=== PATIENT | male | born 1930 | race Caucasian/White ===

== ENCOUNTER → 2016-09-13 | Outpatient (CLI) | payer MEDICARE, BC ==
--- NOTE | 2016-09-13 13:36 | CT ---
EXAMINATION TYPE: CT lumbar spine wo con DATE OF EXAM: 09/13/2016 12:12 PM COMPARISON: NONE HISTORY: Low back pain, spondylosis without myelopathy, and lumbar region spinal stenosis per order. Pain in back extending into right buttocks and thigh per patient. Weakness in left leg per patient. CT DLP: 780.0 mGycm Automated exposure control for dose reduction was used. FINDINGS: 5 lumbar type vertebra are identified. There is marked disc space loss L4-L5 level. There is attempte d surgery with artificial disc noted along the left lateral articulation of L4 and L5 vertebra. The L 5 vertebra is shifted just over 2 cm to the left of midline relative to the L4 vertebra. Some ossific fusion at this L4-L5 level is felt present. Posterior surgical change with multilevel laminectomy de fects and spinous process resection in the lower lumbar spine is seen. Posterior irregular soft tissu e suspected scar tissue extends to the spinal canal. Vertebral body and disc space heights above L4 l evel are felt within normal limits. Review of axial images shows the T12-L1 and L1-L2 levels to appear within normal limits. Axial images at L2-L3 level show mild broad disc bulge and mild facet degenerative changes bilaterall y. There is slightly more prominent right foraminal disc protrusion component on axial image 53. Ther e is mild right-sided neural foraminal narrowing noted. Axial images at the L3-L4 level show bilateral laminectomy defects and spinous process resection. Pos terior scar tissue is seen. Spinal canal is preserved. Bilateral neural foramina are felt mildly encr oached on sagittal images. Axial images at L4-L5 level show posterior surgical change with surrounding scar tissue around spinal canal. There is moderate to severe facet arthropathy bilaterally. Right-sided neural foramen is simmons nt. Left-sided neural foramina is obliterated by heterotopic ossification and leftward shift of L5 ve rtebra. Axial images at L5-S1 level show moderate facet arthropathy bilaterally. Posterior surgical change wi th scar tissue is present. Spinal canal appears preserved. Left-sided neural foramen is patent. Right side is moderately narrowed seen best sagittal image 16 with some marginal spurring present. Linear calcifications along course of the right S1 exiting nerve through the sacral ala with more pos terior scar tissue is noted near axial image 80. Etiology uncertain. Moderate calcifications of aorta extending into branch vessels is seen. There is suspected 2 mm nonob structing calculus mid to lower pole level right kidney on coronal image 13. There is aortobiiliac st ent graft noted beginning just above renal artery origins. IMPRESSION: ATTEMPTED SURGERY IN THE LOWER LUMBAR SPINE WITH SATISFACTORY POSTERIOR DECOMPRESSION. THERE IS PERSI STENT MALALIGNMENT L4-L5 LEVEL. 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 OTHER FINDINGS ARE NOTED DETAILED ABOVE.
== END | disposition home or self-care (01) ==
LOC: RADCTMAIN 11:54
PROVIDERS: ATTEND Physical Medicine & Rehabilitation
DX: M48.06 Spinal stenosis, lumbar region (principal); M99.73 Connective tissue and disc stenosis of intervertebral foramina of lumbar region; M48.8X6 Other specified spondylopathies, lumbar region
CPT/HCPCS: 72131

== ENCOUNTER → 2016-10-20 | Outpatient (CLI) | payer MEDICARE, BC ==
[2016-10-20 11:46] LABS: Blood Urea Nitrogen 26 mg/dL (9-20); Non-African American GFR(MDRD) >60 (>60 ml/min/1.73 sqM)
--- NOTE | 2016-10-20 13:21 | CT ---
EXAMINATION TYPE: CT ChestAbdPelvis w con DATE OF EXAM: 10/20/2016 COMPARISON: CT chest March 08, 2016. CT lumbar spine September 13, 2016 HISTORY: Prior on PACS. Lymphoma. Omni 300/100 ml was administered through a 22 gauge IV placed in th e left lateral wrist. A 50 ml bolus of saline followed the injection of contrast. Labs drawn at [facility] on 10-20-2016: BUN 16, Cr 0.69 and GFR >60. Surgical history and current medication list are attached and sent to PACs. Positive history of HTN and diabetes. DLP: 3839. CT DLP: 2024 mGycm. Automated Exposure Control for Dose Reduction was Utilized. CONTRAST: CT scan of the thorax, abdomen and pelvis is performed with oral and with IV Contrast, patient inject ed with 100 mL of Omnipaque 300. FINDINGS: LUNGS: Mild to moderate underlying emphysematous changes redemonstrated. There is interval resolution of left upper lobe multifocal groundglass opacity and infiltrates. No concerning parenchymal nodule or mass is present currently. Mild biapical scarring is redemonstrated. No pleural effusion or pneumo thorax is seen. MEDIASTINUM: There are no greater than 1 cm hilar or mediastinal lymph nodes. No cardiomegaly or pe ricardial effusion is seen. Multilead pacemaker is redemonstrated. OTHER: No additional significant abnormality is seen. LIVER/GB: No significant abnormality is appreciated. PANCREAS: No significant abnormality is seen. SPLEEN: No significant abnormality is seen. ADRENALS: No significant abnormality is seen. KIDNEYS: No significant abnormality is seen. BOWEL: No significant abnormality is seen. GENITAL ORGANS: Prostate gland is heterogeneous in appearance and slightly enlarged in size suggestin g BPH bulging on bladder base. LYMPH NODES: No greater than 1cm abdominal or pelvic lymph nodes are appreciated. OSSEOUS STRUCTURES: There is postsurgical change L4-L5 level with posterior decompression. There is r ight lateral step-off of L4 on L5. Advanced disc space narrowing is seen. Artificial disc is displace d. There is irregular posterior soft tissue with more central low dense component in which infectious process cannot be excluded. No significant change from most recent CT lumbar spine study. OTHER: There is patent aortobiiliac stent graft identified. IMPRESSION: No suspicious mass or adenopathy is seen.
== END | disposition home or self-care (01) ==
LOC: RADCTMAIN 11:00
PROVIDERS: ATTEND Internal Medicine Hematology & Oncology
DX: C83.38 Diffuse large B-cell lymphoma, lymph nodes of multiple sites (principal)
CPT/HCPCS: 82565; 84520; 71260; 74177; 36415; Q9967

== ENCOUNTER 2016-12-05 11:22 | Inpatient (IN) | payer MEDICARE, BC ==
[2016-12-05] MEDS ORDERED: DIPH,PERTUS(ACELL)TETVAC-LF 0.5 ML VIAL IM ONE (12:00)
[2016-12-05] MEDS ORDERED: SODIUM CHLORIDE 0.9% 500 ML IV SCH (12:00)
--- NOTE | 2016-12-05 12:04 | ED ---
General Adult HPI - General Chief complaint: Dizziness Stated complaint: RT HAND INFECTION, LOW BP Time Seen by Provider: 12/05/16 11:48 Source: patient, family, RN notes reviewed Mode of arrival: wheelchair Limitations: no limitations - History of Present Illness Initial comments: Patient is a pleasant 86-year-old male presenting to the emergency department with right hand redness. Patient states 2 or 3 days ago he was drilling His hand. Unclear last tetanus immunization. Patient states now it is swollen and red. Patient went to urgent care today and was advised to come to the hospital. Blood pressure there was 78 systolic. Patient does admit to having lightheadedness with standing up. Patient states if he stands up slow he does not have those symptoms. No symptoms while lying down. No fever. - Related Data Home Medications Medication Instructions Recorded Confirmed Amitriptyline HCl [Elavil] 50 mg PO HS 03/06/16 12/05/16 Atorvastatin [Lipitor] 40 mg PO HS 03/06/16 12/05/16 HYDROcodone/APAP 10-325MG [[place] 1 tab PO Q4HR PRN 03/06/16 12/05/16 10-325] Levothyroxine Sodium [Synthroid] 75 mcg PO DAILY 03/06/16 12/05/16 Nitroglycerin Sl Tabs [Nitrostat] 0.4 mg SUBLINGUAL Q5M PRN 03/06/16 12/05/16 Omeprazole 20 mg PO DAILY 03/06/16 12/05/16 Temazepam [Restoril] 30 mg PO HS 03/06/16 12/05/16 rOPINIRole HCL [Requip] 2 mg PO HS 03/06/16 12/05/16 Albuterol Nebulized [Ventolin 2.5 mg INHALATION RT-BID PRN 12/05/16 12/05/16 Nebulized] Carvedilol [Coreg] 3.125 mg PO DAILY 12/05/16 12/05/16 Losartan [Cozaar] 50 mg PO BID 12/05/16 12/05/16 Previous Rx's Medication Instructions Recorded Albuterol Inhaler [Ventolin Hfa 1 - 2 puff INHALATION Q6HR PRN #1 03/11/16 Inhaler] inhaler Allergies Allergy/AdvReac Type Severity Reaction Status Date / Time Penicillins Allergy Unknown Verified 08/06/17 12:45 Review of Systems ROS Statement: Those systems with pertinent positive or pertinent negative responses have been documented in the HPI. ROS Other: All systems not noted in ROS Statement are negative. Constitutional: Denies: fever Eyes: Denies: eye pain ENT: Denies: ear pain Respiratory: Denies: cough Cardiovascular: Denies: chest pain Endocrine: Denies: fatigue Gastrointestinal: Denies: abdominal pain Genitourinary: Denies: dysuria Musculoskeletal: Denies: back pain Skin: Reports: rash Neurological: Denies: weakness Past Medical History Past Medical History: Chest Pain / Angina, Hyperlipidemia, Hypertension Additional Past Medical History / Comment(s): Lymphoma, testicular cancer History of Any Multi-Drug Resistant Organisms: MRSA Date of last positivie culture/infection: 2013 MDRO Source:: back Past Surgical History: Pacemaker Additional Past Surgical History / Comment(s): quadruple bypass, lower aortic stent, "new artery in right thigh", power port right chest wall Type of Cardiac Device: Biventricular Pacemaker Device Placement Date:: 2008 Past Psychological History: Depression Smoking Status: Former smoker Past Alcohol Use History: None Reported Past Drug Use History: None Reported General Exam Limitations: no limitations General appearance: alert, in no apparent distress Head exam: Present: atraumatic Eye exam: Present: normal appearance, PERRL ENT exam: Present: mucous membranes dry Neck exam: Present: normal inspection Respiratory exam: Present: normal lung sounds bilaterally Cardiovascular Exam: Present: regular rate, normal rhythm, systolic murmur GI/Abdominal exam: Present: soft. Absent: tenderness Extremities exam: Present: tenderness, other (Right dorsal hand with mild swelling and erythema and tenderness. Distally the extremity is neurovascular intact. Good rougher helper strength.) Neurological exam: Present: alert. Absent: motor sensory deficit Psychiatric exam: Present: normal affect, normal mood Skin exam: Present: erythema (Right dorsal hand extending to the wrist) Course Vital Signs 12/05/16 12/05/16 12/05/16 11:42 12:11 12:16 Temperature 97.5 F L Pulse Rate 90 71 Pulse Rate [ 71 Right Sitting] Pulse Rate [ 73 Right Standing] Pulse Rate [ 70 Right Supine] Respiratory 18 18 Rate Blood Pressure 98/55 122/68 Blood Pressure 134/63 [Right Arm Sitting] Blood Pressure 113/41 [Right Arm Standing] Blood Pressure 122/65 [Right Arm Supine] O2 Sat by Pulse 94 L 95 Oximetry EKG Findings - EKG Comments: EKG Findings:: Paced rhythm at 71. [place] 138. QRS 166. QT 474. QTC 515. [place] and indeterminate. Normal QRS. No acute ST change. Medical Decision Making - Medical Decision Making Patient has obvious cellulitis of the right hand and will be treated with antibiotics for this. Patient technically does meet sepsis criteria, diagnosed at 1322. Blood cultures and lactic acid has been ordered. IV antibiotics will be ordered. Patient will be provided some fluids for lightheadedness and hypotension prior to arrival and infection. - Lab Data Result diagrams: 12/05/16 12:00 12/05/16 12:00 Lab Results 12/05/16 12/05/16 12/05/16 Range/Units 12:00 12:00 12:00 WBC 10.6 (3.8-10.6) k/uL RBC 4.35 (4.30-5.90) m/uL Hgb 13.0 (13.0-17.5) gm/dL Hct 40.5 (39.0-53.0) % MCV 92.9 (80.0-100.0) fL MCH 29.9 (25.0-35.0) pg MCHC 32.2 (31.0-37.0) g/dL RDW 16.3 H (11.5-15.5) % Plt Count 144 L (150-450) k/uL Neutrophils % 89 % Lymphocytes % 4 % Monocytes % 5 % Eosinophils % 1 % Basophils % 0 % Neutrophils # 9.5 H (1.3-7.7) k/uL Lymphocytes # 0.4 L (1.0-4.8) k/uL Monocytes # 0.5 (0-1.0) k/uL Eosinophils # 0.1 (0-0.7) k/uL Basophils # 0.0 (0-0.2) k/uL Anisocytosis Slight PT (9.0-12.0) sec INR (<1.2) APTT (22.0-30.0) sec Sodium 141 (137-145) mmol/L Potassium 3.6 (3.5-5.1) mmol/L Chloride 105 (98-107) mmol/L Carbon Dioxide 27 (22-30) mmol/L Anion Gap 9 mmol/L BUN 18 (9-20) mg/dL Creatinine 1.00 (0.66-1.25) mg/dL Est GFR (MDRD) Af Amer >60 (>60 ml/min/1.73 sqM) Est GFR (MDRD) Non-Af >60 (>60 ml/min/1.73 sqM) Glucose 101 H (74-99) mg/dL Plasma Lactic Acid [place] (0.7-2.0) mmol/L Calcium 9.8 (8.4-10.2) mg/dL Total Bilirubin 2.0 H (0.2-1.3) mg/dL AST 17 (17-59) U/L ALT 30 (21-72) U/L Alkaline Phosphatase 71 (38-126) U/L Total Creatine Kinase 55 (55-170) U/L CK-MB (CK-2) 1.8 (0.0-2.4) ng/mL CK-MB (CK-2) Rel Index 3.3 Troponin I 0.029 (0.000-0.034) ng/mL Total Protein 5.8 L (6.3-8.2) g/dL Albumin 3.7 (3.5-5.0) g/dL 12/05/16 12/05/16 Range/Units 12:00 12:00 WBC (3.8-10.6) k/uL RBC (4.30-5.90) m/uL Hgb (13.0-17.5) gm/dL Hct (39.0-53.0) % MCV (80.0-100.0) fL MCH (25.0-35.0) pg MCHC (31.0-37.0) g/dL RDW (11.5-15.5) % Plt Count (150-450) k/uL Neutrophils % % Lymphocytes % % Monocytes % % Eosinophils % % Basophils % % Neutrophils # (1.3-7.7) k/uL Lymphocytes # (1.0-4.8) k/uL Monocytes # (0-1.0) k/uL Eosinophils # (0-0.7) k/uL Basophils # (0-0.2) k/uL Anisocytosis PT 10.2 (9.0-12.0) sec INR 1.0 (<1.2) APTT 21.9 L (22.0-30.0) sec Sodium (137-145) mmol/L Potassium (3.5-5.1) mmol/L Chloride (98-107) mmol/L Carbon Dioxide (22-30) mmol/L Anion Gap mmol/L BUN (9-20) mg/dL Creatinine (0.66-1.25) mg/dL Est GFR (MDRD) Af Amer (>60 ml/min/1.73 sqM) Est GFR (MDRD) Non-Af (>60 ml/min/1.73 sqM) Glucose (74-99) mg/dL Plasma Lactic Acid [place] 1.2 (0.7-2.0) mmol/L Calcium (8.4-10.2) mg/dL Total Bilirubin (0.2-1.3) mg/dL AST (17-59) U/L ALT (21-72) U/L Alkaline Phosphatase (38-126) U/L Total Creatine Kinase (55-170) U/L CK-MB (CK-2) (0.0-2.4) ng/mL CK-MB (CK-2) Rel Index Troponin I (0.000-0.034) ng/mL Total Protein (6.3-8.2) g/dL Albumin (3.5-5.0) g/dL - Radiology Data Radiology results: image reviewed (Chest x-ray shows patchy bilateral infiltrates, possible pneumonia) Critical Care Time Critical Care Time: Yes Total Critical Care Time: 32 Disposition Clinical Impression: Sepsis, Cellulitis, Lightheadedness Disposition: ADMITTED IP TO THIS [facility] Referrals: Momo Khan MD [Primary Care Provider] - 1-2 days Decision Time: 13:23
[2016-12-05 12:26] LABS: Anisocytosis Slight; Basophils % (A) 0 %; CH 30.2; CHCM 32.6; Eosinophils # (A) 0.1 k/uL (0-0.7); Eosinophils % (A) 1 %; HCT 40.5 % (39.0-53.0); HDW 2.61; Luc % (Auto) 1; Lymphocytes # (A) 0.4 k/uL (1.0-4.8); Lymphocytes % (A) 4 %; MCH 29.9 pg (25.0-35.0); MCHC 32.2 g/dL (31.0-37.0); MCV 92.9 fL (80.0-100.0); Mean Platelet Volume 8.2; Monocytes # (A) 0.5 k/uL (0-1.0); Monocytes % (A) 5 %; Neutrophils # (A) 9.5 k/uL (1.3-7.7); Neutrophils % (A) 89 %; RBC 4.35 m/uL (4.30-5.90); RDW 16.3 % (11.5-15.5); WBC 10.6 k/uL (3.8-10.6)
[2016-12-05 12:34] LABS: Partial Thromboplastin Time 21.9 sec (22.0-30.0); Prothrombin Time 10.2 sec (9.0-12.0)
--- NOTE | 2016-12-05 12:37 | XR ---
EXAMINATION TYPE: XR chest 2V DATE OF EXAM: 12/05/2016 HISTORY: Fever. REFERENCE: Previous study dated 03/07/2016. FINDINGS: There has been a midline sternotomy. There is a multilead there are patchy bilateral infilt rates present. Pleural spaces are clear. IMPRESSION: 1. COPD. 2. PATCHY BILATERAL INFILTRATES LIKELY REPRESENTING PNEUMONIA.
[2016-12-05 12:41] LABS: ALT 30 U/L (21-72); AST 17 U/L (17-59); Alkaline Phosphatase 71 U/L (38-126); Anion Gap 9 mmol/L; Blood Urea Nitrogen 18 mg/dL (9-20); Calcium 9.8 mg/dL (8.4-10.2); Carbon Dioxide 27 mmol/L (22-30); Chloride 105 mmol/L (98-107); Glucose 101 mg/dL (74-99); Non-African American GFR(MDRD) >60 (>60 ml/min/1.73 sqM); Potassium 3.6 mmol/L (3.5-5.1); Sodium 141 mmol/L (137-145); Total Protein 5.8 g/dL (6.3-8.2)
[2016-12-05 12:57] LABS: Creatine Kinase MB 1.8 ng/mL (0.0-2.4); Troponin I 0.029 ng/mL (0.000-0.034)
[2016-12-05] MEDS ORDERED: PNEUMONIA PROTOCOL UTILIZED 1 EACH MISC PO PRN (13:24)
[2016-12-05] MEDS ORDERED: LEVOFLOXACIN 750MG-D5W PMX 750 MG in DEXTROSE/WATER 1 150ML.BAG IVPB STA (13:24)
[2016-12-05] MEDS ORDERED: AZTREONAM 2 GM in SODIUM CHLORIDE 0.9% 100 ML IVPB STA (13:26)
[2016-12-05 14:28] VITALS: BMI 25.7
[2016-12-05] MEDS ORDERED: NITROGLYCERIN SL TABS 0.4 MG TAB SUBLINGUAL PRN (15:26)
[2016-12-05] MEDS ORDERED: ALBUTEROL NEBULIZED 2.5 MG/3 ML INHALATION PRN (15:26)
[2016-12-05] MEDS ORDERED: IV VANCOMYCIN PER PHARMACY 1 EACH MISC MISCELLANE PRN (15:26)
[2016-12-05] MEDS: SODIUM CHLORIDE 0.9% 1,000 ML IV SCH (15:39)
--- NOTE | 2016-12-05 16:02 | P.HPIM ---
History of Present Illness 86-year-old gentleman came in for right hand cellulitis. Patient had mechanical injury from his drooling machine superficial injury and skin breakdown the right hand with pain which improved now up right knee as per 9 meant but patient started having redness local is of temperature found to have cellulitis was seen in urgent care because patient was hypotensive patient is sent in to ER in the ER admitted the patient because of concerns of sepsis secondary to hypotension. Patient received is a 10 I am and levofloxacin. Those that ring this can urine patient was started on vancomycin. Will will monitor overnight. Patient denied any fever, chills, nausea, vomiting blood cultures were obtained there is no obvious pus coming out of the skin breakdown or wound site area because of which we were unable to get any wound cultures. Review of Systems REVIEW OF SYSTEMS: CONSTITUTIONAL: No fever, no malaise, no fatigue. HEENT: No recent visual problems or hearing problems. Denied any sore throat. CARDIOVASCULAR: No chest pain, orthopnea, PND, no palpitations, no syncope. PULMONARY: No shortness of breath, no cough, no hemoptysis. GASTROINTESTINAL: No diarrhea, no nausea, no vomiting, no abdominal pain. Normoactive bowel sounds. NEUROLOGICAL: No headaches, no weakness, no numbness. HEMATOLOGICAL: Denies any bleeding or petechiae. GENITOURINARY: Denies any burning micturition, frequency, or urgency. MUSCULOSKELETAL/RHEUMATOLOGICAL: Denies any joint pain, swelling, or any muscle pain. ENDOCRINE: Denies any polyuria or polydipsia. The rest of the 14-point review of systems is negative. Past Medical History Past Medical History: Cancer, Chest Pain / Angina, COPD, GERD/Reflux, Hyperlipidemia, Hypertension, Pneumonia, Sleep Apnea/CPAP/BIPAP, Thyroid Disorder Additional Past Medical History / Comment(s): Lymphoma, testicular cancer, kidney stones, RLS History of Any Multi-Drug Resistant Organisms: MRSA Date of last positivie culture/infection: 2013 MDRO Source:: back Past Surgical History: Adenoidectomy, Coronary Bypass/CABG, Pacemaker, Tonsillectomy Additional Past Surgical History / Comment(s): quadruple bypass, lower aortic stent, "new artery in right thigh", power port right chest wall, 3 back surgeries - then found MRSA and had hardware removal. Type of Cardiac Device: Biventricular Pacemaker Device Placement Date:: 2009 Past Psychological History: Depression Smoking Status: Former smoker Past Alcohol Use History: None Reported Past Drug Use History: None Reported - Past Family History Father Additional Family Medical History / Comment(s): aortic aneurysm. Mother Family Medical History: CVA/TIA, Pneumonia Medications and Allergies Home Medications Medication Instructions Recorded Confirmed Type Amitriptyline HCl [Elavil] 50 mg PO HS 03/06/16 12/05/16 History Atorvastatin [Lipitor] 40 mg PO HS 03/06/16 12/05/16 History HYDROcodone/APAP 10-325MG [[place] 1 tab PO Q4HR PRN 03/06/16 12/05/16 History 10-325] Levothyroxine Sodium [Synthroid] 75 mcg PO DAILY 03/06/16 12/05/16 History Nitroglycerin Sl Tabs [Nitrostat] 0.4 mg SUBLINGUAL Q5M PRN 03/06/16 12/05/16 History Omeprazole 20 mg PO DAILY 03/06/16 12/05/16 History Temazepam [Restoril] 30 mg PO HS 03/06/16 12/05/16 History rOPINIRole HCL [Requip] 2 mg PO HS 03/06/16 12/05/16 History Albuterol Nebulized [Ventolin 2.5 mg INHALATION RT-BID PRN 12/05/16 12/05/16 History Nebulized] Carvedilol [Coreg] 3.125 mg PO DAILY 12/05/16 12/05/16 History Losartan [Cozaar] 50 mg PO BID 12/05/16 12/05/16 History Allergies Allergy/AdvReac Type Severity Reaction Status Date / Time Penicillins Allergy Unknown Verified 12/05/16 12:45 Physical Exam Vitals: Vital Signs Temp Pulse Pulse Pulse Pulse Resp BP 12/05/16 13:29 96.9 F L 69 16 171/77 12/05/16 12:16 71 73 70 12/05/16 12:11 71 18 122/68 12/05/16 11:42 97.5 F L 90 18 98/55 BP BP BP Pulse Ox 12/05/16 13:29 96 12/05/16 12:16 134/63 113/41 122/65 12/05/16 12:11 95 12/05/16 11:42 94 L Intake and Output 12/05/16 12/05/1612/05/17 06:59 14:59 22:59 Other: Weight 83.46 kg Patient Weight 12/06/16 06:59 Weight 83.46 kg PHYSICAL EXAMINATION: GENERAL: The patient is alert and oriented x3, not in any acute distress. Well developed, well nourished. HEENT: Pupils are round and equally reacting to light. EOMI. No scleral icterus. No conjunctival pallor. Normocephalic, atraumatic. No pharyngeal erythema. No thyromegaly. CARDIOVASCULAR: S1 and S2 present. No murmurs, rubs, or gallops. PULMONARY: Chest is clear to auscultation, no wheezing or crackles. ABDOMEN: Soft, nontender, nondistended, normoactive bowel sounds. No palpable organomegaly. MUSCULOSKELETAL: No joint swelling or deformity. EXTREMITIES: No cyanosis, clubbing, patient does have redness and of the right hand and right hand extending up to the mid forearm circumferential with a nidus of infection or skin breakdown on the dose last but of the right hand without any obvious pus draining out of it. Patient does have local is of temperature and edema. [place] neurological examination did not reveal any focal deficits. SKIN: No rashes. Results CBC & Chem 7: 12/05/16 12:00 12/05/16 12:00 Labs: Abnormal Lab Results - Last 24 Hours (Table) 12/05/16 12/05/16 12/05/16 Range/Units 12:00 12:00 12:00 RDW 16.3 H (11.5-15.5) % Plt Count 144 L (150-450) k/uL Neutrophils # 9.5 H (1.3-7.7) k/uL Lymphocytes # 0.4 L (1.0-4.8) k/uL APTT 21.9 L (22.0-30.0) sec Glucose 101 H (74-99) mg/dL Total Bilirubin 2.0 H (0.2-1.3) mg/dL Total Protein 5.8 L (6.3-8.2) g/dL Thrombosis Risk Factor Assmnt - Choose All That Apply Any of the Below Risk Factors Present?: Yes Each Factor Represents 1 point: Abnormal pulmonary function (COPD) Other Risk Factors: Yes Each Risk Factor Represents 3 Points: Age 75 years or older Thrombosis Risk Factor Assessment Total Risk Factor Score: 4 Thrombosis Risk Factor Assessment Level: Moderate Risk Assessment and Plan Plan: #1 cellulitis of the right hand and forearm: Patient will be continue on IV vancomycin today, patient if he has some to manage improving patient will be discharged tomorrow. #2 hypotension unsure of the exact etiology but I doubt sepsis is causing his hypotension as his cellulitis is not that bad at this time anyways hypotension improved with IV fluid resuscitation. #3 coronary artery disease: Patient is on beta arina which will be continued ASHKAN inhibitor will be held because of concerns of hypotension. #4 hypertension: Patient is actually hypotensive earlier today because of which will hold off on ASHKAN inhibitor as mentioned above #5 gastroesophageal reflux disease #6 COPD without any acute exacerbation #7 hypothyroidism #8 gastroesophageal reflux disease #9 lymphoma and testicular cancer which is in remission.
[2016-12-05] MEDS: VANCOMYCIN 1,750 MG in SODIUM CHLORIDE 0.9% 250 ML IVPB SCH (16:26)
[2016-12-05] MEDS ORDERED: AMITRIPTYLINE HCL 50 MG TAB PO SCH (21:00)
[2016-12-05] MEDS ORDERED: ATORVASTATIN 40 MG TAB PO SCH (21:00)
[2016-12-05] MEDS: HYDROcodone/APAP 10-325MG 1 EACH TAB PO PRN (21:11)
[2016-12-06] MEDS ORDERED: AZTREONAM 2 GM in SODIUM CHLORIDE 0.9% 100 ML IVPB SCH ×2
[2016-12-06] MEDS: SODIUM CHLORIDE 0.9% 1,000 ML IV SCH (04:46)
[2016-12-06] MEDS ORDERED: LEVOTHYROXINE 75 MCG TAB PO SCH (06:30)
[2016-12-06 07:25] VITALS: BP 150/68; PULSE 71; RESP 20; TEMP 96.2
[2016-12-06] MEDS ORDERED: PANTOPRAZOLE 40 MG TABLET PO SCH (07:30)
[2016-12-06] MEDS ORDERED: CARVEDILOL 3.125 MG TAB PO SCH (07:30)
--- NOTE | 2016-12-06 07:51 | XR ---
EXAMINATION TYPE: XR chest 2V DATE OF EXAM: 12/06/2016 COMPARISON: Prior chest x-ray 12/05/2016 HISTORY: Pneumonia TECHNIQUE: Frontal and lateral views of the chest are obtained. FINDINGS: Prominent lung volumes may be indicative of underlying COPD. There is no airspace disease, pneumothorax, or pleural effusion. Right subclavian central venous catheter is present, distal tip o verlying the region of the superior vena cava. Cardiomediastinal silhouette, pulmonary vascularity an d latha are stable. IMPRESSION: There may be some improvement in aeration..
[2016-12-06] MEDS: VANCOMYCIN 1,750 MG in SODIUM CHLORIDE 0.9% 250 ML IVPB SCH (08:05)
[2016-12-06] MEDS: HYDROcodone/APAP 10-325MG 1 EACH TAB PO PRN (08:33)
[2016-12-06 09:04] LABS: Anisocytosis Slight; CH 30.4; CHCM 32.5; HCT 37.6 % (39.0-53.0); HDW 2.61; HGB 11.9 gm/dL (13.0-17.5); MCH 29.7 pg (25.0-35.0); MCHC 31.7 g/dL (31.0-37.0); MCV 93.8 fL (80.0-100.0); Mean Platelet Volume 8.5; RBC 4.01 m/uL (4.30-5.90); RDW 16.3 % (11.5-15.5); WBC 7.3 k/uL (3.8-10.6)
[2016-12-06 09:18] LABS: ALT 15 U/L (21-72); AST 13 U/L (17-59); Alkaline Phosphatase 60 U/L (38-126); Anion Gap 8 mmol/L; Blood Urea Nitrogen 14 mg/dL (9-20); Calcium 8.5 mg/dL (8.4-10.2); Carbon Dioxide 23 mmol/L (22-30); Chloride 110 mmol/L (98-107); Glucose 117 mg/dL (74-99); Non-African American GFR(MDRD) >60 (>60 ml/min/1.73 sqM); Potassium 3.5 mmol/L (3.5-5.1); Sodium 141 mmol/L (137-145); Total Bilirubin 1.4 mg/dL (0.2-1.3); Total Protein 4.7 g/dL (6.3-8.2)
[2016-12-06] MEDS ORDERED: LEVOFLOXACIN 750MG-D5W PMX 750 MG in DEXTROSE/WATER 1 150ML.BAG IVPB SCH (13:00)
--- NOTE | 2016-12-06 16:08 | P.DS ---
Providers Date of admission: 12/05/16 13:24 Attending physician: Viktor Rajan Primary care physician: [facility] Course: Patient was admitted for right hand cellulitis which improved significantly. Patient will be discharged on 5 more days of Bactrim comparing total 7 day of therapy patient received 2 days of IV vancomycin here. PHYSICAL EXAMINATION: GENERAL: The patient is alert and oriented x3, not in any acute distress. Well developed, well nourished. HEENT: Pupils are round and equally reacting to light. EOMI. No scleral icterus. No conjunctival pallor. Normocephalic, atraumatic. No pharyngeal erythema. No thyromegaly. CARDIOVASCULAR: S1 and S2 present. No murmurs, rubs, or gallops. PULMONARY: Chest is clear to auscultation, no wheezing or crackles. ABDOMEN: Soft, nontender, nondistended, normoactive bowel sounds. No palpable organomegaly. MUSCULOSKELETAL: No joint swelling or deformity. EXTREMITIES: No cyanosis, clubbing, patient does have redness in the right hand improved significantly. Shalonda neurological examination did not reveal any focal deficits. SKIN: No rashes. 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 #3 coronary artery disease: Patient is on beta arina , ASHKAN inhibitor dose was decreased upon discharge #4 hypertension: #5 gastroesophageal reflux disease #6 COPD without any acute exacerbation #7 hypothyroidism #8 gastroesophageal reflux disease #9 lymphoma and testicular cancer which is in remission. Plan - Discharge Summary New Discharge Prescriptions: New Sulfamethox-Tmp 800-160Mg [Bactrim DS 800-160 mg] 1 tab PO Q12HR #10 tab Continue Temazepam [Restoril] 30 mg PO HS Amitriptyline HCl [Elavil] 50 mg PO HS rOPINIRole HCL [Requip] 2 mg PO HS Omeprazole 20 mg PO DAILY Nitroglycerin Sl Tabs [Nitrostat] 0.4 mg SUBLINGUAL Q5M PRN PRN Reason: CHEST PAIN Atorvastatin [Lipitor] 40 mg PO HS Levothyroxine Sodium [Synthroid] 75 mcg PO DAILY HYDROcodone/APAP 10-325MG [[place] 10-325] 1 tab PO Q4HR PRN PRN Reason: Pain Albuterol Inhaler [Ventolin Hfa Inhaler] 1 - 2 puff INHALATION Q6HR PRN #1 inhaler PRN Reason: Wheezing Albuterol Nebulized [Ventolin Nebulized] 2.5 mg INHALATION RT-BID PRN PRN Reason: Shortness Of Breath Carvedilol [Coreg] 3.125 mg PO DAILY Changed Losartan [Cozaar] 50 mg PO DAILY #0 Discharge Medication List Amitriptyline HCl [Elavil] 50 mg PO HS 03/06/16 [History] Atorvastatin [Lipitor] 40 mg PO HS 03/06/16 [History] HYDROcodone/APAP 10-325MG [[place] 10-325] 1 tab PO Q4HR PRN 03/06/16 [History] Levothyroxine Sodium [Synthroid] 75 mcg PO DAILY 03/06/16 [History] Nitroglycerin Sl Tabs [Nitrostat] 0.4 mg SUBLINGUAL Q5M PRN 03/06/16 [History] Omeprazole 20 mg PO DAILY 03/06/16 [History] Temazepam [Restoril] 30 mg PO HS 03/06/16 [History] rOPINIRole HCL [Requip] 2 mg PO HS 03/06/16 [History] Albuterol Inhaler [Ventolin Hfa Inhaler] 1 - 2 puff INHALATION Q6HR PRN #1 inhaler 03/11/16 [Rx] Albuterol Nebulized [Ventolin Nebulized] 2.5 mg INHALATION RT-BID PRN 12/05/16 [ History] Carvedilol [Coreg] 3.125 mg PO DAILY 12/05/16 [History] Losartan [Cozaar] 50 mg PO DAILY #0 12/06/16 [Rx] Sulfamethox-Tmp 800-160Mg [Bactrim DS 800-160 mg] 1 tab PO Q12HR #10 tab [Rx] Follow up Appointment(s)/Referral(s): Momo Khan MD [Primary Care Provider] - 12/09/16 9:00 am Patient Instructions/Handouts: Cellulitis (DC) Discharge Disposition: HOME SELF-CARE
[2016-12-06] MEDS ORDERED: VANCOMYCIN 1,750 MG in SODIUM CHLORIDE 0.9% 250 ML IVPB SCH (20:00)
== END 2016-12-06 13:47 | disposition home or self-care (01) | DRG 603 ==
LOC: EC 11:22 → 4MS4W 13:24
PROVIDERS: ADMIT Internal Medicine; ATTEND Internal Medicine
DX: L03.113 Cellulitis of right upper limb (principal); I95.9 Hypotension, unspecified; J44.9 Chronic obstructive pulmonary disease, unspecified; I25.10 Atherosclerotic heart disease of native coronary artery without angina pectoris; I10 Essential (primary) hypertension; F32.9 Major depressive disorder, single episode, unspecified; E03.9 Hypothyroidism, unspecified; E78.5 Hyperlipidemia, unspecified; G25.81 Restless legs syndrome; G47.30 Sleep apnea, unspecified; K21.9 Gastro-esophageal reflux disease without esophagitis; Z95.1 Presence of aortocoronary bypass graft; Z85.72 Personal history of non-Hodgkin lymphomas; Z85.47 Personal history of malignant neoplasm of testis; Z79.899 Other long term (current) drug therapy; Z88.0 Allergy status to penicillin; Z87.891 Personal history of nicotine dependence; Z86.14 Personal history of Methicillin resistant Staphylococcus aureus infection; Z95.0 Presence of cardiac pacemaker
CPT/HCPCS: 36415; 71020; 80053; 82550; 82553; 83605; 84484; 85025; 85027; 85610; 85730; 87040; 90471; 90715; 93005; 94640; 94760; 96374; 99285

== ENCOUNTER 2016-12-26 13:27 | Inpatient (IN) | payer MEDICARE, BC ==
[2016-12-26] MEDS ORDERED: SODIUM CHLORIDE 0.9% 1,000 ML IV STA ×2 (14:02)
--- NOTE | 2016-12-26 14:06 | ED ---
General Adult HPI - General Chief complaint: Weakness Stated complaint: weakness Time Seen by Provider: 12/26/16 13:54 Source: patient, family, RN notes reviewed Mode of arrival: wheelchair Limitations: no limitations - History of Present Illness Initial comments: Patient is a pleasant 86-year-old male presenting to the emergency Department with general weakness. Patient states his legs were too weak to hold his weight this morning. Symptoms continue. Patient states he has been eating and drinking normally. Patient was recently started on losartan. Patient states she did have some discomfort to the back of his neck this morning however that has essentially resolved. No chest pain. No dyspnea. No confusion. No isolated area of weakness. - Related Data Home Medications Medication Instructions Recorded Confirmed Amitriptyline HCl [Elavil] 50 mg PO HS 03/06/16 12/26/16 Atorvastatin [Lipitor] 40 mg PO HS 03/06/16 12/26/16 HYDROcodone/APAP 10-325MG [[place] 1 tab PO Q4HR PRN 03/06/16 12/26/16 10-325] Levothyroxine Sodium [Synthroid] 75 mcg PO DAILY 03/06/16 12/26/16 Nitroglycerin Sl Tabs [Nitrostat] 0.4 mg SUBLINGUAL Q5M PRN 03/06/16 12/26/16 Omeprazole 20 mg PO DAILY 03/06/16 12/26/16 Temazepam [Restoril] 30 mg PO HS 03/06/16 12/26/16 rOPINIRole HCL [Requip] 2 mg PO TID 03/06/16 12/26/16 Carvedilol [Coreg] 3.125 mg PO DAILY 12/05/16 12/26/16 Losartan [Cozaar] 50 mg PO BID 12/26/16 12/26/16 Allergies Allergy/AdvReac Type Severity Reaction Status Date / Time Penicillins Allergy Unknown Verified 12/26/16 14:34 Review of Systems ROS Statement: Those systems with pertinent positive or pertinent negative responses have been documented in the HPI. ROS Other: All systems not noted in ROS Statement are negative. Constitutional: Denies: fever Eyes: Denies: eye pain ENT: Denies: ear pain Respiratory: Denies: cough, dyspnea Cardiovascular: Denies: chest pain Endocrine: Denies: fatigue Gastrointestinal: Denies: abdominal pain Genitourinary: Denies: dysuria Musculoskeletal: Denies: arthralgia Skin: Denies: rash Neurological: Denies: weakness Past Medical History Past Medical History: Cancer, Chest Pain / Angina, COPD, GERD/Reflux, Hyperlipidemia, Hypertension, Pneumonia, Sleep Apnea/CPAP/BIPAP, Thyroid Disorder Additional Past Medical History / Comment(s): Lymphoma, testicular cancer, kidney stones, RLS History of Any Multi-Drug Resistant Organisms: MRSA Date of last positivie culture/infection: 2013 MDRO Source:: back Past Surgical History: Adenoidectomy, Coronary Bypass/CABG, Pacemaker, Tonsillectomy Additional Past Surgical History / Comment(s): quadruple bypass, lower aortic stent, "new artery in right thigh", power port right chest wall, 3 back surgeries - then found MRSA and had hardware removal. Type of Cardiac Device: Biventricular Pacemaker Device Placement Date:: 2008 Past Psychological History: Depression Smoking Status: Former smoker Past Alcohol Use History: None Reported Past Drug Use History: None Reported - Past Family History Father Additional Family Medical History / Comment(s): aortic aneurysm. Mother Family Medical History: CVA/TIA, Pneumonia General Exam Limitations: no limitations General appearance: alert, in no apparent distress Head exam: Present: atraumatic Eye exam: Present: normal appearance, PERRL ENT exam: Present: mucous membranes dry Neck exam: Present: normal inspection. Absent: tenderness, meningismus Respiratory exam: Present: normal lung sounds bilaterally Cardiovascular Exam: Present: regular rate, normal rhythm, systolic murmur Expanded Peripheral pulses: 2+: Posterior Tibialis (R), Posterior Tibialis (L) GI/Abdominal exam: Present: soft. Absent: tenderness Extremities exam: Present: normal inspection. Absent: pedal edema, calf tenderness Neurological exam: Present: alert, oriented X3, CN II-XII intact Expanded Patient oriented to: Present: person, place, time Speech: Present: fluid speech Cranial nerves: EOM's Intact: Normal, Facial Sensation: Normal Sensory exam: Upper Extremity Light Touch: Normal, Lower Extremity Light Touch: Normal Motor strength exam: RUE: 5, LUE: 5, RLE: 5, LLE: 4 (Patient states this is normal for him and he does do rehab for left leg weakness.) Eye Response: (4) open spontaneously Motor Response: (6) obeys commands Verbal Response: (5) oriented Psychiatric exam: Present: normal affect, normal mood Skin exam: Present: normal color Course Vital Signs 12/26/16 12/26/16 12/26/16 13:30 14:30 14:54 Temperature 98.2 F Pulse Rate 68 70 55 L Respiratory 20 18 18 Rate Blood Pressure 77/39 98/53 98/55 O2 Sat by Pulse 96 96 96 Oximetry 12/26/16 12/26/16 15:30 15:56 Temperature Pulse Rate 69 71 Respiratory 18 18 Rate Blood Pressure 135/63 123/58 O2 Sat by Pulse 96 98 Oximetry EKG Findings - EKG Comments: EKG Findings:: Paced rhythm at 71. DE 138. QRS 156. QT 448. QTC 486. Superior axis. Wide-complex QRS. No acute ST change. Medical Decision Making - Medical Decision Making Patient does meet sepsis criteria diagnosed at 1632. Secondary to hypotension patient meets criteria for severe sepsis. Patient reevaluated and updated. Case discussed in detail with Dr. Luna, who will admit for hospital call through [facility]. - Lab Data Result diagrams: 12/26/16 13:54 12/26/16 13:54 Lab Results 12/26/16 12/26/16 12/26/16 Range/Units 13:54 13:54 13:54 WBC 14.0 H (3.8-10.6) k/uL RBC 4.09 L (4.30-5.90) m/uL Hgb 12.3 L (13.0-17.5) gm/dL Hct 37.4 L (39.0-53.0) % MCV 91.5 (80.0-100.0) fL MCH 30.1 (25.0-35.0) pg MCHC 32.9 (31.0-37.0) g/dL RDW 15.3 (11.5-15.5) % Plt Count 143 L (150-450) k/uL Neutrophils % 93 % Lymphocytes % 3 % Monocytes % 3 % Eosinophils % 0 % Basophils % 0 % Neutrophils # 12.9 H (1.3-7.7) k/uL Lymphocytes # 0.4 L (1.0-4.8) k/uL Monocytes # 0.5 (0-1.0) k/uL Eosinophils # 0.0 (0-0.7) k/uL Basophils # 0.0 (0-0.2) k/uL PT (9.0-12.0) sec INR (<1.2) APTT (22.0-30.0) sec Sodium 139 (137-145) mmol/L Potassium 4.4 (3.5-5.1) mmol/L Chloride 104 (98-107) mmol/L Carbon Dioxide 28 (22-30) mmol/L Anion Gap 7 mmol/L BUN 18 (9-20) mg/dL Creatinine 1.20 (0.66-1.25) mg/dL Est GFR (MDRD) Af Amer >60 (>60 ml/min/1.73 sqM) Est GFR (MDRD) Non-Af 58 (>60 ml/min/1.73 sqM) Glucose 100 H (74-99) mg/dL Calcium 9.2 (8.4-10.2) mg/dL Phosphorus 3.0 (2.5-4.5) mg/dL Magnesium 1.9 (1.6-2.3) mg/dL Total Bilirubin 1.6 H (0.2-1.3) mg/dL AST 14 L (17-59) U/L ALT 18 L (21-72) U/L Alkaline Phosphatase 68 (38-126) U/L Total Creatine Kinase 30 L (55-170) U/L CK-MB (CK-2) 1.1 (0.0-2.4) ng/mL CK-MB (CK-2) Rel Index 3.7 Troponin I 0.023 (0.000-0.034) ng/mL Total Protein 5.1 L (6.3-8.2) g/dL Albumin 3.2 L (3.5-5.0) g/dL Urine Color Urine Appearance (Clear) Urine pH (5.0-8.0) Ur Specific [place] (1.001-1.035) Urine Protein (Negative) Urine Glucose (UA) (Negative) Urine Ketones (Negative) Urine Blood (Negative) Urine Nitrite (Negative) Urine Bilirubin (Negative) Urine Urobilinogen (<2.0) mg/dL Ur Leukocyte Esterase (Negative) 12/26/16 12/26/16 Range/Units 13:54 16:11 WBC (3.8-10.6) k/uL RBC (4.30-5.90) m/uL Hgb (13.0-17.5) gm/dL Hct (39.0-53.0) % MCV (80.0-100.0) fL MCH (25.0-35.0) pg MCHC (31.0-37.0) g/dL RDW (11.5-15.5) % Plt Count (150-450) k/uL Neutrophils % % Lymphocytes % % Monocytes % % Eosinophils % % Basophils % % Neutrophils # (1.3-7.7) k/uL Lymphocytes # (1.0-4.8) k/uL Monocytes # (0-1.0) k/uL Eosinophils # (0-0.7) k/uL Basophils # (0-0.2) k/uL PT 10.2 (9.0-12.0) sec INR 1.0 (<1.2) APTT 20.4 L (22.0-30.0) sec Sodium (137-145) mmol/L Potassium (3.5-5.1) mmol/L Chloride (98-107) mmol/L Carbon Dioxide (22-30) mmol/L Anion Gap mmol/L BUN (9-20) mg/dL Creatinine (0.66-1.25) mg/dL Est GFR (MDRD) Af Amer (>60 ml/min/1.73 sqM) Est GFR (MDRD) Non-Af (>60 ml/min/1.73 sqM) Glucose (74-99) mg/dL Calcium (8.4-10.2) mg/dL Phosphorus (2.5-4.5) mg/dL Magnesium (1.6-2.3) mg/dL Total Bilirubin (0.2-1.3) mg/dL AST (17-59) U/L ALT (21-72) U/L Alkaline Phosphatase (38-126) U/L Total Creatine Kinase (55-170) U/L CK-MB (CK-2) (0.0-2.4) ng/mL CK-MB (CK-2) Rel Index Troponin I (0.000-0.034) ng/mL Total Protein (6.3-8.2) g/dL Albumin (3.5-5.0) g/dL Urine Color Yellow Urine Appearance Clear (Clear) Urine pH 7.0 (5.0-8.0) Ur Specific [place] 1.009 (1.001-1.035) Urine Protein Negative (Negative) Urine Glucose (UA) Negative (Negative) Urine Ketones Negative (Negative) Urine Blood Negative (Negative) Urine Nitrite Negative (Negative) Urine Bilirubin Negative (Negative) Urine Urobilinogen <2.0 (<2.0) mg/dL Ur Leukocyte Esterase Negative (Negative) - Radiology Data Radiology results: image reviewed (Chest x-ray concerning for right lower lobe and right middle lobe infiltrate.) Critical Care Time Critical Care Time: Yes Total Critical Care Time: 34 Disposition Clinical Impression: Severe sepsis, Pneumonia, Hypotension Disposition: ADMITTED IP TO THIS [facility] Condition: Serious Referrals: Momo Khan MD [Primary Care Provider] - 1-2 days Decision Time: 16:50
[2016-12-26 14:30] LABS: Basophils % (A) 0 %; CH 29.6; CHCM 32.5; Eosinophils % (A) 0 %; HCT 37.4 % (39.0-53.0); HDW 2.73; HGB 12.3 gm/dL (13.0-17.5); Luc # (Auto) 0.09; Luc % (Auto) 1; Lymphocytes # (A) 0.4 k/uL (1.0-4.8); Lymphocytes % (A) 3 %; MCH 30.1 pg (25.0-35.0); MCHC 32.9 g/dL (31.0-37.0); MCV 91.5 fL (80.0-100.0); Mean Platelet Volume 7.6; Monocytes # (A) 0.5 k/uL (0-1.0); Monocytes % (A) 3 %; Neutrophils # (A) 12.9 k/uL (1.3-7.7); Neutrophils % (A) 93 %; RBC 4.09 m/uL (4.30-5.90); RDW 15.3 % (11.5-15.5); WBC (Perox) 14.54
[2016-12-26 14:31] VITALS: RESP 18
--- NOTE | 2016-12-26 14:39 | XR ---
EXAMINATION TYPE: XR cervical spine comp DATE OF EXAM: 12/26/2016 TECHNIQUE: Frontal, lateral, oblique, swimmers, and open mouth view of the cervical spine are obtaine d. HISTORY: Pain COMPARISON: None FINDINGS: The cervical spine is visualized only partially from C1 through C5 on the lateral image, i t is satisfactory in alignment without evidence of acute fracture or dislocation. The pre-vertebral soft tissue appears within normal limits. Multilevel degenerative changes seen of the cervical spine demonstrated as disc osteophyte complexes, intervertebral disc space narrowing, and uncovertebral hypertrophy. The C1-C2 articulation is within normal limits on the open mouth view. The oblique images are within normal limits. Incidental is ma de of calcific atheromatous changes of the left carotid artery as well as partial visualization of at heromatous changes of the right carotid artery. IMPRESSION: 1. No acute fracture or dislocation is seen in the cervical spine, as visualized. 2. Multilevel degenerative disc disease. 3. Incidental note of calcific atheromatous changes of the carotid arteries.
--- NOTE | 2016-12-26 14:40 | XR ---
EXAMINATION TYPE: XR chest 2V DATE OF EXAM: 12/26/2016 COMPARISON: 12/06/2016 HISTORY: Weakness, dizziness and neck pain TECHNIQUE: Frontal and lateral views of the chest are obtained. FINDINGS: Right midlung and lower lobe patchy opacity is appreciated, not present on the prior exam which could relate to early pneumonia or multifocal atelectasis as there is no evidence of pulmonary edema in the left lung remains clear. Multilead left-sided cardiac device is appreciated as well as r ight-sided Mediport and postsurgical changes of the chest. Cardiac size is within normal limits. IMPRESSION: Vague right midlung and right basilar patchy opacity that may represent early developing pneumonia and/or scattered atelectasis.
[2016-12-26 14:41] LABS: ALT 18 U/L (21-72); AST 14 U/L (17-59); Alkaline Phosphatase 68 U/L (38-126); Anion Gap 7 mmol/L; Blood Urea Nitrogen 18 mg/dL (9-20); Calcium 9.2 mg/dL (8.4-10.2); Carbon Dioxide 28 mmol/L (22-30); Chloride 104 mmol/L (98-107); Glucose 100 mg/dL (74-99); Magnesium 1.9 mg/dL (1.6-2.3); Non-African American GFR(MDRD) 58 (>60 ml/min/1.73 sqM); Potassium 4.4 mmol/L (3.5-5.1); Sodium 139 mmol/L (137-145); Total Bilirubin 1.6 mg/dL (0.2-1.3); Total Protein 5.1 g/dL (6.3-8.2)
[2016-12-26 14:46] LABS: Partial Thromboplastin Time 20.4 sec (22.0-30.0); Prothrombin Time 10.2 sec (9.0-12.0)
[2016-12-26 15:05] LABS: Creatine Kinase MB 1.1 ng/mL (0.0-2.4); Troponin I 0.023 ng/mL (0.000-0.034)
[2016-12-26 16:21] LABS: Appearance,Urine Clear (Clear); Bilirubin,Urine Negative (Negative); Glucose,Urine (UA) Negative (Negative); Ketones,Urine Negative (Negative); Leukocyte Esterase,Urine Negative (Negative); Nitrite,Urine Negative (Negative); Protein,Urine Negative (Negative); Specific Gravity,Urine 1.009 (1.001-1.035); UA Billing (MACRO vs. MICRO) CHEM; Urobilinogen,Urine <2.0 mg/dL (<2.0)
[2016-12-26] MEDS ORDERED: AZTREONAM 2 GM in SODIUM CHLORIDE 0.9% 100 ML IVPB STA (16:32)
[2016-12-26] MEDS ORDERED: LEVOFLOXACIN 750MG-D5W PMX 750 MG in DEXTROSE/WATER 1 150ML.BAG IVPB STA (16:32)
[2016-12-26] MEDS ORDERED: PNEUMONIA PROTOCOL UTILIZED 1 EACH MISC PO PRN (16:32)
[2016-12-26] MEDS ORDERED: ACETAMINOPHEN TAB 325 MG TAB PO PRN (16:45)
[2016-12-26] MEDS: IPRATROPIUM-ALBUTEROL 3 ML NEB INHALATION SCH (20:54)
--- NOTE | 2016-12-26 21:56 | P.HPIM ---
History of Present Illness H&P Date: 12/26/16 Chief Complaint: Generalized weakness, mainly lower extremities 86 years old gentleman with history of CABG and biventricular pacemaker, COPD, recurrent questionable pneumonia, who presented to ED with complaints of lower extremity weakness as well as progressive coughing from baseline that is dry without phlegm. Daughter also reported frequent recent dizziness attacks and falling into couch without loss of consciousness and without head trauma. He denied dysuria, abdominal pain, change in bowel habits, sensory deficits, but reported lower extremities failing him frequently, denies fevers or chills. He feels very dry. He however reported that he has been eating and drinking okay. In the ED his initial blood pressure was 70s over 30s, got 1 L that improved his BP to 120s over 50s. He was noted to be having leukocytosis, without lactic acidosis. Chest x-ray was concerning for possible right basilar and mid lung opacity concerning for possible early pneumonia. He was started on aztreonam and levofloxacin in the ED per the pneumonia protocol, of note he was in the hospital recently frequently and the concern HCAP. Patient was admitted to medicine for further workup. Review of Systems Constitutional: Patient reports no fever, no chills, no weight changes, no change in appetite Eyes: Patient reports no double vision, no visual changes ENT: Patient reports no rhinorrhea, no post nasal drip, no sore throat Cardiovascular: Patient reports no chest, no edema, no palpitations, no orthopnea, no paroxysmal nocturnal dyspnea. Respiratory: Patient reports no dyspnea, but reported coughing and wheezing Gastrointestinal: Patient reports no nausea, no vomiting, no constipation, no diarrhea Genitourinary: Patient reports no dysuria, no urinary frequency, no hematuria. Musculoskeletal: Patient reports left knee joint pain, no joint swelling or weakness. Patient reports no muscular pain. Psychiatric: Patient reports no changes in mood, no sleeping problems. reported frequent changes in memory. Endocrine: Patient reports no thirst, no polyuria, no cold intolerance, no heat intolerance. Neurological: Reported dizziness. Patient reports no unusual paresthesias, no seizures, no paresis, no paralysis, no facial droop, no headache. Heme/Lymphatic: Patient reports no easy bruising, no bleeding tendency, no lymphadenopathy. Allergic/ Immunologic: Patient reports no recent allergic reactions or immunologic history. Skin: Patient reports no rashes or unusual lesions. Past Medical History Past Medical History: Cancer, Chest Pain / Angina, COPD, GERD/Reflux, Hyperlipidemia, Hypertension, Pneumonia, Sleep Apnea/CPAP/BIPAP, Thyroid Disorder Additional Past Medical History / Comment(s): Lymphoma, testicular cancer, kidney stones, RLS History of Any Multi-Drug Resistant Organisms: MRSA Date of last positivie culture/infection: 2013 MDRO Source:: back Past Surgical History: Adenoidectomy, Coronary Bypass/CABG, Pacemaker, Tonsillectomy Additional Past Surgical History / Comment(s): quadruple bypass, lower aortic stent, "new artery in right thigh", power port right chest wall, 3 back surgeries - then found MRSA and had hardware removal. Type of Cardiac Device: Biventricular Pacemaker Device Placement Date:: 2008 Past Psychological History: Depression Smoking Status: Former smoker Past Alcohol Use History: None Reported Past Drug Use History: None Reported - Past Family History Father Additional Family Medical History / Comment(s): aortic aneurysm. Mother Family Medical History: CVA/TIA, Pneumonia Medications and Allergies Home Medications Medication Instructions Recorded Confirmed Type Amitriptyline HCl [Elavil] 50 mg PO HS 03/06/16 12/26/16 History Atorvastatin [Lipitor] 40 mg PO HS 03/06/16 12/26/16 History HYDROcodone/APAP 10-325MG [[place] 1 tab PO Q4HR PRN 03/06/16 12/26/16 History 10-325] Levothyroxine Sodium [Synthroid] 75 mcg PO DAILY 03/06/16 12/26/16 History Nitroglycerin Sl Tabs [Nitrostat] 0.4 mg SUBLINGUAL Q5M PRN 03/06/16 12/26/16 History Omeprazole 20 mg PO DAILY 03/06/16 12/26/16 History Temazepam [Restoril] 30 mg PO HS 03/06/16 12/26/16 History rOPINIRole HCL [Requip] 2 mg PO TID 03/06/16 12/26/16 History Carvedilol [Coreg] 3.125 mg PO DAILY 12/05/16 12/26/16 History Losartan [Cozaar] 50 mg PO BID 12/26/16 12/26/16 History Allergies Allergy/AdvReac Type Severity Reaction Status Date / Time Penicillins Allergy Unknown Verified 12/26/16 14:34 Physical Exam Vitals: Vital Signs Temp Pulse Resp BP BP Pulse Ox 12/26/16 21:01 77 12/26/16 20:54 76 12/26/16 19:01 136/60 12/26/16 18:19 97.6 F 12/26/16 18:03 67 18 123/58 97 12/26/16 16:54 98.3 F 69 18 119/61 95 12/26/16 15:56 71 18 123/58 98 12/26/16 15:30 69 18 135/63 96 12/26/16 14:54 55 L 18 98/55 96 12/26/16 14:30 70 18 98/53 96 12/26/16 13:30 98.2 F 68 20 77/39 96 Intake and Output 12/26/16 12/26/16 12/26/16 06:59 14:59 22:59 Other: Weight 83.915 kg Patient Weight 12/27/16 06:59 Weight 83.915 kg Constitutional: No acute distress, conversant, pleasant Eyes: Anicteric sclerae, moist conjunctiva, no lid-lag PERRLA ENMT: NC/AT Oropharynx clear, no erythema, exudates Neck: Supple, FROM, no masses, or JVD No carotid bruits No thyromegaly Lungs: Clear to auscultation Clear to percussion Normal respiratory effort, no accessory muscle use, decreased breath sounds on the right side, slight expiratory wheezing Cardiovascular: Heart regular in rate and rhythm, No murmurs, gallops, or rubs No peripheral edema Abdominal: Soft Nontender, no guarding, rebound or rigidity Abdomen moving with respiration Normoactive bowel sounds No hepatomegaly, No splenomegaly No palpable mass No abdominal wall hernia noted Skin: Normal temperature, tone, texture, turgor No induration No subcutaneous nodules No rash, lesions No ulcers Extremities: No digital cyanosis No clubbing Pedal pulses intact and symmetrical Radial pulses intact and symmetrical Normal gait and station No calf tenderness, slight +1 lower extremities edema Psychiatric: Alert and oriented to person, place and time, but slow to answer and very hard of hearing Appropriate affect Intact judgement Neuro: Muscles Strength 5/5 in all 4 extremities Sensation to light touch grossly present throughout Cranial nerves II-XII grossly intact No focal sensory deficits Results CBC & Chem 7: 12/26/16 13:54 12/26/16 13:54 Labs: Abnormal Lab Results - Last 24 Hours (Table) 12/26/16 12/26/16 12/26/16 Range/Units 13:54 13:54 13:54 WBC 14.0 H (3.8-10.6) k/uL RBC 4.09 L (4.30-5.90) m/uL Hgb 12.3 L (13.0-17.5) gm/dL Hct 37.4 L (39.0-53.0) % Plt Count 143 L (150-450) k/uL Neutrophils # 12.9 H (1.3-7.7) k/uL Lymphocytes # 0.4 L (1.0-4.8) k/uL APTT (22.0-30.0) sec Glucose 100 H (74-99) mg/dL Total Bilirubin 1.6 H (0.2-1.3) mg/dL AST 14 L (17-59) U/L ALT 18 L (21-72) U/L Total Creatine Kinase 30 L (55-170) U/L Total Protein 5.1 L (6.3-8.2) g/dL Albumin 3.2 L (3.5-5.0) g/dL 12/26/16 Range/Units 13:54 WBC (3.8-10.6) k/uL RBC (4.30-5.90) m/uL Hgb (13.0-17.5) gm/dL Hct (39.0-53.0) % Plt Count (150-450) k/uL Neutrophils # (1.3-7.7) k/uL Lymphocytes # (1.0-4.8) k/uL APTT 20.4 L (22.0-30.0) sec Glucose (74-99) mg/dL Total Bilirubin (0.2-1.3) mg/dL AST (17-59) U/L ALT (21-72) U/L Total Creatine Kinase (55-170) U/L Total Protein (6.3-8.2) g/dL Albumin (3.5-5.0) g/dL Thrombosis Risk Factor Assmnt - DVT/VTE Prophylaxis DVT/VTE Prophylaxis: Pharmacologic Prophylaxis ordered Assessment and Plan Plan: Assessment and plan: --Generalized weakness, mainly lower extremity -Could be related to his care and sepsis possibly due to right sided possible gram-positive healthcare acquired pneumonia -Could be related to poor nutrition -Could be related to orthostasis, noted his soft blood pressure on admission -Could be related to his progressing possible dementia, his daughter reported him being diagnosed by severe dementia as an outpatient -Could be related to his likely chronic normocytic anemia as appears from the labs -Pending orthostatic checks, T12 levels, folate levels, HbA1c, TSH was 0.12 on with normal T4 -Nutritional assessment is recommended, morning team to contact internet marketing strategist if possible --Severe sepsis, likely due to healthcare acquired pneumonia as above -Continue aztreonam and levofloxacin per pneumonia protocol in this hospital -Negative UA -Pending blood cultures -MRSA coverage to be considered if there is no improvement in the morning. 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 --Baseline essential hypertension, currently with his soft blood pressure that resolved -Continue home cardiac, holding losartan for now -Orthostatics is pending, blood pressure medications to be adjusted based on results --History of CABG -Continue Coreg -Initiated baby aspirin --History of hypothyroidism -Continue home Synthyroid --History of AARON and COPD, currently is in no exacerbation -Patient is noncompliant with home CPAP -Placed on DuoNeb's, he is not on inhalers at home --Placement concern -Patient is living by his own, safety is a concern, PT/OT/psychiatric social worker supervisor were consulted -Daughter is requesting facility placement given her concerns with his advancing dementia --Possibly progressing dementia -Patient is not on dementia medications, needs to be evaluated as an outpatient --3 back surgeries -Holding his opioids for now, patient is not in pain DVT prophylaxis with heparin Code is full code, discussed with daughter who is the POA Time with Patient: Greater than 30
[2016-12-26] MEDS: SODIUM CHLORIDE 0.9% 1,000 ML IV SCH (22:00)
[2016-12-26] MEDS: AMITRIPTYLINE HCL 50 MG TAB PO SCH (22:00)
[2016-12-26] MEDS: FAMOTIDINE 20 MG TAB PO SCH (22:01)
[2016-12-26] MEDS: TEMAZEPAM 30 MG CAP PO SCH (22:01)
[2016-12-26] MEDS: ATORVASTATIN 40 MG TAB PO SCH (22:01)
[2016-12-26 22:30] VITALS: BMI 25.7
[2016-12-26] MEDS: AZTREONAM 1 GM in SODIUM CHLORIDE 0.9% 50 ML IVPB SCH (23:46)
[2016-12-27] MEDS ORDERED: AZTREONAM 2 GM in SODIUM CHLORIDE 0.9% 100 ML IVPB SCH ×2
[2016-12-27] MEDS: PANTOPRAZOLE 40 MG TABLET PO SCH (07:03)
[2016-12-27] MEDS: LEVOTHYROXINE 75 MCG TAB PO SCH (07:03)
[2016-12-27] MEDS: CARVEDILOL 3.125 MG TAB PO SCH ×2 (07:03→16:43)
[2016-12-27] MEDS: SODIUM CHLORIDE 0.9% 1,000 ML IV SCH ×3 (07:03→23:20)
--- NOTE | 2016-12-27 07:09 | XR ---
EXAMINATION TYPE: XR chest 2V DATE OF EXAM: 12/27/2016 COMPARISON: 12/26/2016 HISTORY: Pneumonia TECHNIQUE: Frontal and lateral views of the chest are obtained. FINDINGS: In addition to the vague right predominantly basilar reticular opacity a left reticular op acity has developed in the interim. There is no discrete confluence on the lateral image of this airs pace disease. Cardia mediastinal silhouette is within normal limits with a multilead left-sided cardiac device and postsurgical changes of the chest. Osseous structures are intact with minimal degenerative changes of the thoracic spine. IMPRESSION: Predominantly basilar bilateral reticular opacities that may represent interstitial pulm onary edema or atypical pneumonia/pneumonitis.
[2016-12-27] MEDS: IPRATROPIUM-ALBUTEROL 3 ML NEB INHALATION SCH ×3 (07:16→19:38)
[2016-12-27] MEDS ORDERED: ONDANSETRON 4 MG/2 ML VIAL IVP PRN (07:49)
[2016-12-27] MEDS ORDERED: guaiFENesin 600 MG TABLET.ER PO PRN (07:49)
[2016-12-27 08:09] LABS: Basophils % (A) 0 %; CH 29.6; CHCM 32.3; Eosinophils # (A) 0.1 k/uL (0-0.7); Eosinophils % (A) 1 %; HCT 40.2 % (39.0-53.0); HDW 2.71; HGB 13.1 gm/dL (13.0-17.5); Luc # (Auto) 0.08; Luc % (Auto) 1; Lymphocytes # (A) 0.5 k/uL (1.0-4.8); Lymphocytes % (A) 5 %; MCH 30.1 pg (25.0-35.0); MCHC 32.7 g/dL (31.0-37.0); Mean Platelet Volume 8.1; Monocytes # (A) 0.3 k/uL (0-1.0); Monocytes % (A) 3 %; Neutrophils # (A) 7.9 k/uL (1.3-7.7); Neutrophils % (A) 89 %; RBC 4.37 m/uL (4.30-5.90); RDW 15.3 % (11.5-15.5); WBC 8.9 k/uL (3.8-10.6); WBC (Perox) 8.95
[2016-12-27] MEDS: ENOXAPARIN 40 MG/0.4 ML SYRINGE SQ SCH (08:30)
[2016-12-27] MEDS: ASPIRIN 81 MG CHEW PO SCH (08:30)
[2016-12-27] MEDS: FAMOTIDINE 20 MG TAB PO SCH (08:30)
[2016-12-27] MEDS: AZTREONAM 1 GM in SODIUM CHLORIDE 0.9% 50 ML IVPB SCH ×3 (08:57→23:20)
[2016-12-27 13:40] LABS: Hemoglobin A1C 6.2 % (4.2-6.1)
[2016-12-27] MEDS ORDERED: LEVOFLOXACIN 750MG-D5W PMX 750 MG in DEXTROSE/WATER 1 150ML.BAG IVPB SCH (17:00)
--- NOTE | 2016-12-27 18:09 | P.PN ---
Subjective Principal diagnosis: weakness [id number] male with a past medical history of CABG and biventricular pacemaker, COPD, recurrent pneumonia, and obstructive sleep apnea presented with lower extremity weakness progressive coughing. In the emergency department his initial blood pressure was 70s over 30s. He was given 1 L of fluid with adequate response with systolic blood pressure 120. He was found to have chest x-ray possible pneumonia associated with leukocytosis and lactic acidosis. He was started on intravenous and and Levaquin in the emergency department. He was admitted to [facility] for further monitoring and care. Patient seen and examined at bedside. He complains of chase pain from having to crawl around on the floor. He states his breathing is slightly better. He still has a cough. He denies any nausea or vomiting. He states his generalized weakness has improved. Objective - Vital Signs Vital signs: Vital Signs Temp 97.6 F 12/27/16 04:00 Pulse 59 L 12/27/16 07:26 Resp 18 12/27/16 04:00 BP 113/60 12/27/16 04:00 Pulse Ox 95 12/27/16 07:16 Intake & Output 12/26/16 12/27/16 12/27/16 18:59 06:59 18:59 Intake Total 0 180 Output Total 200 Balance -200 180 Weight 83.914 kg 85.2 kg Intake: Oral 0 180 Output: Urine 200 Other: Voiding Method Toilet Urinal # Voids 1 - Exam General: non toxic, no distress, appears younger than stated age Derm: no rashes, no lesions Head: atraumatic, normocephalic, symmetric Eyes: EOMI, no lid lag, anicteric sclera ENT: no post nasal drip, no thrush Mouth: no lip lesion, mucus membranes moist Cardiovascular: S1S2 reg, no murmur, positive posterior tibial pulse bilateral, Lungs: Decreased Breath sounds bilateral, no rhonchi, no rales , no accessory muscle use Abdominal: soft, nontender to palpation, no guarding, no appreciable organomegaly Ext: no gross muscle atrophy, no edema, no contractures Neuro: CN II-XI grossly intact, no focal neuro deficits Psych: Alert, oriented, appropriate affect - Labs CBC & Chem 7: 12/27/16 06:50 12/26/16 13:54 Labs: Abnormal Lab Results - Last 24 Hours (Table) 12/26/16 12/26/16 12/26/16 Range/Units 13:54 13:54 13:54 WBC 14.0 H (3.8-10.6) k/uL RBC 4.09 L (4.30-5.90) m/uL Hgb 12.3 L (13.0-17.5) gm/dL Hct 37.4 L (39.0-53.0) % Plt Count 143 L (150-450) k/uL Neutrophils # 12.9 H (1.3-7.7) k/uL Lymphocytes # 0.4 L (1.0-4.8) k/uL APTT (22.0-30.0) sec Glucose 100 H (74-99) mg/dL Total Bilirubin 1.6 H (0.2-1.3) mg/dL AST 14 L (17-59) U/L ALT 18 L (21-72) U/L Total Creatine Kinase 30 L (55-170) U/L Total Protein 5.1 L (6.3-8.2) g/dL Albumin 3.2 L (3.5-5.0) g/dL 12/26/16 12/27/16 Range/Units 13:54 06:50 WBC (3.8-10.6) k/uL RBC (4.30-5.90) m/uL Hgb (13.0-17.5) gm/dL Hct (39.0-53.0) % Plt Count 104 L (150-450) k/uL Neutrophils # 7.9 H (1.3-7.7) k/uL Lymphocytes # 0.5 L (1.0-4.8) k/uL APTT 20.4 L (22.0-30.0) sec Glucose (74-99) mg/dL Total Bilirubin (0.2-1.3) mg/dL AST (17-59) U/L ALT (21-72) U/L Total Creatine Kinase (55-170) U/L Total Protein (6.3-8.2) g/dL Albumin (3.5-5.0) g/dL Assessment and Plan Plan: #1 healthcare associated pneumonia with sepsis-continue aztreonam and Levaquin, await blood cultures, if leukocytosis does not improve add vancomycin for MRSA coverage. Follow chest x-ray until clear. #2 generalized weakness with presyncope-telemetry, check echocardiogram, orthostatic negative, B12 and folate normal. His TSH was normal last admission. #3. Baseline hypertension, with current hypotension-continue to hold losartan, IV fluid, follow blood pressures closely #4. Hypothyroidism-continue and thyroid #5. History of CABG-continue baby aspirin and Coreg #6. Obstructive sleep apnea-currently noncompliant with his CPAP #7. COPD without exacerbation-DuoNeb therapy, not taking nebulized treatments or inhalers at home DVT prophylaxis: Lovenox Discussed with: Patient and care management Anticipated discharge: [address]: SNF A total of 30 minutes was spent on the care of this complex patient more than 50 % of the time was spent in counseling and care coordination.
[2016-12-27] MEDS: TEMAZEPAM 30 MG CAP PO SCH (21:55)
[2016-12-27] MEDS: AMITRIPTYLINE HCL 50 MG TAB PO SCH (21:56)
[2016-12-27] MEDS: ATORVASTATIN 40 MG TAB PO SCH (21:56)
[2016-12-28 06:33] LABS: CH 29.3; CHCM 31.9; HCT 36.6 % (39.0-53.0); HGB 11.8 gm/dL (13.0-17.5); Hypochromasia Slight; MCH 29.5 pg (25.0-35.0); MCHC 32.2 g/dL (31.0-37.0); MCV 91.9 fL (80.0-100.0); Mean Platelet Volume 7.4; RBC 3.98 m/uL (4.30-5.90); WBC 6.6 k/uL (3.8-10.6)
[2016-12-28] MEDS: CARVEDILOL 3.125 MG TAB PO SCH (06:35)
[2016-12-28] MEDS: LEVOTHYROXINE 75 MCG TAB PO SCH (06:35)
[2016-12-28] MEDS: PANTOPRAZOLE 40 MG TABLET PO SCH (06:35)
[2016-12-28 07:07] LABS: Anion Gap 7 mmol/L; Blood Urea Nitrogen 14 mg/dL (9-20); Calcium 8.7 mg/dL (8.4-10.2); Carbon Dioxide 23 mmol/L (22-30); Chloride 106 mmol/L (98-107); Glucose 91 mg/dL (74-99); Magnesium 1.8 mg/dL (1.6-2.3); Non-African American GFR(MDRD) >60 (>60 ml/min/1.73 sqM); Potassium 3.8 mmol/L (3.5-5.1); Sodium 136 mmol/L (137-145)
[2016-12-28] MEDS: ENOXAPARIN 40 MG/0.4 ML SYRINGE SQ SCH (07:51)
[2016-12-28] MEDS: ASPIRIN 81 MG CHEW PO SCH (07:51)
[2016-12-28] MEDS: AZTREONAM 1 GM in SODIUM CHLORIDE 0.9% 50 ML IVPB SCH (07:51)
[2016-12-28] MEDS: IPRATROPIUM-ALBUTEROL 3 ML NEB INHALATION SCH ×2 (08:18→13:39)
[2016-12-28 08:21] VITALS: BP 185/90; TEMP 97.4
[2016-12-28] MEDS ORDERED: FAMOTIDINE 20 MG TAB PO SCH (09:00)
--- NOTE | 2016-12-28 11:35 | ECHOF ---
Referral Reason:dizziness, presyncope MEASUREMENTS -------- HEIGHT: 182.9 cm WEIGHT: 85.7 kg BP: 137/66 IVSd: 1.4 cm (0.6 - 1.1) LVIDd: 2.6 cm (3.9 - 5.3) LVPWd: 1.3 cm (0.6 - 1.1) EDV(Teich): 24 ml IVSs: 1.9 cm LVIDs: 1.5 cm LVPWs: 1.5 cm %IVS Thck: 36 % ESV(Teich): 6 ml EF(Teich): 77 % %FS: 44 % SV(Teich): 19 ml LVOT Diam: 1.8 cm Ao Diam: 3.6 cm (2.0 - 3.7) AV Cusp: 1.5 cm (1.5 - 2.6) LA Diam: 2.8 cm (2.7 - 3.8) MV EXCURSION: 13.883 mm (> 18.000) MV EF SLOPE: 52 mm/s (70 - 150) MV E Haroon: 0.76 m/s MV DecT: 112 ms MV Dec Bartow: 6.8 m/s MV A Haroon: 1.16 m/s MV E/A Ratio: 0.65 MV PHT: 32 ms E/E': 10.61 E': 0.07 m/s MR Vmax: 2.02 m/s MR maxP.28 mmHg LVOT Vmax: 1.36 m/s LVOT maxP.38 mmHg LVOT Vmax: 1.40 m/s LVOT Vmean: 0.96 m/s LVOT maxP.80 mmHg LVOT meanP.30 mmHg LVOT Env.Ti: 304 ms LVOT VTI: 29.4 cm AV Vmax: 1.84 m/s AV maxP.61 mmHg GERSON Vmax, Pt: 1.8 cm GERSON Vmax: 1.8 cm AV Vmax: 1.94 m/s AV Vmean: 1.43 m/s AV maxP.05 mmHg AV meanP.00 mmHg AV Env.Ti: 286 ms AV VTI: 40.8 cm GERSON Vmax: 1.7 cm GERSON (VTI): 1.7 cm GERSON Vmax, Pt: 1.7 cm TR Vmax: 1.26 m/s TR maxP.33 mmHg RAP: 5.00 mmHg RVSP: 11.33 mmHg FINDINGS -------- Pacemaker This was a technically good study. There is mild concentric left ventricular hypertrophy. Overall left ventricular systolic function is normal with, an EF between 55 - 60 %. The right ventricle is normal in size and function. The left atrium is normal in size. The right atrium is normal in size. Aortic valve is trileaflet and is mildly thickened. There is mild aortic stenosis present. Peak/mean gradient across the Aortic Valve is 15.05mmHg / 9.00mmHg. The mitral valve leaflets are mildly thickened. Mild mitral regurgitation is present. Trace tricuspid regurgitation present. The right ventricular systolic pressure, as measured by Doppler, is 11.33mmHg. Pulmonic valve appears structurally normal. The aortic root size is normal. The pericardium is normal. CONCLUSIONS -------- 1. Pacemaker 2. Peak/mean gradient across the Aortic Valve is 15.05mmHg / 9.00mmHg. 3. The mitral valve leaflets are mildly thickened. 4. Mild mitral regurgitation is present. 5. Trace tricuspid regurgitation present. 6. The right ventricular systolic pressure, as measured by Doppler, is 11.33mmHg. 7. Pulmonic valve appears structurally normal. 8. The aortic root size is normal. 9. The pericardium is normal. 10. This was a technically good study. 11. There is mild concentric left ventricular hypertrophy. 12. Overall left ventricular systolic function is normal with, an EF between 55 - 60 %. 13. The right ventricle is normal in size and function. 14. The left atrium is normal in size. 15. The right atrium is normal in size. 16. Aortic valve is trileaflet and is mildly thickened. 17. There is mild aortic stenosis present. SENIOR MATERIALS ANALYST: Steph Emanuel RDCS
[2016-12-28 13:53] VITALS: PULSE 82
[2016-12-28] MEDS ORDERED: LEVOFLOXACIN 750 MG TAB PO SCH (17:00)
--- NOTE | 2016-12-28 17:06 | P.DS ---
Providers Date of admission: 12/26/16 16:50 Expected date of discharge: 12/28/16 Attending physician: Doris Allen DO Consults: None Primary care physician: Momo Khan - Discharge Diagnosis(es) (1) COPD (chronic obstructive pulmonary disease) Status: Acute (2) Hypotension Status: Acute (3) Pneumonia Status: Acute (4) Severe sepsis Status: Acute (5) Weakness Status: Acute Hospital Course: Patient is an 86-year-old male with a past medical history of CABG and biventricular pacemaker, COPD, recurrent pneumonia, and obstructive sleep apnea presented with lower extremity weakness and progressive coughing. In the emergency department his initial blood pressure was 70s over 30s. He was given 1 L of fluid with adequate response with systolic blood pressure 120. He was found to have chest x-ray possible pneumonia associated with leukocytosis and lactic acidosis. He was started on intravenous, azactam, and Levaquin in the emergency department. [facility] monitoring and care. On the morning after admission he had artery had significant improvement in his weakness. He was having some bilateral chase pain from having to crawl on the floor. He was maintained on antibiotics. His leukocytosis had resolved by the morning after admission. X-ray showed atypical pneumonia versus interstitial edema. An echocardiogram was done which shows no significant valvular disease or depressed ejection fraction. Patient' s breathing had normalized, cough had improved, and his weakness had resolved. He was evaluated by physical therapy who felt he was safe to go home with home health. He was up and ambulating in the hallways independently. His B12, folic acid, and TSH have all been normal within the last month. He had been restarted on his Coreg approximately 2 weeks prior, once this was restarted he had an increase in fatigue and was feeling lightheaded and dizzy. He felt that his symptoms may be due to his Coreg. I informed him to stay off of his Coreg until seen by his PCP Dr. Khan. He was feeling well and wanted to go home. He was subsequently discharged in stable condition. He was started on DuoNeb therapy as an inpatient, and was prescribed Combivent for outpatient use. Patient seen and examined at bedside. Cough improved, shortness of breath resolved, weakness improved, up and ambulating in hallways. General: non toxic, no distress, appears at stated age Derm: no rashes, no lesions Head: atraumatic, normocephalic, symmetric Eyes: EOMI, no lid lag, anicteric sclera ENT: no post nasal drip, no thrush Mouth: no lip lesion, mucus membranes moist Cardiovascular: S1S2 reg, no murmur, positive posterior tibial pulse bilateral, Lungs: CTA bilateral, no rhonchi, no rales , no accessory muscle use Abdominal: soft, nontender to palpation, no guarding, no appreciable organomegaly Ext: no gross muscle atrophy, no edema, no contractures Neuro: CN II-XI grossly intact, no focal neuro deficits Psych: Alert, oriented, appropriate affect A total of 36 minutes was spent preparing this complex discharge summary. Pertinent Studies: Chest x-ray with bilateral side basilar infiltrates consistent with atypical pneumonia or pneumonitis or interstitial edema. Patient Condition at Discharge: Stable Plan - Discharge Summary New Discharge Prescriptions: New Aspirin 81 mg PO DAILY guaiFENesin [Mucinex] 600 mg PO Q12HR PRN tab PRN Reason: Cough Levofloxacin [Levaquin] 750 mg PO Q24H #7 tab Ipratropium/Albuterol Sulfate [Combivent Respimat Inhaler] 1 puff INHALATION QID #1 inhaler Continue Temazepam [Restoril] 30 mg PO HS Amitriptyline HCl [Elavil] 50 mg PO HS rOPINIRole HCL [Requip] 2 mg PO TID Omeprazole 20 mg PO DAILY Nitroglycerin Sl Tabs [Nitrostat] 0.4 mg SUBLINGUAL Q5M PRN PRN Reason: CHEST PAIN Atorvastatin [Lipitor] 40 mg PO HS Levothyroxine Sodium [Synthroid] 75 mcg PO DAILY HYDROcodone/APAP 10-325MG [[place] 10-325] 1 tab PO Q4HR PRN PRN Reason: Pain Losartan [Cozaar] 50 mg PO BID Discontinued Carvedilol [Coreg] 3.125 mg PO DAILY Discharge Medication List Amitriptyline HCl [Elavil] 50 mg PO HS 03/06/16 [History] Atorvastatin [Lipitor] 40 mg PO HS 03/06/16 [History] HYDROcodone/APAP 10-325MG [[place] 10-325] 1 tab PO Q4HR PRN 03/06/16 [History] Levothyroxine Sodium [Synthroid] 75 mcg PO DAILY 03/06/16 [History] Nitroglycerin Sl Tabs [Nitrostat] 0.4 mg SUBLINGUAL Q5M PRN 03/06/16 [History] Omeprazole 20 mg PO DAILY 03/06/16 [History] Temazepam [Restoril] 30 mg PO HS 03/06/16 [History] rOPINIRole HCL [Requip] 2 mg PO TID 03/06/16 [History] Losartan [Cozaar] 50 mg PO BID 12/26/16 [History] Aspirin 81 mg PO DAILY 12/28/16 [Rx] Ipratropium/Albuterol Sulfate [Combivent Respimat Inhaler] 1 puff INHALATION QID #1 inhaler 12/28/16 [Rx] Levofloxacin [Levaquin] 750 mg PO Q24H #7 tab 12/28/16 [Rx] guaiFENesin [Mucinex] 600 mg PO Q12HR PRN tab 12/28/16 [Rx] Follow up Appointment(s)/Referral(s): Momo Khan MD [Primary Care Provider] - 12/30/16 2:30 pm [facility] Visiting Nurse, [NON-STAFF] - Activity/Diet/Wound Care/Special Instructions: Heart healthy diet, activity as tolerated Make sure to follow your blood pressures at home to determine if you will need the carvedilol in the future. Discharge Disposition: HOME WITH HOME HEALTH SERVICES
== END 2016-12-28 14:42 | disposition home health service (06) | DRG 871 ==
LOC: EC 13:27 → 6SEL 16:50
PROVIDERS: ADMIT Internal Medicine; ATTEND Internal Medicine
DX: A41.9 Sepsis, unspecified organism (principal); J18.9 Pneumonia, unspecified organism; J44.9 Chronic obstructive pulmonary disease, unspecified; F03.90 Unspecified dementia, unspecified severity, without behavioral disturbance, psychotic disturbance, mood disturbance, and anxiety; D64.9 Anemia, unspecified; R65.20 Severe sepsis without septic shock; I10 Essential (primary) hypertension; E03.9 Hypothyroidism, unspecified; G47.33 Obstructive sleep apnea (adult) (pediatric); K21.9 Gastro-esophageal reflux disease without esophagitis; G25.81 Restless legs syndrome; R29.6 Repeated falls; F32.9 Major depressive disorder, single episode, unspecified; R53.1 Weakness; Z91.19 Patient's noncompliance with other medical treatment and regimen; Z88.0 Allergy status to penicillin; Z79.899 Other long term (current) drug therapy; Z79.891 Long term (current) use of opiate analgesic; Z82.3 Family history of stroke; Z82.49 Family history of ischemic heart disease and other diseases of the circulatory system; Z87.891 Personal history of nicotine dependence; Z95.0 Presence of cardiac pacemaker; Z86.14 Personal history of Methicillin resistant Staphylococcus aureus infection; Z95.1 Presence of aortocoronary bypass graft; Z90.49 Acquired absence of other specified parts of digestive tract; Z85.47 Personal history of malignant neoplasm of testis; Z87.442 Personal history of urinary calculi; Z85.72 Personal history of non-Hodgkin lymphomas; Z87.01 Personal history of pneumonia (recurrent)
CPT/HCPCS: 36415; 71020; 72050; 80048; 80053; 81003; 82550; 82553; 82607; 82746; 83036; 83605; 83735; 84100; 84484; 85025; 85027; 85610; 85730; 87040; 87070; 87205; 93306; 94640; 94760; 96361; 96365; 96366; 99291

== ENCOUNTER 2017-01-28 11:10 | Inpatient (IN) | payer MEDICARE, BC ==
[2017-01-28] MEDS ORDERED: SODIUM CHLORIDE 0.9% 1,000 ML IV STA (11:16)
[2017-01-28] MEDS ORDERED: ONDANSETRON 4 MG/2 ML VIAL IVP STA (11:29)
--- NOTE | 2017-01-28 11:37 | ED ---
Dizziness HPI - General Chief Complaint: Syncope Stated Complaint: near syncope Time Seen by Provider: 01/28/17 11:10 Source: patient, EMS, RN notes reviewed Mode of arrival: EMS Limitations: no limitations - History of Present Illness Initial Comments: Is a 86-year-old male was brought in by EMS because of sudden onset of dizziness with nausea vomiting he states he stood up to move a blind his window when he became very dizzy and almost passed out he's had persistent nausea vomiting dizziness since. He gets dizzy when he tries to sit upright or get up right. He also has some double vision which is since resolved denies any headache denies any overt chest pain difficulty breathing loss of function to his upper or lower extremities no fevers chills sweats no recent illnesses. MD Complaint: dizziness, lightheadedness, other - Related Data Home Medications Medication Instructions Recorded Confirmed Amitriptyline HCl [Elavil] 50 mg PO HS 03/06/16 01/28/17 Atorvastatin [Lipitor] 40 mg PO HS 03/06/16 01/28/17 HYDROcodone/APAP 10-325MG [[place] 1 tab PO Q4HR PRN 03/06/16 01/28/17 10-325] Levothyroxine Sodium [Synthroid] 75 mcg PO DAILY 03/06/16 01/28/17 Nitroglycerin Sl Tabs [Nitrostat] 0.4 mg SUBLINGUAL Q5M PRN 03/06/16 01/28/17 Omeprazole 20 mg PO DAILY 03/06/16 01/28/17 Temazepam [Restoril] 30 mg PO HS 03/06/16 01/28/17 rOPINIRole HCL [Requip] 2 mg PO TID 03/06/16 01/28/17 Losartan [Cozaar] 25 mg PO DAILY 12/26/16 01/28/17 Albuterol Inhaler [Ventolin Hfa 1 - 2 puff INHALATION RT-QID PRN 01/28/17 Inhaler] Albuterol Nebulized [Ventolin 2.5 mg INHALATION RT-BID 01/28/17 01/28/17 Nebulized] Furosemide [Lasix] 10 mg PO DAILY 01/28/17 01/28/17 Potassium Chloride ER [K-Dur 10] 10 meq PO DAILY 09/29/17 09/29/17 Previous Rx's Medication Instructions Recorded guaiFENesin [Mucinex] 600 mg PO Q12HR PRN tab 12/28/16 Allergies Allergy/AdvReac Type Severity Reaction Status Date / Time Penicillins Allergy Unknown Verified 01/28/17 11:47 Childhood Review of Systems ROS Statement: Those systems with pertinent positive or pertinent negative responses have been documented in the HPI. ROS Other: All systems not noted in ROS Statement are negative. Past Medical History Past Medical History: Cancer, Chest Pain / Angina, COPD, GERD/Reflux, Hyperlipidemia, Hypertension, Pneumonia, Sleep Apnea/CPAP/BIPAP, Thyroid Disorder Additional Past Medical History / Comment(s): Lymphoma, testicular cancer, kidney stones, RLS History of Any Multi-Drug Resistant Organisms: MRSA Date of last positivie culture/infection: 2013 MDRO Source:: back Past Surgical History: Adenoidectomy, Coronary Bypass/CABG, Pacemaker, Tonsillectomy Additional Past Surgical History / Comment(s): quadruple bypass, lower aortic stent, "new artery in right thigh", power port right chest wall, 3 back surgeries - then found MRSA and had hardware removal. Past Anesthesia/Blood Transfusion Reactions: No Reported Reaction Type of Cardiac Device: Biventricular Pacemaker Device Placement Date:: 2008 Past Psychological History: Depression Smoking Status: Former smoker Past Alcohol Use History: None Reported Past Drug Use History: None Reported - Past Family History Father Additional Family Medical History / Comment(s): aortic aneurysm. Mother Family Medical History: CVA/TIA, Pneumonia General Exam - General Exam Comments Initial Comments: This is a well-developed well-nourished awake alert oriented times 3 male Limitations: no limitations General appearance: anxious, in distress Head exam: Present: atraumatic, normocephalic, normal inspection Eye exam: Present: normal appearance, PERRL, EOMI. Absent: scleral icterus, conjunctival injection, periorbital swelling ENT exam: Present: normal exam, mucous membranes moist Neck exam: Present: normal inspection. Absent: tenderness, meningismus, lymphadenopathy Respiratory exam: Present: normal lung sounds bilaterally. Absent: respiratory distress, wheezes, rales, rhonchi, stridor Cardiovascular Exam: Present: regular rate, normal rhythm, normal heart sounds. Absent: systolic murmur, diastolic murmur, rubs, gallop, clicks GI/Abdominal exam: Present: soft, normal bowel sounds. Absent: distended, tenderness, guarding, rebound, rigid Extremities exam: Present: normal inspection, full ROM, normal capillary refill. Absent: tenderness, pedal edema, joint swelling, calf tenderness Back exam: Present: normal inspection Neurological exam: Present: alert, oriented X3, CN II-XII intact Psychiatric exam: Present: normal affect, normal mood Skin exam: Present: warm, intact, diaphoretic, pallor. Absent: rash Course Vital Signs 01/28/17 01/28/17 01/28/17 11:15 11:40 12:19 Pulse Rate 68 75 Respiratory 18 21 18 Rate Blood Pressure 214/103 209/92 O2 Sat by Pulse 95 96 Oximetry 01/28/17 01/28/17 01/28/17 13:06 14:07 15:00 Pulse Rate 73 77 84 Respiratory 18 18 20 Rate Blood Pressure 150/67 138/65 166/74 O2 Sat by Pulse 96 95 100 Oximetry EKG Findings - EKG Results: EKG: interpreted by ERMD (Pace maker rate of 73 appear 150 QRS 172 QT since QTC of 492/542) Medical Decision Making - Medical Decision Making I did reevaluate the patient multiple occasions still has profound dizziness ileus probably getting some improvement I did discuss the case with the on-call physician covering his physician patient be admitted with neurology consultation. - Lab Data Result diagrams: 01/28/17 12:55 01/28/17 11:30 Lab Results 01/28/17 01/28/17 01/28/17 Range/Units 11:30 11:30 12:55 WBC (3.8-10.6) k/uL RBC (4.30-5.90) m/uL Hgb (13.0-17.5) gm/dL Hct (39.0-53.0) % MCV (80.0-100.0) fL MCH (25.0-35.0) pg MCHC (31.0-37.0) g/dL RDW (11.5-15.5) % Plt Count (150-450) k/uL Neutrophils % % Lymphocytes % % Monocytes % % Eosinophils % % Basophils % % Neutrophils # (1.3-7.7) k/uL Lymphocytes # (1.0-4.8) k/uL Monocytes # (0-1.0) k/uL Eosinophils # (0-0.7) k/uL Basophils # (0-0.2) k/uL Hypochromasia PT 10.4 (9.0-12.0) sec INR 1.0 (<1.2) APTT 21.1 L (22.0-30.0) sec Sodium 141 (137-145) mmol/L Potassium 3.9 (3.5-5.1) mmol/L Chloride 107 (98-107) mmol/L Carbon Dioxide 24 (22-30) mmol/L Anion Gap 10 mmol/L BUN 14 (9-20) mg/dL Creatinine 0.95 (0.66-1.25) mg/dL Est GFR (MDRD) Af Amer >60 (>60 ml/min/1.73 sqM) Est GFR (MDRD) Non-Af >60 (>60 ml/min/1.73 sqM) Glucose 121 H (74-99) mg/dL Calcium 9.4 (8.4-10.2) mg/dL Magnesium 2.0 (1.6-2.3) mg/dL Total Bilirubin 0.8 (0.2-1.3) mg/dL AST 19 (17-59) U/L ALT 23 (21-72) U/L Alkaline Phosphatase 109 (38-126) U/L Total Creatine Kinase 71 (55-170) U/L CK-MB (CK-2) 1.8 (0.0-2.4) ng/mL CK-MB (CK-2) Rel Index 2.5 Troponin I <0.012 (0.000-0.034) ng/mL Total Protein 6.2 L (6.3-8.2) g/dL Albumin 3.8 (3.5-5.0) g/dL 01/28/17 Range/Units 12:55 WBC 10.0 (3.8-10.6) k/uL RBC 4.32 (4.30-5.90) m/uL Hgb 12.6 L (13.0-17.5) gm/dL Hct 40.3 (39.0-53.0) % MCV 93.3 (80.0-100.0) fL MCH 29.1 (25.0-35.0) pg MCHC 31.2 (31.0-37.0) g/dL RDW 14.7 (11.5-15.5) % Plt Count 158 D (150-450) k/uL Neutrophils % 91 % Lymphocytes % 3 % Monocytes % 4 % Eosinophils % 0 % Basophils % 0 % Neutrophils # 9.1 H (1.3-7.7) k/uL Lymphocytes # 0.3 L (1.0-4.8) k/uL Monocytes # 0.4 (0-1.0) k/uL Eosinophils # 0.0 (0-0.7) k/uL Basophils # 0.0 (0-0.2) k/uL Hypochromasia Moderate PT (9.0-12.0) sec INR (<1.2) APTT (22.0-30.0) sec Sodium (137-145) mmol/L Potassium (3.5-5.1) mmol/L Chloride (98-107) mmol/L Carbon Dioxide (22-30) mmol/L Anion Gap mmol/L BUN (9-20) mg/dL Creatinine (0.66-1.25) mg/dL Est GFR (MDRD) Af Amer (>60 ml/min/1.73 sqM) Est GFR (MDRD) Non-Af (>60 ml/min/1.73 sqM) Glucose (74-99) mg/dL Calcium (8.4-10.2) mg/dL Magnesium (1.6-2.3) mg/dL Total Bilirubin (0.2-1.3) mg/dL AST (17-59) U/L ALT (21-72) U/L Alkaline Phosphatase (38-126) U/L Total Creatine Kinase (55-170) U/L CK-MB (CK-2) (0.0-2.4) ng/mL CK-MB (CK-2) Rel Index Troponin I (0.000-0.034) ng/mL Total Protein (6.3-8.2) g/dL Albumin (3.5-5.0) g/dL - Radiology Data Radiology results: report reviewed, image reviewed Disposition Clinical Impression: Vertigo, Intractable nausea and vomiting Disposition: ADMITTED IP TO THIS [facility] Condition: Stable Referrals: Momo Khan MD [Primary Care Provider] - 1-2 days
[2017-01-28 11:54] LABS: ALT 23 U/L (21-72); AST 19 U/L (17-59); Alkaline Phosphatase 109 U/L (38-126); Anion Gap 10 mmol/L; Blood Urea Nitrogen 14 mg/dL (9-20); Calcium 9.4 mg/dL (8.4-10.2); Carbon Dioxide 24 mmol/L (22-30); Chloride 107 mmol/L (98-107); Glucose 121 mg/dL (74-99); Non-African American GFR(MDRD) >60 (>60 ml/min/1.73 sqM); Potassium 3.9 mmol/L (3.5-5.1); Sodium 141 mmol/L (137-145); Total Bilirubin 0.8 mg/dL (0.2-1.3); Total Protein 6.2 g/dL (6.3-8.2)
[2017-01-28 12:04] LABS: Creatine Kinase 71 U/L (55-170)
--- NOTE | 2017-01-28 12:11 | CT ---
EXAMINATION TYPE: CT brain wo con DATE OF EXAM: 01/28/2017 COMPARISON: NONE INDICATION: syncope DLP: 978.2 mGycm, Automated exposure control for dose reduction was used. CONTRAST: None CT of the brain is performed utilizing 3 mm thick sections through the posterior fossa and 3 mm thick sections through the remaining calvarium. Study is performed within 24 hours of arrival to the hosp [facility]. No abnormal hyperdensity is present to suggest an acute intracranial hemorrhage. No mass lesion is evident. No acute infarcts are evident. Minimal periventricular white matter hypodensity is present, compatibl e with microvascular ischemic change Ventricles and sulci are mildly prominent for the patient age. Paranasal sinuses and mastoid air cells within the [id number] are clear. Note is made of right septal deviation. IMPRESSIONS: 1. Age-related atrophy with minimal periventricular white matter ischemic type change. 2. No acute intracranial process.
[2017-01-28 12:17] LABS: Creatine Kinase MB 1.8 ng/mL (0.0-2.4); Troponin I <0.012 ng/mL (0.000-0.034)
--- NOTE | 2017-01-28 12:23 | XR ---
EXAMINATION TYPE: XR chest 2V DATE OF EXAM: 01/28/2017 COMPARISON: 12/27/2016 TECHNIQUE: PA and lateral views submitted. HISTORY: Syncope FINDINGS: The lungs are clear and there is no pneumothorax, pleural effusion, or focal pneumonia. Multi lead cardiac device seen. Postsurgical change noted. Atherosclerotic change aorta. Arthropathy of the shou lders. Hyperinflation suggests COPD. Degenerative change of the spine. Right-sided central line noted . IMPRESSION: 1. No acute process. Correlate for COPD.
[2017-01-28] MEDS ORDERED: hydrALAZINE HCL 20 MG/ML 1 ML VIAL IVP STA (12:40)
[2017-01-28 13:22] LABS: Basophils % (A) 0 %; CH 28.7; CHCM 30.8; Eosinophils % (A) 0 %; HCT 40.3 % (39.0-53.0); HDW 2.91; HGB 12.6 gm/dL (13.0-17.5); Hypochromasia Moderate; Luc % (Auto) 1; Lymphocytes # (A) 0.3 k/uL (1.0-4.8); Lymphocytes % (A) 3 %; MCH 29.1 pg (25.0-35.0); MCHC 31.2 g/dL (31.0-37.0); MCV 93.3 fL (80.0-100.0); Mean Platelet Volume 7.8; Monocytes # (A) 0.4 k/uL (0-1.0); Monocytes % (A) 4 %; Neutrophils # (A) 9.1 k/uL (1.3-7.7); Neutrophils % (A) 91 %; Prothrombin Time 10.4 sec (9.0-12.0); RBC 4.32 m/uL (4.30-5.90); RDW 14.7 % (11.5-15.5); WBC (Perox) 10.64
[2017-01-28 13:29] LABS: Partial Thromboplastin Time 21.1 sec (22.0-30.0)
[2017-01-28] MEDS ORDERED: LORazepam 2 MG/ML INJ IV STA (13:51)
[2017-01-28] MEDS ORDERED: MECLIZINE 12.5 MG TAB PO STA (13:51)
--- NOTE | 2017-01-28 15:57 | ED ---
Medical Decision Making - Lab Data Result diagrams: 01/28/17 12:55 01/28/17 11:30 Lab Results 01/28/17 01/28/17 01/28/17 Range/Units 11:30 11:30 12:55 WBC (3.8-10.6) k/uL RBC (4.30-5.90) m/uL Hgb (13.0-17.5) gm/dL Hct (39.0-53.0) % MCV (80.0-100.0) fL MCH (25.0-35.0) pg MCHC (31.0-37.0) g/dL RDW (11.5-15.5) % Plt Count (150-450) k/uL Neutrophils % % Lymphocytes % % Monocytes % % Eosinophils % % Basophils % % Neutrophils # (1.3-7.7) k/uL Lymphocytes # (1.0-4.8) k/uL Monocytes # (0-1.0) k/uL Eosinophils # (0-0.7) k/uL Basophils # (0-0.2) k/uL Hypochromasia PT 10.4 (9.0-12.0) sec INR 1.0 (<1.2) APTT 21.1 L (22.0-30.0) sec Sodium 141 (137-145) mmol/L Potassium 3.9 (3.5-5.1) mmol/L Chloride 107 (98-107) mmol/L Carbon Dioxide 24 (22-30) mmol/L Anion Gap 10 mmol/L BUN 14 (9-20) mg/dL Creatinine 0.95 (0.66-1.25) mg/dL Est GFR (MDRD) Af Amer >60 (>60 ml/min/1.73 sqM) Est GFR (MDRD) Non-Af >60 (>60 ml/min/1.73 sqM) Glucose 121 H (74-99) mg/dL Calcium 9.4 (8.4-10.2) mg/dL Magnesium 2.0 (1.6-2.3) mg/dL Total Bilirubin 0.8 (0.2-1.3) mg/dL AST 19 (17-59) U/L ALT 23 (21-72) U/L Alkaline Phosphatase 109 (38-126) U/L Total Creatine Kinase 71 (55-170) U/L CK-MB (CK-2) 1.8 (0.0-2.4) ng/mL CK-MB (CK-2) Rel Index 2.5 Troponin I <0.012 (0.000-0.034) ng/mL Total Protein 6.2 L (6.3-8.2) g/dL Albumin 3.8 (3.5-5.0) g/dL 01/28/17 Range/Units 12:55 WBC 10.0 (3.8-10.6) k/uL RBC 4.32 (4.30-5.90) m/uL Hgb 12.6 L (13.0-17.5) gm/dL Hct 40.3 (39.0-53.0) % MCV 93.3 (80.0-100.0) fL MCH 29.1 (25.0-35.0) pg MCHC 31.2 (31.0-37.0) g/dL RDW 14.7 (11.5-15.5) % Plt Count 158 D (150-450) k/uL Neutrophils % 91 % Lymphocytes % 3 % Monocytes % 4 % Eosinophils % 0 % Basophils % 0 % Neutrophils # 9.1 H (1.3-7.7) k/uL Lymphocytes # 0.3 L (1.0-4.8) k/uL Monocytes # 0.4 (0-1.0) k/uL Eosinophils # 0.0 (0-0.7) k/uL Basophils # 0.0 (0-0.2) k/uL Hypochromasia Moderate PT (9.0-12.0) sec INR (<1.2) APTT (22.0-30.0) sec Sodium (137-145) mmol/L Potassium (3.5-5.1) mmol/L Chloride (98-107) mmol/L Carbon Dioxide (22-30) mmol/L Anion Gap mmol/L BUN (9-20) mg/dL Creatinine (0.66-1.25) mg/dL Est GFR (MDRD) Af Amer (>60 ml/min/1.73 sqM) Est GFR (MDRD) Non-Af (>60 ml/min/1.73 sqM) Glucose (74-99) mg/dL Calcium (8.4-10.2) mg/dL Magnesium (1.6-2.3) mg/dL Total Bilirubin (0.2-1.3) mg/dL AST (17-59) U/L ALT (21-72) U/L Alkaline Phosphatase (38-126) U/L Total Creatine Kinase (55-170) U/L CK-MB (CK-2) (0.0-2.4) ng/mL CK-MB (CK-2) Rel Index Troponin I (0.000-0.034) ng/mL Total Protein (6.3-8.2) g/dL Albumin (3.5-5.0) g/dL Disposition Clinical Impression: Vertigo, Intractable nausea and vomiting, Hypertension Disposition: ADMITTED IP TO THIS HOSP Condition: Stable Referrals: Momo Khan MD [Primary Care Provider] - 1-2 days
[2017-01-28] MEDS ORDERED: guaiFENesin 600 MG TABLET.ER PO PRN (15:59)
[2017-01-28] MEDS ORDERED: ALBUTEROL NEBULIZED 2.5 MG/3 ML INHALATION PRN (15:59)
[2017-01-28] MEDS ORDERED: NITROGLYCERIN SL TABS 0.4 MG TAB SUBLINGUAL PRN (15:59)
[2017-01-28] MEDS ORDERED: RX INFO: IV CONTRAST WAS GIVEN 1 EACH MISC MISCELLANE PRN (16:49)
--- NOTE | 2017-01-28 17:59 | P.HPIM ---
History of Present Illness H&P Date: 01/28/17 Chief Complaint: dizziness, nausea and vomiting 86-year-old male with a past medical history of CABG and biventricular pacemaker, COPD, recurrent pneumonia, and obstructive sleep apnea presented with acute onset of nausea and vomiting associated with dizziness while patient was working on his computer. Patient states that he has never had this weakness before. Patient feels dizzy with moving his head side-to- side associated with intractable vomiting . Patient received 8 mg of Zofran in the ED, 1 dose of Ativan and told these doses of meclizine which helped relieve the symptoms . Patient continues to have vertigo with movement of head. CT head negative for any acute stroke . CBC and BMP was unremarkable. Since patient has history of coronary artery disease and peripheral vascular disease, patient on a higher risk score for stroke and needs evaluation by neurology. Patient was admitted previously for HCAP last month. He was found to be complaining of dizziness but was orthostatic at that time. B12 and folate normal. His TSH was normal last admission. Echo done last month was normal. Review of Systems Constitutional: Denies chills, Denies fever, Denies lethargy, Denies malaise, Denies poor appetite, Denies weakness, Denies weight loss Eyes: denies decreased vision, endorses diplopia, denies discharge, denies pain Ears: deny: Endorses hearing Ears, nose, mouth and throat: Denies dental pain, Denies headache, Denies nasal discharge, Denies nose pain Cardiovascular: Denies chest pain, Denies decreased exercise tolerance, Denies edema, Denies high blood pressure, Denies irregular heart beat, Denies palpitations, Denies paroxysmal nocturnal dyspnea, Denies rapid heart beat, Denies shortness of breath Respiratory: Denies congestion, Denies cough, Denies cough with sputum, Denies dyspnea, Denies home oxygen, Denies wheezing Gastrointestinal: Denies abdominal pain, Denies change in bowel habits, Denies coffee ground emesis, Denies early satiety, Denies excessive gas, Denies heartburn, Denies hematemesis, Denies hematochezia, Denies loss of appetite, Denies nausea, Denies vomiting Genitourinary: Denies dysuria, Denies flank pain, Denies kidney stones, Denies menorrhagia, Denies urgency, Denies urinary frequency Musculoskeletal: Denies gait dysfunction, Denies limitation of motion, Denies morning stiffness, Denies muscle cramps Integumentary: Denies rash, Denies wounds, Denies brittle nails, Denies change in hair/nails, Denies darkening of skin Neurological: Endorses balance difficulties, Denies change in speech, endorses double vision, endorses gait dysfunction, Denies loss of vision, Denies motor disturbance, Denies numbness, Denies paralysis, Denies paresthesias, Denies seizures Psychiatric: Denies anxiety, Denies depression Endocrine: Denies excessive sweating, Denies excessive thirst, Denies high blood sugars, Denies palpitations Hematologic/Lymphatic: Denies easy bruising, Denies lymphadenopathy Past Medical History Past Medical History: Cancer, Chest Pain / Angina, COPD, GERD/Reflux, Hyperlipidemia, Hypertension, Pneumonia, Sleep Apnea/CPAP/BIPAP, Thyroid Disorder Additional Past Medical History / Comment(s): Lymphoma, testicular cancer, kidney stones, RLS History of Any Multi-Drug Resistant Organisms: MRSA Date of last positivie culture/infection: 2013 MDRO Source:: back Past Surgical History: Adenoidectomy, Coronary Bypass/CABG, Pacemaker, Tonsillectomy Additional Past Surgical History / Comment(s): quadruple bypass, lower aortic stent, "new artery in right thigh", power port right chest wall, 3 back surgeries - then found MRSA and had hardware removal. Past Anesthesia/Blood Transfusion Reactions: No Reported Reaction Type of Cardiac Device: Biventricular Pacemaker Device Placement Date:: 2008 Past Psychological History: Depression Smoking Status: Former smoker Past Alcohol Use History: None Reported Past Drug Use History: None Reported - Past Family History Father Additional Family Medical History / Comment(s): aortic aneurysm. Mother Family Medical History: CVA/TIA, Pneumonia Additional Family Medical History / Comment(s): Patient therefore kids with one daughter has history of stroke and MS Medications and Allergies Home Medications Medication Instructions Recorded Confirmed Type Amitriptyline HCl [Elavil] 50 mg PO HS 03/06/16 01/28/17 History Atorvastatin [Lipitor] 40 mg PO HS 03/06/16 01/28/17 History HYDROcodone/APAP 10-325MG [[place] 1 tab PO Q4HR PRN 03/06/16 01/28/17 History 10-325] Levothyroxine Sodium [Synthroid] 75 mcg PO DAILY 03/06/16 01/28/17 History Nitroglycerin Sl Tabs [Nitrostat] 0.4 mg SUBLINGUAL Q5M PRN 03/06/16 01/28/17 History Omeprazole 20 mg PO DAILY 03/06/16 01/28/17 History Temazepam [Restoril] 30 mg PO HS 03/06/16 01/28/17 History rOPINIRole HCL [Requip] 2 mg PO TID 03/06/16 01/28/17 History Losartan [Cozaar] 25 mg PO DAILY 12/26/16 01/28/17 History guaiFENesin [Mucinex] 600 mg PO Q12HR PRN tab 12/28/16 01/28/17 Rx Albuterol Inhaler [Ventolin Hfa 1 - 2 puff INHALATION RT-QID PRN 01/28/17 History Inhaler] Albuterol Nebulized [Ventolin 2.5 mg INHALATION RT-BID 01/28/17 01/28/17 History Nebulized] Furosemide [Lasix] 10 mg PO DAILY 01/28/17 01/28/17 History Potassium Chloride ER [K-Dur 10] 10 meq PO DAILY 01/28/17 01/28/17 History Allergies Allergy/AdvReac Type Severity Reaction Status Date / Time Penicillins Allergy Unknown Verified 01/28/17 11:47 Childhood Physical Exam Vitals: Vital Signs Temp Pulse Pulse Resp BP BP Pulse Ox 01/28/17 17:10 97.6 F 84 18 140/76 95 01/28/17 16:00 83 18 175/78 96 01/28/17 15:00 84 20 166/74 100 01/28/17 14:07 77 18 138/65 95 01/28/17 13:06 73 18 150/67 96 01/28/17 12:19 75 18 209/92 96 01/28/17 11:40 21 01/28/17 11:15 68 18 214/103 95 Intake and Output 01/28/17 01/28/17 01/28/17 06:59 14:59 22:59 Other: Weight 86.183 kg 86.183 kg Patient Weight 01/29/17 06:59 Weight 86.183 kg - Constitutional General appearance: cooperative, no acute distress, obese - EENT Eyes: anicteric sclerae, PERRLA, normal appearance, nystagmus present, fast component to was the right worse when turning the head to the left ENT: hearing grossly normal - Neck Neck: no lymphadenopathy, normal ROM, no other, no rigidity, no stridor, no thyromegaly - Respiratory Respiratory: bilateral: CTA, negative: diminished, dullness, rales, rhonchi - Cardiovascular Rhythm: regular Heart sounds: normal: S1, S2 Abnormal Heart Sounds: no systolic murmur, no diastolic murmur, no rub, no S3 Gallop, no S4 Gallop, no click, no other - Gastrointestinal General gastrointestinal: normal bowel sounds, soft - Integumentary Integumentary: no rash - Neurologic Neurologic: CNII-XII intact. Pupil equally reactive to light, motor 4/5 left lower extremity, 5/5 in rest of the extremities, sensation reduced in the left lower extremity, reflexes normal in all extremities gait could not be assessed as patient was dizzy, coordination intact - Musculoskeletal Musculoskeletal: , strength reduced on the left - Psychiatric Psychiatric: A&O x's 3, appropriate affect Results CBC & Chem 7: 01/28/17 12:55 01/28/17 11:30 Labs: Abnormal Lab Results - Last 24 Hours (Table) 01/28/17 01/28/17 01/28/17 Range/Units 11:30 12:55 12:55 Hgb 12.6 L (13.0-17.5) gm/dL Neutrophils # 9.1 H (1.3-7.7) k/uL Lymphocytes # 0.3 L (1.0-4.8) k/uL APTT 21.1 L (22.0-30.0) sec Glucose 121 H (74-99) mg/dL Total Protein 6.2 L (6.3-8.2) g/dL Thrombosis Risk Factor Assmnt - DVT/VTE Prophylaxis DVT/VTE Prophylaxis: Pharmacologic Prophylaxis ordered Assessment and Plan Plan: -- Acute vertigo - A differential include acute stroke versus benign positional vertigo or vestibular neuritis. Patient does have some weakness in the left lower extremity but states that it is chronic and has been receiving physical therapy for the same. Patient does have dizziness associated with cortical with movement of the head towards the left with fast component of the nystagmus towards the right, correlating with central pathology. CT head negative CTA ordered. Continue meclizine for symptom control. Continue aspirin and statin. Neurology consulted --Baseline essential hypertension -Hold losartan and Lasix for permissive hypertension. can start losartan if needed . Patient was on Coreg in the past admission but currently patient med list do not have Coreg listed in his medication list, we will clarify --History of CABG/pacemaker - asymptomatic -Initiated baby aspirin --History of hypothyroidism -Continue home Synthyroid --History of AARON and COPD, currently is in no exacerbation -Patient is noncompliant with home CPAP -Placed on DuoNeb's, he is not on inhalers at home -- History of lymphoma in remission for 3 years, asymptomatic --Depression continue amitriptyline --Keflex and will continue ropinirole --Placement concern -Patient is living by his own, safety is a concern, PT/OT/social work nurse were consulted --Possibly progressing dementia -Patient is not on dementia medications, needs to be evaluated as an outpatient --3 back surgeries -Continue home norco for pain DVT prophylaxis with heparin Code is full code, discussed with daughter who is the POA
[2017-01-28] MEDS ORDERED: MECLIZINE 25 MG TAB PO PRN (18:01)
--- NOTE | 2017-01-28 18:29 | CT ---
EXAMINATION TYPE: CT angio head neck DATE OF EXAM: 01/28/2017 HISTORY: nausea, dizziness COMPARISON: NONE CT DLP: 317.1 mGycm. Automated Exposure Control for Dose Reduction was Utilized. TECHNIQUE: CTA scan of the neck is performed with IV Contrast, patient injected with 65 mL of Omnipa que 350, axial images are obtained, coronal and sagittal reformatted images are reviewed. Three-D rec onstructed images are created on an independent workstation and reviewed. FINDINGS: There is moderate plaque formation and calcification at the aortic arch. There is bilateral arterial flow in the vertebral arteries. There is arterial flow in the vertebrobasilar artery system. There is arterial flow in the common internal and external carotid arteries bilaterally. There is lei roximately 50% stenosis at the origin left internal carotid artery. There is approximate 70% stenosis origin right internal carotid artery. There is arterial flow in the anterior middle and posterior cerebral arteries. I see no mass effect. There is no sign of aneurysm or neovascularity. There is normal contrast opacification of the venous sinuses. IMPRESSION: Atherosclerotic vascular disease. There is approximate 70% stenosis at the proximal right internal carotid artery. There is approximate 50% stenosis at the origin left internal carotid arter y. No intracranial vascular abnormality identified.
[2017-01-28] MEDS: ASPIRIN 81 MG PO SCH (19:10)
[2017-01-28] MEDS: ALBUTEROL NEBULIZED 2.5 MG/3 ML INHALATION SCH (19:17)
[2017-01-28 19:42] LABS: Appearance,Urine Clear (Clear); Bilirubin,Urine Negative (Negative); Glucose,Urine (UA) Negative (Negative); Ketones,Urine Trace (Negative); Leukocyte Esterase,Urine Negative (Negative); Nitrite,Urine Negative (Negative); PH, Urine 7.5 (5.0-8.0); Protein,Urine Negative (Negative); Specific Gravity,Urine 1.031 (1.001-1.035); UA Billing (MACRO vs. MICRO) CHEM; Urobilinogen,Urine <2.0 mg/dL (<2.0)
[2017-01-28] MEDS: ONDANSETRON 4 MG/2 ML VIAL IVP PRN (20:12)
[2017-01-28] MEDS: HYDROcodone/APAP 10-325MG 1 EACH TAB PO PRN ×2 (20:14→23:46)
[2017-01-28] MEDS ORDERED: TEMAZEPAM 30 MG CAP PO SCH (21:00)
[2017-01-28] MEDS: ATORVASTATIN 40 MG TAB PO SCH (21:56)
[2017-01-29] MEDS: SCOPOLAMINE 1.5MG/72HR PATCH TRANSDERM SCH
[2017-01-29 03:03] LABS: Cholesterol 132 mg/dL (<200); HDL Cholesterol 46 mg/dL (40-60)
[2017-01-29] MEDS: AMITRIPTYLINE HCL 50 MG TAB PO SCH ×2 (03:39→22:14)
[2017-01-29] MEDS: HEPARIN SODIUM,PORCINE 5,000 UNIT/ML 1 ML VIAL SQ SCH ×3 (03:39→22:16)
[2017-01-29] MEDS: LEVOTHYROXINE 75 MCG TAB PO SCH (07:00)
[2017-01-29] MEDS: HYDROcodone/APAP 10-325MG 1 EACH TAB PO PRN (07:32)
[2017-01-29] MEDS: POTASSIUM CHLORIDE ER 10 MEQ TAB.ER.PRT PO SCH (07:33)
[2017-01-29] MEDS: ASPIRIN 81 MG PO SCH (07:33)
[2017-01-29] MEDS: PANTOPRAZOLE 40 MG TABLET PO SCH (07:33)
[2017-01-29] MEDS: ALBUTEROL NEBULIZED 2.5 MG/3 ML INHALATION SCH ×2 (08:26→19:36)
[2017-01-29] MEDS ORDERED: FUROSEMIDE 10 MG TAB PO SCH (09:00)
[2017-01-29] MEDS ORDERED: LOSARTAN 25 MG TAB PO SCH (09:00)
[2017-01-29] MEDS: ONDANSETRON 4 MG/2 ML VIAL IVP PRN ×2 (12:09→17:16)
[2017-01-29] MEDS: MECLIZINE 25 MG TAB PO SCH ×2 (14:18→22:15)
--- NOTE | 2017-01-29 14:36 | P.PN ---
Subjective 86-year-old male with a past medical history of CABG and biventricular pacemaker, COPD, recurrent pneumonia, and obstructive sleep apnea presented with acute onset of nausea and vomiting associated with dizziness while patient was working on his computer. Patient states that he has never had this weakness before. Patient feels dizzy with moving his head side-to- side associated with intractable vomiting . Patient received 8 mg of Zofran in the ED, 1 dose of Ativan and told these doses of meclizine which helped relieve the symptoms . Patient continues to have vertigo with movement of head. CT head negative for any acute stroke . CBC and BMP was unremarkable. Since patient has history of coronary artery disease and peripheral vascular disease, patient on a higher risk score for stroke and needs evaluation by neurology. Patient was admitted previously for HCAP last month. He was found to be complaining of dizziness but was orthostatic at that time. B12 and folate normal. His TSH was normal last admission. Echo done last month was normal. 01/29: Patient underwent CT angiogram head and neck yesterday. Approximately 50 % stenosis at the left internal carotid artery and 70% stenosis in the right internal carotid artery. There was no intracranial vascular abnormalities noted. PT attemped to get patient out of bed today, patient was unable to stand up due to his dizziness. He reports dizziness with position changes and continues to have nausea. Neurology is on consult, will await for their recommendations, if necessary will order MRI of head. Discussed with family and patient today for the need for subacute rehab after discharge. Social work and case management consulted. Patient's observation status discontinued and changed to inpatient. Objective - Vital Signs Vital signs: Vital Signs Temp 97.8 F 01/29/17 12:00 Pulse 78 01/29/17 12:00 Resp 18 01/29/17 12:00 BP 140/64 01/29/17 12:00 Pulse Ox 98 01/29/17 12:00 Intake & Output 01/28/17 01/29/17 01/29/17 18:59 06:59 18:59 Intake Total 50 240 Balance 50 240 Weight 86.183 kg 86.183 kg Intake: Oral 50 240 Other: Voiding Method Urinal Urinal Urinal # Voids 1 1 - Exam Constitutional General appearance: cooperative, no acute distress, obese - EENT Eyes: anicteric sclerae, PERRLA, normal appearance, nystagmus present, fast component to was the right worse when turning the head to the left ENT: hearing grossly normal - Neck Neck: no lymphadenopathy, normal ROM, no other, no rigidity, no stridor, no thyromegaly - Respiratory Respiratory: bilateral: CTA, negative: diminished, dullness, rales, rhonchi - Cardiovascular Rhythm: regular Heart sounds: normal: S1, S2 Abnormal Heart Sounds: no systolic murmur, no diastolic murmur, no rub, no S3 Gallop, no S4 Gallop, no click, no other - Gastrointestinal General gastrointestinal: normal bowel sounds, soft - Integumentary Integumentary: no rash - Neurologic Neurologic: CNII-XII intact. Pupil equally reactive to light, motor 4/5 left lower extremity, 5/5 in rest of the extremities, sensation reduced in the left lower extremity, reflexes normal in all extremities gait could not be assessed as patient was dizzy, coordination intact - Musculoskeletal Musculoskeletal: , strength reduced on the left - Psychiatric Psychiatric: A&O x's 3, appropriate affect - Labs CBC & Chem 7: 01/28/17 12:55 01/28/17 11:30 Labs: Abnormal Lab Results - Last 24 Hours (Table) 01/28/17 Range/Units 19:30 Urine Ketones Trace H (Negative) Assessment and Plan Plan: 1. Acute vertigo - A differential include acute stroke versus benign positional vertigo or vestibular neuritis. Patient does have some weakness in the left lower extremity but states that it is chronic and has been receiving physical therapy for the same. Patient does have dizziness associated with cortical with movement of the head towards the left with fast component of the nystagmus towards the right, correlating with central pathology. CT head negative CTA ordered, showed 70% stenosis at the right proximal internal carotid artery and 50% stenosis the left internal carotid artery. Did not show anything significant to account for patient's symptoms. Continue meclizine for symptom control. Continue aspirin and statin. Neurology consulted, will await further recommendations, possible MRI. 2.Baseline essential hypertension -Hold losartan and Lasix for permissive hypertension, can start losartan if needed. Patient was on Coreg in the past admission but currently patient med list do not have Coreg listed in his medication list, we will clarify 3. History of CABG/pacemaker - asymptomatic -Initiated baby aspirin 4. History of hypothyroidism -Continue home Synthyroid 5. History of AARON and COPD, currently is in no exacerbation -Patient is noncompliant with home CPAP -Placed on DuoNeb's, he is not on inhalers at home 6. History of lymphoma in remission for 3 years, asymptomatic 7. Depression - continue amitriptyline 8. Restless legs - continue ropinirole 9. Placement concern -Patient is living by his own, safety is a concern, PT/OT/social psychologist were consulted 10. Possibly progressing dementia -Patient is not on dementia medications, needs to be evaluated as an outpatient 11 3 back surgeries -Continue home norco for pain DVT prophylaxis with heparin GI prophylaxis with Protonix Code is full code, discussed with daughter who is the POA The above impression and plan of care have been discussed and directed by signing physician. Marla Rivera nurse practitioner acting as scribe for signing physician.
--- NOTE | 2017-01-29 16:28 | P.CNNES ---
History of Present Illness Consult date: 01/29/17 Requesting physician: Ezequiel Herzog Reason for Consult: Vertigo History of Present Illness: Patient is a pleasant 86-year-old male who is being evaluated by the neurology service on 01/29/2017 per the request of Dr. Herzog for intractable vertigo. Patient has history of coronary artery disease with history of CABG, biventricular pacemaker, COPD, obstructive sleep apnea, and recurrent pneumonia. Patient states he woke up in the morning and went to use his computer. Patient states he stood up to close the blinds because the sun was shining on his computer and he felt extremely dizzy. Patient sat down and began to get nauseated and reports intractable vomiting. Patient states he feels dizzy when moving his head side to side but it is worse when he looks down. Patient was brought to [facility] for further evaluation. In the emergency room, patient was given Zofran, Ativan, and meclizine which patient states helped relieve the symptoms. Patient continues to have severe vertigo with movement of his head. He had a head CT which was negative for any acute process. Patient also had CTA which showed no sign of aneurysm or neovascularity. It did show approximately 70% stenosis in the proximal right internal carotid artery and 50% stenosis in the left internal carotid artery. His lab workup on admission was essentially unremarkable. Vital signs were, temperature 98.2, blood pressure 139/57, pulse rate 73, and O2 saturation 98% on 2 L nasal cannula. Patient continues to exhibit positional vertigo. PT tried to work with patient today he was unable to ambulate due to dizziness. At the time of my evaluation, patient's resting comfortably in bed and appears to be in no acute distress. Review of Systems REVIEW OF SYSTEMS: Otherwise unremarkable and noncontributory. Past Medical History Past Medical History: Cancer, Chest Pain / Angina, COPD, GERD/Reflux, Hyperlipidemia, Hypertension, Pneumonia, Sleep Apnea/CPAP/BIPAP, Thyroid Disorder Additional Past Medical History / Comment(s): Lymphoma,bladder cancer, kidney stones, RLS, pt states he has some depression over his having dementia and being placed in [place] further stated he was given a prescription for cymbalta but has'nt picked it up yet. History of Any Multi-Drug Resistant Organisms: MRSA Date of last positivie culture/infection: 2013 MDRO Source:: back Past Surgical History: Adenoidectomy, Coronary Bypass/CABG, Pacemaker, Tonsillectomy Additional Past Surgical History / Comment(s): quadruple bypass, lower aortic stent, "new artery in right thigh", power port right chest wall, 3 back surgeries - then found MRSA and had hardware removal. laser sx on bladder d/t cancer. Past Anesthesia/Blood Transfusion Reactions: No Reported Reaction Type of Cardiac Device: Biventricular Pacemaker Device Placement Date:: 2008 Smoking Status: Former smoker - Past Family History Father Additional Family Medical History / Comment(s): aortic aneurysm. Mother Family Medical History: CVA/TIA, Pneumonia Additional Family Medical History / Comment(s): Patient therefore kids with one daughter has history of stroke and MS Medications and Allergies Home Medications Medication Instructions Recorded Confirmed Type Amitriptyline HCl [Elavil] 50 mg PO HS 03/06/16 01/28/17 History Atorvastatin [Lipitor] 40 mg PO HS 03/06/16 01/28/17 History HYDROcodone/APAP 10-325MG [[place] 1 tab PO Q4HR PRN 03/06/16 01/28/17 History 10-325] Levothyroxine Sodium [Synthroid] 75 mcg PO DAILY 03/06/16 01/28/17 History Nitroglycerin Sl Tabs [Nitrostat] 0.4 mg SUBLINGUAL Q5M PRN 03/06/16 01/28/17 History Omeprazole 20 mg PO DAILY 03/06/16 01/28/17 History Temazepam [Restoril] 30 mg PO HS 03/06/16 01/28/17 History rOPINIRole HCL [Requip] 2 mg PO TID 03/06/16 01/28/17 History Losartan [Cozaar] 25 mg PO DAILY 12/26/16 01/28/17 History guaiFENesin [Mucinex] 600 mg PO Q12HR PRN tab 12/28/16 01/28/17 Rx Albuterol Inhaler [Ventolin Hfa 1 - 2 puff INHALATION RT-QID PRN 01/28/17 History Inhaler] Albuterol Nebulized [Ventolin 2.5 mg INHALATION RT-BID 01/28/17 01/28/17 History Nebulized] Furosemide [Lasix] 10 mg PO DAILY 01/28/17 01/28/17 History Potassium Chloride ER [K-Dur 10] 10 meq PO DAILY 01/28/17 01/28/17 History Allergies Allergy/AdvReac Type Severity Reaction Status Date / Time Penicillins Allergy Unknown Verified 01/28/17 11:47 Childhood Physical Examination - Vital Signs Vital Signs: Vital Signs Temp Pulse Pulse Pulse Resp BP Pulse Ox 01/29/17 16:00 97.6 F 78 18 129/57 97 01/29/17 12:00 97.8 F 78 18 140/64 98 01/29/17 08:37 76 01/29/17 08:27 74 01/29/17 08:00 98.2 F 73 18 139/57 98 01/29/17 04:14 98.1 F 77 18 154/59 95 01/29/17 03:31 77 18 01/29/17 00:00 80 18 177/76 94 L 01/28/17 22:34 85 16 158/72 95 01/28/17 20:00 98 F 85 18 181/80 100 01/28/17 19:30 78 01/28/17 19:18 72 01/28/17 17:10 97.6 F 84 18 140/76 95 Intake and Output 01/29/17 01/29/17 01/29/17 06:59 14:59 22:59 Other: Voiding Method Urinal Urinal Urinal # Voids 1 1 Weight 86.183 kg PHYSICAL EXAM: GENERAL APPEARANCE: Patient is a well-developed, male who appears to be in no acute distress. HEENT: Normocephalic, atraumatic, no facial asymmetry is seen. Neck is supple with no masses felt. CARDIOVASCULAR: Regular rate and rhythm. ABDOMEN: Nontender, nondistended. EXTREMITIES: Show no edema or clubbing. NEUROLOGICAL EXAM: Patient is awake, alert, and oriented 3. Speech and language are normal. Strength is 5/5 in all extremities except 5-/5 in left lower extremity. Sensory exam to light touch is normal in all 4 extremities. No facial asymmetry seen on cranial nerve testing. No tremors or seizure-like activity noted. Results - Laboratory Findings CBC and BMP: 01/28/17 12:55 01/28/17 11:30 Abnormal Lab Findings: Abnormal Labs 01/28/17 01/28/17 01/28/17 11:30 12:55 12:55 Hgb 12.6 L Neutrophils # 9.1 H Lymphocytes # 0.3 L APTT 21.1 L Glucose 121 H Total Protein 6.2 L Urine Ketones 01/28/17 19:30 Hgb Neutrophils # Lymphocytes # APTT Glucose Total Protein Urine Ketones Trace H Assessment and Plan (1) Hypertension Status: Acute (2) Intractable nausea and vomiting Status: Acute (3) Vertigo Status: Acute (4) COPD (chronic obstructive pulmonary disease) Status: Acute Plan: Recommendation: It does appear the patient has benign paroxysmal positional vertigo although cannot rule out acute CVA. Patient does report weakness in the left lower extremity but states this is chronic. As mentioned above, CT of the head was negative for any acute process. CTA showed 70% stenosis in the right proximal internal carotid artery and 50% stenosis in the left internal carotid artery. Patient will need follow-up with vascular as an outpatient to follow this. Patient does report relief of symptoms with meclizine. I will put him on meclizine 3 times a day dosing for the next 24 hours. Continue aspirin and statin as ordered. I will order an MRI of the brain to evaluate for possible contributing etiology. I will order an EEG, fasting lipid panel, and serum homocystine level. Continue neurological checks. Continue physical therapy. I will continue to follow with you. Further recommendations to follow. Thank you for allowing me to participate in the care of your patient. Feel free to call with any questions or concerns. I performed an examination of the patient and discussed the management with the FILENET P8 DEVELOPER. I have reviewed the FILENET P8 DEVELOPER notes and agree with the findings and plan of care.
[2017-01-29] MEDS: SODIUM CHLORIDE 0.9% 1,000 ML IV SCH ×2 (17:09→17:17)
[2017-01-29] MEDS: methylPREDNISolone SOD SUCCI 40 MG/ML 1 ML VIAL IV SCH (17:16)
[2017-01-29] MEDS: ATORVASTATIN 40 MG TAB PO SCH (22:14)
[2017-01-30] MEDS: methylPREDNISolone SOD SUCCI 40 MG/ML 1 ML VIAL IV SCH ×4 (00:51→17:17)
[2017-01-30] MEDS: LEVOTHYROXINE 75 MCG TAB PO SCH (06:27)
[2017-01-30] MEDS: ALBUTEROL NEBULIZED 2.5 MG/3 ML INHALATION SCH ×2 (08:07→20:43)
[2017-01-30] MEDS: MECLIZINE 25 MG TAB PO SCH ×3 (09:53→20:29)
[2017-01-30] MEDS: HEPARIN SODIUM,PORCINE 5,000 UNIT/ML 1 ML VIAL SQ SCH ×2 (09:54→20:31)
[2017-01-30] MEDS: ASPIRIN 81 MG PO SCH (09:54)
[2017-01-30] MEDS: PANTOPRAZOLE 40 MG TABLET PO SCH (09:54)
[2017-01-30] MEDS: POTASSIUM CHLORIDE ER 10 MEQ TAB.ER.PRT PO SCH (09:54)
[2017-01-30] MEDS: ONDANSETRON 4 MG/2 ML VIAL IVP PRN (09:55)
--- NOTE | 2017-01-30 11:54 | P.PN ---
Subjective Principal diagnosis: Patient is a pleasant 86-year-old male who is being followed by the neurology service for intractable vertigo. Patient has history of coronary artery disease with history of CABG. Patient also has a biventricular pacemaker , history of COPD, sleep apnea, and recurrent pneumonia. Patient was brought to [facility] due to ongoing dizziness and nausea and vomiting. Patient reports he is much better today. He has been up to the bathroom with the nurses. His dizziness remains but is much less severe. Patient states meclizine is helping with the dizziness. Patient was put on steroids for possible vestibular neuritis. As you recall CT of the brain was negative for any acute process. CTA showed no sign of aneurysm or neovascularity. Patient had some stenosis in bilateral internal carotid arteries which he should follow up as an outpatient for. At the time of my evaluation, patient is resting comfortably in bed and appears to be in no acute distress. Objective - Vital Signs Vital signs: Vital Signs Temp 97.4 F L 01/30/17 07:00 Pulse 76 01/30/17 08:08 Resp 20 01/30/17 07:00 BP 148/90 01/30/17 07:00 Pulse Ox 98 01/30/17 07:00 Intake & Output 01/29/17 01/30/17 01/30/17 18:59 06:59 18:59 Intake Total 100 Output Total 400 Balance -300 Intake: Oral 100 Output: Urine 400 Other: Voiding Method Urinal # Voids 1 0 - Exam PHYSICAL EXAM: GENERAL APPEARANCE: Patient is a well-developed, male who appears to be in no acute distress. HEENT: Normocephalic, atraumatic, no facial asymmetry is seen. Neck is supple with no masses felt. CARDIOVASCULAR: Regular rate and rhythm. ABDOMEN: Nontender, nondistended. EXTREMITIES: Show no edema or clubbing. NEUROLOGICAL EXAM: Patient is awake, alert, and oriented 3. Speech and language are normal. Strength is full in all extremities except 4+/5 in left lower extremity which is chronic.. Sensory exam to light touch is normal in all 4 extremities. No facial asymmetry is seen on cranial nerve testing. No tremors or seizure-like activity is noted. - Labs CBC & Chem 7: 01/28/17 12:55 01/28/17 11:30 Assessment and Plan (1) Hypertension Status: Acute (2) Intractable nausea and vomiting Status: Acute (3) Vertigo Status: Acute (4) COPD (chronic obstructive pulmonary disease) Status: Acute Plan: Recommendation: It does appear the patient has benign paroxysmal positional vertigo although cannot rule out acute CVA. Patient does report weakness in the left lower extremity but states this is chronic. As mentioned above, CT of the head was negative for any acute process. CTA showed 70% stenosis in the right proximal internal carotid artery and 50% stenosis in the left internal carotid artery. Patient will need follow-up with vascular as an outpatient to follow this. Patient does report relief of symptoms with meclizine. He may continue meclizine as needed. We can further investigate by performing a VAT in the office. Patient will likely need vestibular rehab which can be done in our office as an outpatient. Patient was also put on low-dose steroids for vestibular neuritis. Continue aspirin and statin as ordered. If symptoms persist or worsen, he may need MRI of the brain to evaluate for contributing etiology. Will need to investigate if pacemaker is MRI compatible. EEG was done and results are pending. His fasting lipid panel was within normal limits. Serum homocystine level is pending. Continue neurological checks. Continue physical therapy. I will continue to follow with you. Further recommendations to follow. I performed an examination of the patient and discussed the management with the SUPPLY TECHNICIAN. I have reviewed the SUPPLY TECHNICIAN notes and agree with the findings and plan of care.
--- NOTE | 2017-01-30 12:24 | P.PN ---
Subjective 86-year-old male with a past medical history of CABG and biventricular pacemaker, COPD, recurrent pneumonia, and obstructive sleep apnea presented with acute onset of nausea and vomiting associated with dizziness while patient was working on his computer. Patient states that he has never had this weakness before. Patient feels dizzy with moving his head side-to- side associated with intractable vomiting . Patient received 8 mg of Zofran in the ED, 1 dose of Ativan and told these doses of meclizine which helped relieve the symptoms . Patient continues to have vertigo with movement of head. CT head negative for any acute stroke . CBC and BMP was unremarkable. Since patient has history of coronary artery disease and peripheral vascular disease, patient on a higher risk score for stroke and needs evaluation by neurology. Patient was admitted previously for HCAP last month. He was found to be complaining of dizziness but was orthostatic at that time. B12 and folate normal. His TSH was normal last admission. Echo done last month was normal. 01/29: Patient underwent CT angiogram head and neck yesterday. Approximately 50 % stenosis at the left internal carotid artery and 70% stenosis in the right internal carotid artery. There was no intracranial vascular abnormalities noted. PT attemped to get patient out of bed today, patient was unable to stand up due to his dizziness. He reports dizziness with position changes and continues to have nausea. Neurology is on consult, will await for their recommendations, if necessary will order MRI of head. Discussed with family and patient today for the need for subacute rehab after discharge. Social work and case management consulted. Patient's observation status discontinued and changed to inpatient. 01/30: Patient was noted to be resting comfortably in bed today, no acute distress. He still complains of significant dizziness upon standing. He has noted to have a left ear cerumen impaction, Debrox ordered. He was evaluated by neurology. EEG was done and results are pending. Homocysteine level is pending. His was placed on a low-dose steroid for vestibular neuritis and scheduled meclizine TID. Will see how patient responds to course of medication if symptoms persist, will proceed with MRI. May also need vestibular rehab upon discharge. Objective - Vital Signs Vital signs: Vital Signs Temp 97.4 F L 01/30/17 07:00 Pulse 76 01/30/17 08:08 Resp 20 01/30/17 07:00 BP 148/90 01/30/17 07:00 Pulse Ox 98 01/30/17 07:00 Intake & Output 01/29/17 01/30/17 01/30/17 18:59 06:59 18:59 Intake Total 100 200 Output Total 400 Balance -300 200 Intake: Oral 100 200 Output: Urine 400 Other: Voiding Method Urinal # Voids 1 0 - Exam Constitutional General appearance: cooperative, no acute distress, obese - EENT Eyes: anicteric sclerae, PERRLA, normal appearance, nystagmus present, fast component to was the right worse when turning the head to the left ENT: hearing grossly normal - Neck Neck: no lymphadenopathy, normal ROM, no other, no rigidity, no stridor, no thyromegaly - Respiratory Respiratory: bilateral: CTA, negative: diminished, dullness, rales, rhonchi - Cardiovascular Rhythm: regular Heart sounds: normal: S1, S2 Abnormal Heart Sounds: no systolic murmur, no diastolic murmur, no rub, no S3 Gallop, no S4 Gallop, no click, no other - Gastrointestinal General gastrointestinal: normal bowel sounds, soft - Integumentary Integumentary: no rash - Neurologic Neurologic: CNII-XII intact. Pupil equally reactive to light, motor 4/5 left lower extremity, 5/5 in rest of the extremities, sensation reduced in the left lower extremity, reflexes normal in all extremities gait could not be assessed as patient was dizzy, coordination intact - Musculoskeletal Musculoskeletal: , strength reduced on the left - Psychiatric Psychiatric: A&O x's 3, appropriate affect - Labs CBC & Chem 7: 01/28/17 12:55 01/28/17 11:30 Assessment and Plan Plan: 1. Acute vertigo - A differential include acute stroke versus benign positional vertigo or vestibular neuritis. Patient does have some weakness in the left lower extremity but states that it is chronic and has been receiving physical therapy for the same. Patient does have dizziness associated with cortical with movement of the head towards the left with fast component of the nystagmus towards the right, correlating with central pathology. CT head negative CTA ordered, showed 70% stenosis at the right proximal internal carotid artery and 50% stenosis the left internal carotid artery. Did not show anything significant to account for patient's symptoms. Continue meclizine for symptom control, Solu-Medrol added for vestibular neuritis. Continue aspirin and statin. Neurology consulted, will await further recommendations. Debrox ordered for left cerumen impaction 2.Baseline essential hypertension -Hold losartan and Lasix for permissive hypertension, can start losartan if needed. Patient was on Coreg in the past admission but currently patient med list do not have Coreg listed in his medication list, we will clarify 3. History of CABG/pacemaker - asymptomatic -Initiated baby aspirin 4. History of hypothyroidism -Continue home Synthyroid 5. History of AARON and COPD, currently is in no exacerbation -Patient is noncompliant with home CPAP -Placed on DuoNeb's, he is not on inhalers at home 6. History of lymphoma in remission for 3 years, asymptomatic 7. Depression - continue amitriptyline 8. Restless legs - continue ropinirole 9. Placement concern -Patient is living by his own, safety is a concern, PT/OT/public health social worker were consulted 10. Possibly progressing dementia -Patient is not on dementia medications, needs to be evaluated as an outpatient 11 3 back surgeries -Continue home norco for pain DVT prophylaxis with heparin GI prophylaxis with Protonix Code is full code, discussed with daughter who is the POA The above impression and plan of care have been discussed and directed by signing physician. Marla Rivera nurse practitioner acting as scribe for signing physician.
[2017-01-30] MEDS: CARBAMIDE PEROXIDE 6.5% DROPS 15 ML BTL LEFT EAR SCH ×2 (13:20→20:30)
[2017-01-30] MEDS: SODIUM CHLORIDE 0.9% 1,000 ML IV SCH (17:18)
[2017-01-30] MEDS: HYDROcodone/APAP 10-325MG 1 EACH TAB PO PRN (19:23)
[2017-01-30] MEDS: AMITRIPTYLINE HCL 50 MG TAB PO SCH (20:30)
[2017-01-30] MEDS: ATORVASTATIN 40 MG TAB PO SCH (20:30)
[2017-01-31] MEDS: methylPREDNISolone SOD SUCCI 40 MG/ML 1 ML VIAL IV SCH ×5 (01:01→23:35)
[2017-01-31] MEDS: LEVOTHYROXINE 75 MCG TAB PO SCH (06:41)
[2017-01-31] MEDS: ALBUTEROL NEBULIZED 2.5 MG/3 ML INHALATION SCH ×2 (08:02→19:14)
[2017-01-31] MEDS: MECLIZINE 25 MG TAB PO SCH ×3 (08:12→22:18)
[2017-01-31] MEDS: CARBAMIDE PEROXIDE 6.5% DROPS 15 ML BTL LEFT EAR SCH ×2 (08:12→20:03)
[2017-01-31] MEDS: HEPARIN SODIUM,PORCINE 5,000 UNIT/ML 1 ML VIAL SQ SCH ×2 (08:12→20:03)
[2017-01-31] MEDS: POTASSIUM CHLORIDE ER 10 MEQ TAB.ER.PRT PO SCH (08:12)
[2017-01-31] MEDS: PANTOPRAZOLE 40 MG TABLET PO SCH (08:12)
[2017-01-31] MEDS: ASPIRIN 81 MG PO SCH (08:13)
[2017-01-31 12:44] LABS: Glucose,Whole Blood 205 mg/dL (75-99)
[2017-01-31] MEDS: INSULIN LISPRO (humaLOG) 300 UNIT/3 ML VIAL SQ SCH ×3 (12:54→22:17)
--- NOTE | 2017-01-31 14:52 | P.PN ---
Subjective 86-year-old male with a past medical history of CABG and biventricular pacemaker, COPD, recurrent pneumonia, and obstructive sleep apnea presented with acute onset of nausea and vomiting associated with dizziness while patient was working on his computer. Patient states that he has never had this weakness before. Patient feels dizzy with moving his head side-to- side associated with intractable vomiting . Patient received 8 mg of Zofran in the ED, 1 dose of Ativan and told these doses of meclizine which helped relieve the symptoms . Patient continues to have vertigo with movement of head. CT head negative for any acute stroke . CBC and BMP was unremarkable. Since patient has history of coronary artery disease and peripheral vascular disease, patient on a higher risk score for stroke and needs evaluation by neurology. Patient was admitted previously for HCAP last month. He was found to be complaining of dizziness but was orthostatic at that time. B12 and folate normal. His TSH was normal last admission. Echo done last month was normal. 01/29: Patient underwent CT angiogram head and neck yesterday. Approximately 50 % stenosis at the left internal carotid artery and 70% stenosis in the right internal carotid artery. There was no intracranial vascular abnormalities noted. PT attemped to get patient out of bed today, patient was unable to stand up due to his dizziness. He reports dizziness with position changes and continues to have nausea. Neurology is on consult, will await for their recommendations, if necessary will order MRI of head. Discussed with family and patient today for the need for subacute rehab after discharge. Social work and case management consulted. Patient's observation status discontinued and changed to inpatient. 01/30: Patient was noted to be resting comfortably in bed today, no acute distress. He still complains of significant dizziness upon standing. He has noted to have a left ear cerumen impaction, Debrox ordered. He was evaluated by neurology. EEG was done and results are pending. Homocysteine level is pending. His was placed on a low-dose steroid for vestibular neuritis and scheduled meclizine TID. Will see how patient responds to course of medication if symptoms persist, will proceed with MRI. May also need vestibular rehab upon discharge. 01/31: EEG is pending. Patient continues to have dizziness. crew manager to talk to patient's daughter regarding subacute rehab. Patient has been seen by physical therapy already. Patient's nurse clarified home dose of Requip which is been restarted. Homocysteine is normal. Lipid panel is all within normal limits. Humalog scale added as patient is currently on Solu-Medrol 40 mg every 6 hours. Objective - Vital Signs Vital signs: Vital Signs Temp 98.0 F 01/31/17 14:14 Pulse 83 01/31/17 14:14 Resp 20 01/31/17 14:14 BP 161/68 01/31/17 14:14 Pulse Ox 97 01/31/17 14:14 Intake & Output 01/30/17 01/31/17 01/31/17 18:59 06:59 18:59 Intake Total 520 500 Output Total 500 750 Balance 20 -250 Intake: Oral 520 500 Output: Urine 500 750 Other: Voiding Method Urinal Urinal # Voids 0 2 # Bowel Movements 0 0 - Exam General appearance: cooperative, no acute distress, obese - EENT Eyes: anicteric sclerae, PERRLA, normal appearance, nystagmus present, fast component to was the right worse when turning the head to the left ENT: hearing grossly normal - Neck Neck: no lymphadenopathy, normal ROM, no other, no rigidity, no stridor, no thyromegaly - Respiratory Respiratory: bilateral: CTA, negative: diminished, dullness, rales, rhonchi - Cardiovascular Rhythm: regular Heart sounds: normal: S1, S2 Abnormal Heart Sounds: no systolic murmur, no diastolic murmur, no rub, no S3 Gallop, no S4 Gallop, no click, no other - Gastrointestinal General gastrointestinal: normal bowel sounds, soft - Integumentary Integumentary: no rash - Neurologic Neurologic: CNII-XII intact. Pupil equally reactive to light, motor 4/5 left lower extremity, 5/5 in rest of the extremities, sensation reduced in the left lower extremity, reflexes normal in all extremities gait could not be assessed as patient was dizzy, coordination intact - Musculoskeletal Musculoskeletal: , strength reduced on the left - Psychiatric Psychiatric: A&O x's 3, appropriate affect - Labs CBC & Chem 7: 01/28/17 12:55 01/28/17 11:30 Labs: Abnormal Lab Results - Last 24 Hours (Table) 01/31/17 Range/Units 12:23 POC Glucose (mg/dL) 205 H (75-99) mg/dL Assessment and Plan Plan: 1. Acute vertigo - A differential include acute stroke versus benign positional vertigo or vestibular neuritis. Patient does have some weakness in the left lower extremity but states that it is chronic and has been receiving physical therapy for the same. Patient does have dizziness associated with cortical with movement of the head towards the left with fast component of the nystagmus towards the right, correlating with central pathology. CT head negative CTA ordered, showed 70% stenosis at the right proximal internal carotid artery and 50% stenosis the left internal carotid artery. Did not show anything significant to account for patient's symptoms. Continue meclizine for symptom control, Solu-Medrol added for vestibular neuritis. Continue aspirin and statin. Neurology consulted, will await further recommendations. Debrox ordered for left cerumen impaction 2.Baseline essential hypertension -Hold losartan and Lasix for permissive hypertension, can start losartan if needed. Patient was on Coreg in the past admission but currently patient med list do not have Coreg listed in his medication list, we will clarify 3. History of CABG/pacemaker - asymptomatic -Initiated baby aspirin 4. History of hypothyroidism -Continue home Synthyroid 5. History of AARON and COPD, currently is in no exacerbation -Patient is noncompliant with home CPAP -Placed on DuoNeb's, he is not on inhalers at home 6. History of lymphoma in remission for 3 years, asymptomatic 7. Depression - continue amitriptyline 8. Restless legs - continue ropinirole 9. Placement concern -Patient is living by his own, safety is a concern, PT/OT/social professionals were consulted 10. Possibly progressing dementia -Patient is not on dementia medications, needs to be evaluated as an outpatient 11 3 back surgeries -Continue home norco for pain DVT prophylaxis with heparin GI prophylaxis with Protonix Code is full code, discussed with daughter who is the POA Impression and plan of care have been directed as dictated by the signing physician. Lore Calvin nurse practitioner acting as scribe for signing physician.
--- NOTE | 2017-01-31 17:10 | P.PN ---
Subjective Principal diagnosis: Patient is a pleasant 86-year-old male who is being followed by the neurology service for intractable vertigo. Patient has history of coronary artery disease with history of CABG. Patient also has a biventricular pacemaker , history of COPD, sleep apnea, and recurrent pneumonia. Patient was [facility] to [facility] due to ongoing dizziness and nausea and vomiting. Patient reports he is much better today. He has been up to the bathroom with the nurses. His dizziness remains but is much less severe. Patient states meclizine is helping with the dizziness. Patient was put on steroids for possible vestibular neuritis. As you recall CT of the brain was negative for any acute process. CTA showed no sign of aneurysm or neovascularity. Patient had some stenosis in bilateral internal carotid arteries which he should follow up as an outpatient for. At the time of my evaluation, patient is resting comfortably in bed and appears to be in no acute distress. 01/31/2017 Patient is a pleasant 86 male who is being followed by the neurology service for intractable vertigo. Patient is much improved as compared to yesterday. patient states meclizine is helping with the dizziness. Patient remains on steroids for possible vestibular neuritis. As you recall, CTA showed no sign of aneurysm or neovascularity. CT of the brain was negative for any acute process. At the time of my evaluation, patient's resting comfortably in bed and appears to be in no acute distress. Objective - Vital Signs Vital signs: Vital Signs Temp 98.0 F 01/31/17 14:14 Pulse 83 01/31/17 14:14 Resp 20 01/31/17 14:14 BP 161/68 01/31/17 14:14 Pulse Ox 97 01/31/17 14:14 Intake & Output 01/30/17 01/31/17 01/31/17 18:59 06:59 18:59 Intake Total 520 500 Output Total 500 750 Balance 20 -250 Intake: Oral 520 500 Output: Urine 500 750 Other: Voiding Method Urinal Urinal Urinal # Voids 0 2 # Bowel Movements 0 0 - Exam PHYSICAL EXAM: GENERAL APPEARANCE: Patient is a well-developed, male who appears to be in no acute distress. HEENT: Normocephalic, atraumatic, no facial asymmetry is seen. Neck is supple with no masses felt. CARDIOVASCULAR: Regular rate and rhythm. ABDOMEN: Nontender, nondistended. EXTREMITIES: Show no edema or clubbing. NEUROLOGICAL EXAM: Patient is awake, alert, and oriented 3. Speech and language are normal. Strength is full in all 4 extremities except left lower extremity which is 5 minus/5 but is chronic. Sensory exam is normal to light touch in all 4 extremities. No facial asymmetry seen on cranial nerve testing. No tremors or seizure-like activity noted. - Labs CBC & Chem 7: 01/28/17 12:55 01/28/17 11:30 Labs: Abnormal Lab Results - Last 24 Hours (Table) 01/31/17 Range/Units 12:23 POC Glucose (mg/dL) 205 H (75-99) mg/dL Assessment and Plan (1) Hypertension Status: Acute (2) Intractable nausea and vomiting Status: Acute (3) Vertigo Status: Acute (4) COPD (chronic obstructive pulmonary disease) Status: Acute Plan: Recommendation: It does appear the patient has benign paroxysmal positional vertigo although cannot rule out acute CVA. Patient does report weakness in the left lower extremity but states this is chronic. As mentioned above, CT of the head was negative for any acute process. CTA showed 70% stenosis in the right proximal internal carotid artery and 50% stenosis in the left internal carotid artery. Patient will need follow-up with vascular as an outpatient to follow this. Patient does report relief of symptoms with meclizine. He may continue meclizine as needed. We can further investigate by performing a VAT in the office. Patient will likely need vestibular rehab which can be done in our office as an outpatient. Patient was also put on low-dose steroids for vestibular neuritis. Continue aspirin and statin as ordered. If symptoms persist or worsen, he may need MRI of the brain to evaluate for contributing etiology. Will need to investigate if pacemaker is MRI compatible. EEG was done and results are pending. His fasting lipid panel was within normal limits. Serum homocystine level is pending. Continue neurological checks. Continue physical therapy. Patient is awaiting transfer to [facility] in [place]. Patient is stable for discharge from neurological standpoint. Barring any abnormality on the EEG, I will continue to follow with you on an as- needed basis. Feel free to call with any questions or concerns. I performed an examination of the patient and discussed the management with the TRAFFIC ENGINEERING DIRECTOR. I have reviewed the TRAFFIC ENGINEERING DIRECTOR notes and agree with the findings and plan of care.
[2017-01-31 17:32] LABS: Glucose,Whole Blood 155 mg/dL (75-99)
--- NOTE | 2017-01-31 19:17 | EEG ---
ELECTROENCEPHALOGRAM REPORT DATE OF SERVICE: 01/31/2017 REASON FOR TESTING: Altered mental status and dizziness. DESCRIPTION OF THE PROCEDURE: This EEG was performed using a 21 channel digital electroencephalograph, following international 10-20 system. DESCRIPTION OF THE RECORDING: From the beginning of the tracing, and with patient's eyes closed, the background rhythm was mostly consisting of 7 Hz theta frequency in the posterior occipital leads. No obvious asymmetry is seen. Photic stimulation was performed with no driving response seen. No pathological waves were elicited. Occasional movement artifacts and muscle artifacts are seen. Hyperventilation was not performed. The patient remains awake throughout the tracing. No epileptiform discharges were seen. His EKG lead showed an irregularly irregular rhythm. INTERPRETATION: This awake EEG is abnormal due to the presence of generalized slowing of the background rhythm, mostly in the theta range. This is consistent with mild encephalopathy. No obvious epileptiform discharges were seen. The absence of epileptiform discharges does not rule out the diagnosis of epilepsy, therefore clinical correlation is recommended. Of note, his EKG lead showed an irregularly irregular rhythm with a normal rate. MMROSALIOL / SANGN: [id number] /
[2017-01-31] MEDS: ATORVASTATIN 40 MG TAB PO SCH (20:03)
[2017-01-31] MEDS: AMITRIPTYLINE HCL 50 MG TAB PO SCH (20:03)
[2017-01-31 20:52] LABS: Glucose,Whole Blood 144 mg/dL (75-99)
[2017-01-31] MEDS: SCOPOLAMINE 1.5MG/72HR PATCH TRANSDERM SCH (22:18)
[2017-02-01] MEDS: LEVOTHYROXINE 75 MCG TAB PO SCH (06:37)
[2017-02-01] MEDS: methylPREDNISolone SOD SUCCI 40 MG/ML 1 ML VIAL IV SCH ×2 (06:37→13:10)
[2017-02-01 07:26] LABS: Glucose,Whole Blood 136 mg/dL (75-99)
[2017-02-01 07:49] VITALS: BP 145/95; RESP 20; TEMP 97.1
[2017-02-01] MEDS: ALBUTEROL NEBULIZED 2.5 MG/3 ML INHALATION SCH (08:03)
[2017-02-01 08:16] VITALS: PULSE 82
[2017-02-01] MEDS: POTASSIUM CHLORIDE ER 10 MEQ TAB.ER.PRT PO SCH (08:27)
[2017-02-01] MEDS: INSULIN LISPRO (humaLOG) 300 UNIT/3 ML VIAL SQ SCH ×2 (08:27→13:11)
[2017-02-01] MEDS: MECLIZINE 25 MG TAB PO SCH (08:27)
[2017-02-01] MEDS: CARBAMIDE PEROXIDE 6.5% DROPS 15 ML BTL LEFT EAR SCH (08:27)
[2017-02-01] MEDS: PANTOPRAZOLE 40 MG TABLET PO SCH (08:28)
[2017-02-01] MEDS: ASPIRIN 81 MG PO SCH (08:28)
[2017-02-01] MEDS: HEPARIN SODIUM,PORCINE 5,000 UNIT/ML 1 ML VIAL SQ SCH (09:20)
[2017-02-01 10:00] LABS: Hemoglobin A1C 5.9 % (4.2-6.1)
[2017-02-01 11:54] LABS: Glucose,Whole Blood 140 mg/dL (75-99)
--- NOTE | 2017-02-01 12:08 | P.DS ---
Providers Date of admission: 01/29/17 11:42 Expected date of discharge: 02/01/17 Attending physician: Ezequiel Herzog MD Consults: 01/28/17 15:58 Consult Physician Routine Consulting Provider: Josette Antoine Consult Reason/Comments: Intractable vertigo Do you want consulting provider notified?: Yes Primary care physician: [facility] Course: 86-year-old male with a past medical history of CABG and biventricular pacemaker, COPD, recurrent pneumonia, and obstructive sleep apnea presented with acute onset of nausea and vomiting associated with dizziness while patient was working on his computer. Patient states that he has never had this weakness before. Patient feels dizzy with moving his head side-to- side associated with intractable vomiting . Patient received 8 mg of Zofran in the ED, 1 dose of Ativan and told these doses of meclizine which helped relieve the symptoms . Patient continues to have vertigo with movement of head. CT head negative for any acute stroke . CBC and BMP was unremarkable. Since patient has history of coronary artery disease and peripheral vascular disease, patient on a higher risk score for stroke and needs evaluation by neurology. Patient was admitted previously for HCAP last month. He was found to be complaining of dizziness but was orthostatic at that time. B12 and folate normal. His TSH was normal last admission. Echo done last month was normal. 01/29: Patient underwent CT angiogram head and neck yesterday. Approximately 50 % stenosis at the left internal carotid artery and 70% stenosis in the right internal carotid artery. There was no intracranial vascular abnormalities noted. PT attemped to get patient out of bed today, patient was unable to stand up due to his dizziness. He reports dizziness with position changes and continues to have nausea. Neurology is on consult, will await for their recommendations, if necessary will order MRI of head. Discussed with family and patient today for the need for subacute rehab after discharge. Social work and case management consulted. Patient's observation status discontinued and changed to inpatient. 01/30: Patient was noted to be resting comfortably in bed today, no acute distress. He still complains of significant dizziness upon standing. He has noted to have a left ear cerumen impaction, Debrox ordered. He was evaluated by neurology. EEG was done and results are pending. Homocysteine level is pending. His was placed on a low-dose steroid for vestibular neuritis and scheduled meclizine TID. Will see how patient responds to course of medication if symptoms persist, will proceed with MRI. May also need vestibular rehab upon discharge. 01/31: EEG is pending. Patient continues to have dizziness. call or contact centre manager to talk to patient's daughter regarding subacute rehab. Patient has been seen by physical therapy already. Patient's nurse clarified home dose of Requip which is been restarted. Homocysteine is normal. Lipid panel is all within normal limits. Humalog scale added as patient is currently on Solu-Medrol 40 mg every 6 hours. 02/01: Patient has been followed by Dr. Antoine for benign paroxysmal positional vertigo. He has recommended follow-up with vascular surgeon as an outpatient due to 50% stenosis in the left internal carotid artery. EEG shows slowing of the background activity consistent with mild encephalopathy and no obvious epileptiform discharges were seen. Patient is being discharged to ECF today in stable condition. Discharge diagnoses: 1. Acute vertigo secondary to vestibular neuritis. 2.Baseline essential hypertension 3. History of CABG/pacemaker - asymptomatic 4. History of hypothyroidism 5. History of AARON and COPD, currently is in no exacerbation -Patient is noncompliant with home CPAP 6. History of lymphoma in remission for 3 years, asymptomatic 7. Depression recurrent 8. Restless legs 9. Possibly progressing dementia -Patient needs to be evaluated as an outpatient 10. Carotid stenosis, 50% on the left internal carotid artery. Follow-up with vascular surgeon as an outpatient. Discharge plan: ECF. Social work is hoping family with plan. Impression and plan of care have been directed as dictated by the signing physician. Lore Calvin nurse practitioner acting as scribe for signing physician. Cc: Dr. Momo Khan Patient Condition at Discharge: Good Plan - Discharge Summary New Discharge Prescriptions: New Albuterol Nebulized [Ventolin Nebulized] 2.5 mg INHALATION RT-QID PRN neb PRN Reason: Shortness Of Breath Aspirin 81 mg PO DAILY Carbamide Peroxide [Debrox Otic] 5 drops LEFT EAR BID bottle Meclizine [Antivert] 25 mg PO TID PRN #90 tab PRN Reason: dizziness methylPREDNISolone Dose Pack [Medrol Dose Pack] 4 mg PO DIRECTED #21 package Scopolamine 1.5MG/72Hr Patch [TransDerm Scop] 1 patch TRANSDERM Q72H patch Continue Amitriptyline HCl [Elavil] 50 mg PO HS rOPINIRole HCL [Requip] 1 mg PO TID Omeprazole 20 mg PO DAILY Nitroglycerin Sl Tabs [Nitrostat] 0.4 mg SUBLINGUAL Q5M PRN PRN Reason: CHEST PAIN Atorvastatin [Lipitor] 40 mg PO HS Levothyroxine Sodium [Synthroid] 75 mcg PO DAILY Losartan [Cozaar] 25 mg PO DAILY guaiFENesin [Mucinex] 600 mg PO Q12HR PRN tab PRN Reason: Cough Furosemide [Lasix] 10 mg PO DAILY Potassium Chloride ER [K-Dur 10] 10 meq PO DAILY Discontinued Temazepam [Restoril] 30 mg PO HS HYDROcodone/APAP 10-325MG [[place] 10-325] 1 tab PO Q4HR PRN PRN Reason: Pain Albuterol Nebulized [Ventolin Nebulized] 2.5 mg INHALATION RT-BID Albuterol Inhaler [Ventolin Hfa Inhaler] 1 - 2 puff INHALATION RT-QID PRN PRN Reason: Shortness Of Breath Discharge Medication List Amitriptyline HCl [Elavil] 50 mg PO HS 03/06/16 [History] Atorvastatin [Lipitor] 40 mg PO HS 03/06/16 [History] Levothyroxine Sodium [Synthroid] 75 mcg PO DAILY 03/06/16 [History] Nitroglycerin Sl Tabs [Nitrostat] 0.4 mg SUBLINGUAL Q5M PRN 03/06/16 [History] Omeprazole 20 mg PO DAILY 03/06/16 [History] rOPINIRole HCL [Requip] 1 mg PO TID 03/06/16 [History] Losartan [Cozaar] 25 mg PO DAILY 12/26/16 [History] guaiFENesin [Mucinex] 600 mg PO Q12HR PRN tab 12/28/16 [Rx] Furosemide [Lasix] 10 mg PO DAILY 01/28/17 [History] Potassium Chloride ER [K-Dur 10] 10 meq PO DAILY 01/28/17 [History] Albuterol Nebulized [Ventolin Nebulized] 2.5 mg INHALATION RT-QID PRN neb 02/01 [Rx] Aspirin 81 mg PO DAILY 02/01/17 [Rx] Carbamide Peroxide [Debrox Otic] 5 drops LEFT EAR BID bottle 02/01/17 [Rx] Meclizine [Antivert] 25 mg PO TID PRN #90 tab 02/01/17 [Rx] Scopolamine 1.5MG/72Hr Patch [TransDerm Scop] 1 patch TRANSDERM Q72H patch 07/16 [Rx] methylPREDNISolone Dose Pack [Medrol Dose Pack] 4 mg PO DIRECTED #21 package 02/01/17 [Rx] Follow up Appointment(s)/Referral(s): Momo Khan MD [Primary Care Provider] - 1 Week (After discharge from correction) Discharge Disposition: TRANSFER TO SNF/ECF
[2017-02-01] MEDS ORDERED: QUEtiapine 25 MG TAB PO SCH (21:00)
== END 2017-02-01 13:56 | DRG 156 ==
LOC: EC 11:10 → 3OBS 15:57 → OBSVTOIN 01-29 11:42 → 4MS4W 01-29 16:31
PROVIDERS: ADMIT Internal Medicine; ATTEND Internal Medicine
DX: H93.3X9 Disorders of unspecified acoustic nerve (principal); J44.9 Chronic obstructive pulmonary disease, unspecified; F03.90 Unspecified dementia, unspecified severity, without behavioral disturbance, psychotic disturbance, mood disturbance, and anxiety; I65.23 Occlusion and stenosis of bilateral carotid arteries; I10 Essential (primary) hypertension; E03.9 Hypothyroidism, unspecified; G47.33 Obstructive sleep apnea (adult) (pediatric); K21.9 Gastro-esophageal reflux disease without esophagitis; F32.9 Major depressive disorder, single episode, unspecified; G25.81 Restless legs syndrome; H81.10 Benign paroxysmal vertigo, unspecified ear; H61.22 Impacted cerumen, left ear; H55.00 Unspecified nystagmus; E78.5 Hyperlipidemia, unspecified; I25.10 Atherosclerotic heart disease of native coronary artery without angina pectoris; I73.9 Peripheral vascular disease, unspecified; Z79.899 Other long term (current) drug therapy; Z87.01 Personal history of pneumonia (recurrent); Z95.0 Presence of cardiac pacemaker; Z85.51 Personal history of malignant neoplasm of bladder; Z85.72 Personal history of non-Hodgkin lymphomas; Z86.14 Personal history of Methicillin resistant Staphylococcus aureus infection; Z91.19 Patient's noncompliance with other medical treatment and regimen; Z95.1 Presence of aortocoronary bypass graft; Z87.442 Personal history of urinary calculi; Z85.47 Personal history of malignant neoplasm of testis; Z87.891 Personal history of nicotine dependence
CPT/HCPCS: 36415; 70450; 70496; 70498; 71020; 80053; 80061; 81003; 82550; 82553; 83036; 83090; 83735; 84484; 85025; 85610; 85730; 93005; 94640; 94760; 95819; 96361; 96374; 96375; 99285

== ENCOUNTER 2017-02-23 12:43 | Observation (INO) | payer MEDICARE, BC ==
[2017-02-23] MEDS ORDERED: SODIUM CHLORIDE 0.9% 1,000 ML IV STA (13:17)
[2017-02-23] MEDS ORDERED: SODIUM CHLORIDE 0.9% 1,000 ML IV ONE (13:21)
--- NOTE | 2017-02-23 13:24 | ED ---
SOB HPI - General Chief Complaint: Shortness of Breath Stated Complaint: Low O2 Time Seen by Provider: 02/23/17 13:00 Source: patient, RN notes reviewed, old records reviewed Mode of arrival: wheelchair Limitations: no limitations - History of Present Illness Initial Comments: Patient is an 86-year-old male presenting to the emergency Department chief complaint of shortness of breath. Patient was sent here from his primary care physician due to hypoxia, unable to get a pulse ox at that time. He does have significant labored breathing. Patient reports that he had a significant cough this morning but denies any productive sputum. Patient reports that he becomes extremely short of breath whenever exerting himself or walking throughout his house. He is currently not on oxygen regularly. Patient states he has a history of COPD. History of coronary artery bypass graft 15 years ago. He also states that the past times he has been admitted, does have some thickened arteries, and is supposed to follow-up with a vascular surgeon. Patient reports he does take his medications as right he is supposed to. Patient is been admitted multiple times within the past year due to coronary artery disease , - Related Data Home Medications Medication Instructions Recorded Confirmed Amitriptyline HCl [Elavil] 50 mg PO HS 03/06/16 02/23/17 Atorvastatin [Lipitor] 40 mg PO HS 03/06/16 02/23/17 Levothyroxine Sodium [Synthroid] 75 mcg PO DAILY 03/06/16 02/23/17 Nitroglycerin Sl Tabs [Nitrostat] 0.4 mg SUBLINGUAL Q5M PRN 03/06/16 02/23/17 Losartan [Cozaar] 25 mg PO DAILY 12/26/16 02/23/17 Furosemide [Lasix] 10 mg PO DAILY 01/28/17 02/23/17 Potassium Chloride ER [K-Dur 10] 10 meq PO DAILY 01/28/17 02/23/17 Acetaminophen Tab [Tylenol Tab] 650 mg PO Q4H PRN 02/23/17 02/23/17 Carvedilol [Coreg] 3.125 mg PO DAILY 02/23/17 02/23/17 Meclizine [Antivert] 25 mg PO Q8H PRN 02/23/17 02/23/17 Omeprazole 40 mg PO DAILY 02/23/17 02/23/17 Polyethylene Glycol 3350 [Miralax] 17 gm PO DAILY 02/23/17 02/23/17 rOPINIRole HCL [Requip] 1 mg PO TID 02/23/17 02/23/17 Previous Rx's Medication Instructions Recorded guaiFENesin [Mucinex] 600 mg PO Q12HR PRN tab 12/28/16 Albuterol Nebulized [Ventolin 2.5 mg INHALATION RT-QID PRN neb 02/01/17 Nebulized] Aspirin 81 mg PO DAILY 02/01/17 Scopolamine 1.5MG/72Hr Patch 1 patch TRANSDERM Q72H patch 02/01/17 [TransDerm Scop] Allergies Allergy/AdvReac Type Severity Reaction Status Date / Time Penicillins Allergy Unknown Verified 02/23/17 13:37 Childhood Review of Systems ROS Statement: Those systems with pertinent positive or pertinent negative responses have been documented in the HPI. ROS Other: All systems not noted in ROS Statement are negative. Past Medical History Past Medical History: Cancer, Chest Pain / Angina, COPD, GERD/Reflux, Hyperlipidemia, Hypertension, Pneumonia, Sleep Apnea/CPAP/BIPAP, Thyroid Disorder Additional Past Medical History / Comment(s): Lymphoma,bladder cancer, kidney stones, RLS, pt states he has some depression over his having dementia and being placed in [facility] further stated he was given a prescription for cymbalta but has'nt picked it up yet. History of Any Multi-Drug Resistant Organisms: MRSA Date of last positivie culture/infection: 2013 MDRO Source:: back Past Surgical History: Adenoidectomy, Coronary Bypass/CABG, Pacemaker, Tonsillectomy Additional Past Surgical History / Comment(s): quadruple bypass, lower aortic stent, "new artery in right thigh", power port right chest wall, 3 back surgeries - then found MRSA and had hardware removal. laser sx on bladder d/t cancer. Past Anesthesia/Blood Transfusion Reactions: No Reported Reaction Type of Cardiac Device: Biventricular Pacemaker Device Placement Date:: 2008 Past Psychological History: Depression Smoking Status: Former smoker Past Alcohol Use History: None Reported Past Drug Use History: None Reported - Past Family History Father Additional Family Medical History / Comment(s): aortic aneurysm. Mother Family Medical History: CVA/TIA, Pneumonia Additional Family Medical History / Comment(s): Patient therefore kids with one daughter has history of stroke and MS General Exam - General Exam Comments Initial Comments: This is an 86-year-old male. Patient does have some labored breathing. Limitations: no limitations General appearance: alert, in no apparent distress Head exam: Present: atraumatic, normocephalic, normal inspection Eye exam: Present: normal appearance, PERRL, EOMI. Absent: scleral icterus, conjunctival injection, periorbital swelling ENT exam: Present: normal exam, mucous membranes moist Neck exam: Present: normal inspection. Absent: tenderness, meningismus, lymphadenopathy Respiratory exam: Present: normal lung sounds bilaterally. Absent: respiratory distress, wheezes, rales, rhonchi, stridor Cardiovascular Exam: Present: regular rate, normal rhythm, normal heart sounds. Absent: systolic murmur, diastolic murmur, rubs, gallop, clicks GI/Abdominal exam: Present: soft, normal bowel sounds. Absent: distended, tenderness, guarding, rebound, rigid Extremities exam: Present: normal inspection, full ROM, normal capillary refill. Absent: tenderness, pedal edema, joint swelling, calf tenderness Back exam: Present: normal inspection Neurological exam: Present: alert, oriented X3, CN II-XII intact Psychiatric exam: Present: normal affect, normal mood Skin exam: Present: warm, dry, intact, normal color. Absent: rash Course Vital Signs 02/23/17 02/23/17 02/23/17 12:49 13:32 13:45 Temperature 97.8 F Pulse Rate 78 76 Respiratory 24 22 22 Rate Blood Pressure 135/84 127/58 O2 Sat by Pulse 98 96 Oximetry 02/23/17 02/23/17 02/23/17 13:54 14:04 15:15 Temperature Pulse Rate 75 76 74 Respiratory 20 19 Rate Blood Pressure 151/90 O2 Sat by Pulse 100 Oximetry 02/23/17 16:00 Temperature Pulse Rate 84 Respiratory 20 Rate Blood Pressure 164/66 O2 Sat by Pulse 84 L Oximetry Medical Decision Making - Medical Decision Making 86-year-old male presents emergency increased shortness of breath, and primary care physician was unable to obtain pulse ox well visiting today. Patient reports that he's been having some shortness of breath for many months now. He reports seems to be somewhat worse whenever he is walking from place to place. At this time patient's labwork was reviewed. He did have negative cardiac enzymes. EKG shows a paced rhythm. Patient's d-dimer was significantly elevated at 3.60. CT VANEGAS chest was completed which did show no acute pulmonary embolism, there is some pulmonary fibrotic changes. Patient reports that he does this somewhat better after being placed on 3 L of oxygen, and given a DuoNeb treatment. Patient's lungs were somewhat diminished on initial exam. Patient has no peripheral edema or signs of acute heart failure. Chest x-ray showed minor developing right lower lobe pneumonia. Patient will be started on by mouth Levaquin at this time. - Lab Data Result diagrams: 02/23/17 13:33 02/23/17 13:33 Lab Results 02/23/17 02/23/17 02/23/17 Range/Units 13:33 13:33 13:33 WBC 4.2 (3.8-10.6) k/uL RBC 4.13 L (4.30-5.90) m/uL Hgb 11.5 L (13.0-17.5) gm/dL Hct 36.7 L (39.0-53.0) % MCV 89.0 (80.0-100.0) fL MCH 27.8 (25.0-35.0) pg MCHC 31.2 (31.0-37.0) g/dL RDW 15.0 (11.5-15.5) % Plt Count 256 (150-450) k/uL Neutrophils % 78 % Lymphocytes % 5 % Monocytes % 7 % Eosinophils % 8 % Basophils % 1 % Neutrophils # 3.3 (1.3-7.7) k/uL Lymphocytes # 0.2 L (1.0-4.8) k/uL Monocytes # 0.3 (0-1.0) k/uL Eosinophils # 0.3 (0-0.7) k/uL Basophils # 0.0 (0-0.2) k/uL Hypochromasia Slight PT (9.0-12.0) sec INR (<1.2) APTT (22.0-30.0) sec D-Dimer (<0.60) mg/L FEU VBG pH (7.31-7.41) VBG pCO2 (37-51) mmHg VBG HCO3 (24-28) mmol/L Sodium 136 L (137-145) mmol/L Potassium 5.0 (3.5-5.1) mmol/L Chloride 102 (98-107) mmol/L Carbon Dioxide 24 (22-30) mmol/L Anion Gap 10 mmol/L BUN 18 (9-20) mg/dL Creatinine 1.00 (0.66-1.25) mg/dL Est GFR (MDRD) Af Amer >60 (>60 ml/min/1.73 sqM) Est GFR (MDRD) Non-Af >60 (>60 ml/min/1.73 sqM) Glucose 92 (74-99) mg/dL Plasma Lactic Acid Luis Felipe (0.7-2.0) mmol/L Calcium 9.1 (8.4-10.2) mg/dL Total Bilirubin 0.7 (0.2-1.3) mg/dL AST 19 (17-59) U/L ALT 29 (21-72) U/L Alkaline Phosphatase 109 (38-126) U/L Total Creatine Kinase 32 L (55-170) U/L CK-MB (CK-2) 0.9 (0.0-2.4) ng/mL CK-MB (CK-2) Rel Index 2.8 Troponin I <0.012 (0.000-0.034) ng/mL NT-Pro-B Natriuret Pep pg/mL Total Protein 5.8 L (6.3-8.2) g/dL Albumin 3.3 L (3.5-5.0) g/dL Urine Color Urine Appearance (Clear) Urine pH (5.0-8.0) Ur Specific [place] (1.001-1.035) Urine Protein (Negative) Urine Glucose (UA) (Negative) Urine Ketones (Negative) Urine Blood (Negative) Urine Nitrite (Negative) Urine Bilirubin (Negative) Urine Urobilinogen (<2.0) mg/dL Ur Leukocyte Esterase (Negative) 02/23/17 02/23/17 02/23/17 Range/Units 13:33 13:33 13:33 WBC (3.8-10.6) k/uL RBC (4.30-5.90) m/uL Hgb (13.0-17.5) gm/dL Hct (39.0-53.0) % MCV (80.0-100.0) fL MCH (25.0-35.0) pg MCHC (31.0-37.0) g/dL RDW (11.5-15.5) % Plt Count (150-450) k/uL Neutrophils % % Lymphocytes % % Monocytes % % Eosinophils % % Basophils % % Neutrophils # (1.3-7.7) k/uL Lymphocytes # (1.0-4.8) k/uL Monocytes # (0-1.0) k/uL Eosinophils # (0-0.7) k/uL Basophils # (0-0.2) k/uL Hypochromasia PT 10.3 (9.0-12.0) sec INR 1.0 (<1.2) APTT 23.7 (22.0-30.0) sec D-Dimer 3.90 H (<0.60) mg/L FEU VBG pH (7.31-7.41) VBG pCO2 (37-51) mmHg VBG HCO3 (24-28) mmol/L Sodium (137-145) mmol/L Potassium (3.5-5.1) mmol/L Chloride (98-107) mmol/L Carbon Dioxide (22-30) mmol/L Anion Gap mmol/L BUN (9-20) mg/dL Creatinine (0.66-1.25) mg/dL Est GFR (MDRD) Af Amer (>60 ml/min/1.73 sqM) Est GFR (MDRD) Non-Af (>60 ml/min/1.73 sqM) Glucose (74-99) mg/dL Plasma Lactic Acid Luis Felipe (0.7-2.0) mmol/L Calcium (8.4-10.2) mg/dL Total Bilirubin (0.2-1.3) mg/dL AST (17-59) U/L ALT (21-72) U/L Alkaline Phosphatase (38-126) U/L Total Creatine Kinase (55-170) U/L CK-MB (CK-2) (0.0-2.4) ng/mL CK-MB (CK-2) Rel Index Troponin I (0.000-0.034) ng/mL NT-Pro-B Natriuret Pep 429 pg/mL Total Protein (6.3-8.2) g/dL Albumin (3.5-5.0) g/dL Urine Color Yellow Urine Appearance Clear (Clear) Urine pH 6.5 (5.0-8.0) Ur Specific [place] 1.010 (1.001-1.035) Urine Protein Negative (Negative) Urine Glucose (UA) Negative (Negative) Urine Ketones Negative (Negative) Urine Blood Negative (Negative) Urine Nitrite Negative (Negative) Urine Bilirubin Negative (Negative) Urine Urobilinogen <2.0 (<2.0) mg/dL Ur Leukocyte Esterase Negative (Negative) 02/23/17 02/23/17 Range/Units 13:33 13:55 WBC (3.8-10.6) k/uL RBC (4.30-5.90) m/uL Hgb (13.0-17.5) gm/dL Hct (39.0-53.0) % MCV (80.0-100.0) fL MCH (25.0-35.0) pg MCHC (31.0-37.0) g/dL RDW (11.5-15.5) % Plt Count (150-450) k/uL Neutrophils % % Lymphocytes % % Monocytes % % Eosinophils % % Basophils % % Neutrophils # (1.3-7.7) k/uL Lymphocytes # (1.0-4.8) k/uL Monocytes # (0-1.0) k/uL Eosinophils # (0-0.7) k/uL Basophils # (0-0.2) k/uL Hypochromasia PT (9.0-12.0) sec INR (<1.2) APTT (22.0-30.0) sec D-Dimer (<0.60) mg/L FEU VBG pH 7.33 (7.31-7.41) VBG pCO2 54 H (37-51) mmHg VBG HCO3 28 (24-28) mmol/L Sodium (137-145) mmol/L Potassium (3.5-5.1) mmol/L Chloride (98-107) mmol/L Carbon Dioxide (22-30) mmol/L Anion Gap mmol/L BUN (9-20) mg/dL Creatinine (0.66-1.25) mg/dL Est GFR (MDRD) Af Amer (>60 ml/min/1.73 sqM) Est GFR (MDRD) Non-Af (>60 ml/min/1.73 sqM) Glucose (74-99) mg/dL Plasma Lactic Acid Luis Felipe 1.2 (0.7-2.0) mmol/L Calcium (8.4-10.2) mg/dL Total Bilirubin (0.2-1.3) mg/dL AST (17-59) U/L ALT (21-72) U/L Alkaline Phosphatase (38-126) U/L Total Creatine Kinase (55-170) U/L CK-MB (CK-2) (0.0-2.4) ng/mL CK-MB (CK-2) Rel Index Troponin I (0.000-0.034) ng/mL NT-Pro-B Natriuret Pep pg/mL Total Protein (6.3-8.2) g/dL Albumin (3.5-5.0) g/dL Urine Color Urine Appearance (Clear) Urine pH (5.0-8.0) Ur Specific [place] (1.001-1.035) Urine Protein (Negative) Urine Glucose (UA) (Negative) Urine Ketones (Negative) Urine Blood (Negative) Urine Nitrite (Negative) Urine Bilirubin (Negative) Urine Urobilinogen (<2.0) mg/dL Ur Leukocyte Esterase (Negative) 02/23/17 14:26 EKG shows electronic ventricular pacemaker. Ventricular rate 74 bpm. Interval 136 most seconds. QRS duration 162 ms. QT QTc is 446/491 ms. No evidence of ST elevation or T-wave inversion. No speech or ventricular arrhythmias. - Radiology Data Radiology results: report reviewed Chest x-ray shows clinical correlation recommended for early developing right lower lobe pneumonia. Follow-up exams can be performed as clinically indicated. CT VANEGAS for PE was completed. No acute pulmonary able to. Advanced emphysema changes noted. Some pulmonary fibrosis is likely present. Disposition Clinical Impression: COPD (chronic obstructive pulmonary disease), Dyspnea on exertion Disposition: ADMITTED IP TO THIS HOSP Condition: Stable Referrals: Momo Khan MD [Primary Care Provider] - 1-2 days Time of Disposition: 16:16
[2017-02-23] MEDS: SODIUM CHLORIDE 0.9% 1,000 ML IV SCH (13:35)
[2017-02-23] MEDS ORDERED: IPRATROPIUM-ALBUTEROL 3 ML NEB INHALATION STA (13:49)
[2017-02-23 13:54] LABS: Appearance,Urine Clear (Clear); Bilirubin,Urine Negative (Negative); Glucose,Urine (UA) Negative (Negative); Ketones,Urine Negative (Negative); Leukocyte Esterase,Urine Negative (Negative); Nitrite,Urine Negative (Negative); PH, Urine 6.5 (5.0-8.0); Protein,Urine Negative (Negative); UA Billing (MACRO vs. MICRO) CHEM; Urobilinogen,Urine <2.0 mg/dL (<2.0)
--- NOTE | 2017-02-23 13:54 | XR ---
EXAMINATION TYPE: XR chest 2V DATE OF EXAM: 02/23/2017 COMPARISON: 01/28/2017 INDICATION: Difficulty breathing TECHNIQUE: Frontal and lateral views of the chest are obtained. FINDINGS: The heart size is normal. The pulmonary vasculature is normal. There is some mild developing right lower lobe infiltrate. Some air bronchograms may extend into the right lower lobe. Correlate for early developing pneumonia.. Pacemaker overlies left chest. IMPRESSION: 1. Clinical correlation recommended for early developing right lower lobe pneumonia. Follow-up exams can be performed as clinically indicated.
[2017-02-23 14:02] LABS: ALT 29 U/L (21-72); AST 19 U/L (17-59); Alkaline Phosphatase 109 U/L (38-126); Anion Gap 10 mmol/L; Basophils % (A) 1 %; Blood Urea Nitrogen 18 mg/dL (9-20); CH 28.6; CHCM 32.2; Calcium 9.1 mg/dL (8.4-10.2); Carbon Dioxide 24 mmol/L (22-30); Chloride 102 mmol/L (98-107); Eosinophils # (A) 0.3 k/uL (0-0.7); Eosinophils % (A) 8 %; Glucose 92 mg/dL (74-99); HCT 36.7 % (39.0-53.0); HDW 2.92; HGB 11.5 gm/dL (13.0-17.5); Hypochromasia Slight; Luc # (Auto) 0.07; Luc % (Auto) 2; Lymphocytes # (A) 0.2 k/uL (1.0-4.8); Lymphocytes % (A) 5 %; MCH 27.8 pg (25.0-35.0); MCHC 31.2 g/dL (31.0-37.0); Mean Platelet Volume 7.5; Monocytes # (A) 0.3 k/uL (0-1.0); Monocytes % (A) 7 %; Neutrophils # (A) 3.3 k/uL (1.3-7.7); Neutrophils % (A) 78 %; Non-African American GFR(MDRD) >60 (>60 ml/min/1.73 sqM); RBC 4.13 m/uL (4.30-5.90); Sodium 136 mmol/L (137-145); Total Bilirubin 0.7 mg/dL (0.2-1.3); Total Protein 5.8 g/dL (6.3-8.2); WBC 4.2 k/uL (3.8-10.6); WBC (Perox) 4.74
[2017-02-23 14:05] LABS: VBG PH 7.33 (7.31-7.41)
[2017-02-23 14:09] LABS: Partial Thromboplastin Time 23.7 sec (22.0-30.0); Prothrombin Time 10.3 sec (9.0-12.0)
[2017-02-23 14:15] LABS: Creatine Kinase 32 U/L (55-170)
[2017-02-23] MEDS ORDERED: RX INFO: IV CONTRAST WAS GIVEN 1 EACH MISC MISCELLANE PRN (14:18)
[2017-02-23 14:28] LABS: Creatine Kinase MB 0.9 ng/mL (0.0-2.4); Troponin I <0.012 ng/mL (0.000-0.034)
--- NOTE | 2017-02-23 15:13 | CT ---
CT CHEST FOR PULMONARY EMBOLISM. EXAMINATION TYPE: CT chest angio for PE DATE OF EXAM: 02/23/2017 INDICATION: SOB CT DLP: 383.1 mGycm, Automated exposure control for dose reduction was used. CONTRAST: Patient injected with 100 mL of Omnipaque 350. COMPARISON: NONE TECHNIQUE: CT of the chest is performed on a spiral scan at 2 mm thick sections. Study is performed with intravenous contrast timed for evaluation for pulmonary embolism. This will limit additional po rtions of the evaluation. 3-D MIP images reconstructed by the technologist are reviewed on the compu ter in the coronal and sagittal planes. FINDINGS: No persistent filling defects are evident to suggest an acute pulmonary embolism. No mediastinal or hilar adenopathy enlarged by CT criteria is evident. The ascending aorta diameter at the level of the main pulmonary artery is 3.5 cm. The main pulmonary artery diameter at the bifur cation is 2.5 cm. Coronary artery calcifications likely present. Multiple electronic leads complicate d picture. Emphysematous changes are through the bilateral lung sanders. Vascular calcification is within the aor ta. Limited CT section through the upper abdomen are unremarkable. IMPRESSIONS: 1. No acute pulmonary embolism. 2. Advanced emphysematous changes. Some pulmonary fibrosis is likely present.
[2017-02-23] MEDS ORDERED: NITROGLYCERIN SL TABS 0.4 MG TAB SUBLINGUAL PRN ×2 (16:10→16:11)
[2017-02-23] MEDS ORDERED: MECLIZINE 25 MG TAB PO PRN (16:11)
[2017-02-23] MEDS ORDERED: ALBUTEROL NEBULIZED 2.5 MG/3 ML INHALATION PRN (16:11)
[2017-02-23] MEDS ORDERED: ACETAMINOPHEN TAB 325 MG TAB PO PRN (16:11)
[2017-02-23] MEDS ORDERED: guaiFENesin 600 MG TABLET.ER PO PRN (16:11)
[2017-02-23] MEDS: LEVOFLOXACIN 500 MG TAB PO SCH (17:06)
[2017-02-23] MEDS: methylPREDNISolone SOD SUCCI 125 MG/2 ML VIAL IV SCH ×2 (17:44→23:25)
[2017-02-23] MEDS ORDERED: SCOPOLAMINE 1.5MG/72HR PATCH TRANSDERM SCH (18:00)
[2017-02-23] MEDS: ATORVASTATIN 40 MG TAB PO SCH (20:05)
[2017-02-23] MEDS: guaiFENesin 600 MG TABLET.ER PO SCH (20:05)
[2017-02-23] MEDS: AMITRIPTYLINE HCL 50 MG TAB PO SCH (20:06)
[2017-02-23] MEDS: IPRATROPIUM-ALBUTEROL 3 ML NEB INHALATION PRN (20:28)
[2017-02-23 20:44] LABS: Creatine Kinase MB 0.6 ng/mL (0.0-2.4); Troponin I 0.016 ng/mL (0.000-0.034)
[2017-02-24 01:41] LABS: Cholesterol 127 mg/dL (<200); HDL Cholesterol 31 mg/dL (40-60)
[2017-02-24 01:57] LABS: Creatine Kinase 32 U/L (55-170)
[2017-02-24 02:10] LABS: Creatine Kinase MB 0.9 ng/mL (0.0-2.4); Troponin I <0.012 ng/mL (0.000-0.034)
[2017-02-24] MEDS: LEVOTHYROXINE 75 MCG TAB PO SCH (06:20)
[2017-02-24] MEDS: methylPREDNISolone SOD SUCCI 125 MG/2 ML VIAL IV SCH ×3 (06:20→17:32)
[2017-02-24] MEDS: IPRATROPIUM-ALBUTEROL 3 ML NEB INHALATION PRN ×2 (09:12→19:57)
[2017-02-24] MEDS: POTASSIUM CHLORIDE ER 10 MEQ TAB.ER.PRT PO SCH (09:28)
[2017-02-24] MEDS: FUROSEMIDE 10 MG TAB PO SCH (09:28)
[2017-02-24] MEDS: LOSARTAN 25 MG TAB PO SCH (09:28)
[2017-02-24] MEDS: ASPIRIN 81 MG PO SCH (09:28)
[2017-02-24] MEDS: POLYETHYLENE GLYCOL 3350 17 GM POWD.PACK PO SCH (09:29)
[2017-02-24] MEDS: guaiFENesin 600 MG TABLET.ER PO SCH ×2 (09:29→20:17)
[2017-02-24] MEDS: CARVEDILOL 3.125 MG TAB PO SCH (09:29)
[2017-02-24] MEDS: PANTOPRAZOLE 40 MG TABLET PO SCH (09:29)
--- NOTE | 2017-02-24 17:18 | P.HPIM ---
History of Present Illness H&P Date: 02/24/17 Chief Complaint: SOB This is 86 years old male with past medical history for COPD who is been followed outpatient at the pulmonary clinic presents to the hospital with worsening shortness of breath. Patient was sent to the emergency department by his primary care physician due to shortness of breath. Patient's oxygen level was above 90% on room air at time of presentation but patient did not respond to aggressive breathing treatment in the emergency department and was admitted for further evaluation. Patient is poor historian with fluctuation in his mental status according to the nursing staff but stated that he's been doing fine up until 2 or 3 days ago where he started developing cold-like symptoms and starting having dry hacking cough associated with worsening shortness of breath. Patient denied any orthopnea. Patient continued to eat and drink according to his normal schedule but felt his shortness of breath gets bothered to the point where he decided to come into the emergency department. Patient uses nebulizer machine at least twice a day and increase the frequency without any significant result. Patient denied any weight loss, nausea or vomiting, fever or chills or dysuria. The patient quit tobacco in 2003 and stated that neurological or drug abuse. Review of Systems All 14 systems reviewed and negative except as above Past Medical History Past Medical History: Cancer, Chest Pain / Angina, COPD, GERD/Reflux, Hyperlipidemia, Hypertension, Pneumonia, Sleep Apnea/CPAP/BIPAP, Thyroid Disorder Additional Past Medical History / Comment(s): Lymphoma,bladder cancer, kidney stones, RLS, pt states he has some depression over his having dementia and being placed in [facility]. vertigo, per pt's son-pt has problems with short term memory. was quick to answer the month, year and name of hospital but could' nt remember name of rehab he came from or that few minutes after having an updraft tx-he did'nt remember having one" History of Any Multi-Drug Resistant Organisms: MRSA Date of last positivie culture/infection: 2013 MDRO Source:: back Past Surgical History: Adenoidectomy, Coronary Bypass/CABG, Pacemaker, Tonsillectomy Additional Past Surgical History / Comment(s): quadruple bypass, lower aortic stent, "new artery in right thigh", power port right chest wall, 3 back surgeries - then found MRSA and had hardware removal. laser sx on bladder d/t cancer. Past Anesthesia/Blood Transfusion Reactions: No Reported Reaction Type of Cardiac Device: Biventricular Pacemaker Device Placement Date:: 2008 Smoking Status: Former smoker - Past Family History Father Additional Family Medical History / Comment(s): aortic aneurysm. Mother Family Medical History: CVA/TIA, Pneumonia Additional Family Medical History / Comment(s): Patient therefore kids with one daughter has history of stroke and MS Medications and Allergies Home Medications Medication Instructions Recorded Confirmed Type Amitriptyline HCl [Elavil] 50 mg PO HS 03/06/16 02/23/17 History Atorvastatin [Lipitor] 40 mg PO HS 03/06/16 02/23/17 History Levothyroxine Sodium [Synthroid] 75 mcg PO DAILY 03/06/16 02/23/17 History Nitroglycerin Sl Tabs [Nitrostat] 0.4 mg SUBLINGUAL Q5M PRN 03/06/16 02/23/17 History Losartan [Cozaar] 25 mg PO DAILY 12/26/16 02/23/17 History guaiFENesin [Mucinex] 600 mg PO Q12HR PRN tab 12/28/16 02/23/17 Rx Furosemide [Lasix] 10 mg PO DAILY 01/28/17 02/23/17 History Potassium Chloride ER [K-Dur 10] 10 meq PO DAILY 01/28/17 02/23/17 History Albuterol Nebulized [Ventolin 2.5 mg INHALATION RT-QID PRN neb 02/01/17 Rx Nebulized] Aspirin 81 mg PO DAILY 02/01/17 02/23/17 Rx Scopolamine 1.5MG/72Hr Patch 1 patch TRANSDERM Q72H patch 02/01/17 02/23/17 Rx [TransDerm Scop] Acetaminophen Tab [Tylenol Tab] 650 mg PO Q4H PRN 02/23/17 02/23/17 History Carvedilol [Coreg] 3.125 mg PO DAILY 02/23/17 02/23/17 History Meclizine [Antivert] 25 mg PO Q8H PRN 02/23/17 02/23/17 History Omeprazole 40 mg PO DAILY 02/23/17 02/23/17 History Polyethylene Glycol 3350 [Miralax] 17 gm PO DAILY 02/23/17 02/23/17 History rOPINIRole HCL [Requip] 1 mg PO TID 02/23/17 02/23/17 History Allergies Allergy/AdvReac Type Severity Reaction Status Date / Time Penicillins Allergy Unknown Verified 02/23/17 13:37 Childhood Physical Exam Vitals: Vital Signs Temp Pulse Pulse Resp BP Pulse Ox 02/24/17 16:00 83 18 02/24/17 15:50 97.5 F L 83 18 189/80 94 L 02/24/17 12:00 95 18 02/24/17 11:47 98 F 95 18 95/57 94 L 02/24/17 09:25 68 02/24/17 09:12 68 02/24/17 08:00 97.6 F 70 18 119/46 95 02/24/17 04:00 65 16 02/23/17 23:43 97.9 F 70 16 142/66 98 02/23/17 23:16 64 18 02/23/17 20:38 69 02/23/17 20:29 76 02/23/17 20:00 60 18 02/23/17 17:42 98.2 F 77 18 154/81 95 Intake and Output 02/24/17 02/24/17 02/24/17 06:59 14:59 22:59 Intake Total 472 Balance 472 Intake: Oral 472 Other: # Voids 2 1 2 - Constitutional General appearance: average body habitus, obese - EENT ENT: hard of hearing - Neck Neck: normal ROM - Respiratory Respiratory: bilateral: diminished, rhonchi - Cardiovascular Heart sounds: normal: S1, S2 - Gastrointestinal General gastrointestinal: normal bowel sounds, soft - Integumentary Integumentary: normal - Neurologic Neurologic: CNII-XII intact - Psychiatric Psychiatric: A&O x's 3 Results CBC & Chem 7: 02/23/17 13:33 02/23/17 13:33 Labs: Abnormal Lab Results - Last 24 Hours (Table) 02/23/17 02/24/17 02/24/17 Range/Units 19:57 01:12 01:12 Total Creatine Kinase 29 L 32 L (55-170) U/L HDL Cholesterol 31 L (40-60) mg/dL Microbiology - Last 24 Hours (Table) 02/23/17 13:33 Blood Culture - Preliminary Blood No Growth after 24 hours Thrombosis Risk Factor Assmnt - DVT/VTE Prophylaxis DVT/VTE Prophylaxis: Mechanical Prophylaxis ordered - Choose All That Apply Any of the Below Risk Factors Present?: Yes Each Factor Represents 1 point: Abnormal pulmonary function (COPD), Obesity ( BMI >25) Other Risk Factors: Yes Each Risk Factor Represents 2 Points: Malignancy Each Risk Factor Represents 3 Points: Age 75 years or older, Positive Lupus Anticoagulant Thrombosis Risk Factor Assessment Total Risk Factor Score: 10 Thrombosis Risk Factor Assessment Level: High Risk Assessment and Plan Assessment: 1. COPD with acute exacerbation. Patient responded to Solu-Medrol, frequent breathing treatment and Levaquin. I would like to continue with current treatment for about 24 hours and consider switching patient's stool oral medication upon improvement. Plan discussed with the patient was agreeable to the current treatment plan. 2. Anemia. Mild and stable we'll continue monitoring. 3. Hypothyroidism. Continue Synthroid. 4. Hyperlipidemia. Continue statin. 5. Hypertension. Controlled we will continue current medication. 6. Anxiety and depression. Continue Elavil. 7. Dementia. Mild follow-up with primary care physician. 8. GERD. Continue proton pump inhibitors. 9. Restless leg syndrome. Would continue Requip. Discharge planning based on clinical progress
[2017-02-24] MEDS: LEVOFLOXACIN 500 MG TAB PO SCH (17:32)
[2017-02-24] MEDS: ATORVASTATIN 40 MG TAB PO SCH (20:17)
[2017-02-24] MEDS: AMITRIPTYLINE HCL 50 MG TAB PO SCH (20:17)
[2017-02-25] MEDS: methylPREDNISolone SOD SUCCI 125 MG/2 ML VIAL IV SCH ×4 (02:03→18:04)
[2017-02-25] MEDS: LEVOTHYROXINE 75 MCG TAB PO SCH (06:47)
[2017-02-25] MEDS: IPRATROPIUM-ALBUTEROL 3 ML NEB INHALATION PRN (07:50)
[2017-02-25] MEDS: POTASSIUM CHLORIDE ER 10 MEQ TAB.ER.PRT PO SCH (08:23)
[2017-02-25] MEDS: FUROSEMIDE 10 MG TAB PO SCH (08:23)
[2017-02-25] MEDS: CARVEDILOL 3.125 MG TAB PO SCH (08:24)
[2017-02-25] MEDS: ASPIRIN 81 MG PO SCH (08:24)
[2017-02-25] MEDS: PANTOPRAZOLE 40 MG TABLET PO SCH (08:24)
[2017-02-25] MEDS: guaiFENesin 600 MG TABLET.ER PO SCH ×2 (08:24→21:26)
[2017-02-25] MEDS: LOSARTAN 25 MG TAB PO SCH (08:24)
[2017-02-25] MEDS: POLYETHYLENE GLYCOL 3350 17 GM POWD.PACK PO SCH (08:25)
[2017-02-25] MEDS: LEVOFLOXACIN 500 MG TAB PO SCH (17:39)
--- NOTE | 2017-02-25 18:16 | P.PN ---
Subjective Progress Note Date: 02/25/17 Patient continued to be hemodynamically stable no major events reported by nursing staff. Patient said that his shortness of breath has improved at least by 75% and currently denying chest pain nausea vomiting abdominal pain or dizziness Objective - Vital Signs Vital signs: Vital Signs Temp 97.9 F 02/25/17 15:33 Pulse 64 02/25/17 15:33 Resp 18 02/25/17 15:33 BP 147/55 02/25/17 15:33 Pulse Ox 98 02/25/17 15:33 Intake & Output 02/24/17 02/25/17 02/25/17 18:59 06:59 18:59 Intake Total 722 600 Balance 722 600 Intake: Oral 722 600 Other: Voiding Method Toilet # Voids 2 3 1 - Neck Neck: Present: normal ROM - Respiratory Details: Gross breathing sounds bilaterally no wheezing appreciated - Cardiovascular Rhythm: regular Heart sounds: normal: S1, S2 - Gastrointestinal General gastrointestinal: Present: normal bowel sounds, soft - Integumentary Integumentary: Present: normal - Neurologic Neurologic: Present: CNII-XII intact - Labs CBC & Chem 7: 02/23/17 13:33 02/23/17 13:33 Labs: Microbiology - Last 24 Hours (Table) 02/23/17 13:33 Blood Culture - Preliminary Blood No Growth after 48 hours Assessment and Plan Assessment: 1. COPD with acute exacerbation. Plan for discharge discussed with the patient but patient seems to be willing to go to a retirement facility and would like to keep him on other day discharge medication was reconciled and the prednisone tapering dose was ordered patient denied Levaquin due to diarrhea and stated that he cannot tolerate antibiotics we will consider discharging patient's to retirement in the morning with tapering dose steroids. 2. Anemia. Mild and stable we'll continue monitoring. 3. Hypothyroidism. Continue Synthroid. 4. Hyperlipidemia. Continue statin. 5. Hypertension. Controlled we will continue current medication. 6. Anxiety and depression. Continue Elavil. 7. Dementia. Mild follow-up with primary care physician. 8. GERD. Continue proton pump inhibitors. 9. Restless leg syndrome. Would continue Requip. Discharge planning based on clinical progress
[2017-02-25] MEDS: ATORVASTATIN 40 MG TAB PO SCH (21:26)
[2017-02-25] MEDS: AMITRIPTYLINE HCL 50 MG TAB PO SCH (21:27)
[2017-02-26] MEDS: LEVOTHYROXINE 75 MCG TAB PO SCH (06:45)
[2017-02-26] MEDS: IPRATROPIUM-ALBUTEROL 3 ML NEB INHALATION PRN (07:09)
[2017-02-26 07:44] VITALS: BP 140/60; PULSE 65; RESP 17; TEMP 97.6
[2017-02-26] MEDS: guaiFENesin 600 MG TABLET.ER PO SCH (09:07)
[2017-02-26] MEDS: ASPIRIN 81 MG PO SCH (09:07)
[2017-02-26] MEDS: CARVEDILOL 3.125 MG TAB PO SCH (09:07)
[2017-02-26] MEDS: FUROSEMIDE 10 MG TAB PO SCH (09:07)
[2017-02-26] MEDS: POLYETHYLENE GLYCOL 3350 17 GM POWD.PACK PO SCH (09:07)
[2017-02-26] MEDS: PANTOPRAZOLE 40 MG TABLET PO SCH (09:07)
[2017-02-26] MEDS: LOSARTAN 25 MG TAB PO SCH (09:08)
[2017-02-26] MEDS: POTASSIUM CHLORIDE ER 10 MEQ TAB.ER.PRT PO SCH (09:08)
--- NOTE | 2017-02-26 10:38 | P.DS ---
Providers Date of admission: 02/23/17 16:08 Expected date of discharge: 02/26/17 Attending physician: Juan J Herbert Primary care physician: [facility] Hospital Course: his is 86 years old male with past medical history for COPD who is been followed outpatient at the pulmonary clinic presents to the hospital with worsening shortness of breath. Patient was sent to the emergency department by his primary care physician due to shortness of breath. Patient's oxygen level was above 90% on room air at time of presentation but patient did not respond to aggressive breathing treatment in the emergency department and was admitted for further evaluation. Patient is poor historian with fluctuation in his mental status according to the nursing staff but stated that he's been doing fine up until 2 or 3 days ago where he started developing cold-like symptoms and starting having dry hacking cough associated with worsening shortness of breath. Patient denied any orthopnea. Patient continued to eat and drink according to his normal schedule but felt his shortness of breath gets bothered to the point where he decided to come into the emergency department. Patient uses nebulizer machine at least twice a day and increase the frequency without any significant result. Patient denied any weight loss, nausea or vomiting, fever or chills or dysuria. The patient quit tobacco in 2003 Hhe was treated for COPD exacerbation as he did present with shortness of breath with tracheobronchitis patient continued to improve clinically, patient [facility] he is are made are skilled rehabilitation, patient would need subacute rehabilitation as well for physical therapies, patient would be receiving tapering oral prednisone and nebulized albuterol Atrovent. Discharge planning is already aware about his transfers, his charge papers are being finalized and is accepted at [facility] FINAL DIAGNOSIS: 1. COPD with acute exacerbation. patient seems to be willing to go to a usp facility and would like to keep him on other day discharge medication was reconciled and the prednisone tapering dose was ordered patient denied Levaquin due to diarrhea will try Zithromax secondary to tracheobronchitis and oral tapering prednisone and nebulized albuterol Atrovent O2 when necessary 2. Anemia. Mild and stable we'll continue monitoring. 3. Hypothyroidism. Continue Synthroid. 4. Hyperlipidemia. Continue statin. 5. Hypertension. Controlled we will continue current medication. 6. Anxiety and depression. Continue Elavil. 7. Dementia. Mild follow-up with primary care physician. 8. GERD. Continue proton pump inhibitors. 9. Restless leg syndrome. Would continue Requip. Discharge planning discharge to [facility] Patient Condition at Discharge: Stable Plan - Discharge Summary Discharge Rx Participant: No New Discharge Prescriptions: New Acetaminophen Tab [Tylenol] 650 mg PO Q4H PRN tab PRN Reason: Mild Pain Or Fever > 100.5 guaiFENesin [Mucinex] 1,200 mg PO Q12HR 10 Days tablet.er Ipratropium-Albuterol Nebulize [Duoneb 0.5 mg-3 mg/3 ml Soln] 3 ml INHALATION Q4HR PRN #120 neb PRN Reason: Shortness Of Breath Azithromycin [Zithromax Z-pack] 0 mg PO DIRECTED #6 tab predniSONE 40 mg PO DIRECTED #10 tab Continue Amitriptyline HCl [Elavil] 50 mg PO HS Nitroglycerin Sl Tabs [Nitrostat] 0.4 mg SUBLINGUAL Q5M PRN PRN Reason: CHEST PAIN Atorvastatin [Lipitor] 40 mg PO HS Levothyroxine Sodium [Synthroid] 75 mcg PO DAILY Losartan [Cozaar] 25 mg PO DAILY guaiFENesin [Mucinex] 600 mg PO Q12HR PRN tab PRN Reason: Cough Furosemide [Lasix] 10 mg PO DAILY Potassium Chloride ER [K-Dur 10] 10 meq PO DAILY Aspirin 81 mg PO DAILY Scopolamine 1.5MG/72Hr Patch [TransDerm Scop] 1 patch TRANSDERM Q72H patch Polyethylene Glycol 3350 [Miralax] 17 gm PO DAILY Carvedilol [Coreg] 3.125 mg PO DAILY Meclizine [Antivert] 25 mg PO Q8H PRN PRN Reason: dizziness Omeprazole 40 mg PO DAILY rOPINIRole HCL [Requip] 1 mg PO TID Discontinued Albuterol Nebulized [Ventolin Nebulized] 2.5 mg INHALATION RT-QID PRN neb PRN Reason: Shortness Of Breath Acetaminophen Tab [Tylenol Tab] 650 mg PO Q4H PRN PRN Reason: Pain Or Fever > 100.5 Discharge Medication List Amitriptyline HCl [Elavil] 50 mg PO HS 03/06/16 [History] Atorvastatin [Lipitor] 40 mg PO HS 03/06/16 [History] Levothyroxine Sodium [Synthroid] 75 mcg PO DAILY 03/06/16 [History] Nitroglycerin Sl Tabs [Nitrostat] 0.4 mg SUBLINGUAL Q5M PRN 03/06/16 [History] Losartan [Cozaar] 25 mg PO DAILY 12/26/16 [History] guaiFENesin [Mucinex] 600 mg PO Q12HR PRN tab 12/28/16 [Rx] Furosemide [Lasix] 10 mg PO DAILY 01/28/17 [History] Potassium Chloride ER [K-Dur 10] 10 meq PO DAILY 01/28/17 [History] Aspirin 81 mg PO DAILY 02/01/17 [Rx] Scopolamine 1.5MG/72Hr Patch [TransDerm Scop] 1 patch TRANSDERM Q72H patch 07/16 [Rx] Carvedilol [Coreg] 3.125 mg PO DAILY 02/23/17 [History] Meclizine [Antivert] 25 mg PO Q8H PRN 02/23/17 [History] Omeprazole 40 mg PO DAILY 02/23/17 [History] Polyethylene Glycol 3350 [Miralax] 17 gm PO DAILY 02/23/17 [History] rOPINIRole HCL [Requip] 1 mg PO TID 02/23/17 [History] Acetaminophen Tab [Tylenol] 650 mg PO Q4H PRN tab 02/26/17 [Rx] Azithromycin [Zithromax Z-pack] 0 mg PO DIRECTED #6 tab 02/26/17 [Rx] Ipratropium-Albuterol Nebulize [Duoneb 0.5 mg-3 mg/3 ml Soln] 3 ml INHALATION Q4HR PRN #120 neb 02/26/17 [Rx] guaiFENesin [Mucinex] 1,200 mg PO Q12HR 10 Days tablet.er 02/26/17 [Rx] predniSONE 40 mg PO DIRECTED #10 tab 02/26/17 [Rx] Follow up Appointment(s)/Referral(s): Momo Khan MD [Primary Care Provider] - 1-2 days Discharge Disposition: TRANSFER TO SNF/ECF
[2017-02-26] MEDS: SODIUM CHLORIDE 0.9% 1,000 ML IV SCH ×2 (13:16→13:17)
== END 2017-02-26 13:16 ==
LOC: EC 12:43 → 3OBS 16:08
PROVIDERS: ADMIT Internal Medicine; ATTEND Internal Medicine
DX: J44.1 Chronic obstructive pulmonary disease with (acute) exacerbation (principal); D64.9 Anemia, unspecified; G25.81 Restless legs syndrome; E78.5 Hyperlipidemia, unspecified; K21.9 Gastro-esophageal reflux disease without esophagitis; E03.9 Hypothyroidism, unspecified; F32.9 Major depressive disorder, single episode, unspecified; F41.9 Anxiety disorder, unspecified; I10 Essential (primary) hypertension; F03.90 Unspecified dementia, unspecified severity, without behavioral disturbance, psychotic disturbance, mood disturbance, and anxiety; I25.10 Atherosclerotic heart disease of native coronary artery without angina pectoris; G47.30 Sleep apnea, unspecified; R09.02 Hypoxemia; Z95.1 Presence of aortocoronary bypass graft; Z79.899 Other long term (current) drug therapy; Z79.82 Long term (current) use of aspirin; Z88.0 Allergy status to penicillin; Z85.72 Personal history of non-Hodgkin lymphomas; Z85.51 Personal history of malignant neoplasm of bladder; Z86.14 Personal history of Methicillin resistant Staphylococcus aureus infection; Z95.0 Presence of cardiac pacemaker; Z87.891 Personal history of nicotine dependence; Z82.3 Family history of stroke
CPT/HCPCS: 93005 ×2; 96374; 96376 ×3; 96361; 99285; 36415; 94640 ×6; 94760; 97161; 97165; 85379; 83880; 80061; 80053; 82550 ×2; 82553 ×2; 82803; 83605; 84484 ×2; 85025; 85610; 85730; 81003; 87040; 71020; 71275; G0378 ×4; J2930 ×3; Q9967

== ENCOUNTER 2017-06-06 07:41 | Day surgery (SDC) | payer MEDICARE, BC ==
[2017-06-03 08:36] VITALS: BMI 24.5
[~2017-06-06 07:41] MED LIST: SODIUM CHLORIDE 0.9% 1,000 ML IV SCH
[2017-06-06 08:46] VITALS: BP 141/73; RESP 16; TEMP 97.9
[2017-06-06 10:52] VITALS: PULSE 60
--- NOTE | 2017-06-06 11:16 | P.PCN ---
Preoperative Diagnosis: Tilt table test report Indications procedure: Recurrent presyncope Twelve-lead ECG shows AV sequential pacing, biventricular paced beats Tilt table test per protocol Baseline blood pressure 134/66 maneuvers of mercury Baseline heart rate 63 beats a minute Patient is tilted upright at an angle of 70 per protocol. There was any major drop in his blood pressure to 99/58 mmHg heart rate in the 60s thereafter his blood pressure improved to between 110-120 bpm He remained asymptomatic Impression Orthostatic hypotension No evidence for orthostatic hypotension syndrome (OHS) or neurocardiogenic syncope Condition: stable Disposition: same day
== END 2017-06-06 10:21 | disposition home or self-care (01) ==
LOC: CATHEP 07:41
PROVIDERS: ATTEND Internal Medicine Clinical Cardiac Electrophysiology
DX: I95.1 Orthostatic hypotension (principal); Z95.0 Presence of cardiac pacemaker
CPT/HCPCS: 93005; 93660

== ENCOUNTER 2017-06-17 10:39 | Emergency (ER) | payer MEDICARE, BC ==
[2017-06-17] MEDS ORDERED: SODIUM CHLORIDE 0.9% 1,000 ML IV STA (11:04)
[2017-06-17] MEDS ORDERED: cefTRIAXone IN SWFI 2,000 MG/20 ML SYRINGE IVP STA (11:06)
[2017-06-17] MEDS ORDERED: AZITHROMYCIN 500 MG in SODIUM CHLORIDE 0.9% 250 ML IVPB STA (11:07)
[2017-06-17 11:38] LABS: Basophils % (A) 0 %; Eosinophils # (A) 0.2 k/uL (0-0.7); Eosinophils % (A) 2 %; HCT 40.6 % (39.0-53.0); HGB 12.2 gm/dL (13.0-17.5); Hypochromasia Marked; Lymphocytes # (A) 0.1 k/uL (1.0-4.8); Lymphocytes % (A) 2 %; MCH 26.1 pg (25.0-35.0); MCHC 30.1 g/dL (31.0-37.0); MCV 86.7 fL (80.0-100.0); Mean Platelet Volume 7.3; Monocytes # (A) 0.3 k/uL (0-1.0); Monocytes % (A) 4 %; Neutrophils # (A) 7.7 k/uL (1.3-7.7); Neutrophils % (A) 93 %; Platelet Count 158 k/uL (150-450); RBC 4.69 m/uL (4.30-5.90); RDW 15.8 % (11.5-15.5); WBC 8.3 k/uL (3.8-10.6)
[2017-06-17 11:49] LABS: ALT 22 U/L (21-72); AST 20 U/L (17-59); Albumin 3.8 g/dL (3.5-5.0); Alkaline Phosphatase 70 U/L (38-126); Anion Gap 10 mmol/L; Blood Urea Nitrogen 16 mg/dL (9-20); Calcium 9.8 mg/dL (8.4-10.2); Carbon Dioxide 27 mmol/L (22-30); Chloride 104 mmol/L (98-107); Glucose 152 mg/dL (74-99); Potassium 4.2 mmol/L (3.5-5.1); Sodium 141 mmol/L (137-145); Total Bilirubin 1.6 mg/dL (0.2-1.3); Total Protein 5.8 g/dL (6.3-8.2)
[2017-06-17 12:13] LABS: Creatine Kinase MB 2.3 ng/mL (0.0-2.4); Troponin I 0.021 ng/mL (0.000-0.034)
--- NOTE | 2017-06-17 12:45 | XR ---
EXAMINATION TYPE: XR chest 2V DATE OF EXAM: 06/17/2017 COMPARISON: Prior chest x-ray 02/23/2017 HISTORY: Chest pain, cough 2 views of the chest related to prior 02/23/2017 Prominent lung volumes compatible with underlying COPD, emphysema. Bronchial wall thickening is suspe cted. Intracardiac defibrillator leads are stable. Cardiomediastinal silhouette, pulmonary vascularit y and latha are unchanged. Right-sided Port-A-Cath is present, distal tip of the catheter is overlying the superior vena cava. IMPRESSION: Correlate for bronchitis. Emphysema.
--- NOTE | 2017-06-17 14:13 | ED ---
URI HPI - General Chief Complaint: Upper Respiratory Infection Stated Complaint: FLU Time Seen by Provider: 06/17/17 10:54 Source: patient Mode of arrival: EMS Limitations: no limitations - History of Present Illness Initial Comments: 86 years old male came in with cough he been spending phlegm he does have a history of COPD and because of the cough he was unable to sleep last night, he had a fever as well. He does have a history of coronary artery disease she status post CABG denies any chest pain does feel short winded time to time denies any pleuritic chest pain. I denies any headache no neck stiffness or abdominal pain no frequency urgency dysuria - Related Data Home Medications Medication Instructions Recorded Confirmed Amitriptyline HCl [Elavil] 50 mg PO HS 03/06/16 06/17/17 Atorvastatin [Lipitor] 40 mg PO W/SUPPER 03/06/16 06/17/17 Levothyroxine Sodium [Synthroid] 75 mcg PO DAILY 03/06/16 06/17/17 Nitroglycerin Sl Tabs [Nitrostat] 0.4 mg SUBLINGUAL Q5M PRN 03/06/16 06/17/17 rOPINIRole HCL [Requip] 1 mg PO HS 02/23/17 06/17/17 Albuterol Nebulized [Ventolin 2.5 mg INHALATION RT-BID 06/03/17 06/17/17 Nebulized] DULoxetine HCL [Cymbalta] 20 mg PO W/SUPPER 06/03/17 06/17/17 Midodrine [ProAmatine] 5 mg PO DAILY 06/03/17 06/17/17 Temazepam 30 mg PO HS 06/03/17 06/17/17 predniSONE 10 mg PO DAILY 06/03/17 06/17/17 Ipratropium [place] [Atrovent Hfa] 2 puff INHALATION RT-QID 06/17/17 06/17/17 Losartan Potassium [Cozaar] 25 mg PO DAILY 06/17/17 06/17/17 Meclizine HCl 25 mg PO DAILY PRN 06/17/17 06/17/17 Potassium Chloride ER [K-Dur 10] 10 meq PO DAILY 06/17/17 06/17/17 Scopolamine [TransDerm Scop] 1 patch TRANSDERM Q72H PRN 02/16/18 02/16/18 Previous Rx's Medication Instructions Recorded Aspirin 81 mg PO DAILY 02/01/17 Levofloxacin [Levaquin] 750 mg PO DAILY 3 Days #7 tab 06/17/17 predniSONE 20 mg PO DAILY #5 tab 06/17/17 Allergies Allergy/AdvReac Type Severity Reaction Status Date / Time Penicillins Allergy Rash/Hives Verified 06/17/17 11:16 Review of Systems ROS Statement: Those systems with pertinent positive or pertinent negative responses have been documented in the HPI. ROS Other: All systems not noted in ROS Statement are negative. Past Medical History Past Medical History: Cancer, COPD, GERD/Reflux, Hyperlipidemia, Osteoarthritis (OA), Thyroid Disorder Additional Past Medical History / Comment(s): hx Lymphoma,bladder cancer, see Dr Soliz H&P, uses cane or walker PRN, dizzines when standing up for past 6 months History of Any Multi-Drug Resistant Organisms: MRSA Date of last positivie culture/infection: 2013 MDRO Source:: back Past Surgical History: Adenoidectomy, Back Surgery, Coronary Bypass/CABG, Heart Catheterization, Pacemaker, Tonsillectomy Additional Past Surgical History / Comment(s): quadruple bypass 2003, lower aortic stent, "new artery in right thigh", power port right chest wall, 3 back surgeries - then found MRSA and had hardware removal. laser sx on bladder d/t cancer. nando laser eye surgery Past Anesthesia/Blood Transfusion Reactions: Motion Sickness Type of Cardiac Device: Biventricular Pacemaker Device Placement Date:: 2016 Past Psychological History: Anxiety, Depression Smoking Status: Former smoker - Past Family History Father Additional Family Medical History / Comment(s): aortic aneurysm. Mother Family Medical History: No Reported History Additional Family Medical History / Comment(s): Patient therefore kids with one daughter has history of stroke and MS General Exam - General Exam Comments Initial Comments: General: The patient is awake and alert, in no distress, and does not appear acutely ill. Skin: Skin is warm and dry and no rashes or lesions are noted. Eye: Pupils are equal, round and reactive to light, extra-ocular movements are intact; there is normal conjunctiva bilaterally. Ears, nose, mouth and throat: There are moist mucous membranes and no oral lesions. Neck: The neck is supple, there is no tenderness Cardiovascular: There is a regular rate and rhythm. No murmur, rub or gallop is appreciated. Respiratory: To auscultation bilateral, exam consistent with a moderate COPD noticed some crackles as well Gastrointestinal: Soft, non-distended, non-tender abdomen without masses or organomegaly noted. There is no rebound or guarding present. Bowel sounds are unremarkable. Back: There is no tenderness to palpation in the midline. There is no obvious deformity. Musculoskeletal: Normal ROM, no tenderness, There is no pedal edema. There is no calf tenderness or swelling. No cords were appreciated. Neurological: CN II-XII intact, Cranial nerves III through XII are intact. There are no obvious motor or sensory deficits. Coordination appears grossly intact. Speech is normal. Psychiatric: Cooperative, appropriate mood & affect, normal judgment. Limitations: no limitations Course Vital Signs 06/17/17 06/17/17 06/17/17 11:05 11:46 12:00 Temperature 101.8 F H 99.7 F H Pulse Rate 92 84 Respiratory 20 18 20 Rate Blood Pressure 133/62 102/54 O2 Sat by Pulse 93 L 100 Oximetry 06/17/17 12:55 Temperature Pulse Rate 86 Respiratory 22 Rate Blood Pressure 137/63 O2 Sat by Pulse 100 Oximetry EKG is a paced is atrial sensed ventricular paced rhythm ventricular rate is 91 NC interval is 132 QRS duration is 154 QT/QTc is 448/551 review of this EKG does not reveal any ST elevation or ST depression Considering his age and history of coronary artery disease and status post CABG who did I do a quick EKG, troponin was checked those are unremarkable chest x- ray didn't rule out any didn't confirm any pneumonia he does have a COPD diagnoses today's of bronchitis she be gone home on Levaquin 750 mg once daily for next 7 days and some steroids 20 mg once daily for next 5 days she will follow-up with his family doctor or return to the ER if symptoms get worse. He did get 2 g of Rocephin and 500 mg of Zithromax in the ER and reassessment he feels better and he wants to go Medical Decision Making - Lab Data Result diagrams: 06/17/17 11:26 06/17/17 11:26 Lab Results 06/17/17 06/17/17 06/17/17 Range/Units 11:26 11:26 11:26 WBC 8.3 (3.8-10.6) k/uL RBC 4.69 (4.30-5.90) m/uL Hgb 12.2 L (13.0-17.5) gm/dL Hct 40.6 (39.0-53.0) % MCV 86.7 (80.0-100.0) fL MCH 26.1 (25.0-35.0) pg MCHC 30.1 L (31.0-37.0) g/dL RDW 15.8 H (11.5-15.5) % Plt Count 158 (150-450) k/uL Neutrophils % 93 % Lymphocytes % 2 % Monocytes % 4 % Eosinophils % 2 % Basophils % 0 % Neutrophils # 7.7 (1.3-7.7) k/uL Lymphocytes # 0.1 L (1.0-4.8) k/uL Monocytes # 0.3 (0-1.0) k/uL Eosinophils # 0.2 (0-0.7) k/uL Basophils # 0.0 (0-0.2) k/uL Hypochromasia Marked Sodium 141 (137-145) mmol/L Potassium 4.2 (3.5-5.1) mmol/L Chloride 104 (98-107) mmol/L Carbon Dioxide 27 (22-30) mmol/L Anion Gap 10 mmol/L BUN 16 (9-20) mg/dL Creatinine 0.86 (0.66-1.25) mg/dL Est GFR (MDRD) Af Amer >60 (>60 ml/min/1.73 sqM) Est GFR (MDRD) Non-Af >60 (>60 ml/min/1.73 sqM) Glucose 152 H (74-99) mg/dL Calcium 9.8 (8.4-10.2) mg/dL Total Bilirubin 1.6 H (0.2-1.3) mg/dL AST 20 (17-59) U/L ALT 22 (21-72) U/L Alkaline Phosphatase 70 (38-126) U/L Total Creatine Kinase 92 (55-170) U/L CK-MB (CK-2) 2.3 (0.0-2.4) ng/mL CK-MB (CK-2) Rel Index 2.5 Troponin I 0.021 (0.000-0.034) ng/mL Total Protein 5.8 L (6.3-8.2) g/dL Albumin 3.8 (3.5-5.0) g/dL Influenza Type A RNA (Not Detectd) Influenza Type B (PCR) (Not Detectd) 06/17/17 Range/Units 12:10 WBC (3.8-10.6) k/uL RBC (4.30-5.90) m/uL Hgb (13.0-17.5) gm/dL Hct (39.0-53.0) % MCV (80.0-100.0) fL MCH (25.0-35.0) pg MCHC (31.0-37.0) g/dL RDW (11.5-15.5) % Plt Count (150-450) k/uL Neutrophils % % Lymphocytes % % Monocytes % % Eosinophils % % Basophils % % Neutrophils # (1.3-7.7) k/uL Lymphocytes # (1.0-4.8) k/uL Monocytes # (0-1.0) k/uL Eosinophils # (0-0.7) k/uL Basophils # (0-0.2) k/uL Hypochromasia Sodium (137-145) mmol/L Potassium (3.5-5.1) mmol/L Chloride (98-107) mmol/L Carbon Dioxide (22-30) mmol/L Anion Gap mmol/L BUN (9-20) mg/dL Creatinine (0.66-1.25) mg/dL Est GFR (MDRD) Af Amer (>60 ml/min/1.73 sqM) Est GFR (MDRD) Non-Af (>60 ml/min/1.73 sqM) Glucose (74-99) mg/dL Calcium (8.4-10.2) mg/dL Total Bilirubin (0.2-1.3) mg/dL AST (17-59) U/L ALT (21-72) U/L Alkaline Phosphatase (38-126) U/L Total Creatine Kinase (55-170) U/L CK-MB (CK-2) (0.0-2.4) ng/mL CK-MB (CK-2) Rel Index Troponin I (0.000-0.034) ng/mL Total Protein (6.3-8.2) g/dL Albumin (3.5-5.0) g/dL Influenza Type A RNA Not Detected (Not Detectd) Influenza Type B (PCR) Not Detected (Not Detectd) Disposition Clinical Impression: Bronchitis Disposition: HOME SELF-CARE Condition: Good Instructions: Upper Respiratory Infection (ED) Prescriptions: Levofloxacin [Levaquin] 750 mg PO DAILY 3 Days #7 tab predniSONE 20 mg PO DAILY #5 tab Referrals: Momo Khan MD [Primary Care Provider] - 1-2 days
[2017-06-17 14:52] VITALS: BP 123/78; PULSE 89; RESP 18; TEMP 98.9
== END 2017-06-17 14:51 | disposition home or self-care (01) ==
LOC: EC 10:39
DX: J44.9 Chronic obstructive pulmonary disease, unspecified (principal); E78.5 Hyperlipidemia, unspecified; E07.9 Disorder of thyroid, unspecified; F32.9 Major depressive disorder, single episode, unspecified; F41.9 Anxiety disorder, unspecified; Z85.72 Personal history of non-Hodgkin lymphomas; Z86.14 Personal history of Methicillin resistant Staphylococcus aureus infection; Z85.51 Personal history of malignant neoplasm of bladder; Z87.891 Personal history of nicotine dependence; Z79.899 Other long term (current) drug therapy; Z88.0 Allergy status to penicillin
CPT/HCPCS: 36415; 93005; 80053; 82550; 82553; 84484; 85025; 87040; 87502; 71046; 99284; 96365; 96366; 96375; 96361; J0456; J0696

== ENCOUNTER → 2017-08-29 | Outpatient (CLI) | payer MEDICARE, BC ==
[2017-08-29 10:46] LABS: Blood Urea Nitrogen 19 mg/dL (9-20)
--- NOTE | 2017-08-29 12:57 | CT ---
EXAMINATION TYPE: CT ChestAbdPelvis w con DATE OF EXAM: 08/29/2017 COMPARISON: Most recent CT chest February 23, 2017. CT chest abdomen pelvis October 20, 2016. HISTORY: Follow up to lymphoma completed chemotherapy 2012 CT DLP: 1844 mGycm. Automated Exposure Control for Dose Reduction was Utilized. CONTRAST: CT scan of the thorax, abdomen and pelvis is performed with IV Contrast, patient injected with 100 mL of Isovue 300. FINDINGS: LUNGS: Moderate underlying emphysematous change is redemonstrated. There is bibasilar opacities favor ing atelectatic change and/or mild interstitial edema. No pleural effusion or pneumothorax is seen bi laterally. No new suspicious nodule or mass is present. MEDIASTINUM: There are no greater than 1 cm hilar or mediastinal lymph nodes. No cardiomegaly or p ericardial effusion is seen. Post CABG changes with mediastinal clips and sternal wires is seen. The re is multilevel pacemaker redemonstrated. Overlying sternal wires and mediastinal clips are redemons trated. There is moderate to severe plaque in aorta extending into branch vessels. OTHER: No additional significant abnormality is seen. LIVER/GB: Dependent small low dense or cholesterol gallstones in gallbladder redemonstrated PANCREAS: No significant abnormality is seen. SPLEEN: No significant abnormality is seen. ADRENALS: No significant abnormality is seen. KIDNEYS: No significant abnormality is seen. BOWEL: Some diverticula in sigmoid colon are redemonstrated. There is no CT evidence for acute divert iculitis. There is no suspicious small or large bowel dilatation GENITAL ORGANS: Heterogeneous enlarged prostate gland consistent with BPH is present LYMPH NODES: No greater than 1cm abdominal or pelvic lymph nodes are appreciated. OSSEOUS STRUCTURES: Osseous structures are demineralized. There is advanced disc space narrowing with lateral step-off L4-L5 level redemonstrated. There is postsurgical change in the lower lumbar spine with laminectomy defects and spinous process resection. There is extensive posterior soft tissue with central hypodensity possible fluid favoring postsurgical scar again seen. Central fluid collection o r infection is not excluded but is unchanged from prior. OTHER: There is patent aortobiiliac metallic stent graft again seen. IMPRESSION: No new suspicious mass or adenopathy identified to suggest neoplastic recurrence.
== END | disposition home or self-care (01) ==
LOC: RADPROMAIN 10:09
PROVIDERS: ATTEND Internal Medicine Hematology & Oncology
DX: C83.38 Diffuse large B-cell lymphoma, lymph nodes of multiple sites (principal); Z88.0 Allergy status to penicillin
CPT/HCPCS: 82565; 84520; 71260; 74177; 36415; J1642; Q9967

== ENCOUNTER → 2017-09-01 | Outpatient (CLI) | payer MEDICARE, BC ==
[2017-09-01 13:27] LABS: Anisocytosis Slight; HCT 35.9 % (39.0-53.0); HGB 11.1 gm/dL (13.0-17.5); Hypochromasia Moderate; MCH 25.9 pg (25.0-35.0); MCHC 30.9 g/dL (31.0-37.0); MCV 83.9 fL (80.0-100.0); Mean Platelet Volume 7.9; Platelet Count 165 k/uL (150-450); RBC 4.28 m/uL (4.30-5.90); RDW 16.8 % (11.5-15.5); WBC 7.4 k/uL (3.8-10.6)
[2017-09-01 13:57] LABS: Anion Gap 11 mmol/L; Blood Urea Nitrogen 23 mg/dL (9-20); Carbon Dioxide 30 mmol/L (22-30); Chloride 104 mmol/L (98-107); Potassium 4.5 mmol/L (3.5-5.1); Sodium 145 mmol/L (137-145)
== END | disposition home or self-care (01) ==
LOC: LABPAT 12:49
PROVIDERS: ATTEND Internal Medicine Cardiovascular Disease
DX: Z01.812 Encounter for preprocedural laboratory examination (principal); I25.10 Atherosclerotic heart disease of native coronary artery without angina pectoris
CPT/HCPCS: 36415; 80051; 82565; 84520; 85027

== ENCOUNTER → 2017-09-02 | Day surgery (SDC) | payer MEDICARE, BC ==
[2017-09-01 15:24] VITALS: BMI 24.4
[~2017-09-02] MED LIST changes: +ALBUTEROL NEBULIZED 2.5 MG/3 ML INHALATION ONE; +ALPRAZolam 0.25 MG TAB PO PRN; +ALPRAZolam 0.5 MG TAB PO PRN; +ASPIRIN 325 MG TAB PO STA; +ATORVASTATIN 80 MG TAB PO STA; +HYDROcodone/APAP 5-325MG 1 EACH TAB PO STA; +IOPAMIDOL-370 100ML BTL INJ ONE; +IOPAMIDOL-370 125ML BTL INJ ONE; +LIDOCAINE 2% INJ 20 MG/ML SQ ONE; +NITROGLYCERIN SL TABS 0.4 MG TAB SUBLINGUAL PRN; +RX INFO: IV CONTRAST WAS GIVEN 1 EACH MISC MISCELLANE PRN; +SODIUM CHLORIDE 0.9% 1,000 ML in EMPTY BAG 1 BAG IV ONE; +fentaNYL (PF) 50 MCG/ML 2 ML AMP IV ONE
[2017-09-02 06:59] VITALS: RESP 18
--- NOTE | 2017-09-02 09:26 | CC ---
CARDIAC CATHETERIZATION REPORT INDICATION: Unstable angina. Patient has known coronary artery disease, status post prior bypass surgery with ESCOBEDO to LAD, venous graft to RCA, OM and diag, who presented to me yesterday complaining of recurrent episodes of chest pain for which he had to take sublingual nitroglycerin. Due to his symptomatology, I started him on nitrates following which he was pain-free and I advised him to undergo cardiac catheterization. He had been explained of risks, benefits and alternatives, understood and accepted. PROCEDURE NOTE: After obtaining informed consent, left heart catheterization, coronary angiogram, selective injection of the subclavian artery, ESCOBEDO and venous grafts have been performed via the left femoral artery. We did not go from the right femoral artery as he had prior vascular surgery on that side. Patient tolerated the procedure well without any obvious immediate complications. He received moderate conscious sedation. Total sedation time was 41 minutes. I used a long exchange length wire to exchange all the catheters in the thoracic aorta. We used a Glidewire to \pass the catheters into the subclavian artery. A subclavian arteriogram was also obtained. Venous grafts were obtained using regular Peg catheter. Total sedation time was 41 minutes. FINDINGS: 1. HEMODYNAMICS: Left ventricular end-diastolic pressure is 18 mm. There is no significant gradient across the aortic valve. 2. LEFT VENTRICULOGRAM: Left ventriculogram is not performed. 3. ANGIOGRAPHIC DATA: 4. LEFT MAIN CORONARY ARTERY: Left main coronary artery is totally occluded in its proximal part as is the proximal LAD. [place] circumflex coronary artery has a 70% to 80% proximal stenosis. 5. 6. Right coronary artery has moderate to severe disease. SELECTIVE INJECTION OF THE BYPASS GRAFTS: 1. Selective injection of the venous graft to the right coronary artery: The graft is patent, proximal and distal anastomotic sites are normal. There is a lesion in the ostial portion of the PDA which at its worse seems to be a 70% to 80% stenosis. 2. Circumflex coronary artery appears patent. Proximal and distal anastomotic sites are free of significant stenosis. Body of the graft is free of disease. 3. Venous graft to the diag appears patent. There is mild to moderate diffuse disease involving the [place] vessel. We can see competitive flow from the ESCOBEDO. Major diag has a 70% stenosis. SELECTIVE INJECTION OF THE ESCOBEDO: 1. The ESCOBEDO appears patent. Proximal and distal anastomotic sites are free of disease. 2. Subclavian artery injection shows an 80%-90% stenosis in the subclavian artery. CONCLUSION: 1. [place] 3-vessel coronary artery disease with patent ESCOBEDO to LAD, venous graft to the RCA, venous graft to the OM and diagonal. 2. A 70%-80% stenosis within the PDA branch, past the anastomosis. 3. Subclavian artery stenosis. PLAN: Patient has two possible explanations for his symptoms. His subclavian stenosis causing impairment in the ESCOBEDO supply area and the PDA lesion. I will ask the sludge filtration operator evaluate the angiographic data and probably perform stenting of the subclavian first, see how his symptoms evolve and if necessary stent the PDA. I reviewed this information at length with the patient. He understands and in agreement with the plans. I am going to treat him with aspirin, beta blockers. nitrates in the meantime. MMELIZABETH / ZONIA: [id number] /
[2017-09-02 09:56] VITALS: TEMP 97.8
[2017-09-02 16:31] VITALS: BP 105/57; PULSE 66
== END ==
LOC: CATHCVL 06:18
PROVIDERS: ATTEND Internal Medicine Cardiovascular Disease
DX: I25.110 Atherosclerotic heart disease of native coronary artery with unstable angina pectoris (principal); I25.82 Chronic total occlusion of coronary artery; I10 Essential (primary) hypertension; Z95.1 Presence of aortocoronary bypass graft; Z87.891 Personal history of nicotine dependence; I42.0 Dilated cardiomyopathy; Z95.0 Presence of cardiac pacemaker; I73.9 Peripheral vascular disease, unspecified; E78.5 Hyperlipidemia, unspecified; Z79.899 Other long term (current) drug therapy; Z79.82 Long term (current) use of aspirin; Z79.890 Hormone replacement therapy; Z88.0 Allergy status to penicillin
CPT/HCPCS: 94640; 93459; C1894 ×2; C1769 ×2; J2001; J3010; Q9967 ×2

== ENCOUNTER 2017-09-16 10:11 | Day surgery (SDC) | payer MEDICARE, BC ==
[2017-09-13 12:11] VITALS: BMI 24.4
[~2017-09-16 10:11] MED LIST changes: -ALBUTEROL NEBULIZED 2.5 MG/3 ML INHALATION ONE; -ALPRAZolam 0.25 MG TAB PO PRN; -ALPRAZolam 0.5 MG TAB PO PRN; -HYDROcodone/APAP 5-325MG 1 EACH TAB PO STA; -IOPAMIDOL-370 100ML BTL INJ ONE; -IOPAMIDOL-370 125ML BTL INJ ONE; -LIDOCAINE 2% INJ 20 MG/ML SQ ONE; -NITROGLYCERIN SL TABS 0.4 MG TAB SUBLINGUAL PRN; -RX INFO: IV CONTRAST WAS GIVEN 1 EACH MISC MISCELLANE PRN; -SODIUM CHLORIDE 0.9% 1,000 ML IV SCH; -fentaNYL (PF) 50 MCG/ML 2 ML AMP IV ONE
[2017-09-16] MEDS ORDERED: SODIUM CHLORIDE 0.9% 1,000 ML IV ONE (10:43)
[2017-09-16] MEDS ORDERED: MIDAZOLAM 2 MG/2 ML VIAL IV ONE (13:08)
[2017-09-16] MEDS ORDERED: LIDOCAINE 2% INJ 20 MG/ML SQ ONE (13:10)
[2017-09-16] MEDS ORDERED: HEPARIN SODIUM 1,000 UN/ML (10ML VL) IV ONE (13:17)
[2017-09-16] MEDS ORDERED: SODIUM CHLORIDE 0.9% 1,000 ML IV SCH (13:45)
[2017-09-16] MEDS ORDERED: IOPAMIDOL-370 125ML BTL INJ ONE (13:48)
--- NOTE | 2017-09-16 14:28 | AN ---
ANGIOGRAPHY REPORT DATE OF SERVICE: 09/16/2017 PERFORMING PHYSICIAN: Rudi Palomares MD, plasma processor. PROCEDURE PERFORMED: 1. Selective left subclavian angiogram. 2. Pressure gradient measurement across the left subclavian. INDICATION: This is a pleasant 87-year-old gentleman who sees Dr. Agarwal in the office as an outpatient with known history of coronary artery disease and status post coronary artery bypass grafting who was experiencing chest discomfort and underwent a heart catheterization by Dr. Agarwal and was found to have severe lesion involving the proximal left subclavian, impeding the flow to the ESCOBEDO. Because of that, he was brought today to undergo the left subclavian stenting. APPROACH: Left common femoral artery. COMPLICATION: None. LEVEL OF SEDATION: Moderate with sedation length of 37 minutes. PROCEDURE DESCRIPTION: After obtaining an informed consent, the patient was brought to cardiac laborer chemical processing. The left common femoral artery was cannulated using micropuncture technique and a micropuncture wire passed easily. Then I placed a 7-[place] 11 cm sheath in the left common femoral artery. After that, I did engage the left subclavian using a Chris right catheter. After that, I did advanced an 035 glide advantage wire to the distal left subclavian. Subsequently, I did exchange my 11 cm 7-Guyanese sheath into 90 cm 7-Guyanese sheath using the 035 advantage wire. I did multiple angiogram of the left subclavian from multiple views including ZAMBIAN, AP, and COOPER, and also I did pressure gradient across the left subclavian, which came into be nonsignificant. For that reason, I decided to stop. CONCLUSION: Intermediate disease involving the left subclavian. Pressure gradient across the lesion was performed and came into be nonischemic. POSTPROCEDURE MANAGEMENT: Medical treatment and follow up with the patient. MMODL / IJN: [id number] /
--- NOTE | 2017-09-16 14:32 | IR ---
EXAMINATION TYPE: IR angio cervicocerebral DATE OF EXAM: 09/16/2017 COMPARISON: NONE HISTORY: Peripheral vascular occlusive disease. Fluoroscopy was provided to the referring clinician. See dictated report from cardiology.
[2017-09-16] MEDS ORDERED: HYDROcodone/APAP 5-325MG 1 EACH TAB PO STA ×2 (16:57→17:14)
[2017-09-16] MEDS ORDERED: ATORVASTATIN 40 MG TAB PO SCH (17:30)
[2017-09-16] MEDS ORDERED: ISOSORBIDE MONONITRATE ER 30 MG TAB.ER.24H PO SCH (17:30)
[2017-09-16] MEDS: AMITRIPTYLINE HCL 50 MG TAB PO SCH ×3 (19:50→23:36)
[2017-09-16] MEDS: MIDODRINE 5 MG TAB PO SCH (20:04)
[2017-09-16] MEDS ORDERED: TEMAZEPAM 30 MG CAP PO SCH (21:00)
[2017-09-16] MEDS: ALBUTEROL NEBULIZED 2.5 MG/3 ML INHALATION SCH (21:24)
[2017-09-17] MEDS ORDERED: LEVOTHYROXINE 75 MCG TAB PO SCH (06:30)
[2017-09-17] MEDS ORDERED: ACETAMINOPHEN TAB 325 MG TAB PO PRN (07:47)
[2017-09-17] MEDS: ALBUTEROL NEBULIZED 2.5 MG/3 ML INHALATION SCH (07:59)
[2017-09-17] MEDS: MIDODRINE 5 MG TAB PO SCH (07:59)
[2017-09-17 08:34] VITALS: BP 109/50; PULSE 69; RESP 18; TEMP 97.6
[2017-09-17] MEDS ORDERED: ISOSORBIDE MONONITRATE ER 30 MG TAB.ER.24H PO SCH (09:00)
[2017-09-17] MEDS ORDERED: ASPIRIN 81 MG PO SCH (09:00)
[2017-09-17] MEDS ORDERED: predniSONE 10 MG TAB PO SCH (09:00)
[2017-09-17] MEDS ORDERED: CLOPIDOGREL 75 MG TAB PO SCH (09:00)
--- NOTE | 2017-09-17 14:08 | DS ---
DISCHARGE SUMMARY DATE OF ADMISSION: September 16, 2017 DATE OF DISCHARGE: September 17, 2017 BRIEF HISTORY: This is a pleasant 87-year-old gentleman who sees Dr. Agarwal in the office as an outpatient with a known history of coronary artery disease and prior coronary artery bypass grafting including ESCOBEDO to LAD, who was experiencing chest discomfort and underwent heart catheterization a few weeks ago by Dr. 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 He was brought yesterday to undergo stenting of the left subclavian. After multiple selective pictures of the left subclavian, I found out that the stenosis was not moderate to severe but is only mild to moderate, where a measure the gradient across it and that came into be only 8-10 mmHg. Because of that, the left subclavian stent was appended. On follow up with him today, he is doing good and he is asymptomatic. The left groin which was the access site is soft and nontender and without any bruises. The patient is going to be discharged home and follow up with Dr. Agarwal in the office as an outpatient. MMODL / IJN: [id number] /
== END 2017-09-17 09:20 | disposition home or self-care (01) ==
LOC: CATHCVL 10:11 → 3OBS 13:51 → CATHCVL 09-17 09:20
PROVIDERS: ATTEND Internal Medicine Interventional Cardiology
DX: I70.8 Atherosclerosis of other arteries (principal); I25.110 Atherosclerotic heart disease of native coronary artery with unstable angina pectoris; I10 Essential (primary) hypertension; E78.5 Hyperlipidemia, unspecified; I73.9 Peripheral vascular disease, unspecified; Z95.1 Presence of aortocoronary bypass graft; Z79.890 Hormone replacement therapy; Z79.899 Other long term (current) drug therapy; Z88.0 Allergy status to penicillin
CPT/HCPCS: 94640 ×2; 36215; 75710; 85347; C1894 ×2; C1769 ×4; C1887; J2001; J2250; J1644; J7512; Q9967

== ENCOUNTER → 2017-10-07 | Outpatient (CLI) | payer MEDICARE, BC ==
[2017-10-07 13:16] LABS: Anisocytosis Slight; HCT 35.1 % (39.0-53.0); HGB 10.9 gm/dL (13.0-17.5); Hypochromasia Moderate; MCH 25.8 pg (25.0-35.0); MCHC 31.1 g/dL (31.0-37.0); MCV 82.8 fL (80.0-100.0); Mean Platelet Volume 8.1; Platelet Count 200 k/uL (150-450); RBC 4.23 m/uL (4.30-5.90); RDW 17.4 % (11.5-15.5); WBC 7.4 k/uL (3.8-10.6)
[2017-10-07 13:26] LABS: Anion Gap 11 mmol/L; Blood Urea Nitrogen 19 mg/dL (9-20); Carbon Dioxide 28 mmol/L (22-30); Chloride 103 mmol/L (98-107); Potassium 4.9 mmol/L (3.5-5.1); Sodium 142 mmol/L (137-145)
== END | disposition home or self-care (01) ==
LOC: LABPAT 12:34
PROVIDERS: ATTEND Internal Medicine Interventional Cardiology
DX: Z01.812 Encounter for preprocedural laboratory examination (principal); I25.10 Atherosclerotic heart disease of native coronary artery without angina pectoris
CPT/HCPCS: 36415; 80051; 82565; 84520; 85027

== ENCOUNTER 2017-10-14 08:41 | Day surgery (SDC) | payer MEDICARE, BC ==
[2017-10-12 10:20] VITALS: BMI 24.4
[~2017-10-14 08:41] MED LIST changes: +ALPRAZolam 0.25 MG TAB PO PRN; +ALPRAZolam 0.5 MG TAB PO PRN; -ASPIRIN 325 MG TAB PO STA; -ATORVASTATIN 80 MG TAB PO STA; +NITROGLYCERIN SL TABS 0.4 MG TAB SUBLINGUAL PRN
[2017-10-14] MEDS ORDERED: diphenhydrAMINE 50 MG/ML 1 ML VIAL ONE (18:09)
[2017-10-14] MEDS ORDERED: MIDAZOLAM 2 MG/2 ML VIAL ONE (18:09)
[2017-10-14] MEDS ORDERED: MIDAZOLAM 2 MG/2 ML VIAL IV ONE (18:12)
[2017-10-14] MEDS ORDERED: diphenhydrAMINE 50 MG/ML 1 ML VIAL IVP ONE (18:12)
[2017-10-14] MEDS ORDERED: LIDOCAINE 2% INJ 20 MG/ML SQ ONE (18:16)
[2017-10-14] MEDS ORDERED: BIVALIRUDIN BOLUS 250 MG/50 ML IV ONE (18:24)
[2017-10-14] MEDS ORDERED: NITROGLYCERIN SL TABS 0.4 MG TAB SUBLINGUAL ONE ×6 (18:25→19:10)
[2017-10-14] MEDS ORDERED: BIVALIRUDIN 250 MG in SODIUM CHLORIDE 0.9% 50 ML IV ONE (18:25)
[2017-10-14] MEDS: NITROGLYCERIN 1000MCG/10ML SYRINGE INTRACORON ONE ×2 (18:26→19:03)
[2017-10-14] MEDS ORDERED: IOPAMIDOL-370 100ML BTL INJ ONE (19:10)
[2017-10-14] MEDS ORDERED: RX INFO: IV CONTRAST WAS GIVEN 1 EACH MISC MISCELLANE PRN (19:13)
[2017-10-14] MEDS ORDERED: NITROGLYCERIN SL TABS 0.4 MG TAB SUBLINGUAL PRN (19:17)
[2017-10-14] MEDS: SODIUM CHLORIDE 0.9% 1,000 ML IV SCH (20:06)
[2017-10-14] MEDS: ALBUTEROL NEBULIZED 2.5 MG/3 ML INHALATION SCH (20:08)
--- NOTE | 2017-10-14 20:10 | CC ---
CARDIAC CATHETERIZATION REPORT DATE OF SERVICE: 10/14/2017. PROCEDURE: Percutaneous transluminal coronary angioplasty of posterior descending artery branch of right coronary artery through the vein graft. PERFORMED BY: Dr. Cookie Newton. CLINICAL INFORMATION: Mr. Sharif Severino is an 87-year-old gentleman with a history of CAD, prior bypass surgery in 2003, also has been having symptoms of angina and underwent recent cardiac cath by Dr. Agarwal which revealed a PDA lesion of about 70%-80% immediately after the insertion site of the vein graft to the RCA. He was advised intervention and brought in for the procedure electively. Patient also has history of aortic valve stent grafting in the past. PROCEDURE NOTE: Under local anesthesia and strict aseptic precautions, a 6-[place] introducer was placed in the left femoral artery. Using a Glidewire under fluoroscopic guidance, I advanced a multipurpose B2 catheter, multipurpose 1 catheter. With this, I was able to cannulate the vein graft to the RCA. Initial injections revealed that there was a PDA lesion right at the origin of the PDA as it came off from the RCA and the anastomosis was slightly proximal to the attachment. I tried multiple different wires with various curves to get into the PDA graft, but I could not do it and I assumed that the attachment to the PDA is probably from a posterior location and this may be a bypass graft that was attached to the posterior aspect of the PDA and therefore I could not gain access into it. Multiple angiograms in various projections were performed and I still felt that I could not advance the wire carefully without jeopardizing the [place] RCA or the vein graft. After several attempts, I therefore abandoned the procedure, went and spoke to the patient's son and also explained to the patient that we will pursue medical therapy. He had a hematoma in the left groin. The sheath was taken out and we applied manual pressure to secure hemostasis and will then apply a FemoStop. The patient received Angiomax bolus and infusion. He was already on Plavix and aspirin. This was an unsuccessful PTCA with inability to pass the wire into the PDA branch of RCA, probably because of the attachment of the PDA was directly to the bypass graft in a posterior location. I explained the nature of the difficulty to the patient and son and we will pursue medical therapy and we will discharge the patient tomorrow if he remains stable. MMODL / IJN: [id number] /
[2017-10-14] MEDS ORDERED: MORPHINE SULFATE 2 MG/ML SYRINGE IVP STA (20:42)
[2017-10-14] MEDS ORDERED: ACETAMINOPHEN TAB 325 MG TAB PO PRN (20:42)
[2017-10-14] MEDS ORDERED: AMITRIPTYLINE HCL 50 MG TAB PO SCH (21:00)
[2017-10-14] MEDS ORDERED: TEMAZEPAM 30 MG CAP PO SCH (21:00)
[2017-10-14 21:12] VITALS: RESP 16
[2017-10-15] MEDS ORDERED: MIDODRINE 5 MG TAB PO SCH (06:00)
[2017-10-15] MEDS: PANTOPRAZOLE 40 MG TABLET PO SCH ×2 (06:08→06:15)
[2017-10-15] MEDS ORDERED: LEVOTHYROXINE 75 MCG TAB PO SCH (06:30)
[2017-10-15 06:57] LABS: Anion Gap 7 mmol/L; Blood Urea Nitrogen 15 mg/dL (9-20); Carbon Dioxide 28 mmol/L (22-30); Chloride 105 mmol/L (98-107); Glucose 83 mg/dL (74-99); Potassium 3.8 mmol/L (3.5-5.1); Sodium 140 mmol/L (137-145)
[2017-10-15] MEDS ORDERED: POTASSIUM CHLORIDE ER 20 MEQ TAB.ER PO STA (07:51)
[2017-10-15] MEDS: ALBUTEROL NEBULIZED 2.5 MG/3 ML INHALATION SCH (07:54)
--- NOTE | 2017-10-15 08:08 | DS ---
DISCHARGE SUMMARY DATE OF ADMISSION: 10/14/2017. DATE OF DISCHARGE: 10/15/2017. DIAGNOSIS: 1. Coronary artery disease with prior bypass surgery. 2. Hypertension. 3. Hyperlipidemia. HISTORY: Mr. Severino was brought in for elective PCI of PDA branch of RCA through a vein graft. I attempted this procedure yesterday, but I was unable to wire the PDA, probably because it was coming from a very posterior location by the nature of anastomosis of the bypass graft. Multiple attempts were made. I could not advance the wire into the PDA. Instead it kept going into a smaller branches. I therefore called it an unsuccessful procedure explained to the patient and son and the sheath was pulled in the labor and employment paralegal. Hemostasis secured and brought in for postprocedure to the selective care unit. He is doing well today. His left groin is clean and dry with a good pulse. His laboratory data from this morning are pending. His potassium is 3.8. We will give him 20 mEq of potassium today. We will await the hemoglobin results. PLAN: Increase activity and after he has had his lunch, he can be discharged. He will follow up with Dr. Agarwal in one week in the office. We will pursue medical therapy for his CAD and would not recommend intervention given the fact that it is a technically difficult procedure with a posterior origin of his PDA coming with attachment to the bypass graft, presumably. This was explained to the patient and son. He can be discharged today and will see Dr. Agarwal in one week. MMODL / IJN: [id number] /
[2017-10-15 08:20] LABS: Anisocytosis Slight; Basophils % (A) 0 %; Eosinophils # (A) 0.1 k/uL (0-0.7); Eosinophils % (A) 1 %; HCT 35.8 % (39.0-53.0); HGB 10.8 gm/dL (13.0-17.5); Hypochromasia Marked; Lymphocytes # (A) 0.5 k/uL (1.0-4.8); Lymphocytes % (A) 6 %; MCH 25.7 pg (25.0-35.0); MCHC 30.2 g/dL (31.0-37.0); MCV 85.1 fL (80.0-100.0); Mean Platelet Volume 7.2; Monocytes # (A) 0.3 k/uL (0-1.0); Monocytes % (A) 3 %; Neutrophils # (A) 8.6 k/uL (1.3-7.7); Neutrophils % (A) 89 %; Platelet Count 172 k/uL (150-450); RDW 17.3 % (11.5-15.5); WBC 9.6 k/uL (3.8-10.6)
[2017-10-15] MEDS ORDERED: predniSONE 5 MG TAB PO SCH (09:00)
[2017-10-15] MEDS ORDERED: ISOSORBIDE MONONITRATE ER 30 MG TAB.ER.24H PO SCH (09:00)
[2017-10-15] MEDS ORDERED: ASPIRIN 81 MG PO SCH (09:00)
[2017-10-15] MEDS ORDERED: CLOPIDOGREL 75 MG TAB PO SCH (09:00)
[2017-10-15] MEDS: SODIUM CHLORIDE 0.9% 1,000 ML IV SCH (10:58)
[2017-10-15 12:38] VITALS: BP 133/44; PULSE 72; TEMP 97.4
[2017-10-15] MEDS ORDERED: ATORVASTATIN 40 MG TAB PO SCH (17:30)
== END 2017-10-15 14:45 ==
LOC: CATHCVL 08:41 → 6SEL 11:25 → CATHCVL 10-15 14:45
PROVIDERS: ATTEND Internal Medicine Interventional Cardiology
DX: I25.10 Atherosclerotic heart disease of native coronary artery without angina pectoris (principal); Z95.1 Presence of aortocoronary bypass graft; I10 Essential (primary) hypertension; E78.5 Hyperlipidemia, unspecified; I95.2 Hypotension due to drugs; I70.8 Atherosclerosis of other arteries; J44.9 Chronic obstructive pulmonary disease, unspecified; Z95.0 Presence of cardiac pacemaker; Z79.890 Hormone replacement therapy; Z79.899 Other long term (current) drug therapy; Z88.0 Allergy status to penicillin; Z87.891 Personal history of nicotine dependence
CPT/HCPCS: 94640 ×2; 92920; 80048; 85025; C1769 ×6; C1887; C1894; J2001; J2250; J1200; J2270; J0583; J7512; Q9967

== ENCOUNTER 2017-10-19 08:28 | Inpatient (IN) | payer MEDICARE, BC ==
[2017-10-19] MEDS ORDERED: ACETAMINOPHEN TAB 500 MG TAB PO STA (08:42)
--- NOTE | 2017-10-19 08:46 | ED ---
General Adult HPI - General Chief complaint: Weakness Stated complaint: Weakness Time Seen by Provider: 10/19/17 08:29 Source: patient, EMS, RN notes reviewed Mode of arrival: EMS Limitations: no limitations - History of Present Illness Initial comments: Patient is a pleasant 87-year-old male presenting to the emergency Department with generalized weakness. Onset was this morning. Patient states he felt essentially normal yesterday. Patient does admit to feeling dry. Patient states he was weak and unable to carry his weight. Patient did not have any injury when he lowered himself to the ground. Weakness is generalized and not localized in the area. No confusion. No cough. No abdominal pain. No dysuria. Patient did have heart catheterization done 5 days ago. Patient followed up with his bell person yesterday and was cleared until next follow- up in December. - Related Data Home Medications Medication Instructions Recorded Confirmed Amitriptyline HCl [Elavil] 50 mg PO HS 03/06/16 10/14/17 Atorvastatin [Lipitor] 40 mg PO W/SUPPER 03/06/16 10/14/17 Levothyroxine Sodium [Synthroid] 75 mcg PO QAM 03/06/16 10/14/17 Nitroglycerin Sl Tabs [Nitrostat] 0.4 mg SUBLINGUAL Q5M PRN 03/06/16 10/12/17 rOPINIRole HCL [Requip] 1 mg PO PC-SUPPER 02/23/17 10/14/17 Albuterol Nebulized [Ventolin 2.5 mg INHALATION RT-BID 06/03/17 10/14/17 Nebulized] Midodrine [ProAmatine] 5 mg PO BID 06/03/17 10/14/17 Temazepam 30 mg PO HS 06/03/17 10/14/17 predniSONE 10 mg PO QAM 09/01/17 10/14/17 Clopidogrel [Plavix] 75 mg PO QAM 09/13/17 10/14/17 Isosorbide Mononitrate ER [Imdur] 30 mg PO QAM 09/13/17 10/14/17 Aspirin 81 mg PO QAM 10/12/17 10/14/17 Omeprazole [PriLOSEC] 20 mg PO AC-BRKFST 10/12/17 10/14/17 Allergies Allergy/AdvReac Type Severity Reaction Status Date / Time Penicillins Allergy Rash/Hives Verified 10/19/17 08:37 Review of Systems ROS Statement: Those systems with pertinent positive or pertinent negative responses have been documented in the HPI. ROS Other: All systems not noted in ROS Statement are negative. Constitutional: Reports: fever Eyes: Denies: eye pain ENT: Denies: ear pain Respiratory: Denies: cough, dyspnea Cardiovascular: Denies: chest pain Endocrine: Reports: fatigue Gastrointestinal: Denies: abdominal pain Genitourinary: Denies: dysuria Musculoskeletal: Denies: back pain Skin: Denies: rash Neurological: Reports: weakness (Generalized). Denies: headache, confusion Past Medical History Past Medical History: Cancer, Chest Pain / Angina, COPD, GERD/Reflux, Hyperlipidemia, Hypertension, Osteoarthritis (OA), Thyroid Disorder Additional Past Medical History / Comment(s): hx Lymphoma,bladder cancer, uses cane or walker PRN, dizziness,daily steroid History of Any Multi-Drug Resistant Organisms: MRSA Date of last positivie culture/infection: 2013 MDRO Source:: back Past Surgical History: Adenoidectomy, Back Surgery, Bladder Surgery, Coronary Bypass/CABG, Heart Catheterization, Pacemaker, Tonsillectomy Additional Past Surgical History / Comment(s): quadruple bypass 2003, lower aortic stent, "new artery in right thigh", power port right chest wall, 3 back surgeries - then found MRSA and had hardware removal. laser sx on bladder d/t cancer. nando laser eye surgery Past Anesthesia/Blood Transfusion Reactions: Motion Sickness Type of Cardiac Device: Biventricular Pacemaker Device Placement Date:: 2016 Past Psychological History: Anxiety, Depression Smoking Status: Former smoker Past Alcohol Use History: None Reported Past Drug Use History: None Reported - Past Family History Father Additional Family Medical History / Comment(s): aortic aneurysm. Mother Family Medical History: No Reported History Additional Family Medical History / Comment(s): Patient therefore kids with one daughter has history of stroke and MS Daughter(s) History Unknown: Yes Additional Family Medical History / Comment(s): Multiple Sclerosis General Exam Limitations: no limitations General appearance: alert, in no apparent distress Head exam: Present: atraumatic Eye exam: Present: normal appearance, PERRL ENT exam: Present: mucous membranes dry Neck exam: Present: normal inspection. Absent: meningismus Respiratory exam: Present: normal lung sounds bilaterally Cardiovascular Exam: Present: tachycardia, systolic murmur (Patient states this is chronic) GI/Abdominal exam: Present: soft. Absent: tenderness exam: Present: other (Ecchymosis of the left groin region. No swelling or tenderness. No erythema.) Extremities exam: Present: normal inspection Neurological exam: Present: alert, oriented X3, CN II-XII intact. Absent: motor sensory deficit Psychiatric exam: Present: normal affect, normal mood Skin exam: Present: other (Ecchymosis of the left groin) Course Vital Signs 10/19/17 10/19/17 10/19/17 08:31 09:16 10:00 Temperature 103.9 F H 97.6 F Pulse Rate 112 H 98 96 Respiratory 22 24 24 Rate Blood Pressure 88/52 89/46 94/43 O2 Sat by Pulse 95 96 95 Oximetry 10/19/17 10:52 Temperature Pulse Rate 88 Respiratory 20 Rate Blood Pressure 102/39 O2 Sat by Pulse 100 Oximetry - Reevaluation(s) Reevaluation #1: 10/19/17 10:58 Patient does meet sepsis criteria diagnosed at 10:58 AM. Blood culture and lactic acid have been ordered. IV antibiotics will be ordered. EKG Findings - EKG Comments: EKG Findings:: Paced rhythm at 111. GA 128. QRS 162. QT 408. QTC 554. [place] indeterminate. Wide QRS complex. No acute ST change. Medical Decision Making - Medical Decision Making Patient reevaluated and updated. Family is also present. Case was discussed in detail with Dr. Chavez, who will admit for Dr. Khan with consult for pulmonary and cardiology. - Lab Data Result diagrams: 10/19/17 08:41 10/19/17 08:41 Lab Results 10/19/17 10/19/17 10/19/17 Range/Units 08:41 08:41 08:41 WBC 5.6 (3.8-10.6) k/uL RBC 4.01 L (4.30-5.90) m/uL Hgb 10.3 L (13.0-17.5) gm/dL Hct 32.2 L (39.0-53.0) % MCV 80.3 (80.0-100.0) fL MCH 25.6 (25.0-35.0) pg MCHC 31.9 (31.0-37.0) g/dL RDW 16.8 H (11.5-15.5) % Plt Count 161 (150-450) k/uL Neutrophils % 92 % Lymphocytes % 2 % Monocytes % 4 % Eosinophils % 1 % Basophils % 0 % Neutrophils # 5.2 (1.3-7.7) k/uL Lymphocytes # 0.1 L (1.0-4.8) k/uL Monocytes # 0.2 (0-1.0) k/uL Eosinophils # 0.0 (0-0.7) k/uL Basophils # 0.0 (0-0.2) k/uL Hypochromasia Moderate Anisocytosis Slight Microcytosis Slight PT (9.0-12.0) sec INR (<1.2) APTT (22.0-30.0) sec Sodium 139 (137-145) mmol/L Potassium 3.7 (3.5-5.1) mmol/L Chloride 106 (98-107) mmol/L Carbon Dioxide 24 (22-30) mmol/L Anion Gap 9 mmol/L BUN 19 (9-20) mg/dL Creatinine 0.80 (0.66-1.25) mg/dL Est GFR (CKD-EPI)AfAm >90 (>60 ml/min/1.73 sqM) Est GFR (CKD-EPI)NonAf 81 (>60 ml/min/1.73 sqM) Glucose 113 H (74-99) mg/dL Plasma Lactic Acid [place] (0.7-2.0) mmol/L Calcium 8.9 (8.4-10.2) mg/dL Total Bilirubin 1.3 (0.2-1.3) mg/dL AST 19 (17-59) U/L ALT 28 (21-72) U/L Alkaline Phosphatase 68 (38-126) U/L Total Creatine Kinase 149 (55-170) U/L CK-MB (CK-2) 2.2 (0.0-2.4) ng/mL CK-MB (CK-2) Rel Index 1.5 Troponin I 0.113 H* (0.000-0.034) ng/mL Total Protein 5.4 L (6.3-8.2) g/dL Albumin 3.4 L (3.5-5.0) g/dL Urine Color Urine Appearance (Clear) Urine pH (5.0-8.0) Ur Specific [place] (1.001-1.035) Urine Protein (Negative) Urine Glucose (UA) (Negative) Urine Ketones (Negative) Urine Blood (Negative) Urine Nitrite (Negative) Urine Bilirubin (Negative) Urine Urobilinogen (<2.0) mg/dL Ur Leukocyte Esterase (Negative) Urine RBC (0-5) /hpf Urine WBC (0-5) /hpf Urine Mucus (None) /hpf 10/19/17 10/19/17 10/19/17 Range/Units 08:41 08:41 08:41 WBC (3.8-10.6) k/uL RBC (4.30-5.90) m/uL Hgb (13.0-17.5) gm/dL Hct (39.0-53.0) % MCV (80.0-100.0) fL MCH (25.0-35.0) pg MCHC (31.0-37.0) g/dL RDW (11.5-15.5) % Plt Count (150-450) k/uL Neutrophils % % Lymphocytes % % Monocytes % % Eosinophils % % Basophils % % Neutrophils # (1.3-7.7) k/uL Lymphocytes # (1.0-4.8) k/uL Monocytes # (0-1.0) k/uL Eosinophils # (0-0.7) k/uL Basophils # (0-0.2) k/uL Hypochromasia Anisocytosis Microcytosis PT 9.8 (9.0-12.0) sec INR 1.0 (<1.2) APTT 20.1 L (22.0-30.0) sec Sodium (137-145) mmol/L Potassium (3.5-5.1) mmol/L Chloride (98-107) mmol/L Carbon Dioxide (22-30) mmol/L Anion Gap mmol/L BUN (9-20) mg/dL Creatinine (0.66-1.25) mg/dL Est GFR (CKD-EPI)AfAm (>60 ml/min/1.73 sqM) Est GFR (CKD-EPI)NonAf (>60 ml/min/1.73 sqM) Glucose (74-99) mg/dL Plasma Lactic Acid [place] 1.5 (0.7-2.0) mmol/L Calcium (8.4-10.2) mg/dL Total Bilirubin (0.2-1.3) mg/dL AST (17-59) U/L ALT (21-72) U/L Alkaline Phosphatase (38-126) U/L Total Creatine Kinase (55-170) U/L CK-MB (CK-2) (0.0-2.4) ng/mL CK-MB (CK-2) Rel Index Troponin I (0.000-0.034) ng/mL Total Protein (6.3-8.2) g/dL Albumin (3.5-5.0) g/dL Urine Color Yellow Urine Appearance Clear (Clear) Urine pH 6.5 (5.0-8.0) Ur Specific [place] 1.013 (1.001-1.035) Urine Protein Trace H (Negative) Urine Glucose (UA) Negative (Negative) Urine Ketones Negative (Negative) Urine Blood Trace H (Negative) Urine Nitrite Negative (Negative) Urine Bilirubin Negative (Negative) Urine Urobilinogen <2.0 (<2.0) mg/dL Ur Leukocyte Esterase Negative (Negative) Urine RBC 6 H (0-5) /hpf Urine WBC <1 (0-5) /hpf Urine Mucus Rare H (None) /hpf - Radiology Data Radiology results: image reviewed (COPD with increased interstitial markings right upper lobe.) Critical Care Time Critical Care Time: Yes Total Critical Care Time: 32 Disposition Clinical Impression: Pneumonia, Severe sepsis Disposition: ADMITTED IP TO THIS [facility] Condition: Serious Referrals: Momo Khan MD [Primary Care Provider] - 1-2 days Decision Time: 10:59
[2017-10-19] MEDS: SODIUM CHLORIDE 0.9% 500 ML IV SCH (08:52)
[2017-10-19 09:04] LABS: Appearance,Urine Clear (Clear); Bilirubin,Urine Negative (Negative); Blood,Urine Trace (Negative); Color,Urine Yellow; Glucose,Urine (UA) Negative (Negative); Ketones,Urine Negative (Negative); Leukocyte Esterase,Urine Negative (Negative); Mucus,Urine Rare /hpf; Nitrite,Urine Negative (Negative); PH, Urine 6.5 (5.0-8.0); Protein,Urine Trace (Negative); RBC,Urine 6 /hpf (0-5); Specific Gravity,Urine 1.013 (1.001-1.035); Urobilinogen,Urine <2.0 mg/dL (<2.0); WBC,Urine <1 /hpf (0-5)
[2017-10-19 09:06] LABS: ALT 28 U/L (21-72); AST 19 U/L (17-59); Albumin 3.4 g/dL (3.5-5.0); Alkaline Phosphatase 68 U/L (38-126); Anion Gap 9 mmol/L; Blood Urea Nitrogen 19 mg/dL (9-20); Calcium 8.9 mg/dL (8.4-10.2); Carbon Dioxide 24 mmol/L (22-30); Chloride 106 mmol/L (98-107); Glucose 113 mg/dL (74-99); Potassium 3.7 mmol/L (3.5-5.1); Sodium 139 mmol/L (137-145); Total Bilirubin 1.3 mg/dL (0.2-1.3); Total Protein 5.4 g/dL (6.3-8.2)
[2017-10-19 09:10] LABS: Anisocytosis Slight; Basophils % (A) 0 %; Eosinophils % (A) 1 %; HCT 32.2 % (39.0-53.0); HGB 10.3 gm/dL (13.0-17.5); Hypochromasia Moderate; Lymphocytes # (A) 0.1 k/uL (1.0-4.8); Lymphocytes % (A) 2 %; MCH 25.6 pg (25.0-35.0); MCHC 31.9 g/dL (31.0-37.0); MCV 80.3 fL (80.0-100.0); Mean Platelet Volume 8.7; Microcytosis Slight; Monocytes # (A) 0.2 k/uL (0-1.0); Monocytes % (A) 4 %; Neutrophils # (A) 5.2 k/uL (1.3-7.7); Neutrophils % (A) 92 %; Platelet Count 161 k/uL (150-450); RBC 4.01 m/uL (4.30-5.90); RDW 16.8 % (11.5-15.5); WBC 5.6 k/uL (3.8-10.6)
--- NOTE | 2017-10-19 09:16 | XR ---
EXAMINATION TYPE: XR chest 2V DATE OF EXAM: 10/19/2017 COMPARISON: 06/17/2017 TECHNIQUE: PA and lateral views submitted. HISTORY: Chest pain FINDINGS: There are bilateral cardiac leads. Coarsened interstitium seen. Atherosclerotic changes aorta. Degene rative change of the spine. Interstitium appears increased from the prior exam. More confluent densit y in the medial aspect right upper lobe. Arthropathy of the shoulders with diffuse osteopenia. No pneumothorax. IMPRESSION: 1. COPD with interval increase in interstitium suggestive of interstitial pneumonitis or congestion. More confluent area of infiltrate in the medial margin of the right upper lobe.
[2017-10-19 09:20] LABS: Prothrombin Time 9.8 sec (9.0-12.0)
[2017-10-19 09:23] LABS: Creatine Kinase MB 2.2 ng/mL (0.0-2.4)
[2017-10-19 09:25] LABS: Partial Thromboplastin Time 20.1 sec (22.0-30.0)
[2017-10-19 09:33] LABS: Troponin I 0.113 ng/mL (0.000-0.034)
[2017-10-19] MEDS ORDERED: SODIUM CHLORIDE 0.9% 500 ML IV STA (09:51)
[2017-10-19] MEDS ORDERED: SODIUM CHLORIDE 0.9% 1,000 ML IV STA ×2 (09:51)
[2017-10-19] MEDS ORDERED: PNEUMONIA PROTOCOL UTILIZED 1 EACH MISC PO PRN (10:59)
[2017-10-19] MEDS ORDERED: cefTRIAXone IN SWFI 1,000 MG/10 ML SYRINGE IVP STA (10:59)
[2017-10-19] MEDS ORDERED: IPRATROPIUM-ALBUTEROL 3 ML NEB INHALATION PRN (10:59)
[2017-10-19] MEDS ORDERED: AZITHROMYCIN 500 MG in SODIUM CHLORIDE 0.9% 250 ML IVPB STA (10:59)
[2017-10-19] MEDS ORDERED: NALOXONE 0.4 MG/ML 1 ML VIAL IV PRN (11:00)
[2017-10-19] MEDS: SODIUM CHLORIDE 0.9% 1,000 ML IV SCH ×2 (12:03→21:42)
[2017-10-19] MEDS: IPRATROPIUM-ALBUTEROL 3 ML NEB INHALATION SCH ×3 (14:01→19:36)
[2017-10-19 15:59] LABS: Creatine Kinase MB 2.4 ng/mL (0.0-2.4)
[2017-10-19 16:05] LABS: Troponin I 0.119 ng/mL (0.000-0.034)
[2017-10-19] MEDS ORDERED: NITROGLYCERIN SL TABS 0.4 MG TAB SUBLINGUAL PRN (16:37)
--- NOTE | 2017-10-19 16:52 | P.HPIM ---
History of Present Illness H&P Date: 10/19/17 Chief Complaint: sepsis, respiratory failure, right upper lobe pneumonia, advance CAD, histo 87-year-old male one of Dr. Maradiaga patient with past medical history of CAD, COPD, GERD, hypertension, hypothyroidism, and lymphoma who was in the hospital and her Dr. Newton service this past week was admitted on 10/14 to 2017 for coronary artery disease with the pre-or bypass surgery. Patient brought for an elective PCI of the PE [facility] branch of the RCA through vein graft which was attempt not successfully. Was sent home to be on medical management only supposed to see Dr. Mendoza cardiology this week. Patient apparently become severely L with severe tiredness fatigue fever or chills not been able to ambulate and walk he was crawling on the floor did not feel well his neighbor ended up calling 911 or patient brought to demurs department at [facility] found to have mild hypoxia with elevated white blood cell and temperature was 103.9, chest x-ray showed right upper lobe infiltrate with increase marking of the interstitial pneumonitis in both side along with mild congestion. Patient was diagnosed with pneumonia, sepsis started on hydration IV antibiotic will be admitted to the hospital with above problem. Review of Systems Constitutional: Reports fatigue, Reports lethargy, Reports weakness Eyes: denies blurred vision, denies bulging eye, denies decreased vision Ears: deny: decreased hearing, ear discharge, earache Ears, nose, mouth and throat: Denies headache, Denies sore throat Cardiovascular: Reports decreased exercise tolerance, Reports dyspnea on exertion, Reports shortness of breath, worsening edema. Respiratory: Reports cough, Reports dyspnea, worsening shortness of breath along with cough productive phlegm. Gastrointestinal: Denies abdominal pain, Denies diarrhea, Denies nausea, Denies vomiting Genitourinary: Reports as per HPI Musculoskeletal: Denies myalgias Musculoskeletal: absent: ankle pain, ankle stiffness, ankle swelling Integumentary: Denies pruritus, Denies rash, worsening edema of the lower extremity. Neurological: Reports change in mentation, Reports weakness, mild change mental status compared to his baseline. Psychiatric: Denies anxiety, Denies depression Endocrine: Denies fatigue, Denies weight change Hematologic/Lymphatic: Reports as per HPI Allergic/Immunologic: Reports as per HPI Past Medical History Past Medical History: Cancer, Chest Pain / Angina, COPD, GERD/Reflux, Hyperlipidemia, Hypertension, Osteoarthritis (OA), Pneumonia, Thyroid Disorder, Vascular Disorder Additional Past Medical History / Comment(s): Lymphoma, bladder cancer with surgery, pneumonia/pneumonia with sepsis, PVD, L subclavian arterial stenosis, vertigo when first stands, hypothyroid, RLS, arthritis in back. History of Any Multi-Drug Resistant Organisms: MRSA Date of last positivie culture/infection: 2013 MDRO Source:: back Past Surgical History: Adenoidectomy, Back Surgery, Bladder Surgery, Coronary Bypass/CABG, Heart Catheterization, Pacemaker, Tonsillectomy Additional Past Surgical History / Comment(s): 2003 CABG 4 vessel, cardiac caths , L subclavian angiogram, R upper leg arterial graft placed, TTT, cysto with bladder cancer lasered, power port right chest wall, 3 back surgeries - then found MRSA and had hardware removal, nando laser eye surgery for cataracts. Past Anesthesia/Blood Transfusion Reactions: No Reported Reaction, Motion Sickness Additional Past Anesthesia/Blood Transfusion Reaction / Comment(s): Pt received blood in past without reaction. Type of Cardiac Device: Biventricular Pacemaker Device Placement Date:: Original pacer placed in 2009 and generator change in 2016 Smoking Status: Former smoker - Past Family History Father Family Medical History: Vascular Disorder Additional Family Medical History / Comment(s): Father of a ruptured aortic aneurysm at the age of 75yrs. Mother Family Medical History: No Reported History Additional Family Medical History / Comment(s): Pt states mother was healthy and lived to the age of 82 yrs. Daughter(s) History Unknown: Yes Additional Family Medical History / Comment(s): Multiple Sclerosis Medications and Allergies Home Medications Medication Instructions Recorded Confirmed Type Amitriptyline HCl [Elavil] 50 mg PO HS 03/06/16 10/19/17 History Atorvastatin [Lipitor] 40 mg PO W/SUPPER 03/06/16 10/19/17 History Levothyroxine Sodium [Synthroid] 75 mcg PO QAM 03/06/16 10/19/17 History Nitroglycerin Sl Tabs [Nitrostat] 0.4 mg SUBLINGUAL Q5M PRN 03/06/16 10/19/17 History Albuterol Nebulized [Ventolin 2.5 mg INHALATION RT-BID 06/03/17 10/19/17 History Nebulized] Midodrine [ProAmatine] 5 mg PO BID 06/03/17 10/19/17 History Temazepam 30 mg PO HS 06/03/17 10/19/17 History Clopidogrel [Plavix] 75 mg PO QAM 09/13/17 10/19/17 History Isosorbide Mononitrate ER [Imdur] 30 mg PO QAM 09/13/17 10/19/17 History Aspirin 81 mg PO QAM 10/12/17 10/19/17 History Omeprazole [PriLOSEC] 20 mg PO AC-BRKFST 10/12/17 10/19/17 History Gabapentin [Neurontin] 100 mg PO BID PRN 10/19/17 10/19/17 History predniSONE 10 mg PO DAILY 10/19/17 10/19/17 History rOPINIRole HCL [Requip] 2 mg PO HS 10/19/17 10/19/17 History Allergies Allergy/AdvReac Type Severity Reaction Status Date / Time Penicillins Allergy Rash/Hives Verified 10/19/17 11:22 Physical Exam Vitals: Vital Signs Temp Pulse Resp BP Pulse Ox 10/19/17 15:59 71 10/19/17 15:47 69 10/19/17 15:00 97.8 F 68 20 100/50 99 10/19/17 13:48 15 L 16 94/43 97 10/19/17 12:03 83 24 95/46 95 10/19/17 11:28 86 18 101/40 97 10/19/17 10:52 88 20 102/39 100 10/19/17 10:00 97.6 F 96 24 94/43 95 10/19/17 09:16 98 24 89/46 96 10/19/17 08:31 103.9 F H 112 H 22 88/52 95 Intake and Output 10/19/17 10/19/17 10/19/17 06:59 14:59 22:59 Other: Weight 77.564 kg Constitutional: Well-developed in mild respiratory distress, still using his accessory muscles to breathe. Neck HEENT: Supple pupils are symmetric and reactive to light no carotid bruits or thyroid enlargement. Chest wall: Increase expansion bilaterally with using his accessory muscles when breathing in and out. Lungs: Decreased breath sound, positive inspiratory expiratory wheezes with worsening symptoms in the right than the left side with mild rhonchi and crackles heard over the left base compared to the right. Cardiovascular: PMI is in the left fifth costal space, anterior axillary line, S1, S2, positive S3, positive PVCs. Abdomen: distended, soft positive bowel sound no rebound or rigidity. Extremities: No edema, decreased pulses dorsalis pedis and posterior tibial bilaterally. 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 Neuro: Alert, slightly confused, moving all his 4 extremity has generalized weakness no focal deficit. Results CBC & Chem 7: 10/19/17 08:41 10/19/17 08:41 Labs: Abnormal Lab Results - Last 24 Hours (Table) 10/19/17 10/19/17 10/19/17 Range/Units 08:41 08:41 08:41 RBC 4.01 L (4.30-5.90) m/uL Hgb 10.3 L (13.0-17.5) gm/dL Hct 32.2 L (39.0-53.0) % RDW 16.8 H (11.5-15.5) % Lymphocytes # 0.1 L (1.0-4.8) k/uL APTT (22.0-30.0) sec Glucose 113 H (74-99) mg/dL Total Creatine Kinase (55-170) U/L Troponin I 0.113 H* (0.000-0.034) ng/mL Total Protein 5.4 L (6.3-8.2) g/dL Albumin 3.4 L (3.5-5.0) g/dL Urine Protein (Negative) Urine Blood (Negative) Urine RBC (0-5) /hpf Urine Mucus (None) /hpf 10/19/17 10/19/17 10/19/17 Range/Units 08:41 08:41 14:41 RBC (4.30-5.90) m/uL Hgb (13.0-17.5) gm/dL Hct (39.0-53.0) % RDW (11.5-15.5) % Lymphocytes # (1.0-4.8) k/uL APTT 20.1 L (22.0-30.0) sec Glucose (74-99) mg/dL Total Creatine Kinase 249 H (55-170) U/L Troponin I 0.119 H* (0.000-0.034) ng/mL Total Protein (6.3-8.2) g/dL Albumin (3.5-5.0) g/dL Urine Protein Trace H (Negative) Urine Blood Trace H (Negative) Urine RBC 6 H (0-5) /hpf Urine Mucus Rare H (None) /hpf Microbiology - Last 24 Hours (Table) 10/19/17 08:41 Urine Culture - Preliminary Urine,Voided Thrombosis Risk Factor Assmnt - Choose All That Apply Any of the Below Risk Factors Present?: Yes Each Factor Represents 1 point: Abnormal pulmonary function (COPD), Sepsis (< 1month), Serious lung disease incl. pneumonia (< 1month) Other Risk Factors: Yes Each Risk Factor Represents 2 Points: Malignancy Each Risk Factor Represents 3 Points: Age 75 years or older Other congenital or acquired thrombophilia - If yes, enter type in comment: No Thrombosis Risk Factor Assessment Total Risk Factor Score: 8 Thrombosis Risk Factor Assessment Level: High Risk Assessment and Plan Plan: 1 sepsis: Most likely from right upper lobe pneumonia, patient will be hospitalized started on IV antibiotics, will consult pulmonary continue current management still watch for any positive culture and change antibiotic accordingly. Patient was started on Rocephin and azithromycin. 2 mild metabolic encephalopathy: Most likely secondary to sepsis, hypertension, hypoxia with try to treat underlying disease and watch symptoms closely. 3 severe COPD with mild exacerbation: Patient has been on prednisone 10 mg a day along with DuoNeb and Pulmicort, will consult pulmonary continue current management might need higher dose of steroid can be on 60 mg of Solu-Medrol every 6 hours for the first 48 hours. 4 advance CAD: Post attempt angioplasty and stent not successful from last week patient will continue medical management. 5 hypothyroidism: Continue levothyroxine 75 g daily. 6 hyperlipidemia: Remain on atorvastatin 40 mg daily. 7 chronic neuropathy: Has been on gabapentin 100 mg twice a day. 8 restless leg syndrome: Has been on ropinirole pro-2 mg daily at bedtime. 9 GERD/GI prophylaxis: Patient will be continue on Prilosec 20 mg daily. 10 DVT prophylaxis: Early mobilization and if need heparin subcutaneous. CODE STATUS: Full code. Admit patient to inpatient status for more than 2 nights.
[2017-10-19] MEDS ORDERED: ALBUTEROL NEBULIZED 2.5 MG/3 ML INHALATION SCH (20:00)
[2017-10-19 21:57] LABS: Creatine Kinase MB 3.1 ng/mL (0.0-2.4); Troponin I 0.087 ng/mL (0.000-0.034)
[2017-10-19] MEDS: TEMAZEPAM 30 MG CAP PO SCH (22:47)
[2017-10-19] MEDS: ATORVASTATIN 40 MG TAB PO SCH (22:47)
[2017-10-19] MEDS: MIDODRINE 5 MG TAB PO SCH (22:48)
[2017-10-19] MEDS: AMITRIPTYLINE HCL 50 MG TAB PO SCH (22:48)
[2017-10-19] MEDS: BENZOCAINE/MENTHOL LOZENG 1 EACH LOZENGE MUCOUS MEM PRN (22:48)
[2017-10-20] MEDS: GABAPENTIN 100 MG CAP PO PRN ×2 (04:15→20:42)
[2017-10-20] MEDS: BENZOCAINE/MENTHOL LOZENG 1 EACH LOZENGE MUCOUS MEM PRN (04:20)
[2017-10-20] MEDS: PANTOPRAZOLE 40 MG TABLET PO SCH (06:08)
[2017-10-20] MEDS: LEVOTHYROXINE 75 MCG TAB PO SCH (06:08)
[2017-10-20 06:39] LABS: Anisocytosis Slight; Basophils % (A) 0 %; Eosinophils # (A) 0.1 k/uL (0-0.7); Eosinophils % (A) 2 %; HCT 28.7 % (39.0-53.0); HGB 8.9 gm/dL (13.0-17.5); Hypochromasia Moderate; Lymphocytes # (A) 0.3 k/uL (1.0-4.8); Lymphocytes % (A) 5 %; MCH 25.1 pg (25.0-35.0); Mean Platelet Volume 7.7; Microcytosis Slight; Monocytes # (A) 0.3 k/uL (0-1.0); Monocytes % (A) 5 %; Neutrophils % (A) 86 %; Platelet Count 148 k/uL (150-450); RBC 3.54 m/uL (4.30-5.90); WBC 5.8 k/uL (3.8-10.6)
[2017-10-20 06:52] LABS: ALT 24 U/L (21-72); AST 18 U/L (17-59); Albumin 2.6 g/dL (3.5-5.0); Alkaline Phosphatase 63 U/L (38-126); Anion Gap 7 mmol/L; Blood Urea Nitrogen 12 mg/dL (9-20); Calcium 8.3 mg/dL (8.4-10.2); Carbon Dioxide 24 mmol/L (22-30); Chloride 109 mmol/L (98-107); Glucose 97 mg/dL (74-99); Sodium 140 mmol/L (137-145); Total Bilirubin 0.8 mg/dL (0.2-1.3); Total Protein 4.5 g/dL (6.3-8.2)
--- NOTE | 2017-10-20 07:13 | P.CNPUL ---
History of Present Illness Consult date: 10/19/17 Reason for consult: pneumonia History of present illness: 87-year-old male patient with known history of COPD and addition to coronary artery disease and previous bypass surgery will came into the hospital because of worsening weakness, fatigue, to the point where the patient was able to ambulate and he was crawling on the floor and he end up calling EMS and the patient was brought into the emergency department for further evaluation. At the time of admission the patient a temperature 103.9. His chest x-ray was revealing a right upper lobe pulmonary infiltrates/pneumonia and his white cell count was also elevated. Based on that the patient was diagnosed having a pneumonia and the patient was started on IV antibiotics and the patient was admitted to the floor. The patient is known to have coronary artery disease and he had a recent intervention where an attempted angioplasty of the PDA branch of the right coronary artery was done through the saphenous finger graft and this was not successful. Medical treatment was offered to the patient. He is currently free of any angina. He has hypertension and hypothyroidism and previous history of lymphoma as comorbid conditions. He also has previous history of left subclavian artery stenosis, and bladder cancer that was superficial resected. His bypass was in 2003 and the patient undergone four- vessel bypass surgery. Note that his current troponins are minimally elevated with levels of 0.12 respectively. Otherwise no other significant left carotid imbalance abnormalities. Correlation profile is within normal limits. He is currently covered with DuoNeb neb last treatment on the clock, IV Rocephin and Zithromax. He is on 2 L of oxygen nasal cannula and a saturation of 99%. No reported aspiration. He was previously treated for left perihilar pneumonia in 2016 and treatment was successful Bactrim. Review of Systems Constitutional: Reports fatigue, Reports lethargy, Reports weakness Eyes: denies blurred vision, denies bulging eye, denies decreased vision Ears: deny: decreased hearing, ear discharge, earache Ears, nose, mouth and throat: Denies headache, Denies sore throat Cardiovascular: Reports decreased exercise tolerance, Reports dyspnea on exertion, Reports shortness of breath, worsening edema. Respiratory: Reports cough, Reports dyspnea, worsening shortness of breath along with cough productive phlegm. Gastrointestinal: Denies abdominal pain, Denies diarrhea, Denies nausea, Denies vomiting Genitourinary: Reports as per HPI Musculoskeletal: Denies myalgias Musculoskeletal: absent: ankle pain, ankle stiffness, ankle swelling Integumentary: Denies pruritus, Denies rash, worsening edema of the lower extremity. Neurological: Reports change in mentation, Reports weakness, mild change mental status compared to his baseline. Psychiatric: Denies anxiety, Denies depression Endocrine: Denies fatigue, Denies weight change Hematologic/Lymphatic: Reports as per HPI Allergic/Immunologic: Reports as per HPI Past Medical History Past Medical History: Cancer, Chest Pain / Angina, COPD, GERD/Reflux, Hyperlipidemia, Hypertension, Osteoarthritis (OA), Pneumonia, Thyroid Disorder, Vascular Disorder Additional Past Medical History / Comment(s): COPD, history of bladder cancer that was resected endoscopically, coronary artery disease with four-vessel bypass surgery that was done 2003, left subclavian artery stenosis, peripheral vascular disease with previous vascular intervention involving the right lower extremity, history of lymphoma, history of MRSA wound infection, hyperlipidemia , hypertension, hypothyroidism, osteoarthritis, coronary artery disease, acid reflux, restless leg syndrome, History of Any Multi-Drug Resistant Organisms: MRSA Date of last positivie culture/infection: 2013 MDRO Source:: back Past Surgical History: Adenoidectomy, Back Surgery, Bladder Surgery, Coronary Bypass/CABG, Heart Catheterization, Pacemaker, Tonsillectomy Additional Past Surgical History / Comment(s): 2003 CABG 4 vessel, cardiac caths , L subclavian angiogram, R upper leg arterial graft placed, TTT, cysto with bladder cancer lasered, power port right chest wall, 3 back surgeries - then found MRSA and had hardware removal, nando laser eye surgery for cataracts. Past Anesthesia/Blood Transfusion Reactions: No Reported Reaction, Motion Sickness Additional Past Anesthesia/Blood Transfusion Reaction / Comment(s): Pt received blood in past without reaction. Type of Cardiac Device: Biventricular Pacemaker Device Placement Date:: Original pacer placed in 2009 and generator change in 2016 Smoking Status: Former smoker - Past Family History Father Family Medical History: Vascular Disorder Additional Family Medical History / Comment(s): Father of a ruptured aortic aneurysm at the age of 75yrs. Mother Family Medical History: No Reported History Additional Family Medical History / Comment(s): Pt states mother was healthy and lived to the age of 82 yrs. Daughter(s) History Unknown: Yes Additional Family Medical History / Comment(s): Multiple Sclerosis Medications and Allergies Home Medications Medication Instructions Recorded Confirmed Type Amitriptyline HCl [Elavil] 50 mg PO HS 03/06/16 10/19/17 History Atorvastatin [Lipitor] 40 mg PO W/SUPPER 03/06/16 10/19/17 History Levothyroxine Sodium [Synthroid] 75 mcg PO QAM 03/06/16 10/19/17 History Nitroglycerin Sl Tabs [Nitrostat] 0.4 mg SUBLINGUAL Q5M PRN 03/06/16 10/19/17 History Albuterol Nebulized [Ventolin 2.5 mg INHALATION RT-BID 06/03/17 10/19/17 History Nebulized] Midodrine [ProAmatine] 5 mg PO BID 06/03/17 10/19/17 History Temazepam 30 mg PO HS 06/03/17 10/19/17 History Clopidogrel [Plavix] 75 mg PO QAM 09/13/17 10/19/17 History Isosorbide Mononitrate ER [Imdur] 30 mg PO QAM 09/13/17 10/19/17 History Aspirin 81 mg PO QAM 10/12/17 10/19/17 History Omeprazole [PriLOSEC] 20 mg PO AC-BRKFST 10/12/17 10/19/17 History Gabapentin [Neurontin] 100 mg PO BID PRN 10/19/17 10/19/17 History predniSONE 10 mg PO DAILY 10/19/17 10/19/17 History rOPINIRole HCL [Requip] 2 mg PO HS 10/19/17 10/19/17 History Allergies Allergy/AdvReac Type Severity Reaction Status Date / Time Penicillins Allergy Rash/Hives Verified 10/19/17 11:22 Physical Exam Vitals: Vital Signs Temp Pulse Resp BP Pulse Ox 10/19/17 15:59 71 10/19/17 15:47 69 10/19/17 15:00 97.8 F 68 20 100/50 99 10/19/17 13:48 60 16 94/43 97 10/19/17 12:03 83 24 95/46 95 10/19/17 11:28 86 18 101/40 97 10/19/17 10:52 88 20 102/39 100 10/19/17 10:00 97.6 F 96 24 94/43 95 10/19/17 09:16 98 24 89/46 96 10/19/17 08:31 103.9 F H 112 H 22 88/52 95 Intake and Output 10/19/17 10/19/17 10/19/17 06:59 14:59 22:59 Other: Weight 77.564 kg Gen. appearance the patient is calm comfortable and he demonstrated only mild respiratory distress at rest. His currently inactive. Liters per minute nasal cannula. Head exam was generally normal. There was no scleral icterus or corneal arcus. Mucous membranes were moist. Neck was supple and without jugular venous distension, thyromegaly, or carotid bruits. Carotids were easily palpable bilaterally. There was no adenopathy. Lungs sounds are diminished bilaterally along with some scattered expiratory wheezes heard throughout the lung sanders intact lung bases Cardiac exam revealed the PMI to be normally situated and sized. The rhythm was regular and no extrasystoles were noted during several minutes of auscultation. The first and second heart sounds were normal and physiologic splitting of the second heart sound was noted. There were no murmurs, rubs, clicks, or gallops. Abdominal exam revealed normal bowel sounds. The abdomen was soft, non-tender, and without masses, organomegaly, or appreciable enlargement of the abdominal aorta. Examination of the extremities revealed easily palpable radial, femoral and pedal pulses. There was no cyanosis, clubbing or edema. Examination of the skin revealed no evidence of significant rashes, suspicious appearing nevi or other concerning lesions. Neurologically the patient is awake and alert and there is no focal neurological deficits. Results - Laboratory Findings CBC and BMP: 10/20/17 06:11 10/20/17 06:11 PT/INR, D-dimer PT 9.8 sec (9.0-12.0) 10/19/17 08:41 INR 1.0 (<1.2) 10/19/17 08:41 Abnormal lab findings: Abnormal Labs 10/19/17 10/19/17 10/19/17 08:41 08:41 08:41 RBC 4.01 L Hgb 10.3 L Hct 32.2 L RDW 16.8 H Lymphocytes # 0.1 L APTT Glucose 113 H Total Creatine Kinase Troponin I 0.113 H* Total Protein 5.4 L Albumin 3.4 L Urine Protein Urine Blood Urine RBC Urine Mucus 10/19/17 10/19/17 10/19/17 08:41 08:41 14:41 RBC Hgb Hct RDW Lymphocytes # APTT 20.1 L Glucose Total Creatine Kinase 249 H Troponin I 0.119 H* Total Protein Albumin Urine Protein Trace H Urine Blood Trace H Urine RBC 6 H Urine Mucus Rare H - Diagnostic Findings Chest x-ray: image reviewed Assessment and Plan Plan: Assessment 1 acute right upper lobe pneumonia with secondary hypoxic respiratory failure. Suspect also development of a right lower lobe pneumonia. No clear-cut history of aspiration. Suspect an acute bacterial pneumonia, probably bilobar. 2 acute febrile illness secondary to above 3 acute hypoxic respiratory failure secondary to above 4 shortness of breath secondary to above 5 COPD with possibly component of exacerbation secondary to above 6 coronary artery disease with previous bypass surgery back in 2003 7 recent coronary angiogram was attempted PCI/on successful 8 mild troponin leak 9 hypothyroidism 10 hyperlipidemia 11 peripheral neuropathy 12 restless leg syndrome 13 history of lymphoma 14 history of bladder cancer 15 history of recurrent syncope with a negative tilt table test 16 dementia 17 anxiety/depression 18 biventricular pacemaker insertion Plan Hemodynamically stable. Continue current antibiotic coverage. Blood cultures. Sputum culture. FU CXR in Am. Jerry continue to FU along with the medical team.
[2017-10-20] MEDS: IPRATROPIUM-ALBUTEROL 3 ML NEB INHALATION SCH ×4 (08:50→19:06)
[2017-10-20] MEDS: SODIUM CHLORIDE 0.9% 1,000 ML IV SCH ×3 (09:14→20:44)
[2017-10-20] MEDS: AZITHROMYCIN 500 MG TAB PO SCH (09:15)
[2017-10-20] MEDS: ISOSORBIDE MONONITRATE ER 30 MG TAB.ER.24H PO SCH (09:15)
[2017-10-20] MEDS: ASPIRIN 81 MG PO SCH (09:15)
[2017-10-20] MEDS: CLOPIDOGREL 75 MG TAB PO SCH (09:15)
[2017-10-20] MEDS: MIDODRINE 5 MG TAB PO SCH ×2 (09:16→20:42)
[2017-10-20] MEDS: predniSONE 10 MG TAB PO SCH (09:16)
--- NOTE | 2017-10-20 09:19 | CONS ---
CONSULTATION Sharif Severino is a patient of Dr. Agarwal who has known coronary artery disease with history of bypass surgery, aortic valve disease and lymphoma. He was admitted with sepsis. Cardiology was consulted on account of abnormal troponins. The patient denies any chest discomfort. He appears to be to be totally disheveled, slightly short of breath at rest, lying flat in bed. He was febrile upon admission. He feels very tired and weak and he was unable to walk and was crawling on the floor at home. Chest x-ray shows a right upper lobe infiltrate. He has been diagnosed with pneumonia and started on IV hydration and IV antibiotics. On reviewing the labs, labs are reviewed. His CPKs are on the rise, but his troponins are borderline and have a downward trend. This is not consistent with an acute myocardial infarction, rather abnormal troponins in the setting of sepsis. REVIEW OF SYSTEMS: He feels lethargic and weak. No nausea, vomiting, or diarrhea. No hematuria or dysuria. No strokes or seizures. No chest pain. Denies shortness of breath. Very slightly short of breath at rest. PAST HISTORY: Past history of coronary artery disease, biventricular pacemaker, aortic valve disease. SOCIAL HISTORY: He is a former smoker. PHYSICAL EXAMINATION: On examination, his blood pressure is 115/71 mmHg, pulse rate in the 80s. His temperature is 99.6 degrees Fahrenheit. Head and neck examination is normal. Heart sounds: A systolic murmur is audible. Breath sounds are reduced bilaterally. No rhonchus. ABDOMEN: Soft. Extremities are warm. IMPRESSION: The patient being managed and being treated for pneumonia/sepsis with a minor troponin leak, which is consistent with troponin release in the setting of sepsis with underlying coronary artery disease. This does not represent an acute myocardial infarction. The CPKs are rising where the troponins show a downward trend and this does not represent an acute myocardial infarction. SUGGEST: Continue cardiac medications as before. Continue management of sepsis. No further cardiac workup at this point. Follow up with Dr. Agarwal when he improves and is discharged from the hospital. Will sign off. MMODL / IJN: [id number] /
[2017-10-20] MEDS: cefTRIAXone IN SWFI 1,000 MG/10 ML SYRINGE IVP SCH (09:23)
--- NOTE | 2017-10-20 09:49 | XR ---
EXAMINATION TYPE: XR chest 2V DATE OF EXAM: 10/20/2017 COMPARISON: 10/19/2017 TECHNIQUE: PA and lateral views submitted. HISTORY: Fever FINDINGS: There are bilateral cardiac leads. Coarsened interstitium seen. Atherosclerotic changes aorta. Degene rative change of the spine. Interstitium appears increased from the prior exam. More confluent densit y in the medial aspect right upper lobe. Arthropathy of the shoulders with diffuse osteopenia. No pne umothorax. IMPRESSION: 1. Stable diffuse interstitial process which may been the basis of chronic interstitial lung disease. Superimposed interstitial acute process in the differential diagnosis. Persistent more confluent are a of density in the medial margin of the right upper lobe could represent early infiltrate. Follow to resolution to exclude other etiologies..
[2017-10-20] MEDS ORDERED: Potassium Replacement Protocol 1 EACH MISC MISCELLANE PRN ×2 (11:06→11:08)
--- NOTE | 2017-10-20 11:30 | P.PN ---
Subjective Progress Note Date: 10/20/17 Principal diagnosis: Acute right upper lobe pneumonia and secondary hypoxic respiratory failure, suspect development of a right lower lobe pneumonia 87-year-old male patient with known history of COPD and addition to coronary artery disease and previous bypass surgery will came into the hospital because of worsening weakness, fatigue, to the point where the patient was able to ambulate and he was crawling on the floor and he end up calling EMS and the patient was brought into the emergency department for further evaluation. At the time of admission the patient a temperature 103.9. His chest x-ray was revealing a right upper lobe pulmonary infiltrates/pneumonia and his white cell count was also elevated. Based on that the patient was diagnosed having a pneumonia and the patient was started on IV antibiotics and the patient was admitted to the floor. The patient is known to have coronary artery disease and he had a recent intervention where an attempted angioplasty of the PDA branch of the right coronary artery was done through the saphenous finger graft and this was not successful. Medical treatment was offered to the patient. He is currently free of any angina. He has hypertension and hypothyroidism and previous history of lymphoma as comorbid conditions. He also has previous history of left subclavian artery stenosis, and bladder cancer that was superficial resected. His bypass was in 2003 and the patient undergone four- vessel bypass surgery. Note that his current troponins are minimally elevated with levels of 0.12 respectively. Otherwise no other significant left carotid imbalance abnormalities. Correlation profile is within normal limits. He is currently covered with DuoNeb neb last treatment on the clock, IV Rocephin and Zithromax. He is on 2 L of oxygen nasal cannula and a saturation of 99%. No reported aspiration. He was previously treated for left perihilar pneumonia in 2016 and treatment was successful Bactrim. On 10/20/2017 patient seen in follow-up care unit. He is resting in bed, in no acute distress, pulse ox on 2 L per nasal cannula is 95%, no fever, no chills. No chest wall tenderness, no worsening dyspnea. Patient has fine crackles over both bases, no significant wheezing noted on today's exam. Patient's speech is garbled. Blood and urine cultures remain negative, today's chest x-ray has been reviewed by Dr. Schofield, and shows diffuse interstitial process and right upper lobe infiltrate. She remains on empiric antibiotics of Rocephin and Zithromax. Patient is currently getting DuoNeb nebulized treatments he remains on 2 L of oxygen per nasal cannula. Objective - Vital Signs Vital signs: Vital Signs Temp 99.6 F 10/20/17 04:00 Pulse 76 10/20/17 09:07 Resp 16 10/20/17 09:07 BP 115/71 10/20/17 04:00 Pulse Ox 95 10/20/17 04:00 Intake & Output 10/19/17 10/20/17 10/20/17 18:59 06:59 18:59 Output Total 590 Balance -590 Weight 77.564 kg 78.1 kg Output: Urine 590 Other: Voiding Method Toilet - Exam Gen. appearance the patient is calm comfortable and he demonstrated only mild respiratory distress at rest. His currently inactive. Liters per minute nasal cannula. Head exam was generally normal. There was no scleral icterus or corneal arcus. Mucous membranes were moist. Neck was supple and without jugular venous distension, thyromegaly, or carotid bruits. Carotids were easily palpable bilaterally. There was no adenopathy. Lungs sounds are diminished bilaterally along with fine crackles Cardiac exam revealed the PMI to be normally situated and sized. The rhythm was regular and no extrasystoles were noted during several minutes of auscultation. The first and second heart sounds were normal and physiologic splitting of the second heart sound was noted. There were no murmurs, rubs, clicks, or gallops. Abdominal exam revealed normal bowel sounds. The abdomen was soft, non-tender, and without masses, organomegaly, or appreciable enlargement of the abdominal aorta. Examination of the extremities revealed easily palpable radial, femoral and pedal pulses. There was no cyanosis, clubbing or edema. Examination of the skin revealed no evidence of significant rashes, suspicious appearing nevi or other concerning lesions. Neurologically the patient is awake and alert and there is no focal neurological deficits. - Labs CBC & Chem 7: 10/20/17 06:11 10/20/17 06:11 Labs: Abnormal Lab Results - Last 24 Hours (Table) 10/19/17 10/19/17 10/20/17 Range/Units 14:41 20:39 06:11 RBC 3.54 L (4.30-5.90) m/uL Hgb 8.9 L (13.0-17.5) gm/dL Hct 28.7 L (39.0-53.0) % RDW 17.0 H (11.5-15.5) % Plt Count 148 L (150-450) k/uL Lymphocytes # 0.3 L (1.0-4.8) k/uL Potassium (3.5-5.1) mmol/L Chloride (98-107) mmol/L Calcium (8.4-10.2) mg/dL Total Creatine Kinase 249 H 284 H (55-170) U/L CK-MB (CK-2) 3.1 H* (0.0-2.4) ng/mL Troponin I 0.119 H* 0.087 H* (0.000-0.034) ng/mL Total Protein (6.3-8.2) g/dL Albumin (3.5-5.0) g/dL 10/20/17 Range/Units 06:11 RBC (4.30-5.90) m/uL Hgb (13.0-17.5) gm/dL Hct (39.0-53.0) % RDW (11.5-15.5) % Plt Count (150-450) k/uL Lymphocytes # (1.0-4.8) k/uL Potassium 3.0 L* (3.5-5.1) mmol/L Chloride 109 H (98-107) mmol/L Calcium 8.3 L (8.4-10.2) mg/dL Total Creatine Kinase (55-170) U/L CK-MB (CK-2) (0.0-2.4) ng/mL Troponin I (0.000-0.034) ng/mL Total Protein 4.5 L (6.3-8.2) g/dL Albumin 2.6 L (3.5-5.0) g/dL Microbiology - Last 24 Hours (Table) 10/19/17 08:41 Blood Culture - Preliminary Blood No Growth after 24 hours 10/19/17 08:41 Urine Culture - Preliminary Urine,Voided Assessment and Plan Plan: Assessment: 1 acute right upper lobe pneumonia with secondary hypoxic respiratory failure. Suspect also development of a right lower lobe pneumonia. No clear-cut history of aspiration. Suspect an acute bacterial pneumonia, probably bilobar. 2 acute febrile illness secondary to above 3 acute hypoxic respiratory failure secondary to above 4 shortness of breath secondary to above 5 COPD with possibly component of exacerbation secondary to above 6 coronary artery disease with previous bypass surgery back in 2003 7 recent coronary angiogram was attempted PCI/on successful 8 mild troponin leak 9 hypothyroidism 10 hyperlipidemia 11 peripheral neuropathy 12 restless leg syndrome 13 history of lymphoma 14 history of bladder cancer 15 history of recurrent syncope with a negative tilt table test 16 dementia 17 anxiety/depression 18 biventricular pacemaker insertion Plan Continue current antibiotic coverage, continue nebulized bronchodilators. No fever or chills, vital signs are stable, no leukocytosis. I'll profile is stable. Will await the results of the final cultures. Patient remains stable. Maintain aspiration precautions. Continue to follow. I performed a history & physical examination of the patient and discussed their management with my nurse practitioner, Ana Dunbar. I reviewed the nurse practitioner's note and agree with the documented findings and plan of care. Lung sounds are positive for bibasilar rales. Findings and the impression was discussed with the patient. I attest to the documentation by the nurse practitioner. Time with Patient: Less than 30
--- NOTE | 2017-10-20 11:46 | P.PN ---
Subjective 87-year-old male one of Dr. Maradiaga patient with past medical history of CAD, COPD, GERD, hypertension, hypothyroidism, and lymphoma who was in the hospital and her Dr. Newton service this past week was admitted on 10/14 to 2017 for coronary artery disease with the pre-or bypass surgery. Patient brought for an elective PCI of the PE VA branch of the RCA through vein graft which was attempt not successfully. Was sent home to be on medical management only supposed to see Dr. Mendoza cardiology this week. Patient apparently become severely L with severe tiredness fatigue fever or chills not been able to ambulate and walk he was crawling on the floor did not feel well his neighbor ended up calling 911 or patient brought to demurs department at [facility] found to have mild hypoxia with elevated white blood cell and temperature was 103.9, chest x-ray showed right upper lobe infiltrate with increase marking of the interstitial pneumonitis in both side along with mild congestion. Patient was diagnosed with pneumonia, sepsis started on hydration IV antibiotic will be admitted to the hospital with above problem. 10/20: Patient remains febrile, highest fever yesterday reaching 103.9, today he is 99.6. Blood pressure is stable, O2 saturation 95% on 2 L via nasal cannula. Repeat chest x-ray shows diffuse interstitial process and right lower lobe infiltrate. He continues on Rocephin and azithromycin, blood cultures show no growth to date. Pulmonary consult appreciated. CPK and troponins show a downward trend, less likely an acute [place], cardiology on consult, potassium 3.0, will be supplemented today. Objective - Vital Signs Vital signs: Vital Signs Temp 99.6 F 10/20/17 04:00 Pulse 76 10/20/17 09:07 Resp 16 10/20/17 09:07 BP 115/71 10/20/17 04:00 Pulse Ox 95 10/20/17 04:00 Intake & Output 10/19/17 10/20/17 10/20/17 18:59 06:59 18:59 Output Total 590 Balance -590 Weight 77.564 kg 78.1 kg Output: Urine 590 Other: Voiding Method Toilet - Exam Constitutional: Well-developed, no acute respiratory distress Neck HEENT: Supple pupils are symmetric and reactive to light no carotid bruits or thyroid enlargement. Chest wall: Increase expansion bilaterally with using his accessory muscles when breathing in and out. Lungs: Decreased breath sound, positive inspiratory expiratory wheezes with worsening symptoms in the right than the left side with mild rhonchi and crackles heard over the left base compared to the right. Cardiovascular: PMI is in the left fifth costal space, anterior axillary line, S1, S2, positive S3, positive PVCs. Abdomen: distended, soft positive bowel sound no rebound or rigidity. Extremities: No edema, decreased pulses dorsalis pedis and posterior tibial bilaterally. 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 Neuro: Alert, slightly confused, moving all his 4 extremity has generalized weakness no focal deficit. - Labs CBC & Chem 7: 10/20/17 06:11 10/20/17 06:11 Labs: Abnormal Lab Results - Last 24 Hours (Table) 10/19/17 10/19/17 10/20/17 Range/Units 14:41 20:39 06:11 RBC 3.54 L (4.30-5.90) m/uL Hgb 8.9 L (13.0-17.5) gm/dL Hct 28.7 L (39.0-53.0) % RDW 17.0 H (11.5-15.5) % Plt Count 148 L (150-450) k/uL Lymphocytes # 0.3 L (1.0-4.8) k/uL Potassium (3.5-5.1) mmol/L Chloride (98-107) mmol/L Calcium (8.4-10.2) mg/dL Total Creatine Kinase 249 H 284 H (55-170) U/L CK-MB (CK-2) 3.1 H* (0.0-2.4) ng/mL Troponin I 0.119 H* 0.087 H* (0.000-0.034) ng/mL Total Protein (6.3-8.2) g/dL Albumin (3.5-5.0) g/dL 10/20/17 Range/Units 06:11 RBC (4.30-5.90) m/uL Hgb (13.0-17.5) gm/dL Hct (39.0-53.0) % RDW (11.5-15.5) % Plt Count (150-450) k/uL Lymphocytes # (1.0-4.8) k/uL Potassium 3.0 L* (3.5-5.1) mmol/L Chloride 109 H (98-107) mmol/L Calcium 8.3 L (8.4-10.2) mg/dL Total Creatine Kinase (55-170) U/L CK-MB (CK-2) (0.0-2.4) ng/mL Troponin I (0.000-0.034) ng/mL Total Protein 4.5 L (6.3-8.2) g/dL Albumin 2.6 L (3.5-5.0) g/dL Microbiology - Last 24 Hours (Table) 10/19/17 08:41 Blood Culture - Preliminary Blood No Growth after 24 hours 10/19/17 08:41 Urine Culture - Preliminary Urine,Voided Assessment and Plan Plan: 1 sepsis: Most likely from right upper lobe pneumonia, patient will be hospitalized started on IV antibiotics, will consult pulmonary continue current management still watch for any positive culture and change antibiotic accordingly. Patient was started on Rocephin and azithromycin. 2 mild metabolic encephalopathy: Most likely secondary to sepsis, hypertension, hypoxia with try to treat underlying disease and watch symptoms closely. 3 severe COPD with mild exacerbation: Patient has been on prednisone 10 mg a day along with DuoNeb and Pulmicort, will consult pulmonary continue current management might need higher dose of steroid can be on 60 mg of Solu-Medrol every 6 hours for the first 48 hours. 4 advance CAD: Post attempt angioplasty and stent not successful from last week patient will continue medical management. 5 hypothyroidism: Continue levothyroxine 75 g daily. 6 hyperlipidemia: Remain on atorvastatin 40 mg daily. 7 chronic neuropathy: Has been on gabapentin 100 mg twice a day. 8 restless leg syndrome: Has been on ropinirole pro-2 mg daily at bedtime. 9 GERD/GI prophylaxis: Patient will be continue on Prilosec 20 mg daily. 10 DVT prophylaxis: Early mobilization and if need heparin subcutaneous. CODE STATUS: Full code. Admit patient to inpatient status for more than 2 nights. The above impression and plan of care have been discussed and directed by signing physician. Marla Rivera nurse practitioner acting as scribe for signing physician.
[2017-10-20] MEDS: POTASSIUM CHLORIDE ER 20 MEQ TAB.ER PO SCH ×2 (12:29→15:24)
[2017-10-20] MEDS: ATORVASTATIN 40 MG TAB PO SCH (16:14)
[2017-10-20] MEDS: AMITRIPTYLINE HCL 50 MG TAB PO SCH (20:42)
[2017-10-20] MEDS: TEMAZEPAM 30 MG CAP PO SCH (20:44)
[2017-10-21] MEDS: LEVOTHYROXINE 75 MCG TAB PO SCH (06:03)
[2017-10-21] MEDS: PANTOPRAZOLE 40 MG TABLET PO SCH (06:03)
[2017-10-21] MEDS: cefTRIAXone IN SWFI 1,000 MG/10 ML SYRINGE IVP SCH (08:14)
[2017-10-21] MEDS: AZITHROMYCIN 500 MG TAB PO SCH (08:15)
[2017-10-21] MEDS: ISOSORBIDE MONONITRATE ER 30 MG TAB.ER.24H PO SCH (08:15)
[2017-10-21] MEDS: predniSONE 10 MG TAB PO SCH (08:15)
[2017-10-21] MEDS: ASPIRIN 81 MG PO SCH (08:16)
[2017-10-21] MEDS: CLOPIDOGREL 75 MG TAB PO SCH (08:16)
[2017-10-21] MEDS: MIDODRINE 5 MG TAB PO SCH ×2 (08:16→21:29)
[2017-10-21] MEDS: IPRATROPIUM-ALBUTEROL 3 ML NEB INHALATION SCH ×4 (08:23→19:23)
[2017-10-21] MEDS: POTASSIUM CHLORIDE 20 MEQ in WATER FOR INJECTION 1 100ML.BAG IVPB SCH ×2 (10:06→12:07)
--- NOTE | 2017-10-21 11:27 | P.PN ---
Subjective Progress Note Date: 10/21/17 Principal diagnosis: Sepsis, COPD exacerbation, right-sided pneumonia, advance CAD, restless leg syndrome, CK D. 87-year-old male one of Dr. Maradiaga patient with past medical history of CAD, COPD, GERD, hypertension, hypothyroidism, and lymphoma who was in the hospital and her Dr. Newton service this past week was admitted on 10/14 to 2017 for coronary artery disease with the pre-or bypass surgery. Patient brought for an elective PCI of the PE VA branch of the RCA through vein graft which was attempt not successfully. Was sent home to be on medical management only supposed to see Dr. Agarwal cardiology this week. Patient apparently become severely L with severe tiredness fatigue fever or chills not been able to ambulate and walk he was crawling on the floor did not feel well his neighbor ended up calling 911 or patient brought to demurs department at [facility] found to have mild hypoxia with elevated white blood cell and temperature was 103.9, chest x-ray showed right upper lobe infiltrate with increase marking of the interstitial pneumonitis in both side along with mild congestion. Patient was diagnosed with pneumonia, sepsis started on hydration IV antibiotic will be admitted to the hospital with above problem. 10/20: Patient remains febrile, highest fever yesterday reaching 103.9, today he is 99.6. Blood pressure is stable, O2 saturation 95% on 2 L via nasal cannula. Repeat chest x-ray shows diffuse interstitial process and right lower lobe infiltrate. He continues on Rocephin and azithromycin, blood cultures show no growth to date. Pulmonary consult appreciated. CPK and troponins show a downward trend, less likely an acute CA, cardiology on consult, potassium 3.0, will be supplemented today. 10/21: Patient is doing much better today he is afebrile not having any hypertension, hemodynamically more stable than yesterday, potassium was slightly bit low replacement was started. Patient still follow with cardiology and pulmonary. Will increase activity at physical therapy repeat chest x-ray repeat lab tomorrow if patient is stable might be discharge in the next 48 hours. Objective - Vital Signs Vital signs: Vital Signs Temp 96.8 F L 10/21/17 08:00 Pulse 72 10/21/17 08:32 Resp 18 10/21/17 08:00 BP 124/50 10/21/17 08:00 Pulse Ox 98 10/21/17 08:00 Intake & Output 10/20/17 10/21/17 10/21/17 18:59 06:59 18:59 Intake Total 520 720 260 Output Total 350 1950 400 Balance 170 -1230 -140 Weight 81 kg Intake: Oral 520 720 260 Output: Urine 350 1950 400 Other: Voiding Method Toilet Toilet Toilet - Exam Review of systems: CONSTITUTIONAL: Well-developed no acute respiratory distress. EYES: No icterus sclerae, no conjunctivitis. EARS, NOSE, MOUTH, THROAT, and FACE: No sore throat, lymphadenopathy, carotid bruits or deformity. RESPIRATORY: Still a mild shortness of breath cough wheezes. CARDIOVASCULAR: No CP, Palpitation, positive mild symptom of CHF. GASTROINTESTINAL: No Abd pain, Nausea or vomiting, no Diarrhea or constipation, No GI Bleed, no distention or masses. GENITOURINARY: Negative for Hematuria or UTI, no kidney stones. INTEGUMENT/BREAST: Negative for any muscular injury with mild osteoarthritis.. HEMATOLOGIC/LYMPHATIC: Negative for bleed or purpura. MUSCULOSKELTAL: Negative for Myalgia or arthralgia. NEURLOGICAL: No LOC, Sz or syncope, blurred vision dizziness or abnormality.. BEHAVIORAL/PSYCH: Negative. ENDOCRINE: Negative. Physical examination: General Appearance: Alert, cooperative, no distress, appears stated age. Neck HEENT: Supple, no lymphadenopathy, no thyroid enlargement, no carotid bruits. Lungs: Decreased breath some bilateral with fine rhonchi slight crackles in the right side along with mild wheezes Chest Wall: Chest wall decreased expansion with deep inspiration no tenderness or deformity no use of accessory muscle.. Heart: Regular rate and rhythm, S1, S2, positive S3 normal, no murmur, rub or gallop. Back: Symmetric, no curvature, ROM normal, no CVA tenderness. Abdomen: Soft, non-tender, bowel sounds active all four quadrants, no masses, no organomegaly. Extremities: Extremities normal, atraumatic, no cyanosis or edema. Multiple bruises Pulses: 2+ and symmetric. Skin: Skin color, texture, tugor normal, no rashes or lesions. Neurologic: Alert oriented x3 cranial nerves II through XII intact, no motor deficit, no abnormal balance or gait. - Labs CBC & Chem 7: 10/20/17 06:11 10/21/17 08:46 Labs: Microbiology - Last 24 Hours (Table) 10/19/17 08:41 Blood Culture - Preliminary Blood No Growth after 48 hours 10/19/17 08:41 Urine Culture - Final Urine,Voided Assessment and Plan Plan: 1 sepsis: Most likely from right upper lobe pneumonia, patient will be hospitalized started on IV antibiotics, will consult pulmonary continue current management still watch for any positive culture and change antibiotic accordingly. Patient was started on Rocephin and azithromycin. Patient is doing much better with antibiotics continue current management for now. 2 respiratory failure: Combination off sepsis/pneumonia along with COPD exacerbation try to treat underlying disease. 3 severe COPD with mild exacerbation: Patient has been on prednisone 10 mg a day along with DuoNeb and Pulmicort, will consult pulmonary continue current management might need higher dose of steroid can be on 60 mg of Solu-Medrol every 6 hours for the first 48 hours. 4 advance CAD: Post attempt angioplasty and stent not successful from last week patient will continue medical management. 5 mild metabolic encephalopathy: Most likely secondary to sepsis, hypertension, hypoxia with try to treat underlying disease and watch symptoms closely. 6 hyperlipidemia: Remain on atorvastatin 40 mg daily. 7 chronic neuropathy: Has been on gabapentin 100 mg twice a day. 8 restless leg syndrome: Has been on ropinirole pro-2 mg daily at bedtime. 9 GERD/GI prophylaxis: Patient will be continue on Prilosec 20 mg daily. 10 DVT prophylaxis: Early mobilization and if need heparin subcutaneous.
[2017-10-21] MEDS: ATORVASTATIN 40 MG TAB PO SCH (15:20)
[2017-10-21] MEDS: POTASSIUM CHLORIDE ER 20 MEQ TAB.ER PO SCH ×2 (15:21→16:54)
--- NOTE | 2017-10-21 15:40 | P.PN ---
Subjective Progress Note Date: 10/21/17 Principal diagnosis: Acute right upper lobe pneumonia with secondary acute on chronic hypoxic respiratory failure, suspect development of right lower lobe pneumonia. 87-year-old male patient with known history of COPD and addition to coronary artery disease and previous bypass surgery will came into the hospital because of worsening weakness, fatigue, to the point where the patient was able to ambulate and he was crawling on the floor and he end up calling EMS and the patient was brought into the emergency department for further evaluation. At the time of admission the patient a temperature 103.9. His chest x-ray was revealing a right upper lobe pulmonary infiltrates/pneumonia and his white cell count was also elevated. Based on that the patient was diagnosed having a pneumonia and the patient was started on IV antibiotics and the patient was admitted to the floor. The patient is known to have coronary artery disease and he had a recent intervention where an attempted angioplasty of the PDA branch of the right coronary artery was done through the saphenous finger graft and this was not successful. Medical treatment was offered to the patient. He is currently free of any angina. He has hypertension and hypothyroidism and previous history of lymphoma as comorbid conditions. He also has previous history of left subclavian artery stenosis, and bladder cancer that was superficial resected. His bypass was in 2003 and the patient undergone four- vessel bypass surgery. Note that his current troponins are minimally elevated with levels of 0.12 respectively. Otherwise no other significant left carotid imbalance abnormalities. Correlation profile is within normal limits. He is currently covered with DuoNeb neb last treatment on the clock, IV Rocephin and Zithromax. He is on 2 L of oxygen nasal cannula and a saturation of 99%. No reported aspiration. He was previously treated for left perihilar pneumonia in 2016 and treatment was successful Bactrim. On 10/20/2017 patient seen in follow-up care unit. He is resting in bed, in no acute distress, pulse ox on 2 L per nasal cannula is 95%, no fever, no chills. No chest wall tenderness, no worsening dyspnea. Patient has fine crackles over both bases, no significant wheezing noted on today's exam. Patient's speech is garbled. Blood and urine cultures remain negative, today's chest x-ray has been reviewed by Dr. Schofield, and shows diffuse interstitial process and right upper lobe infiltrate. She remains on empiric antibiotics of Rocephin and Zithromax. Patient is currently getting DuoNeb nebulized treatments he remains on 2 L of oxygen per nasal cannula. The patient was seen again today 10/21/2017 in follow-up on the selective care unit. He is currently sitting up in bed. He is awake and alert in no acute distress. He is working with physical therapy. Continue good O2 saturations in the upper 90s on 2 L/m per nasal cannula. His been afebrile. Hemodynamically stable. Urine and blood cultures reveal no growth. Objective - Vital Signs Vital signs: Vital Signs Temp 96.8 F L 10/21/17 08:00 Pulse 76 10/21/17 12:16 Resp 18 10/21/17 08:00 BP 124/50 10/21/17 08:00 Pulse Ox 98 10/21/17 08:00 Intake & Output 10/20/17 10/21/17 10/21/17 18:59 06:59 18:59 Intake Total 520 720 496 Output Total 350 1950 400 Balance 170 -1230 96 Weight 81 kg Intake: Oral 520 720 496 Output: Urine 350 1950 400 Other: Voiding Method Toilet Toilet Toilet - Exam Gen. appearance the patient is calm comfortable and he demonstrated only mild respiratory distress at rest. His currently inactive. Liters per minute nasal cannula. Head exam was generally normal. There was no scleral icterus or corneal arcus. Mucous membranes were moist. Neck was supple and without jugular venous distension, thyromegaly, or carotid bruits. Carotids were easily palpable bilaterally. There was no adenopathy. Lungs sounds are diminished bilaterally along with fine crackles Cardiac exam revealed the PMI to be normally situated and sized. The rhythm was regular and no extrasystoles were noted during several minutes of auscultation. The first and second heart sounds were normal and physiologic splitting of the second heart sound was noted. There were no murmurs, rubs, clicks, or gallops. Abdominal exam revealed normal bowel sounds. The abdomen was soft, non-tender, and without masses, organomegaly, or appreciable enlargement of the abdominal aorta. Examination of the extremities revealed easily palpable radial, femoral and pedal pulses. There was no cyanosis, clubbing or edema. Examination of the skin revealed no evidence of significant rashes, suspicious appearing nevi or other concerning lesions. Neurologically the patient is awake and alert and there is no focal neurological deficits. - Labs CBC & Chem 7: 10/20/17 06:11 10/21/17 08:46 Labs: Microbiology - Last 24 Hours (Table) 10/19/17 08:41 Blood Culture - Preliminary Blood No Growth after 48 hours 10/19/17 08:41 Urine Culture - Final Urine,Voided Assessment and Plan Assessment: Assessment: 1 acute right upper lobe pneumonia with secondary hypoxic respiratory failure. Suspect also development of a right lower lobe pneumonia. No clear-cut history of aspiration. Suspect an acute bacterial pneumonia, probably bilobar. 2 acute febrile illness secondary to above 3 acute hypoxic respiratory failure secondary to above 4 shortness of breath secondary to above 5 COPD with possibly component of exacerbation secondary to above 6 coronary artery disease with previous bypass surgery back in 2003 7 recent coronary angiogram was attempted PCI/on successful 8 mild troponin leak 9 hypothyroidism 10 hyperlipidemia 11 peripheral neuropathy 12 restless leg syndrome 13 history of lymphoma 14 history of bladder cancer 15 history of recurrent syncope with a negative tilt table test 16 dementia 17 anxiety/depression 18 biventricular pacemaker insertion Plan The patient was seen and evaluated by Dr. Schofield. He is feeling better today as compared to yesterday. Maintaining good O2 saturations in the 90s on 2 L/m nasal cannula. We'll continue with his current treatment plan. Continue to increase his activity as tolerated. He is working with physical therapy. We' ll continue to follow and make further recommendations based on his clinical status. I, the cosigning physician, performed a history & physical examination of the patient. Lungs sounds with few scattered rhonchi more so on the right. Maintaining good O2 saturations in the 90s on 2 L/m per nasal cannula. I discussed the assessment and plan of care with my nurse practitioner, Bela Thorne. I attest to the above note as dictated by her.
[2017-10-21] MEDS: AMITRIPTYLINE HCL 50 MG TAB PO SCH (21:29)
[2017-10-21] MEDS: TEMAZEPAM 30 MG CAP PO SCH (21:29)
[2017-10-21] MEDS: GABAPENTIN 100 MG CAP PO PRN (23:31)
[2017-10-22 06:36] LABS: Anisocytosis Slight; Basophils % (A) 0 %; Eosinophils # (A) 0.2 k/uL (0-0.7); Eosinophils % (A) 2 %; HCT 29.2 % (39.0-53.0); HGB 8.8 gm/dL (13.0-17.5); Hypochromasia Marked; Lymphocytes # (A) 0.4 k/uL (1.0-4.8); Lymphocytes % (A) 5 %; MCV 83.4 fL (80.0-100.0); Mean Platelet Volume 7.9; Monocytes # (A) 0.4 k/uL (0-1.0); Monocytes % (A) 5 %; Neutrophils # (A) 6.4 k/uL (1.3-7.7); Neutrophils % (A) 87 %; Platelet Count 199 k/uL (150-450); RDW 17.1 % (11.5-15.5); WBC 7.4 k/uL (3.8-10.6)
[2017-10-22] MEDS: PANTOPRAZOLE 40 MG TABLET PO SCH (06:36)
[2017-10-22] MEDS: LEVOTHYROXINE 75 MCG TAB PO SCH (06:36)
[2017-10-22 06:51] LABS: ALT 25 U/L (21-72); AST 12 U/L (17-59); Albumin 2.7 g/dL (3.5-5.0); Alkaline Phosphatase 73 U/L (38-126); Anion Gap 7 mmol/L; Blood Urea Nitrogen 13 mg/dL (9-20); Calcium 8.7 mg/dL (8.4-10.2); Carbon Dioxide 27 mmol/L (22-30); Chloride 107 mmol/L (98-107); Glucose 97 mg/dL (74-99); Potassium 4.2 mmol/L (3.5-5.1); Sodium 141 mmol/L (137-145); Total Bilirubin 0.5 mg/dL (0.2-1.3); Total Protein 4.6 g/dL (6.3-8.2)
[2017-10-22] MEDS: IPRATROPIUM-ALBUTEROL 3 ML NEB INHALATION SCH ×4 (08:15→20:26)
[2017-10-22] MEDS: MIDODRINE 5 MG TAB PO SCH ×2 (08:56→20:57)
[2017-10-22] MEDS: AZITHROMYCIN 500 MG TAB PO SCH (08:57)
[2017-10-22] MEDS: ISOSORBIDE MONONITRATE ER 30 MG TAB.ER.24H PO SCH (08:57)
[2017-10-22] MEDS: predniSONE 10 MG TAB PO SCH (08:57)
[2017-10-22] MEDS: CLOPIDOGREL 75 MG TAB PO SCH (08:57)
[2017-10-22] MEDS: cefTRIAXone IN SWFI 1,000 MG/10 ML SYRINGE IVP SCH (08:57)
[2017-10-22] MEDS: ASPIRIN 81 MG PO SCH (08:57)
[2017-10-22] MEDS ORDERED: FUROSEMIDE 10 MG/ML 2 ML VIAL IV ONE (09:49)
[2017-10-22] MEDS: GABAPENTIN 100 MG CAP PO PRN ×2 (10:32→17:26)
--- NOTE | 2017-10-22 10:58 | XR ---
EXAMINATION TYPE: XR chest 1V DATE OF EXAM: 10/22/2017 COMPARISON: 10/20/2017 HISTORY: 87-year-old male pneumonia follow-up TECHNIQUE: Single frontal view of the chest is obtained. FINDINGS: Heart normal size. Atherosclerotic arch calcifications. Left anterior chest wall pacemaker generator with with right atrial, right ventricular, and coronary sinus leads. Annuloplasty ring is present wit h post-CABG changes. Right anterior chest wall injection port catheter tip obscured by pacer leads. T here is increasing patchy opacity at the peripheral left base. IMPRESSION: New patchy peripheral left basilar atelectasis or developing pneumonia. The previously reported right upper lobe density is improved and may have been artifactual due to patient rotation on the prior ex am.
--- NOTE | 2017-10-22 11:33 | P.PN ---
Subjective Progress Note Date: 10/22/17 87-year-old male patient with known history of COPD and addition to coronary artery disease and previous bypass surgery will came into the hospital because of worsening weakness, fatigue, to the point where the patient was able to ambulate and he was crawling on the floor and he end up calling EMS and the patient was brought into the emergency department for further evaluation. At the time of admission the patient a temperature 103.9. His chest x-ray was revealing a right upper lobe pulmonary infiltrates/pneumonia and his white cell count was also elevated. Based on that the patient was diagnosed having a pneumonia and the patient was started on IV antibiotics and the patient was admitted to the floor. The patient is known to have coronary artery disease and he had a recent intervention where an attempted angioplasty of the PDA branch of the right coronary artery was done through the saphenous finger graft and this was not successful. Medical treatment was offered to the patient. He is currently free of any angina. He has hypertension and hypothyroidism and previous history of lymphoma as comorbid conditions. He also has previous history of left subclavian artery stenosis, and bladder cancer that was superficial resected. His bypass was in 2003 and the patient undergone four- vessel bypass surgery. Note that his current troponins are minimally elevated with levels of 0.12 respectively. Otherwise no other significant left carotid imbalance abnormalities. Correlation profile is within normal limits. He is currently covered with DuoNeb neb last treatment on the clock, IV Rocephin and Zithromax. He is on 2 L of oxygen nasal cannula and a saturation of 99%. No reported aspiration. He was previously treated for left perihilar pneumonia in 2016 and treatment was successful Bactrim. On 10/20/2017 patient seen in follow-up care unit. He is resting in bed, in no acute distress, pulse ox on 2 L per nasal cannula is 95%, no fever, no chills. No chest wall tenderness, no worsening dyspnea. Patient has fine crackles over both bases, no significant wheezing noted on today's exam. Patient's speech is garbled. Blood and urine cultures remain negative, today's chest x-ray has been reviewed by Dr. Schofield, and shows diffuse interstitial process and right upper lobe infiltrate. She remains on empiric antibiotics of Rocephin and Zithromax. Patient is currently getting DuoNeb nebulized treatments he remains on 2 L of oxygen per nasal cannula. The patient was seen again today 10/21/2017 in follow-up on the selective care unit. He is currently sitting up in bed. He is awake and alert in no acute distress. He is working with physical therapy. Continue good O2 saturations in the upper 90s on 2 L/m per nasal cannula. His been afebrile. Hemodynamically stable. Urine and blood cultures reveal no growth. On 10/23/2007 and answering this patient for a follow-up. Clinically improved. Overall still weak and is having difficulty with mobility and ablation. The patient is being seen by physical therapy in the hospital. In terms of his respiratory status, the cough and chest congestion has subsided. Minimal crackles in the left lung base. Afebrile. No nausea or vomiting. No altered mentation. Hemodynamically stable. Cultures of been all negative. The patient is on a combination of Rocephin and Zithromax. Follow-up chest x-ray from today shows a patchy left basilar atelectasis/infiltrate. The previously reported the right upper and right lower lobe pulmonary infiltrates have improved. Objective - Vital Signs Vital signs: Vital Signs Temp 97.6 F 10/22/17 08:40 Pulse 80 10/22/17 08:40 Resp 18 10/22/17 08:40 BP 114/62 10/22/17 08:40 Pulse Ox 94 L 10/22/17 08:40 Intake & Output 10/21/17 10/22/17 10/22/17 18:59 06:59 18:59 Intake Total 976 120 Output Total 400 900 Balance 576 -900 120 Weight 80 kg Intake: Oral 976 120 Output: Urine 400 900 Stool 0 0 Urine/Stool Mix 0 Emesis 0 Other: Voiding Method Toilet Toilet Toilet Urinal Urinal Urinal # Voids 0 1 # Bowel Movements 0 - Exam Gen. appearance the patient is calm comfortable and he demonstrated only mild respiratory distress at rest. His currently inactive. Liters per minute nasal cannula. Head exam was generally normal. There was no scleral icterus or corneal arcus. Mucous membranes were moist. Neck was supple and without jugular venous distension, thyromegaly, or carotid bruits. Carotids were easily palpable bilaterally. There was no adenopathy. Lungs sounds are diminished bilaterally along with fine crackles Cardiac exam revealed the PMI to be normally situated and sized. The rhythm was regular and no extrasystoles were noted during several minutes of auscultation. The first and second heart sounds were normal and physiologic splitting of the second heart sound was noted. There were no murmurs, rubs, clicks, or gallops. Abdominal exam revealed normal bowel sounds. The abdomen was soft, non-tender, and without masses, organomegaly, or appreciable enlargement of the abdominal aorta. Examination of the extremities revealed easily palpable radial, femoral and pedal pulses. There was no cyanosis, clubbing or edema. Examination of the skin revealed no evidence of significant rashes, suspicious appearing nevi or other concerning lesions. Neurologically the patient is awake and alert and there is no focal neurological deficits. - Labs CBC & Chem 7: 10/22/17 05:42 10/22/17 05:42 Labs: Abnormal Lab Results - Last 24 Hours (Table) 10/22/17 10/22/17 Range/Units 05:42 05:42 RBC 3.50 L (4.30-5.90) m/uL Hgb 8.8 L (13.0-17.5) gm/dL Hct 29.2 L (39.0-53.0) % MCHC 30.0 L (31.0-37.0) g/dL RDW 17.1 H (11.5-15.5) % Lymphocytes # 0.4 L (1.0-4.8) k/uL AST 12 L (17-59) U/L Total Protein 4.6 L (6.3-8.2) g/dL Albumin 2.7 L (3.5-5.0) g/dL Microbiology - Last 24 Hours (Table) 10/19/17 08:41 Blood Culture - Preliminary Blood No Growth after 72 hours Assessment and Plan Plan: Assessment 1 acute right upper lobe pneumonia with secondary hypoxic respiratory failure. Likely improving. Follow-up chest x-ray shows improvement in the right upper lobe pneumonia. There is some atelectatic changes and left lung base. The patient remains on examination Rocephin and Zithromax. Afebrile. Hemodynamically stable. 2 acute febrile illness secondary to above, recovered 3 acute hypoxic respiratory failure secondary to above, currently on oxygen at 2 L/m nasal cannula 4 shortness of breath secondary to above, improved 5 COPD with possibly component of exacerbation secondary to above 6 coronary artery disease with previous bypass surgery back in 2003 7 recent coronary angiogram was attempted PCI/on successful 8 mild troponin leak 9 hypothyroidism 10 hyperlipidemia 11 peripheral neuropathy 12 restless leg syndrome 13 history of lymphoma 14 history of bladder cancer 15 history of recurrent syncope with a negative tilt table test 16 dementia 17 anxiety/depression 18 biventricular pacemaker insertion Plan We'll give the patient dose of Lasix 20 mg IV push. Incentive spirometer. Increase mobility. Continue antibiotics. Discharge planning is in progress. Right upper lobe pulmonary infiltrate is improved. Clinically weak and may benefit from ECF transfer.
--- NOTE | 2017-10-22 12:27 | P.PN ---
Subjective 87-year-old male one of Dr. Maradiaga patient with past medical history of CAD, COPD, GERD, hypertension, hypothyroidism, and lymphoma who was in the hospital and her Dr. Newton service this past week was admitted on 10/14 to 2017 for coronary artery disease with the pre-or bypass surgery. Patient brought for an elective PCI of the PE VA branch of the RCA through vein graft which was attempt not successfully. Was sent home to be on medical management only supposed to see Dr. Agarwal cardiology this week. Patient apparently become severely L with severe tiredness fatigue fever or chills not been able to ambulate and walk he was crawling on the floor did not feel well his neighbor ended up calling 911 or patient brought to demurs department at [facility] found to have mild hypoxia with elevated white blood cell and temperature was 103.9, chest x-ray showed right upper lobe infiltrate with increase marking of the interstitial pneumonitis in both side along with mild congestion. Patient was diagnosed with pneumonia, sepsis started on hydration IV antibiotic will be admitted to the hospital with above problem. 10/20: Patient remains febrile, highest fever yesterday reaching 103.9, today he is 99.6. Blood pressure is stable, O2 saturation 95% on 2 L via nasal cannula. Repeat chest x-ray shows diffuse interstitial process and right lower lobe infiltrate. He continues on Rocephin and azithromycin, blood cultures show no growth to date. Pulmonary consult appreciated. CPK and troponins show a downward trend, less likely an acute [place], cardiology on consult, potassium 3.0, will be supplemented today. 10/21: Patient is doing much better today he is afebrile not having any hypertension, hemodynamically more stable than yesterday, potassium was slightly bit low replacement was started. Patient still follow with cardiology and pulmonary. Will increase activity at physical therapy repeat chest x-ray repeat lab tomorrow if patient is stable might be discharge in the next 48 hours. 10/22: Patient evaluated today, overall clinically has improved, but still remains very weak and has difficulty with mobility. The patient already has been consulted by physical therapy who recommends rehab, patient will need ECF placement for subacute rehab, possibly discharge for Tuesday. Patient was noted to have some crackles on exam, Lasix 20 mg IV given. Repeat chest x-ray shows patchy peripheral left basilar atelectasis/infiltrate, right upper lobe density improved from prior exam. Objective - Vital Signs Vital signs: Vital Signs Temp 97.9 F 10/21/17 23:32 Pulse 92 10/22/17 08:23 Resp 16 10/22/17 04:00 BP 165/69 10/22/17 04:00 Pulse Ox 95 10/22/17 04:00 Intake & Output 10/21/17 10/22/17 10/22/17 18:59 06:59 18:59 Intake Total 976 Output Total 400 900 Balance 576 -900 Weight 80 kg Intake: Oral 976 Output: Urine 400 900 Stool 0 0 Urine/Stool Mix 0 Emesis 0 Other: Voiding Method Toilet Toilet Urinal Urinal # Voids 0 1 # Bowel Movements 0 - Constitutional General appearance: Present: cooperative, no acute distress - EENT Eyes: Present: PERRLA ENT: Present: hearing grossly normal - Neck Neck: Present: normal ROM. Absent: lymphadenopathy, thyromegaly - Respiratory Respiratory: bilateral: diminished, rales, rhonchi, negative: wheezing - Cardiovascular Rhythm: regular Heart sounds: normal: S1, S2 - Gastrointestinal General gastrointestinal: Present: normal bowel sounds, soft. Absent: distended , organomegaly, tenderness - Neurologic Neurologic: Absent: focal deficits - Musculoskeletal Musculoskeletal: Present: generalized weakness, strength equal bilaterally - Psychiatric Psychiatric: Present: A&O x's 3 - Labs CBC & Chem 7: 10/22/17 05:42 10/22/17 05:42 Labs: Abnormal Lab Results - Last 24 Hours (Table) 10/22/17 10/22/17 Range/Units 05:42 05:42 RBC 3.50 L (4.30-5.90) m/uL Hgb 8.8 L (13.0-17.5) gm/dL Hct 29.2 L (39.0-53.0) % MCHC 30.0 L (31.0-37.0) g/dL RDW 17.1 H (11.5-15.5) % Lymphocytes # 0.4 L (1.0-4.8) k/uL AST 12 L (17-59) U/L Total Protein 4.6 L (6.3-8.2) g/dL Albumin 2.7 L (3.5-5.0) g/dL Microbiology - Last 24 Hours (Table) 10/19/17 08:41 Blood Culture - Preliminary Blood No Growth after 48 hours Assessment and Plan Plan: 1 sepsis: Most likely from right upper lobe pneumonia, continue Rocephin and Zithromax, pulmonary consult appreciated, continue current management still watch for any positive culture and change antibiotic accordingly. Patient is doing much better with antibiotics continue current management for now. 2 respiratory failure: Combination off sepsis/pneumonia along with COPD exacerbation try to treat underlying disease. 3 severe COPD with mild exacerbation: Patient has been on prednisone 10 mg a day along with DuoNeb and Pulmicort, pulmonology on consult 4 advance CAD: Post attempt angioplasty and stent not successful from last week patient will continue medical management. 5 mild metabolic encephalopathy: Most likely secondary to sepsis, hypertension, hypoxia with try to treat underlying disease and watch symptoms closely. 6 hyperlipidemia: Remain on atorvastatin 40 mg daily. 7 chronic neuropathy: Has been on gabapentin 100 mg twice a day. 8 restless leg syndrome: Has been on ropinirole 2 mg daily at bedtime. 9 GERD/GI prophylaxis: Patient will be continue on Prilosec 20 mg daily. 10 DVT prophylaxis: Early mobilization and if need heparin subcutaneous. The above impression and plan of care have been discussed and directed by signing physician. Marla Rivera nurse practitioner acting as scribe for signing physician.
[2017-10-22] MEDS: ATORVASTATIN 40 MG TAB PO SCH (17:26)
[2017-10-22] MEDS: AMITRIPTYLINE HCL 50 MG TAB PO SCH (20:57)
[2017-10-22] MEDS: TEMAZEPAM 30 MG CAP PO SCH (20:58)
[2017-10-23] MEDS: LEVOTHYROXINE 75 MCG TAB PO SCH (06:54)
[2017-10-23] MEDS: PANTOPRAZOLE 40 MG TABLET PO SCH (06:54)
[2017-10-23] MEDS: IPRATROPIUM-ALBUTEROL 3 ML NEB INHALATION SCH ×4 (08:20→20:27)
[2017-10-23] MEDS: CLOPIDOGREL 75 MG TAB PO SCH (08:44)
[2017-10-23] MEDS: ASPIRIN 81 MG PO SCH (08:44)
[2017-10-23] MEDS: ISOSORBIDE MONONITRATE ER 30 MG TAB.ER.24H PO SCH (08:44)
[2017-10-23] MEDS: cefTRIAXone IN SWFI 1,000 MG/10 ML SYRINGE IVP SCH (08:44)
[2017-10-23] MEDS: AZITHROMYCIN 500 MG TAB PO SCH (08:45)
[2017-10-23] MEDS: MIDODRINE 5 MG TAB PO SCH ×2 (08:45→20:25)
[2017-10-23] MEDS: predniSONE 10 MG TAB PO SCH (08:45)
[2017-10-23] MEDS: GABAPENTIN 100 MG CAP PO PRN ×2 (09:30→18:13)
--- NOTE | 2017-10-23 12:35 | P.PN ---
Subjective 87-year-old male one of Dr. Maradiaga patient with past medical history of CAD, COPD, GERD, hypertension, hypothyroidism, and lymphoma who was in the hospital and her Dr. Newton service this past week was admitted on 10/14 to 2017 for coronary artery disease with the pre-or bypass surgery. Patient brought for an elective PCI of the PE VA branch of the RCA through vein graft which was attempt not successfully. Was sent home to be on medical management only supposed to see Dr. Agarwal cardiology this week. Patient apparently become severely L with severe tiredness fatigue fever or chills not been able to ambulate and walk he was crawling on the floor did not feel well his neighbor ended up calling 911 or patient brought to demurs department at [facility] found to have mild hypoxia with elevated white blood cell and temperature was 103.9, chest x-ray showed right upper lobe infiltrate with increase marking of the interstitial pneumonitis in both side along with mild congestion. Patient was diagnosed with pneumonia, sepsis started on hydration IV antibiotic will be admitted to the hospital with above problem. 10/20: Patient remains febrile, highest fever yesterday reaching 103.9, today he is 99.6. Blood pressure is stable, O2 saturation 95% on 2 L via nasal cannula. Repeat chest x-ray shows diffuse interstitial process and right lower lobe infiltrate. He continues on Rocephin and azithromycin, blood cultures show no growth to date. Pulmonary consult appreciated. CPK and troponins show a downward trend, less likely an acute ND, cardiology on consult, potassium 3.0, will be supplemented today. 10/21: Patient is doing much better today he is afebrile not having any hypertension, hemodynamically more stable than yesterday, potassium was slightly bit low replacement was started. Patient still follow with cardiology and pulmonary. Will increase activity at physical therapy repeat chest x-ray repeat lab tomorrow if patient is stable might be discharge in the next 48 hours. 10/22: Patient evaluated today, overall clinically has improved, but still remains very weak and has difficulty with mobility. The patient already has been consulted by physical therapy who recommends rehab, patient will need ECF placement for subacute rehab, possibly discharge for Tuesday. Patient was noted to have some crackles on exam, Lasix 20 mg IV given. Repeat chest x-ray shows patchy peripheral left basilar atelectasis/infiltrate, right upper lobe density improved from prior exam. 10/23: Patient's overall condition improving, hemodynamically stable, cultures all have been negative. Chest x-rays are improving, Patient continues have difficulty with mobility and ambulation, recommend ECF which will most likely be done Tuesday. Objective - Vital Signs Vital signs: Vital Signs Temp 96.8 F L 10/23/17 08:43 Pulse 74 10/23/17 08:43 Resp 18 10/23/17 11:50 BP 123/60 10/23/17 08:43 Pulse Ox 92 L 10/23/17 11:50 Intake & Output 10/22/17 10/23/17 10/23/17 18:59 06:59 18:59 Intake Total 600 240 Output Total 800 2500 300 Balance -200 -2500 -60 Weight 77.7 kg Intake: Oral 600 240 Output: Urine 800 2500 300 Stool 0 0 0 Other: Voiding Method Toilet Toilet Toilet Urinal Urinal Urinal # Voids 1 1 - Exam Constitutional: Well-developed, no acute respiratory distress Neck HEENT: Supple pupils are symmetric and reactive to light no carotid bruits or thyroid enlargement. Chest wall: Increase expansion bilaterally with using his accessory muscles when breathing in and out. Lungs: Decreased breath sound, positive inspiratory expiratory wheezes with worsening symptoms in the right than the left side with mild rhonchi and crackles heard over the left base compared to the right. Cardiovascular: PMI is in the left fifth costal space, anterior axillary line, S1, S2, positive S3, positive PVCs. Abdomen: distended, soft positive bowel sound no rebound or rigidity. Extremities: No edema, decreased pulses dorsalis pedis and posterior tibial bilaterally. 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 Neuro: Alert, slightly confused, moving all his 4 extremity has generalized weakness no focal deficit. - Labs CBC & Chem 7: 10/22/17 05:42 10/22/17 05:42 Labs: Microbiology - Last 24 Hours (Table) 10/19/17 08:41 Blood Culture - Preliminary Blood No Growth after 96 hours Assessment and Plan Plan: 1 sepsis: Most likely from right upper lobe pneumonia, continue Rocephin and Zithromax, pulmonary consult appreciated, continue current management still watch for any positive culture and change antibiotic accordingly. Patient is doing much better with antibiotics continue current management for now. 2 respiratory failure: Combination off sepsis/pneumonia along with COPD exacerbation try to treat underlying disease. 3 severe COPD with mild exacerbation: Patient has been on prednisone 10 mg a day along with DuoNeb and Pulmicort, pulmonology on consult 4 advance CAD: Post attempt angioplasty and stent not successful from last week patient will continue medical management. 5 mild metabolic encephalopathy: Most likely secondary to sepsis, hypertension, hypoxia with try to treat underlying disease and watch symptoms closely. 6 hyperlipidemia: Remain on atorvastatin 40 mg daily. 7 chronic neuropathy: Has been on gabapentin 100 mg twice a day. 8 restless leg syndrome: Has been on ropinirole 2 mg daily at bedtime. 9 GERD/GI prophylaxis: Patient will be continue on Prilosec 20 mg daily. 10 DVT prophylaxis: Early mobilization and if need heparin subcutaneous. The above impression and plan of care have been discussed and directed by signing physician. Marla Rivera nurse practitioner acting as scribe for signing physician.
--- NOTE | 2017-10-23 13:51 | P.PN ---
Subjective Progress Note Date: 10/23/17 87-year-old male patient with known history of COPD and addition to coronary artery disease and previous bypass surgery will came into the hospital because of worsening weakness, fatigue, to the point where the patient was able to ambulate and he was crawling on the floor and he end up calling EMS and the patient was brought into the emergency department for further evaluation. At the time of admission the patient a temperature 103.9. His chest x-ray was revealing a right upper lobe pulmonary infiltrates/pneumonia and his white cell count was also elevated. Based on that the patient was diagnosed having a pneumonia and the patient was started on IV antibiotics and the patient was admitted to the floor. The patient is known to have coronary artery disease and he had a recent intervention where an attempted angioplasty of the PDA branch of the right coronary artery was done through the saphenous finger graft and this was not successful. Medical treatment was offered to the patient. He is currently free of any angina. He has hypertension and hypothyroidism and previous history of lymphoma as comorbid conditions. He also has previous history of left subclavian artery stenosis, and bladder cancer that was superficial resected. His bypass was in 2003 and the patient undergone four- vessel bypass surgery. Note that his current troponins are minimally elevated with levels of 0.12 respectively. Otherwise no other significant left carotid imbalance abnormalities. Correlation profile is within normal limits. He is currently covered with DuoNeb neb last treatment on the clock, IV Rocephin and Zithromax. He is on 2 L of oxygen nasal cannula and a saturation of 99%. No reported aspiration. He was previously treated for left perihilar pneumonia in 2016 and treatment was successful Bactrim. On 10/20/2017 patient seen in follow-up care unit. He is resting in bed, in no acute distress, pulse ox on 2 L per nasal cannula is 95%, no fever, no chills. No chest wall tenderness, no worsening dyspnea. Patient has fine crackles over both bases, no significant wheezing noted on today's exam. Patient's speech is garbled. Blood and urine cultures remain negative, today's chest x-ray has been reviewed by Dr. Schofield, and shows diffuse interstitial process and right upper lobe infiltrate. She remains on empiric antibiotics of Rocephin and Zithromax. Patient is currently getting DuoNeb nebulized treatments he remains on 2 L of oxygen per nasal cannula. The patient was seen again today 10/21/2017 in follow-up on the selective care unit. He is currently sitting up in bed. He is awake and alert in no acute distress. He is working with physical therapy. Continue good O2 saturations in the upper 90s on 2 L/m per nasal cannula. His been afebrile. Hemodynamically stable. Urine and blood cultures reveal no growth. On 10/23/2007 and answering this patient for a follow-up. Clinically improved. Overall still weak and is having difficulty with mobility and ablation. The patient is being seen by physical therapy in the hospital. In terms of his respiratory status, the cough and chest congestion has subsided. Minimal crackles in the left lung base. Afebrile. No nausea or vomiting. No altered mentation. Hemodynamically stable. Cultures of been all negative. The patient is on a combination of Rocephin and Zithromax. Follow-up chest x-ray from today shows a patchy left basilar atelectasis/infiltrate. The previously reported the right upper and right lower lobe pulmonary infiltrates have improved. On 10/23/2017, patient is doing well. No complaints. Improving. Still weak. Suggested ECF transfer however the patient declined. This is further being handled by the primary care team and the plan is still to consider ECF placement based on his overall performance and functional status. Meanwhile, the patient is not having any respiratory distress. Chest x-rays improving. Cultures of been all negative. No nausea or vomiting. No altered mentation. No chest pain. No other significant events over the past 24 hours. Patient is currently on Zithromax 500 mg by mouth daily and DuoNeb neb last treatment [id number]. oxygenation is improved and the patient's pulse ox is up to 92% on room air. Objective - Vital Signs Vital signs: Vital Signs Temp 96.8 F L 10/23/17 08:43 Pulse 72 10/23/17 13:46 Resp 18 10/23/17 11:50 BP 123/60 10/23/17 08:43 Pulse Ox 92 L 10/23/17 11:50 Intake & Output 10/22/17 10/23/17 10/23/17 18:59 06:59 18:59 Intake Total 600 480 Output Total 800 2500 600 Balance -200 -2500 -120 Weight 77.7 kg Intake: Oral 600 480 Output: Urine 800 2500 600 Stool 0 0 0 Other: Voiding Method Toilet Toilet Toilet Urinal Urinal Urinal # Voids 1 1 - Exam Gen. appearance the patient is calm comfortable and he demonstrated only mild respiratory distress at rest. His currently inactive. Liters per minute nasal cannula. Head exam was generally normal. There was no scleral icterus or corneal arcus. Mucous membranes were moist. Neck was supple and without jugular venous distension, thyromegaly, or carotid bruits. Carotids were easily palpable bilaterally. There was no adenopathy. Lungs sounds are diminished bilaterally along with fine crackles Cardiac exam revealed the PMI to be normally situated and sized. The rhythm was regular and no extrasystoles were noted during several minutes of auscultation. The first and second heart sounds were normal and physiologic splitting of the second heart sound was noted. There were no murmurs, rubs, clicks, or gallops. Abdominal exam revealed normal bowel sounds. The abdomen was soft, non-tender, and without masses, organomegaly, or appreciable enlargement of the abdominal aorta. Examination of the extremities revealed easily palpable radial, femoral and pedal pulses. There was no cyanosis, clubbing or edema. Examination of the skin revealed no evidence of significant rashes, suspicious appearing nevi or other concerning lesions. Neurologically the patient is awake and alert and there is no focal neurological deficits. - Labs CBC & Chem 7: 10/22/17 05:42 10/22/17 05:42 Labs: Microbiology - Last 24 Hours (Table) 10/19/17 08:41 Blood Culture - Preliminary Blood No Growth after 96 hours Assessment and Plan Plan: Assessment 1 acute right upper lobe pneumonia with secondary hypoxic respiratory failure. Likely improving. Follow-up chest x-ray shows improvement in the right upper lobe pneumonia. There is some atelectatic changes and left lung base. T patient was treated with a combination of Rocephin and Zithromax and currently is completing the course of Zithromax. Chest x-ray is improving and the patient 's oxygenation is improved currently on room air. 2 acute febrile illness secondary to above, recovered 3 acute hypoxic respiratory failure secondary to above, currently on oxygen at 2 L/m nasal cannula 4 shortness of breath secondary to above, improved 5 COPD with possibly component of exacerbation secondary to above 6 coronary artery disease with previous bypass surgery back in 2003 7 recent coronary angiogram was attempted PCI/on successful 8 mild troponin leak 9 hypothyroidism 10 hyperlipidemia 11 peripheral neuropathy 12 restless leg syndrome 13 history of lymphoma 14 history of bladder cancer 15 history of recurrent syncope with a negative tilt table test 16 dementia 17 anxiety/depression 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 Normal oxygenation. Prednisone is at 10 mg. Rocephin was discontinued and the patient is completing course of Zithromax. Continue DuoNeb about treatments around the clock. Consider ECF transfer in a.m.
[2017-10-23] MEDS: ATORVASTATIN 40 MG TAB PO SCH (17:44)
[2017-10-23] MEDS: TEMAZEPAM 30 MG CAP PO SCH (20:25)
[2017-10-23] MEDS: AMITRIPTYLINE HCL 50 MG TAB PO SCH (20:25)
[2017-10-24 06:30] VITALS: BP 113/65; RESP 20; TEMP 97.8
[2017-10-24] MEDS: IPRATROPIUM-ALBUTEROL 3 ML NEB INHALATION SCH ×2 (07:54→11:16)
[2017-10-24] MEDS: MIDODRINE 5 MG TAB PO SCH (08:19)
[2017-10-24] MEDS: ISOSORBIDE MONONITRATE ER 30 MG TAB.ER.24H PO SCH (08:19)
[2017-10-24] MEDS: predniSONE 10 MG TAB PO SCH (08:19)
[2017-10-24] MEDS: PANTOPRAZOLE 40 MG TABLET PO SCH (08:19)
[2017-10-24] MEDS: LEVOTHYROXINE 75 MCG TAB PO SCH (08:19)
[2017-10-24] MEDS: CLOPIDOGREL 75 MG TAB PO SCH (08:19)
[2017-10-24] MEDS: ASPIRIN 81 MG PO SCH (08:19)
[2017-10-24] MEDS: AZITHROMYCIN 500 MG TAB PO SCH (08:19)
[2017-10-24 11:19] VITALS: PULSE 72
--- NOTE | 2017-10-24 12:24 | P.PN ---
Subjective Progress Note Date: 10/24/17 Principal diagnosis: Acute right upper lobe pneumonia and secondary hypoxic respiratory failure, suspect development of a right lower lobe pneumonia 87-year-old male patient with known history of COPD and addition to coronary artery disease and previous bypass surgery will came into the hospital because of worsening weakness, fatigue, to the point where the patient was able to ambulate and he was crawling on the floor and he end up calling EMS and the patient was brought into the emergency department for further evaluation. At the time of admission the patient a temperature 103.9. His chest x-ray was revealing a right upper lobe pulmonary infiltrates/pneumonia and his white cell count was also elevated. Based on that the patient was diagnosed having a pneumonia and the patient was started on IV antibiotics and the patient was admitted to the floor. The patient is known to have coronary artery disease and he had a recent intervention where an attempted angioplasty of the PDA branch of the right coronary artery was done through the saphenous finger graft and this was not successful. Medical treatment was offered to the patient. He is currently free of any angina. He has hypertension and hypothyroidism and previous history of lymphoma as comorbid conditions. He also has previous history of left subclavian artery stenosis, and bladder cancer that was superficial resected. His bypass was in 2003 and the patient undergone four- vessel bypass surgery. Note that his current troponins are minimally elevated with levels of 0.12 respectively. Otherwise no other significant left carotid imbalance abnormalities. Correlation profile is within normal limits. He is currently covered with DuoNeb neb last treatment on the clock, IV Rocephin and Zithromax. He is on 2 L of oxygen nasal cannula and a saturation of 99%. No reported aspiration. He was previously treated for left perihilar pneumonia in 2016 and treatment was successful Bactrim. On 10/20/2017 patient seen in follow-up care unit. He is resting in bed, in no acute distress, pulse ox on 2 L per nasal cannula is 95%, no fever, no chills. No chest wall tenderness, no worsening dyspnea. Patient has fine crackles over both bases, no significant wheezing noted on today's exam. Patient's speech is garbled. Blood and urine cultures remain negative, today's chest x-ray has been reviewed by Dr. Schofield, and shows diffuse interstitial process and right upper lobe infiltrate. She remains on empiric antibiotics of Rocephin and Zithromax. Patient is currently getting DuoNeb nebulized treatments he remains on 2 L of oxygen per nasal cannula. The patient was seen again today 10/21/2017 in follow-up on the selective care unit. He is currently sitting up in bed. He is awake and alert in no acute distress. He is working with physical therapy. Continue good O2 saturations in the upper 90s on 2 L/m per nasal cannula. His been afebrile. Hemodynamically stable. Urine and blood cultures reveal no growth. On 10/23/2007 and answering this patient for a follow-up. Clinically improved. Overall still weak and is having difficulty with mobility and ablation. The patient is being seen by physical therapy in the hospital. In terms of his respiratory status, the cough and chest congestion has subsided. Minimal crackles in the left lung base. Afebrile. No nausea or vomiting. No altered mentation. Hemodynamically stable. Cultures of been all negative. The patient is on a combination of Rocephin and Zithromax. Follow-up chest x-ray from today shows a patchy left basilar atelectasis/infiltrate. The previously reported the right upper and right lower lobe pulmonary infiltrates have improved. On 10/23/2017, patient is doing well. No complaints. Improving. Still weak. Suggested ECF transfer however the patient declined. This is further being handled by the primary care team and the plan is still to consider ECF placement based on his overall performance and functional status. Meanwhile, the patient is not having any respiratory distress. Chest x-rays improving. Cultures of been all negative. No nausea or vomiting. No altered mentation. No chest pain. No other significant events over the past 24 hours. Patient is currently on Zithromax 500 mg by mouth daily and DuoNeb neb last treatment [id number]. oxygenation is improved and the patient's pulse ox is up to 92% on room air. On 10/24/2017 patient seen again in follow-up. He is sitting up in the chair, denies any distress, denies any worsening dyspnea, no chest pain, no fever or chills, no hemoptysis, no worsening chest congestion. Lung sounds are clear. Patient is awaiting to be evaluated by physical therapy, patient still does not want to consider ECF/short-term rehab after his hospitalization. He is adamant about going home, he lives by himself with his dog. He thinks he may only require outpatient rehab. From pulmonary standpoint he remains stable, he is alert oriented, no altered mentation, no chest pain, no nausea or vomiting, vital signs are stable, patient is afebrile, pulse ox is 96%, urine and blood cultures remain negative. Today's labs have been reviewed, no leukocytosis, WBC 7.4, hemoglobin is 8.8, electrolytes and renal profile are all within normal limits. Patient remains on oral Zithromax, and his own is down to 10 mg daily, continues on nebulized bronchodilators. Objective - Vital Signs Vital signs: Vital Signs Temp 97.8 F 10/24/17 06:29 Pulse 72 10/24/17 11:24 Resp 20 10/24/17 06:29 BP 113/65 10/24/17 06:29 Pulse Ox 99 10/24/17 06:29 Intake & Output 10/23/17 10/24/17 10/24/17 18:59 06:59 18:59 Intake Total 720 400 Output Total 600 Balance 120 400 Intake: Oral 720 400 Output: Urine 600 Stool 0 Other: Voiding Method Toilet Bedside Commode Urinal # Voids 2 - Exam Gen. appearance the patient is calm comfortable and he demonstrated only mild respiratory distress at rest. His currently inactive. Liters per minute nasal cannula. Head exam was generally normal. There was no scleral icterus or corneal arcus. Mucous membranes were moist. Neck was supple and without jugular venous distension, thyromegaly, or carotid bruits. Carotids were easily palpable bilaterally. There was no adenopathy. Lungs sounds are clear, diminished at the bases Cardiac exam revealed the PMI to be normally situated and sized. The rhythm was regular and no extrasystoles were noted during several minutes of auscultation. The first and second heart sounds were normal and physiologic splitting of the second heart sound was noted. There were no murmurs, rubs, clicks, or gallops. Abdominal exam revealed normal bowel sounds. The abdomen was soft, non-tender, and without masses, organomegaly, or appreciable enlargement of the abdominal aorta. Examination of the extremities revealed easily palpable radial, femoral and pedal pulses. There was no cyanosis, clubbing or edema. Examination of the skin revealed no evidence of significant rashes, suspicious appearing nevi or other concerning lesions. Neurologically the patient is awake and alert and there is no focal neurological deficits. - Labs CBC & Chem 7: 10/22/17 05:42 10/22/17 05:42 Labs: Microbiology - Last 24 Hours (Table) 10/19/17 08:41 Blood Culture - Preliminary Blood No Growth after 120 hours Assessment and Plan Plan: Assessment: 1 acute right upper lobe pneumonia with secondary hypoxic respiratory failure. Likely improving. Follow-up chest x-ray shows improvement in the right upper lobe pneumonia. There is some atelectatic changes and left lung base. T patient was treated with a combination of Rocephin and Zithromax and currently is completing the course of Zithromax. Chest x-ray is improving and the patient 's oxygenation is improved currently on room air. 2 acute febrile illness secondary to above, recovered 3 acute hypoxic respiratory failure secondary to above, currently on oxygen at 2 L/m nasal cannula 4 shortness of breath secondary to above, improved 5 COPD with possibly component of exacerbation secondary to above 6 coronary artery disease with previous bypass surgery back in 2003 7 recent coronary angiogram was attempted PCI/on successful 8 mild troponin leak 9 hypothyroidism 10 hyperlipidemia 11 peripheral neuropathy 12 restless leg syndrome 13 history of lymphoma 14 history of bladder cancer 15 history of recurrent syncope with a negative tilt table test 16 dementia 17 anxiety/depression 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 On pulmonary standpoint patient is stable for discharge today, however he is refusing placement to subacute rehab, he is adamant about going home, he is awaiting evaluation by physical therapy. Follow-up with Dr. Schofield in 1 week I performed a history & physical examination of the patient and discussed their management with my nurse practitioner, Ana Dunbar. I reviewed the nurse practitioner's note and agree with the documented findings and plan of care. Lung sounds are clear, diminished at the bases. Findings and the impression was discussed with the patient. I attest to the documentation by the nurse practitioner. Time with Patient: Less than 30
--- NOTE | 2017-10-24 13:15 | P.DS ---
Providers Date of admission: 10/19/17 11:00 Attending physician: Cristian Chavez Consults: 10/19/17 11:00 Consult Physician Urgent Consulting Provider: Marta Newton Consult Reason/Comments: cardiac evaluation Do you want consulting provider notified?: Yes Consult Physician Urgent Consulting Provider: Katie Schofield Consult Reason/Comments: Pneumonia, sepsis Do you want consulting provider notified?: Yes Primary care physician: [facility] Course: 87-year-old male one of Dr. Maradiaga patient with past medical history of CAD, COPD, GERD, hypertension, hypothyroidism, and lymphoma who was in the hospital and her Dr. Newton service this past week was admitted on 10/14 to 2017 for coronary artery disease with the pre-or bypass surgery. Patient brought for an elective PCI of the PE VA branch of the RCA through vein graft which was attempt not successfully. Was sent home to be on medical management only supposed to see Dr. Stefano leary this week. Patient apparently become severely L with severe tiredness fatigue fever or chills not been able to ambulate and walk he was crawling on the floor did not feel well his neighbor ended up calling 911 or patient brought to demurs department at [facility] found to have mild hypoxia with elevated white blood cell and temperature was 103.9, chest x-ray showed right upper lobe infiltrate with increase marking of the interstitial pneumonitis in both side along with mild congestion. Patient was diagnosed with pneumonia, sepsis started on hydration IV antibiotic will be admitted to the hospital with above problem. 10/20: Patient remains febrile, highest fever yesterday reaching 103.9, today he is 99.6. Blood pressure is stable, O2 saturation 95% on 2 L via nasal cannula. Repeat chest x-ray shows diffuse interstitial process and right lower lobe infiltrate. He continues on Rocephin and azithromycin, blood cultures show no growth to date. Pulmonary consult appreciated. CPK and troponins show a downward trend, less likely an acute MT, cardiology on consult, potassium 3.0, will be supplemented today. 10/21: Patient is doing much better today he is afebrile not having any hypertension, hemodynamically more stable than yesterday, potassium was slightly bit low replacement was started. Patient still follow with cardiology and pulmonary. Will increase activity at physical therapy repeat chest x-ray repeat lab tomorrow if patient is stable might be discharge in the next 48 hours. 10/22: Patient evaluated today, overall clinically has improved, but still remains very weak and has difficulty with mobility. The patient already has been consulted by physical therapy who recommends rehab, patient will need ECF placement for subacute rehab, possibly discharge for Tuesday. Patient was noted to have some crackles on exam, Lasix 20 mg IV given. Repeat chest x-ray shows patchy peripheral left basilar atelectasis/infiltrate, right upper lobe density improved from prior exam. 10/23: Patient's overall condition improving, hemodynamically stable, cultures all have been negative. Chest x-rays are improving, Patient continues have difficulty with mobility and ambulation, recommend ECF which will most likely be done Tuesday. 10/24: Patients breathing has improved significantly. Long discussion with patient today regarding recommendations for going to ECF for rehab. Patient is adamant that he will not go to ECF, he is alert and orientated. protocol manager is going to call son and notify him that patient is refusing to go to ECF, patient is his own guardian. Will discharge home with home care. Discussed with patient , if he gets home and changes his mind, he was given the caseworker protective services phone number, and will arrange for ECF placement. Patient Condition at Discharge: Stable Plan - Discharge Summary Discharge Rx Participant: No New Discharge Prescriptions: New Azithromycin [Zithromax] 500 mg PO DAILY #3 tab Continue Amitriptyline HCl [Elavil] 50 mg PO HS Nitroglycerin Sl Tabs [Nitrostat] 0.4 mg SUBLINGUAL Q5M PRN PRN Reason: CHEST PAIN Atorvastatin [Lipitor] 40 mg PO W/SUPPER Levothyroxine Sodium [Synthroid] 75 mcg PO QAM Albuterol Nebulized [Ventolin Nebulized] 2.5 mg INHALATION RT-BID Temazepam 30 mg PO HS Midodrine [ProAmatine] 5 mg PO BID Isosorbide Mononitrate ER [Imdur] 30 mg PO QAM Clopidogrel [Plavix] 75 mg PO QAM Omeprazole [PriLOSEC] 20 mg PO AC-BRKFST Aspirin 81 mg PO QAM rOPINIRole HCL [Requip] 2 mg PO HS Gabapentin [Neurontin] 100 mg PO BID PRN PRN Reason: Pain predniSONE 10 mg PO DAILY Discharge Medication List Amitriptyline HCl [Elavil] 50 mg PO HS 03/06/16 [History] Atorvastatin [Lipitor] 40 mg PO W/SUPPER 03/06/16 [History] Levothyroxine Sodium [Synthroid] 75 mcg PO QAM 03/06/16 [History] Nitroglycerin Sl Tabs [Nitrostat] 0.4 mg SUBLINGUAL Q5M PRN 03/06/16 [History] Albuterol Nebulized [Ventolin Nebulized] 2.5 mg INHALATION RT-BID 06/03/17 [ History] Midodrine [ProAmatine] 5 mg PO BID 06/03/17 [History] Temazepam 30 mg PO HS 06/03/17 [History] Clopidogrel [Plavix] 75 mg PO QAM 09/13/17 [History] Isosorbide Mononitrate ER [Imdur] 30 mg PO QAM 09/13/17 [History] Aspirin 81 mg PO QAM 10/12/17 [History] Omeprazole [PriLOSEC] 20 mg PO AC-BRKFST 10/12/17 [History] Gabapentin [Neurontin] 100 mg PO BID PRN 10/19/17 [History] predniSONE 10 mg PO DAILY 10/19/17 [History] rOPINIRole HCL [Requip] 2 mg PO HS 10/19/17 [History] Azithromycin [Zithromax] 500 mg PO DAILY #3 tab 10/24/17 [Rx] Follow up Appointment(s)/Referral(s): [facility], [NON-STAFF] - 1 Week Momo Khan MD [Primary Care Provider] - 10/27/17 10:30 am () Katie Schofield MD [STAFF PHYSICIAN] - 1 Week (office closed call for appointment) Patient Instructions/Handouts: Pneumonitis (DC) Discharge Disposition: HOME WITH HOME HEALTH SERVICES
[2017-10-24] MEDS ORDERED: FUROSEMIDE 20 MG TAB PO STA (13:41)
== END 2017-10-24 13:57 | disposition home health service (06) | DRG 871 ==
LOC: EC 08:28 → 6SEL 11:00 → 4MS4W 10-23 21:01
PROVIDERS: ADMIT Internal Medicine Geriatric Medicine; ATTEND Internal Medicine Geriatric Medicine
DX: A41.9 Sepsis, unspecified organism (principal); J18.9 Pneumonia, unspecified organism; J96.21 Acute and chronic respiratory failure with hypoxia; G93.41 Metabolic encephalopathy; J44.1 Chronic obstructive pulmonary disease with (acute) exacerbation; J44.0 Chronic obstructive pulmonary disease with (acute) lower respiratory infection; J98.11 Atelectasis; G62.9 Polyneuropathy, unspecified; I35.9 Nonrheumatic aortic valve disorder, unspecified; F03.90 Unspecified dementia, unspecified severity, without behavioral disturbance, psychotic disturbance, mood disturbance, and anxiety; K21.9 Gastro-esophageal reflux disease without esophagitis; E78.5 Hyperlipidemia, unspecified; I25.10 Atherosclerotic heart disease of native coronary artery without angina pectoris; E03.9 Hypothyroidism, unspecified; I77.1 Stricture of artery; G25.81 Restless legs syndrome; I10 Essential (primary) hypertension; F32.9 Major depressive disorder, single episode, unspecified; F41.9 Anxiety disorder, unspecified; M19.042 Primary osteoarthritis, left hand; M19.041 Primary osteoarthritis, right hand; M46.90 Unspecified inflammatory spondylopathy, site unspecified; M17.0 Bilateral primary osteoarthritis of knee; R77.9 Abnormality of plasma protein, unspecified; Z79.82 Long term (current) use of aspirin; Z79.02 Long term (current) use of antithrombotics/antiplatelets; Z79.890 Hormone replacement therapy; Z79.899 Other long term (current) drug therapy; Z95.1 Presence of aortocoronary bypass graft; Z85.72 Personal history of non-Hodgkin lymphomas; Z85.51 Personal history of malignant neoplasm of bladder; Z86.14 Personal history of Methicillin resistant Staphylococcus aureus infection; Z95.0 Presence of cardiac pacemaker; Z87.891 Personal history of nicotine dependence; Z95.828 Presence of other vascular implants and grafts; Z98.42 Cataract extraction status, left eye; Z98.41 Cataract extraction status, right eye; Z88.0 Allergy status to penicillin; Z82.49 Family history of ischemic heart disease and other diseases of the circulatory system; Z82.3 Family history of stroke; Z82.0 Family history of epilepsy and other diseases of the nervous system
CPT/HCPCS: 36415; 71045; 71046; 80053; 81001; 82550; 82553; 83605; 84132; 84484; 85025; 85610; 85730; 87040; 87086; 93005; 94640; 94760; 96361; 96365; 96366; 96375; 99291

== ENCOUNTER → 2018-03-21 | Outpatient (CLI) | payer MEDICARE, BC ==
[2018-03-17 15:09] VITALS: BMI 23.3
[2018-03-21 11:56] VITALS: BP 152/74; PULSE 61; RESP 16
--- NOTE | 2018-03-21 12:22 | P.PAINPG ---
Subjective Progress Note Date: 03/21/18 Principal diagnosis: Right hip pain secondary to lumbar spinal stenosis and nerve compression This is an 87-year-old gentleman with a long-standing history of back problems who recently began experiencing right hip pain. He has had previous back surgery. He currently walks with a walker or a cane. He had a recent computed tomography scan of his back. He denies bowel or bladder dysfunction. He does report some weakness in his left leg and difficulty extending his left knee. Objective - Vital Signs Vital signs: Vital Signs Temp Pulse 61 03/21/18 11:45 Resp 16 03/21/18 11:45 BP 152/74 03/21/18 11:45 Pulse Ox 99 03/21/18 11:45 - Exam General: The patient is alert and oriented. Patient is not sedated Patient answers all question appropriately. He utilizes a cane. Cardiac: Heart is regular in rate and rhythm Respiratory: Clear to auscultation. No audible wheezes. Abdomen: Soft nontender nondistended. Lower extremities: Strength is normal bilaterally. Sensation is normal bilaterally. Reflexes are preserved and symmetric bilaterally. Straight leg raise is negative bilaterally. Decreased range of motion for left leg extension. Assessment and Plan (1) Lumbar radiculopathy, right Current Visit: Yes Status: Acute Code(s): M54.16 - RADICULOPATHY, LUMBAR REGION SNOMED Code(s): 522317995 (2) Degenerative lumbar spinal stenosis Current Visit: Yes Status: Acute Code(s): M48.061 - SPINAL STENOSIS, LUMBAR REGION WITHOUT NEUROGENIC ELVIS SNOMED Code(s): 867332136 Plan: Plan of Care 1. Medications: Patient can follow-up with his primary care doctor for prescription opiates. Given his advanced age I think that he should try to manage his pain with Tylenol and avoid opiate medications. I have reviewed the patient's MAPS report and it reveals expected results. Patient has signed an opiate agreement as well as opiate consent for treatment in our clinic. They understand the risks and benefits of opiate medications. They are aware of the potential for addiction. 2. Interventions: I believe the patient would benefit from a lumbar epidural steroid injection. This would be done at the L2-3 interspace on the right side. 3. Referrals: None 4. Testing: None 5. Follow-up: Lumbar epidural steroid injection L2-3 PQRS Measure Charge Sheet Measure #130: Documentation of Current Meds in Medical Chart: Patient's medications documented in chart Measure #226: Tobacco Use: Screen & Cessation Intervention: Pt not a tobacco user Measure #111: Pneumonia Vaccination: Pneumococcal vaccine NOT administered or previously given Measure #47: Advance Care Plan: Advance care planning discussed & documented, pt chose/unable to give Measure #412: Opioid Treatment Agreement: No documentation of signed opioid treatment agreement Measure #408: Opioid Therapy Follow-up Evaluation: Patient had NO f/u eval minimum every 3 months during opioid therapy Measure #317: Preventitive Care & Scrn High Bld Press & F/U: Normal blood pressure, f/u not required Measure #128: Body Mass Index (BMI) Screening & Follow-up: BMI documented ABOVE normal parameters - f/u documented Measure #131: Pain Assessment & Follow-up: Pain negative & plan not documented Measure #431: Unhealthy Alcohol Use Preventative Care & Scrn: Patient not identified as an unhealthy alcohol user PQRS Narrative: Smoking Status Former smoker Do You Want the Pneumonia Vaccine Up to Date Vaccine AT THIS TIME? Blood Pressure 152/74 Pain Intensity [Right Lower 8 Back] Scale Used Numeric (1 - 10) Hx Alcohol Use (MH) No Home Medications: Ambulatory Orders Atorvastatin [Lipitor] 40 mg PO W/SUPPER 03/06/16 Levothyroxine Sodium [Synthroid] 75 mcg PO QAM 03/06/16 Nitroglycerin Sl Tabs [Nitrostat] 0.4 mg SUBLINGUAL Q5M PRN 03/06/16 Albuterol Nebulized [Ventolin Nebulized] 2.5 mg INHALATION RT-BID 06/03/17 Midodrine [ProAmatine] 5 mg PO TID 06/03/17 Temazepam 30 mg PO HS 06/03/17 Isosorbide Mononitrate ER [Imdur] 30 mg PO QAM 09/13/17 Aspirin 81 mg PO QAM 10/12/17 Omeprazole [PriLOSEC] 20 mg PO AC-BRKFST 10/12/17 Gabapentin [Neurontin] 100 mg PO TID 10/19/17 predniSONE 10 mg PO DAILY 10/19/17 Cymbalta(Unknown Dose) 1 tab PO DAILY 03/17/18 Controlled Substance Measures - Controlled Substance Measures Is patient prescribed a controlled substance at discharge?: No
== END ==
LOC: PNWHC3 11:32
PROVIDERS: ATTEND Pain Medicine Pain Medicine
DX: M48.061 Spinal stenosis, lumbar region without neurogenic claudication (principal); M54.16 Radiculopathy, lumbar region; Z87.891 Personal history of nicotine dependence; Z79.899 Other long term (current) drug therapy; Z79.82 Long term (current) use of aspirin
CPT/HCPCS: 99211

== ENCOUNTER → 2018-03-27 | Outpatient (CLI) | payer MEDICARE, BC ==
[2018-03-27 11:50] LABS: Blood Urea Nitrogen 20 mg/dL (9-20)
--- NOTE | 2018-03-27 23:16 | CT ---
EXAMINATION TYPE: CT ChestAbdPelvis w con DATE OF EXAM: 03/27/2018 COMPARISON: 08/29/2017 HISTORY: 87-year-old male Lymphoma follow up TECHNIQUE: Contiguous axial scanning of the chest, abdomen, and pelvis performed with IV Contrast, pa tient injected with 100 mL of Isovue 300. Delayed images through the kidneys were obtained. Coronal/s agittal reconstructions performed. CT DLP: 895.1 mGycm Automated exposure control for dose reduction was used. FINDINGS: Chest: Left anterior chest wall AICD generator with right atrial, right ventricular, and coronary sin us leads. Median sternotomy wires are present with post-CABG changes. Heart normal size without pericardial effusion. Ascending aorta normal caliber with moderate atherosclerotic calcifications throughout and convention al arch vessel branching anatomy. Descending thoracic aorta ectatic at 2.9 cm. Right anterior chest wall injection port with catheter tip at the lower SVC. Scattered nonenlarged mediastinal lymph nodes are present, unchanged from prior. No thoracic lymphade nopathy by CT size criteria. Mild bilateral gynecomastia. Evaluation of the lung shows moderate centrilobular emphysema and apical pleural-parenchymal scarring . A few scattered small focal patchy areas of groundglass density in the lungs, suggestive of the med ial right upper lobe, axial image 9, posterior left base on axial image 44, and within the left lower lobe, axial image 35 through 37. Many of these areas appear new compared to 10/20/2016. Areas in the left lower lobe are improving as compared to 08/29/2017. ABDOMEN: No focal liver lesion. Mild prominence to the bile duct. A diverticulum of the second portion of the duodenum projecting into the pancreatic head region. Port al venous system is patent. Gallbladder, adrenal glands, spleen, and pancreas show no gross abnormality. Scattered subcentimeter hypodensities in both kidneys too small for accurate characterization, likely tiny cysts Aortobiiliac endovascular stent graft repair redemonstrated. The [place] lumen measures 3.2 cm, unchan ged. No dilated small bowel, free fluid, or free air. There is some liquid stool within the ascending colo n, nonspecific, can be seen in setting of enteritis. Mild diverticular change within the distal sigmo id colon. No mesenteric or retroperitoneal lymphadenopathy. Pelvis: Possible tiny layering calculi within the bladder lumen measuring up to 2 mm. Prostate gland is enlar ged measuring 5.6 cm wide. Pelvic phleboliths. No abnormal fluid collection pelvis for pelvic lymphad enopathy seen. There appears to be occlusion at the level of the left proximal superficial femoral artery and also i nvolving a branch of the right deep profunda artery. These findings are unchanged. Bones: Degenerative changes at the hips and severe degenerative disc disease at L4-L5 with right lateral sub luxation, dextroconvex scoliosis, and corresponding laminectomies with prior surgery. The chronic flu id collection within the posterior midline soft tissues at the surgical bed. This measures approximat raza 3.0 x 2.7 cm opposite the L4-L5 level. IMPRESSION: 1. NO SUSPICIOUS LYMPHADENOPATHY OR MASS TO SUGGEST DISEASE RECURRENCE. 2. COPD WITH MODERATE EMPHYSEMA. A FEW SCATTERED PATCHY AREAS OF GROUNDGLASS DENSITY ARE PRESENT SUCH IN THE LEFT LOWER LOBE AND THE PERIPHERAL RIGHT UPPER LOBE. DENSITY IN THE LEFT LOWER LOBE IS IMPROVI NG FROM 08/29/2017 BUT THE DENSITY IN THE RIGHT UPPER LOBE IS NEW. FINDINGS SUGGEST SMALL INFECTIOUS/I NFLAMMATORY FOCI. 3. SEVERE DEGENERATIVE CHANGE AT L4-L5 WITH RIGHT LATERAL SUBLUXATION AND POSTSURGICAL LAMINECTOMY. T HERE APPEARS TO BE A 3.0 X 0.7 CM FLUID COLLECTION INTERPOSED WITHIN THE SURGICAL BED, POSSIBLE POSTO PERATIVE SEROMA OR CHRONIC HEMATOMA. CLINICALLY CORRELATE.
== END | disposition home or self-care (01) ==
LOC: RADCTMAIN 10:49
PROVIDERS: ATTEND Internal Medicine Hematology & Oncology
DX: C83.38 Diffuse large B-cell lymphoma, lymph nodes of multiple sites (principal); J44.9 Chronic obstructive pulmonary disease, unspecified
CPT/HCPCS: 82565; 84520; 71260; 74177; 36415; J1642; Q9967

== ENCOUNTER 2018-11-27 14:26 | Emergency (ER) | payer MEDICARE, BC ==
[2018-11-27 14:36] VITALS: RESP 18; TEMP 98.2
[2018-11-27 15:18] LABS: Appearance,Urine Clear (Clear); Bilirubin,Urine Negative (Negative); Blood,Urine Trace (Negative); Color,Urine Yellow; Glucose,Urine (UA) Negative (Negative); Hyaline Casts,Urine 7 /lpf (0-2); Ketones,Urine Negative (Negative); Leukocyte Esterase,Urine Negative (Negative); Mucus,Urine Rare /hpf; Nitrite,Urine Negative (Negative); PH, Urine 5.5 (5.0-8.0); Protein,Urine Negative (Negative); RBC,Urine 3 /hpf (0-5); Specific Gravity,Urine 1.013 (1.001-1.035); Urobilinogen,Urine <2.0 mg/dL (<2.0); WBC,Urine 1 /hpf (0-5)
--- NOTE | 2018-11-27 16:19 | XR ---
EXAMINATION TYPE: XR lumbar spine 2 or 3V DATE OF EXAM: 11/27/2018 COMPARISON: NONE HISTORY: 88-year-old male increased low back pain TECHNIQUE: 3 views FINDINGS: Aortobiiliac endovascular stent grafts. Markedly degenerated extra convex scoliosis. There is deformi ty at the lumbosacral junction difficult to evaluate radiographically. Hypertrophic facet arthropathy . Grade 1 retrolisthesis at L2-L3 and grade 2 anterolisthesis at L4-L5. Additional right lateral subl uxation of L4 on L5. This better delineated on the patient's prior 03/27/2018 CT. Vertebral body heig hts are preserved. IMPRESSION: 1. 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 2. Hypertrophic facet arthropathy lower lumbar spine. Grade 1 retrolisthesis at L2-L3. 3. No vertebral compression collapse seen. 4. Aortobiiliac endovascular stent graft.
--- NOTE | 2018-11-27 16:51 | ED ---
Back Pain HPI - General Source: patient Limitations: no limitations <Kwesi Obrien - Last Filed: 11/28/18 17:18> <Joanie Harp - Last Filed: 11/29/18 01:22> - General Chief Complaint: Back Pain/Injury Stated Complaint: Poss kidney stone Time Seen by Provider: 11/27/18 15:08 - History of Present Illness Initial Comments: patient is an 88-year-old male presenting to emergency Department with a chief complaint of lower back pain. Patient has a history of chronic back pain that is exacerbated for last 2 days. Patient reports pain is more than usual. Patient reports the pain starts in the lower lumbar region and radiates along b ilateral lower extremities. Patient reports only coming to the emergency department because his narcotic medications are not controlling his pain. Patient reports the pain is exacerbated with flexion and alleviated at rest. Patient denies any one-sided paresthesias or muscle weakness. Patient denies saddle paresthesias, urinary or bowel incontinence. No red flags. His family members were also concerned for a possible kidney stone for a cause of the pain. Patient denies any urinary symptoms, hematuria, hematochezia or melena. Patient denies syncope, lightheadedness or dizziness. (Kwesi Obrien) - Related Data Home Medications Medication Instructions Recorded Confirmed Atorvastatin [Lipitor] 40 mg PO W/SUPPER 03/06/16 03/21/18 Levothyroxine Sodium [Synthroid] 75 mcg PO QAM 03/06/16 03/21/18 Nitroglycerin Sl Tabs [Nitrostat] 0.4 mg SUBLINGUAL Q5M PRN 03/06/16 03/21/18 Albuterol Nebulized [Ventolin 2.5 mg INHALATION RT-BID 06/03/17 03/21/18 Nebulized] Midodrine [ProAmatine] 5 mg PO TID 06/03/17 03/21/18 Temazepam 30 mg PO HS 06/03/17 03/21/18 Isosorbide Mononitrate ER [Imdur] 30 mg PO QAM 09/13/17 03/21/18 Aspirin 81 mg PO QAM 10/12/17 03/21/18 Omeprazole [PriLOSEC] 20 mg PO AC-BRKFST 10/12/17 03/21/18 Gabapentin [Neurontin] 100 mg PO TID 10/19/17 03/21/18 predniSONE 10 mg PO DAILY 10/19/17 03/21/18 Cymbalta(Unknown Dose) 1 tab PO DAILY 03/17/18 03/21/18 Allergies Allergy/AdvReac Type Severity Reaction Status Date / Time Penicillins Allergy Rash/Hives Verified 11/27/18 14:31 Review of Systems ROS Other: All systems not noted in ROS Statement are negative. <Kwesi Obrien - Last Filed: 11/28/18 17:18> ROS Other: All systems not noted in ROS Statement are negative. <Joanie Harp - Last Filed: 11/29/18 01:22> ROS Statement: Those systems with pertinent positive or pertinent negative responses have been documented in the HPI. Past Medical History Past Medical History: Cancer, Chest Pain / Angina, COPD, GERD/Reflux, Hyperlipidemia, Hypertension, Osteoarthritis (OA), Pneumonia, Thyroid Disorder, Vascular Disorder Additional Past Medical History / Comment(s): hx. bladder cancer that was resected endoscopically, left subclavian artery stenosis, PVD, history of lymphoma-remission for 5 yrs., right leg pain-thinks is sciatic History of Any Multi-Drug Resistant Organisms: MRSA Date of last positivie culture/infection: 2013 MDRO Source:: back Past Surgical History: Adenoidectomy, Back Surgery, Bladder Surgery, Coronary Bypass/CABG, Heart Catheterization, Pacemaker, Tonsillectomy Additional Past Surgical History / Comment(s): 2004 CABG 4 vessel, L subclavian angiogram, R upper leg arterial graft placed, TTT, cysto with bladder cancer lasered, power port right chest wall, 3 back surgeries, then hardware removed from back,nando laser eye surgery for cataracts. Past Anesthesia/Blood Transfusion Reactions: No Reported Reaction, Motion Sickness Additional Past Anesthesia/Blood Transfusion Reaction / Comment(s): Pt received blood in past without reaction. Type of Cardiac Device: Biventricular Pacemaker Device Placement Date:: Original pacer placed in 2009 and generator change in 2016 Past Psychological History: Anxiety, Depression Smoking Status: Former smoker Past Alcohol Use History: None Reported Past Drug Use History: None Reported - Past Family History Father Family Medical History: Vascular Disorder Additional Family Medical History / Comment(s): Father of a ruptured aortic aneurysm at the age of 75yrs. Mother Family Medical History: No Reported History Additional Family Medical History / Comment(s): Pt states mother was healthy and lived to the age of 82 yrs. Daughter(s) History Unknown: Yes Additional Family Medical History / Comment(s): Multiple Sclerosis <Kwesi Obrien - Last Filed: 11/28/18 17:18> General Exam Limitations: no limitations General appearance: alert, in no apparent distress Head exam: Present: atraumatic, normocephalic, normal inspection Eye exam: Present: normal appearance, PERRL, EOMI Pupils: Present: normal accommodation ENT exam: Present: normal exam, mucous membranes moist, normal external ear exam Neck exam: Present: normal inspection, full ROM Respiratory exam: Present: normal lung sounds bilaterally Cardiovascular Exam: Present: regular rate, normal rhythm, normal heart sounds GI/Abdominal exam: Present: soft, distended, normal bowel sounds. Absent: tenderness, guarding, rebound, pulsatile mass Extremities exam: Present: normal inspection, full ROM, other (+2 dorsalis pedis and posterior tibialis bilaterally.) Back exam: Present: full ROM (Limited due to pain), tenderness (Mild tenderness with palpation). Absent: normal inspection (Scarring noted in the lumbosacral region due to previous surgeries), CVA tenderness (R), CVA tenderness (L) Neurological exam: Present: alert, oriented X3 Psychiatric exam: Present: normal affect, normal mood Skin exam: Present: warm, intact, normal color <Kwesi Obrien - Last Filed: 11/28/18 17:18> Course Vital Signs 11/27/18 11/27/18 11/27/18 14:31 19:32 20:09 Temperature 98.2 F 98.2 F Pulse Rate 59 L 60 60 Respiratory 18 18 18 Rate Blood Pressure 120/55 116/72 116/72 O2 Sat by Pulse 95 99 99 Oximetry Medical Decision Making - Lab Data Result diagrams: 11/27/18 17:15 <Kwesi Obrien - Last Filed: 11/28/18 17:18> - Lab Data Result diagrams: 11/27/18 17:15 <Joanie Harp - Last Filed: 11/29/18 01:22> - Medical Decision Making Patient is a 88-year-old male presenting to the emergency department with low back pain. UA is unremarkable. Lumbar x-rays shows advanced spondylitic changes at L4 and L5 with right lateral and great to anterior subluxation as seen from CT imaging in 2018. Hypertrophic facet arthropathy in the lower spine. Aortic endovascular stents also placed. Considering the patient's age and his cardio vascular history a CT of abdomen and pelvis were performed. CT showing mild sigmoid diverticulosis without diverticulitis. Postsurgical changes with multilevel laminectomy defect and increased soft tissue density at the surgery site which are similar to his previous imaging exam. There is increased subcutaneous fluid over the left lumbar spine compared to old computed tomography scan. Dr. Harp also examined the patient and spoke with the radiologist. Patient will be discharged with a Lidoderm patch and advised to follow-up with his marketing data specialist. Patient has an appointment tomorrow. Strict return parameters were thoroughly discussed the patient was understanding and agreeable. Case discussed with physician. (Kwesi Obrien) I, Dr. Joanie Harp, Personally saw and examined the patient. I have reviewed and agree with the HEAD OF GEOGRAPHY/PA findings, including all diagnostic interpretations and treatment plans as written unless otherwise stated. I was present for the haddad portions of any procedures and the inclusive time noted for any critical care treatment. The patient had no history of recent spinal injections, fever, or direct trauma. On examination the patient has no overlying cellulitis or fluctuance to suggest abscess or infection. He has no neurologic deficits, no abdominal pain, his vital signs are stable, and he is well appearing. He states the only reason he came today is because his pain meds weren't working as well. He has a follow up appointment with an orthopedic multimedia authoring specialist in the morning,. He is safe for discharge and follow up. (Joanie Harp) - Lab Data Lab Results 11/27/18 11/27/18 Range/Units 15:00 17:15 Sodium 139 (137-145) mmol/L Potassium 4.8 (3.5-5.1) mmol/L Chloride 102 (98-107) mmol/L Carbon Dioxide 31 H (22-30) mmol/L Anion Gap 6 mmol/L BUN 21 H (9-20) mg/dL Creatinine 0.97 (0.66-1.25) mg/dL Est GFR (CKD-EPI)AfAm 82 (>60 ml/min/1.73 sqM) Est GFR (CKD-EPI)NonAf 71 (>60 ml/min/1.73 sqM) Glucose 116 H (74-99) mg/dL Calcium 9.0 (8.4-10.2) mg/dL Total Bilirubin 1.7 H (0.2-1.3) mg/dL AST 17 (17-59) U/L ALT 19 L (21-72) U/L Alkaline Phosphatase 74 (38-126) U/L Total Protein 5.5 L (6.3-8.2) g/dL Albumin 3.4 L (3.5-5.0) g/dL Urine Color Yellow Urine Appearance Clear (Clear) Urine pH 5.5 (5.0-8.0) Ur Specific [place] 1.013 (1.001-1.035) Urine Protein Negative (Negative) Urine Glucose (UA) Negative (Negative) Urine Ketones Negative (Negative) Urine Blood Trace H (Negative) Urine Nitrite Negative (Negative) Urine Bilirubin Negative (Negative) Urine Urobilinogen <2.0 (<2.0) mg/dL Ur Leukocyte Esterase Negative (Negative) Urine RBC 3 (0-5) /hpf Urine WBC 1 (0-5) /hpf Hyaline Casts 7 H (0-2) /lpf Urine Mucus Rare H (None) /hpf Disposition Is patient prescribed a controlled substance at d/c from ED?: No Time of Disposition: 20:07 <Kwesi Obrien - Last Filed: 11/28/18 17:18> <Joanie Harp - Last Filed: 11/29/18 01:22> Clinical Impression: Mechanical back pain Disposition: HOME SELF-CARE Condition: Stable Instructions (If sedation given, give patient instructions): Acute Low Back Pain (ED) Additional Instructions: Please follow with orthopedics. Please return to emergency department if symptoms worsen. Referrals: Glenn Perrin MD [Primary Care Provider] - 1-2 days Miah Gallo DO [Doctor of Osteopathic Medicine] - 1-2 days
[2018-11-27 17:41] LABS: Albumin 3.4 g/dL (3.5-5.0); Potassium 4.8 mmol/L (3.5-5.1); Total Bilirubin 1.7 mg/dL (0.2-1.3); Total Protein 5.5 g/dL (6.3-8.2)
--- NOTE | 2018-11-27 18:29 | CT ---
EXAMINATION TYPE: CT abdomen pelvis w con DATE OF EXAM: 11/27/2018 COMPARISON: 03/27/2018 HISTORY: Bilateral flank pain, history of bladder cancer. CT DLP: 1264.3 mGycm Automated exposure control for dose reduction was used. TECHNIQUE: Helical acquisition of images was performed from the lung bases through the pelvis. CONTRAST: Performed without Oral Contrast and with IV Contrast, patient injected with 100ml mL of Isovue 370. FINDINGS: There is patchy reticular coalescent infiltrate in the posterior lung bases. There is moderate emphys ade. Heart appears enlarged. There is no pericardial effusion. There is no pleural effusion. There is mild pleural thickening at the lung bases. Stomach appears normal. Gallbladder has normal size. Liver shows no focal defect. Spleen appears norm al. There is no evidence of pancreatic mass. There is no adrenal mass. Kidneys show satisfactory cont rast opacification. There is 3 mm calculus lateral right kidney. There is no hydronephrosis. Ureters are not dilated. There is no retroperitoneal adenopathy. There is aortoiliac stent noted. Bladder dis tends smoothly. There is no inguinal hernia. There is no free fluid in the pelvis. There are multiple diverticula of the sigmoid colon. There is no sign of diverticulitis. There is no free fluid in the pelvis. There is multilevel laminectomy defect of the lower lumbar spine. There is obliteration of L4 -5 disc space with subluxation deformity. There is increased density in the subcutaneous tissues at t he multilevel laminectomy site. There is subcutaneous edema and fluid over the lower lumbar spine. Th ere is no evidence of a pelvic mass. IMPRESSION: THERE IS MILD SIGMOID DIVERTICULOSIS WITHOUT DIVERTICULITIS. POSTSURGICAL CHANGES WITH MULTILEVEL DAVID INECTOMY DEFECT AND INCREASED SOFT TISSUE DENSITY AT THE SURGERY SITE POSTERIORLY SIMILAR TO OLD EXAM . THERE IS INCREASED SUBCUTANEOUS FLUID OVER THE LOWER LUMBAR SPINE COMPARED TO OLD CT SCAN. THERE IS PERSISTENT 2.5 CM FLUID COLLECTION AT THE LAMINECTOMY SITE AT THE L5 LEVEL UNCHANGED. There is increased patchy infiltrate and fibrotic changes at the lung bases compared to old exam. Pul monary emphysema unchanged.
[2018-11-27 19:33] VITALS: BP 116/72; PULSE 60
[2018-11-27] MEDS ORDERED: LIDOCAINE 5% PATCH TOPICAL STA (20:06)
== END 2018-11-27 20:17 | disposition home or self-care (01) ==
LOC: EC 14:26
DX: M47.816 Spondylosis without myelopathy or radiculopathy, lumbar region (principal); M46.96 Unspecified inflammatory spondylopathy, lumbar region; K57.30 Diverticulosis of large intestine without perforation or abscess without bleeding; J44.9 Chronic obstructive pulmonary disease, unspecified; K21.9 Gastro-esophageal reflux disease without esophagitis; E78.5 Hyperlipidemia, unspecified; I10 Essential (primary) hypertension; E07.9 Disorder of thyroid, unspecified; F41.9 Anxiety disorder, unspecified; F32.9 Major depressive disorder, single episode, unspecified; Z85.51 Personal history of malignant neoplasm of bladder; Z85.72 Personal history of non-Hodgkin lymphomas; Z86.14 Personal history of Methicillin resistant Staphylococcus aureus infection; Z98.890 Other specified postprocedural states; Z95.1 Presence of aortocoronary bypass graft; Z95.818 Presence of other cardiac implants and grafts; Z95.0 Presence of cardiac pacemaker; Z87.891 Personal history of nicotine dependence; Z79.890 Hormone replacement therapy; Z79.82 Long term (current) use of aspirin; Z79.52 Long term (current) use of systemic steroids; Z79.899 Other long term (current) drug therapy; Z88.0 Allergy status to penicillin
CPT/HCPCS: 99284; 36415; 80053; 81001; 72100; 74177; Q9967

== ENCOUNTER 2019-02-05 13:29 | Emergency (ER) | payer MEDICARE ==
[2019-02-05] MEDS ORDERED: KETOROLAC 60 MG/2 ML VIAL IVP STA (14:28)
--- NOTE | 2019-02-05 14:35 | ED ---
General Adult HPI - General Chief complaint: Extremity Problem,Nontraumatic Stated complaint: Leg pain Time Seen by Provider: 02/05/19 13:35 Source: EMS, RN notes reviewed Mode of arrival: EMS Limitations: no limitations - History of Present Illness Initial comments: This is an 88-year-old male who presents emergency Department complaining of bilateral leg pain. Patient states his been ongoing and he is seeing multiple vascular surgeries for me will not do surgery. Patient states today the left leg is gotten so bad below the knee that it hurts to walk on his unable to ambulate and he doesn't know what else to do. Patient states he would like to see Dr. Gill. Patient denies any injury to the legs. Patient denies any color change. Patient denies any abdominal pain. Patient denies chest pain difficulty breathing or shortness of breath - Related Data Home Medications Medication Instructions Recorded Confirmed Atorvastatin [Lipitor] 40 mg PO W/SUPPER 03/06/16 02/05/19 Nitroglycerin Sl Tabs [Nitrostat] 0.4 mg SUBLINGUAL Q5M PRN 03/06/16 02/05/19 Albuterol Nebulized [Ventolin 2.5 mg INHALATION RT-BID 06/03/17 02/05/19 Nebulized] Midodrine [ProAmatine] 5 mg PO TID 06/03/17 02/05/19 Temazepam 30 mg PO HS 06/03/17 02/05/19 Isosorbide Mononitrate ER [Imdur] 30 mg PO QAM 09/13/17 02/05/19 Aspirin 81 mg PO QAM 10/12/17 02/05/19 Omeprazole [PriLOSEC] 20 mg PO AC-BRKFST 10/12/17 02/05/19 predniSONE 10 mg PO DAILY 10/19/17 02/05/19 Acetaminophen with Codeine 1 tab PO Q6H PRN 01/10/19 02/05/19 [Tylenol with Codeine #4 Tablet] Apixaban [Eliquis] 5 mg PO BID 01/10/19 02/05/19 Ergocalciferol (Vitamin D2) 50,000 unit PO WE 01/10/19 02/05/19 [Vitamin D2] DULoxetine HCL [Cymbalta] 20 mg PO HS 02/05/19 02/05/19 Furosemide [Lasix] 40 mg PO DAILY 02/05/19 02/05/19 Gabapentin [Neurontin] 400 mg PO TID 02/05/19 02/05/19 Levothyroxine Sodium [Synthroid] 50 mcg PO QAM 02/05/19 02/05/19 Allergies Allergy/AdvReac Type Severity Reaction Status Date / Time Penicillins Allergy Rash/Hives Verified 02/05/19 13:49 Review of Systems ROS Statement: Those systems with pertinent positive or pertinent negative responses have been documented in the HPI. ROS Other: All systems not noted in ROS Statement are negative. Past Medical History Past Medical History: Cancer, Chest Pain / Angina, COPD, GERD/Reflux, Hyperlipidemia, Hypertension, Osteoarthritis (OA), Pneumonia, Thyroid Disorder, Vascular Disorder Additional Past Medical History / Comment(s): Bladder cancer,LYMPHOMA, LEFT FRONTAL SCALP SQUAMOUS CALL CARCINOMA,left subclavian artery stenosis, PVD, INTERMITTENT CLAUDICATION BOTH LEGS. History of Any Multi-Drug Resistant Organisms: MRSA Date of last positivie culture/infection: 2013 MDRO Source:: back Past Surgical History: Adenoidectomy, Back Surgery, Bladder Surgery, Coronary Bypass/CABG, Heart Catheterization, Pacemaker, Tonsillectomy Additional Past Surgical History / Comment(s): 2003 CABG 4 vessel, L subclavian angiogram, R upper leg arterial graft placed, TTT, cysto with bladder cancer lasered, power port right chest wall, 3 back surgeries, then hardware removed from back,nando laser eye surgery for cataracts. Past Anesthesia/Blood Transfusion Reactions: No Reported Reaction, Motion Sickness Additional Past Anesthesia/Blood Transfusion Reaction / Comment(s): Pt received blood in past without reaction. Type of Cardiac Device: Biventricular Pacemaker Device Placement Date:: Original pacer placed in 2009 and generator change in 2016 Past Psychological History: Anxiety, Depression Smoking Status: Former smoker Past Alcohol Use History: None Reported Past Drug Use History: None Reported - Past Family History Father Family Medical History: Vascular Disorder Additional Family Medical History / Comment(s): Father of a ruptured aortic aneurysm at the age of 75yrs. Mother Family Medical History: No Reported History Additional Family Medical History / Comment(s): Pt states mother was healthy and lived to the age of 82 yrs. Daughter(s) History Unknown: Yes Additional Family Medical History / Comment(s): Multiple Sclerosis General Exam - General Exam Comments Initial Comments: GENERAL: Patient is well-developed and well-nourished. Patient is nontoxic and well- hydrated and is in mild distress. ENT: Neck is soft and supple. No significant lymphadenopathy is noted. Oropharynx is clear. Moist mucous membranes. Neck has full range of motion without eliciting any pain. EYES: The sclera were anicteric and conjunctiva were pink and moist. Extraocular movements were intact and pupils were equal round and reactive to light. Eyelids were unremarkable. PULMONARY: Unlabored respirations. Good breath sounds bilaterally. No audible rales rhonchi or wheezing was noted. CARDIOVASCULAR: There is a regular rate and rhythm without any murmurs gallops or rubs. ABDOMEN: Soft and nontender with normal bowel sounds. SKIN: Skin is clear with no lesions or rashes and otherwise unremarkable. NEUROLOGIC: Patient is alert and oriented x3. Cranial nerves II through XII are grossly intact. Motor and sensory are also intact. Normal speech, volume and content. Symmetrical smile. MUSCULOSKELETAL: Normal extremities with adequate strength and full range of motion. Patient has no palpable DP or PT pulses bilaterally. Patient has poor cap refill bilaterally but much worse Refill in the left leg. Patient's cap refill is 5 seconds in the right toe but at least 15 seconds in the left LYMPHATICS: No significant lymphadenopathy is noted PSYCHIATRIC: Normal psychiatric evaluation. Limitations: no limitations Course Vital Signs 02/05/19 13:32 Temperature 98.0 F Pulse Rate 68 Respiratory 16 Rate Blood Pressure 131/60 O2 Sat by Pulse 97 Oximetry Medical Decision Making - Medical Decision Making Dr. Gill came down and saw the patient in the emergency department and did not want the patient admitted stated he would follow-up the patient on Tuesday the patient was in agreement. Patient did receive Toradol emergency department. Disposition Clinical Impression: Arterial insufficiency of lower extremity Disposition: HOME SELF-CARE Condition: Good Instructions (If sedation given, give patient instructions): Peripheral Artery Disease (ED) Is patient prescribed a controlled substance at d/c from ED?: No Referrals: Mariano Gill MD [STAFF PHYSICIAN] - 1-2 days Time of Disposition: 16:03
[2019-02-05] MEDS ORDERED: KETOROLAC 30 MG/ML 1 ML VIAL IM STA (14:46)
[2019-02-05 16:30] VITALS: BP 103/86; PULSE 64; RESP 18; TEMP 97.4
== END 2019-02-05 16:46 | disposition home or self-care (01) ==
LOC: EC 13:29
DX: I73.9 Peripheral vascular disease, unspecified (principal); I20.9 Angina pectoris, unspecified; J44.9 Chronic obstructive pulmonary disease, unspecified; K21.9 Gastro-esophageal reflux disease without esophagitis; E78.5 Hyperlipidemia, unspecified; I10 Essential (primary) hypertension; M19.90 Unspecified osteoarthritis, unspecified site; E07.9 Disorder of thyroid, unspecified; F32.9 Major depressive disorder, single episode, unspecified; F41.9 Anxiety disorder, unspecified; Z87.891 Personal history of nicotine dependence; Z88.0 Allergy status to penicillin; Z79.01 Long term (current) use of anticoagulants; Z79.52 Long term (current) use of systemic steroids; Z79.82 Long term (current) use of aspirin; Z79.890 Hormone replacement therapy; Z79.899 Other long term (current) drug therapy; Z86.14 Personal history of Methicillin resistant Staphylococcus aureus infection; Z85.51 Personal history of malignant neoplasm of bladder; Z85.828 Personal history of other malignant neoplasm of skin; Z85.72 Personal history of non-Hodgkin lymphomas; Z95.0 Presence of cardiac pacemaker; Z95.1 Presence of aortocoronary bypass graft; Z98.890 Other specified postprocedural states; Z82.49 Family history of ischemic heart disease and other diseases of the circulatory system
CPT/HCPCS: 99283; 96372; J1885